=== PATIENT | male | born 1955 | race Caucasian/White ===

== ENCOUNTER → 2017-12-31 08:11 | Outpatient (CLI) | payer MEDICARE, OTHER, SELFPAY ==
[2017-12-31 09:08] LABS: Add Manual Diff / Slide Review NO; Basophils Percent Auto 0.5 % (0-2); Eosinophils Percent Auto 1.4 % (2-4); Hematocrit 39.4 % (41-53); Lymphocytes Percent Auto 45.4 % (25-40); Mean Corpuscular Hemoglobin 28.5 PG (26-34); Mean Corpuscular Volume 86.3 fL (80-100); Monocytes Percent Auto 13.4 % (3-14); Neutrophils Absolute Auto 2300 /uL (3000-5900); Neutrophils Percent Auto 39.3 % (50-75); Platelet Count 193 X10^3/uL (150-400); Red Blood Cell Count 4.57 X10^6/uL (4.5-5.9); Red Cell Distribution Width 14.9 % (11.6-14.8); White Blood Cell Count 5.9 X10^3/uL (4.5-11.0)
[2017-12-31 09:19] LABS: Alanine Aminotransferase 55 IU/L (21-72); Albumin 3.9 g/dL (3.5-5.0); Albumin Globulin Ratio 1.3 (1.0-2.8); Alkaline Phosphatase 68 U/L (38-126); Aspartate Aminotransferase 42 IU/L (17-59); BUN Creatinine Ratio 21.3 (6-22); Bilirubin Total 0.4 mg/dL (0.2-1.3); Blood Urea Nitrogen 17 mg/dL (9-20); Calcium 9.4 mg/dL (8.4-10.2); Carbon Dioxide 34 mmol/L (22-32); Chloride 102 mmol/L (98-107); Cholesterol 187 mg/dL (140-199); Estimated Glomerular Filt Rate > 60.0 mL/min (>60); Glucose 90 mg/dL (80-110); HDL Cholesterol 79 mg/dL (40-60); HEMOLYSIS < 15 (0-50); LDL Cholesterol Calculated 94 mg/dL (<100); Potassium 4.2 mmol/L (3.4-5.1); Sodium 143 mmol/L (137-145); Total Protein 6.9 g/dL (6.3-8.2); Triglycerides 71 mg/dL (35-150)
[2017-12-31 09:46] LABS: Prostate Specific Antigen Scrn 1.56 ng/mL (0.1-4.0); TSH w/ Reflex to FT4 1.58 uIU/mL (0.47-4.68)
== END ==
PROVIDERS: Family Provider Psychiatry & Neurology Neurology; PCP Internal Medicine; Visit Provider Internal Medicine
DX: Z00.00 Encounter for general adult medical examination without abnormal findings (principal); G35 Multiple sclerosis; R03.0 Elevated blood-pressure reading, without diagnosis of hypertension; N31.0 Uninhibited neuropathic bladder, not elsewhere classified
CPT/HCPCS: 36415; 80053; 80061; 84443; 85025; G0103

== ENCOUNTER → 2019-01-05 11:34 | Outpatient (CLI) | payer MEDICARE, OTHER, SELFPAY ==
--- NOTE | 2019-01-05 | DI.US.S_ITS ---
PROCEDURE: US RENAL COMPLETE INDICATIONS: NEUROMUSCULAR DYSFUNCTION OF BLADDER, UNSPECIFIED TECHNIQUE: Real-time scanning was performed of the kidneys and bladder, with image documentation. COMPARISON: [facility], , US RENAL, 01/04/2003, 12:38. FINDINGS: Kidneys: Kidneys are normal in size. Right kidney measures 10.8 cm long; left kidney measures 10.7 cm long. Right renal cortical thickness is 1.2 cm; left renal cortical thickness is 1.8 cm. Renal cortical echotexture is normal. No hydronephrosis or nephrolithiasis. No suspicious solid mass lesions. Bladder: Pre-void bladder volume is 150 mL. Post-void residual is 165 mL. Pre-void images demonstrate no intraluminal masses or stones. On pre-void images, bilateral ureteral jets are noted with color Doppler interrogation. (Of note, ureteral jets may not be detectable in up to 25% of cases due to insufficient differences in specific gravity between ureteral and bladder urine). Urinary bladder is prominent in thickness measuring 8 mm. Miscellaneous: No free pelvic fluid. IMPRESSION: 1. Normal appearance of the kidneys. 2. Prominence of the urinary bladder wall measuring up to 8 mm. Dictated by: Sonu Ramos [facility] Interpreted: Aaron Mora MD on 01/05/2019 at 13:13 Approved by: Aaron Mora M.D. on 01/05/2019 at 14:24
== END ==
PROVIDERS: PCP Internal Medicine; Visit Provider Urology
DX: N31.9 Neuromuscular dysfunction of bladder, unspecified (principal)
CPT/HCPCS: 76770

== ENCOUNTER 2019-03-06 09:26 | Inpatient (IN) | payer MEDICARE, OTHER, SELFPAY ==
[2019-03-06] VITALS (9 sets, daily range): BP systolic 146–166; BP diastolic 76–103; PULSE 58–72; RESP 13–19; TEMP 36.4–37; O2SAT 98–100; BMI 24.7
[2019-03-06 10:04] LABS: INR 0.9 (0.9-1.3); Prothrombin Time 10.4 SECONDS (10.1-12.7)
[2019-03-06 10:07] LABS: PTT Partial Thromboplastin Tim 30 SECONDS (26.4-36.2)
[2019-03-06 10:08] LABS: Alanine Aminotransferase 52 IU/L (21-72); Albumin Globulin Ratio 1.1 (1.0-2.8); Alkaline Phosphatase 129 U/L (38-126); Aspartate Aminotransferase 60 IU/L (17-59); BUN Creatinine Ratio 23.8 (6-22); Bilirubin Total 0.8 mg/dL (0.2-1.3); Blood Urea Nitrogen 31 mg/dL (9-20); Carbon Dioxide 33 mmol/L (22-32); Chloride 96 mmol/L (98-107); Estimated Glomerular Filt Rate 56.1 mL/min (>60); Globulin 3.5 g/dL (1.7-4.1); Glucose 119 mg/dL (80-110); Lipase 21 U/L (23-300); Potassium 3.9 mmol/L (3.4-5.1); Sodium 136 mmol/L (137-145); Total Protein 7.5 g/dL (6.3-8.2)
[2019-03-06 10:17] LABS: Add Manual Diff / Slide Review NO; Basophils Absolute Auto 100 /uL (0-100); Basophils Percent Auto 0.7 % (0-2); Eosinophils Absolute Auto 100 /uL (0-450); Eosinophils Percent Auto 1.4 % (2-4); Hematocrit 36.8 % (41-53); Hemoglobin 12.4 g/dL (13.5-17.5); Lymphocytes Absolute Auto 1600 /uL (1100-4500); Lymphocytes Percent Auto 19.7 % (25-40); Mean Corpuscular HGB Conc 33.7 % (30-36); Mean Corpuscular Hemoglobin 29.1 PG (26-34); Mean Corpuscular Volume 86.2 fL (80-100); Monocytes Absolute Auto 900 /uL (0-900); Monocytes Percent Auto 11.4 % (3-14); Neutrophils Absolute Auto 5400 /uL (1500-7000); Neutrophils Percent Auto 66.8 % (50-75); Platelet Count 385 X10^3/uL (150-400); Red Blood Cell Count 4.27 X10^6/uL (4.5-5.9); Red Cell Distribution Width 14.6 % (11.6-14.8); White Blood Cell Count 8.1 X10^3/uL (4.5-11.0)
--- NOTE | 2019-03-06 10:31 | PC.NURSE ---
14 hungarian all silicone catheter placed
[2019-03-06 10:33] LABS: HEMOLYSIS 49 (0-50)
[2019-03-06 10:34] LABS: Bacteria Urine None Seen; RBC Urine None Seen (0-5/HPF); WBC Urine None Seen (0-5/HPF)
--- NOTE | 2019-03-06 10:40 | ED_ITS ---
HPI - Abdominal Pain General Chief Complaint: Abdominal Pain Stated Complaint: decreased ua output/abd pain ongoing 1month Time Seen by Provider: 03/06/19 10:40 Source: patient and family Mode of arrival: Wheelchair Limitations: no limitations History of Present Illness HPI narrative: This is a 63-year-old male who comes to the emergency department with complaint of increasing spasticity and weakness. Patient states he has been eating increasing help getting about. He has MS and is typically scooter bound but can transfer with some assistance. Patient states Friday a week ago he did have a cystoscopy which showed stricture. This was not unexpected finding as he self caths regularly secondary to neurogenic bladder from his MS. Patient states that 2 or 3 weeks ago he had a fever but has not had any since. He does not any chest pain, no shortness of breath. This morning he had a little bit of right upper quadrant pain which was sharp and lasted for about 5 minutes Um to 15 minutes and then resolved. He states that it seemed to be initiated by eating. He states it resolved on its own he denies any symptoms currently. He typically has slow bowel movements and takes senna tablets, his last bowel movement was several days ago. He is having flatus. States he has noted a decrease in his urine output, he self caths after voiding typically 8-10 times a day and typically gets about 300-400 cc total, he has been getting about 100 cc total recently. Has had a little bit more urgency and sensation of frequency and nocturia recently. Patient denies any other medical history, he has had tonsils and adenoids removed, no allergies now, no tobacco, alcohol or illicit. Dr. Longo is his primary care and Dr. Garcia is his neurologist at [facility]. Related Data Home Medications Medication Instructions Recorded Confirmed baclofen 20 mg PO Q6HR 03/06/19 03/06/19 cholecalciferol (vitamin D3) 2,000 unit PO DAILY 03/06/19 03/06/19 [Vitamin D3] citalopram 40 mg PO DAILY 03/06/19 03/06/19 docusate sodium 250 mg PO BEDTIME 03/06/19 03/06/19 interferon beta-1a (albumin) 44 mcg SUBCUT 3XW 03/06/19 03/06/19 [Rebif Rebidose] [id number] 1 tab PO DAILY 03/06/19 03/06/19 [Centrum Silver Men] Allergies Allergy/AdvReac Type Severity Reaction Status Date / Time No Known Drug Allergies Allergy Verified 03/06/19 09:40 Review of Systems Review of Systems ROS Unobtainable: All systems reviewed & are unremarkable except as noted in HPI and below Patient History Medical History (Updated 03/06/19 @ 11:05 by Natali Dumont DO) Multiple sclerosis (Acute) Neurogenic bladder (Acute) Surgical History (Updated 03/06/19 @ 11:03 by Natali Dumont DO) S/P tonsillectomy and adenoidectomy (Acute) Social History household members: spouse Smoking Status: Former smoker alcohol intake: never alcohol intake frequency: 0-2 drinks per day Substance Use Type: does not use Exam Narrative Exam Narrative: GENERAL: Alert and oriented x three, well-nourished male in mild distress. HEENT: Head normocephalic, atraumatic, EOMI, pupils reactive, face symmetric, moist mucous membranes NECK: Supple, full range of motion CARDIOVASCULAR: Regular rate and rhythm without murmurs, rubs or gallops. RESPIRATORY: Breath sounds equal bilaterally, no wheezes rales or rhonchi. ABDOMEN: Soft, nontender. Normoactive bowel sounds all 4 quadrants. No guarding or rebound, rigidity, no mass. nondistended. : No CVA tenderness. normal male genitalia with a urinary catheter draining yellow urine. EXTREMITIES: Patient has decreased movement his lower extremities and upper extremities although he does have some movement, no edema is noted. Patient has some mild to moderate atrophy. NEUROLOGICAL: Cranial nerves II through XII grossly intact. Moving all extremities SKIN: Warm, dry, no petechiae, no rashes or lesions. Initial Vital Signs Initial Vital Signs: Vital Signs Temperature 97.5 F L 03/06/19 09:30 Pulse Rate 63 03/06/19 09:30 Respiratory Rate 14 03/06/19 09:30 Blood Pressure 163/88 H 03/06/19 09:30 Pulse Oximetry 100 03/06/19 09:30 Scores GCS Jackson coma scale eye opening: Spontaneous Max coma scale verbal response: Orientated Jackson coma scale motor response: Obey commands Jackson coma scale total score: 15 Course Orders Ordered: ED Orders 03/06/19 09:42 EKG-12 Lead Stat 03/06/19 09:53 Complete Blood Count AUTO DIFF Stat Comprehensive Metabolic Panel Stat Lipase Stat Partial Thromboplastin Time Stat Prothrombin Time INR Stat Thyroid Stimulating Hormone Stat 03/06/19 10:32 Urinalysis and Microscopic Stat 03/06/19 10:59 US abdomen complete Stat 03/06/19 14:50 Basic Metabolic Panel Stat Discontinued Medications Baclofen (Lioresal) 20 mg PO NOW ONE Stop: 03/06/19 11:33 Last Admin: 03/06/19 11:38 Dose: 20 mg Documented by: ALMA Diazepam (Valium) 5 mg PO NOW ONE Stop: 03/06/19 13:19 Last Admin: 03/06/19 13:43 Dose: 5 mg Documented by: BRISA Sodium Chloride (Normal Saline 0.9%) 1,000 mls @ 1,000 mls/hr IV BOLUS ONE Stop: 03/06/19 11:40 Last Infusion: 03/06/19 12:27 Dose: 0 mls/hr Documented by: Admin: 03/06/19 10:45 Dose: 1,000 mls/hr Documented by: KWAN Sodium Chloride (Normal Saline 0.9%) 1,000 mls @ 200 mls/hr IV CONT LOCO Last Admin: 03/06/19 13:44 Dose: Not Given Documented by: BRISA Sodium Chloride (Normal Saline 0.9%) 1,000 mls @ 1,000 mls/hr IV BOLUS ONE Stop: 03/06/19 14:31 Last Admin: 03/06/19 13:43 Dose: 1,000 mls/hr Documented by: BRISA Vital Signs Vital signs: Vital Signs - 8 hr 03/06/19 09:30 03/06/19 10:30 03/06/19 11:00 Temperature 97.5 F L Pulse Rate 63 58 L 59 L Respiratory Rate 14 16 19 Blood Pressure 163/88 H Blood Pressure [Right Arm] 166/88 H 154/97 H Pulse Oximetry 100 100 100 03/06/19 11:30 03/06/19 13:00 Temperature Pulse Rate 59 L 62 Respiratory Rate 18 17 Blood Pressure Blood Pressure [Right Arm] 162/103 H 161/86 H Pulse Oximetry 100 100 MDM - Abdominal Pain Lab Data Attestation: I reviewed the patient's lab results. Result diagrams: 03/06/19 09:53 03/06/19 09:53 Labs: Lab Results 03/06/19 03/06/19 03/06/19 Range/Units 09:53 09:53 09:53 WBC 8.1 (4.5-11.0) X10^3/uL RBC 4.27 L (4.5-5.9) X10^6/uL Hgb 12.4 L (13.5-17.5) g/dL Hct 36.8 L (41-53) % MCV 86.2 (80-100) fL MCH 29.1 (26-34) PG MCHC 33.7 (30-36) % RDW 14.6 (11.6-14.8) % Plt Count 385 (150-400) X10^3/uL Neut % (Auto) 66.8 (50-75) % Lymph % (Auto) 19.7 L (25-40) % Spencer % (Auto) 11.4 (3-14) % Eos % (Auto) 1.4 L (2-4) % Baso % (Auto) 0.7 (0-2) % Neut # (Auto) 5400 (3111-4530) /uL Lymph # (Auto) 1600 (2856-4837) /uL Spencer # (Auto) 900 (0-900) /uL Eos # (Auto) 100 (0-450) /uL Baso # (Auto) 100 (0-100) /uL PT 10.4 (10.1-12.7) SECONDS INR 0.9 (0.9-1.3) APTT 30 (26.4-36.2) SECONDS Sodium 136 L (137-145) mmol/L Potassium 3.9 (3.4-5.1) mmol/L Chloride 96 L (98-107) mmol/L Carbon Dioxide 33 H (22-32) mmol/L BUN 31 H (9-20) mg/dL Creatinine 1.30 H (0.66-1.25) mg/dL Estimated GFR 56.1 L (>60) mL/min BUN/Creatinine Ratio 23.8 H (6-22) Glucose 119 H (80-110) mg/dL Calcium 14.1 H* (8.4-10.2) mg/dL Total Bilirubin 0.8 (0.2-1.3) mg/dL AST 60 H (17-59) IU/L ALT 52 (21-72) IU/L Alkaline Phosphatase 129 H (38-126) U/L Total Protein 7.5 (6.3-8.2) g/dL Albumin 4.0 (3.5-5.0) g/dL Globulin 3.5 (1.7-4.1) g/dL Albumin/Globulin Ratio 1.1 (1.0-2.8) Lipase 21 L (23-300) U/L TSH (0.47-4.68) uIU/mL Urine Color Urine Appearance Urine pH (4.5-8.0) Ur Specific [place] (1.000-1.035) Urine Protein (Negative) Urine Glucose (UA) (Negative) g/dL Urine Ketones (NEGATIVE) Urine Occult Blood (Negative) Urine Nitrate (Negative) Urine Bilirubin (NEGATIVE) Urine Urobilinogen (0.2) E.U./dL Ur Leukocyte Esterase (NEGATIVE) Urine RBC (0-5/HPF) Urine WBC (0-5/HPF) Ur Squamous Epith Cells (0-5/HPF) Urine Bacteria (None) Ur Culture Indicated? 03/06/19 03/06/19 Range/Units 09:53 10:32 WBC (4.5-11.0) X10^3/uL RBC (4.5-5.9) X10^6/uL Hgb (13.5-17.5) g/dL Hct (41-53) % MCV (80-100) fL MCH (26-34) PG MCHC (30-36) % RDW (11.6-14.8) % Plt Count (150-400) X10^3/uL Neut % (Auto) (50-75) % Lymph % (Auto) (25-40) % Spencer % (Auto) (3-14) % Eos % (Auto) (2-4) % Baso % (Auto) (0-2) % Neut # (Auto) (1225-7462) /uL Lymph # (Auto) (1561-3691) /uL Spencer # (Auto) (0-900) /uL Eos # (Auto) (0-450) /uL Baso # (Auto) (0-100) /uL PT (10.1-12.7) SECONDS INR (0.9-1.3) APTT (26.4-36.2) SECONDS Sodium (137-145) mmol/L Potassium (3.4-5.1) mmol/L Chloride (98-107) mmol/L Carbon Dioxide (22-32) mmol/L BUN (9-20) mg/dL Creatinine (0.66-1.25) mg/dL Estimated GFR (>60) mL/min BUN/Creatinine Ratio (6-22) Glucose (80-110) mg/dL Calcium (8.4-10.2) mg/dL Total Bilirubin (0.2-1.3) mg/dL AST (17-59) IU/L ALT (21-72) IU/L Alkaline Phosphatase (38-126) U/L Total Protein (6.3-8.2) g/dL Albumin (3.5-5.0) g/dL Globulin (1.7-4.1) g/dL Albumin/Globulin Ratio (1.0-2.8) Lipase (23-300) U/L TSH 2.40 (0.47-4.68) uIU/mL Urine Color Yellow Urine Appearance Clear Urine pH 6.0 (4.5-8.0) Ur Specific [place] 1.010 (1.000-1.035) Urine Protein Negative (Negative) Urine Glucose (UA) Negative (Negative) g/dL Urine Ketones Negative (NEGATIVE) Urine Occult Blood Trace-lysed (Negative) Urine Nitrate Negative (Negative) Urine Bilirubin Negative (NEGATIVE) Urine Urobilinogen 0.2 (0.2) E.U./dL Ur Leukocyte Esterase Negative (NEGATIVE) Urine RBC None seen (0-5/HPF) Urine WBC None seen (0-5/HPF) Ur Squamous Epith Cells 1-5 /hpf (0-5/HPF) Urine Bacteria None seen (None) Ur Culture Indicated? Cult not indicated Imaging Data US - abdomen: Radiologist's impression: [address] [address] Ultrasound Report Signed Patient: Wm Keys WMR#: [id number] : 8Acct:[id number] Age/Sex: 63 / MDate of Service: 03/06/19 Loc: ED Accession Number: [id number] Procedure: US abdomen complete Ordering Provider: Natali Dumont D.O. PROCEDURE: US ABDOMEN COMPLETE INDICATIONS: RIGHT UPPER QUADRANT PAIN TECHNIQUE: Real-time scanning was performed of the abdominal and retroperitoneal organs, with image documentation. COMPARISON: [facility], US, ABDOMEN COMPLETE, 06/11/2012, 8:46. FINDINGS: Liver: Liver is normal in size and homogeneous in echotexture. Gallbladder: No findings of gallstones or sludge are seen. The gallbladder wall is not thickened, measuring 3 mm or less. No specific pericholecystic fluid is seen. The sonographic Bhagat sign is negative. Biliary ducts: Intrahepatic bile ducts are non-dilated. Extrahepatic bile duct caliber measures 6-7 mm. Normal is 6-7 mm or less in diameter, or 10 mm or less post-cholecystectomy. Pancreas: Not seen, obscured by overlying bowel gas. Spleen: Spleen is normal in size and homogeneous in echotexture. Kidneys: Kidneys are normal in size and echotexture. Right kidney measures 11.8 cm long; left kidney measures 12.3 cm long. No hydronephrosis or nephrolithiasis. No solid masses. The renal cortex measures within normal limits for thickness. Aorta: Visualized aorta is normal in caliber at less than 3 cm. Iliacs: Proximal common iliac arteries are normal in caliber at less than 2.5 cm. IVC: Intrahepatic inferior vena cava is patent. Miscellaneous: No free abdominal fluid. IMPRESSION: The gallbladder demonstrates a normal sonographic appearance. No biliary dilatation is seen. Note: Concordant preliminary findings given by the mixer foam rubber upon the completion of the examination to Dr. Dumont at 12 noon [place] time on March 06, 2019. Dictated by: Everardo Hodgson M.D. on 03/06/2019 at 11:04 Approved by: Everardo Hodgson M.D. on 03/06/2019 at 11:05 ECG Data Attestation: I personally reviewed and interpreted this ECG as follows: Interpretation: Sinus bradycardia rate of 58 P are 146 QRS of 121 and QTC 397[address] No ST elevation appreciated nonspecific change. No Diego waves appreciated. MDM Narrative Medical decision making narrative: Patient has hypercalcemia which is likely related to his worsening weakness and symptoms. Patient given home dose of baclofen. Spoke with Dr. Martinez from neurology at [facility], he is covering the patient's neurologist. Patient is taking a monoclonal antibody which states should not be a cause for his hypercalcemia or acute kidney injury. Patient given hydration, pth and tsh added onto labs and discussed with Dr. Marie hospitalist for observation with tele, she accepts. Asks for 2nd Liter t hen 125cc/hr. Discharge Plan Departure Patient Disposition: Admitted as Observation Clinical Impression: Hypercalcemia, Acute kidney injury Discharge Date/Time: 03/06/19 14:15 Referrals: Roberto Longo MD [Primary Care Provider] - Admit Date/Time: 03/06/19 13:51 Admit Provider: Qi Marie
[2019-03-06 10:41] LABS: Calcium 14.1 mg/dL (8.4-10.2)
[2019-03-06] MEDS: SODIUM CHLORIDE 0.9% 1,000 ML 1000 ML IV ×2 (10:45→13:43)
[2019-03-06 10:46] LABS: Appearance Urine UA CLEAR; Bilirubin Urine UA NEGATIVE (NEGATIVE); Color Urine UA YELLOW; Glucose Urine UA NEGATIVE (Negative); Ketones Urine UA NEGATIVE (NEGATIVE); Leukocyte Esterase Urine UA NEGATIVE (NEGATIVE); Nitrite Urine UA NEGATIVE (Negative); Occult Blood Urine UA TRACE-LYSED (Negative); Protein Urine UA NEGATIVE (Negative); Urobilinogen Urine UA 0.2 E.U./dL (0.2)
[2019-03-06 10:53] LABS: Culture Indicated Urine Cult Not Indicated; Squamous Epithelial Cell Urine 1-5 /HPF (0-5/HPF)
--- NOTE | 2019-03-06 10:59 | DI.US.S_ITS ---
PROCEDURE: US ABDOMEN COMPLETE INDICATIONS: RIGHT UPPER QUADRANT PAIN TECHNIQUE: Real-time scanning was performed of the abdominal and retroperitoneal organs, with image documentation. COMPARISON: [facility], US, ABDOMEN COMPLETE, 06/11/2012, 8:46. FINDINGS: Liver: Liver is normal in size and homogeneous in echotexture. Gallbladder: No findings of gallstones or sludge are seen. The gallbladder wall is not thickened, measuring 3 mm or less. No specific pericholecystic fluid is seen. The sonographic Bhagat sign is negative. Biliary ducts: Intrahepatic bile ducts are non-dilated. Extrahepatic bile duct caliber measures 6-7 mm. Normal is 6-7 mm or less in diameter, or 10 mm or less post-cholecystectomy. Pancreas: Not seen, obscured by overlying bowel gas. Spleen: Spleen is normal in size and homogeneous in echotexture. Kidneys: Kidneys are normal in size and echotexture. Right kidney measures 11.8 cm long; left kidney measures 12.3 cm long. No hydronephrosis or nephrolithiasis. No solid masses. The renal cortex measures within normal limits for thickness. Aorta: Visualized aorta is normal in caliber at less than 3 cm. Iliacs: Proximal common iliac arteries are normal in caliber at less than 2.5 cm. IVC: Intrahepatic inferior vena cava is patent. Miscellaneous: No free abdominal fluid. IMPRESSION: The gallbladder demonstrates a normal sonographic appearance. No biliary dilatation is seen. Note: Concordant preliminary findings given by the manager data warehousing upon the completion of the examination to Dr. Dumont at 12 noon [place] time on March 06, 2019. Dictated by: Everardo Hodgson M.D. on 03/06/2019 at 11:04 Approved by: Everardo Hodgson M.D. on 03/06/2019 at 11:05
[2019-03-06] MEDS: BACLOFEN 10 MG TABLET 20 MG PO ×2 (11:38→19:17)
[2019-03-06] MEDS: diazePAM 5 MG TABLET PO (13:43)
--- NOTE | 2019-03-06 15:27 | PC.NURSE ---
Admit: Arrived to room 221 approx 1430. Awake and alert, oriented X3. C/O generalized weakness, which is what brought him in today. Also has chronic numbness/tingling and weakness in R sided extremities w/ R hand contracture. Denied pain, chest pain or shortness of breath. Tele monitoring ongoing. Transferred to bed using slider board. [place] to gravity, urine clear yellow. Needs to be assisted with repositioning at least Q2H with heels floated. Lungs CTA, HRR. BT+. Reported last BM was 03/02 and that normally I go every two or three days. IVF running per ED orders (finishing 1L bolus)- IV site L hand WNL. Oriented to room and call light, encouraged to make needs known. Call light within reach, bed alarm on. Liz shift RN aware that everything for the admit has been done except the med list.
[2019-03-06 15:28] LABS: BUN Creatinine Ratio 20.8 (6-22); Blood Urea Nitrogen 27 mg/dL (9-20); Carbon Dioxide 34 mmol/L (22-32); Chloride 99 mmol/L (98-107); Estimated Glomerular Filt Rate 56.1 mL/min (>60); Glucose 85 mg/dL (80-110); HEMOLYSIS < 15 (0-50); Potassium 3.8 mmol/L (3.4-5.1); Sodium 138 mmol/L (137-145)
[2019-03-06 16:02] LABS: Calcium 13.5 mg/dL (8.4-10.2)
[2019-03-06] MEDS: CALCITONIN,SALMON 400 UNITS/2 ML MDV 300 UNITS SUBCUT (16:43)
[2019-03-06] MEDS: SODIUM CHLORIDE 0.9% 1,000 ML 200 ML IV ×2 (18:15→23:24)
--- NOTE | 2019-03-06 21:16 | PM.HP.1 ---
History of Present Illness History of Present Illness Date Patient Seen: 03/06/19 Time Patient Seen: 20:32 Chief complaint: decreased ua output/abd pain ongoing 1month Narrative: The patient is a 63-year-old male with PMH of MS (dx 1998), neurogenic bladder, spasticity, GERD, constipation and gastroparesis. Patient presented to the ED on 03/06 out of concern for RUQ abdominal pain. Reports discomfort below the ribs at the right anterior and lateral torso. Additional GI symptoms included nausea with dry heaving. Pain exacerbated after meal consumption. Resolves without intervention. Recently has been suffering from worsening symptoms of GERD, which she has been treating with OTC Prilosec. Patient reports intentional weight loss since November of 2018. Patient is having difficulty quantifying weight loss. He has been on a weight loss program, [employer] and a restricted calorie intake of 1000 matty per day. Patient with underlying history of MS and associated spasticity. In the past one month has been experiencing worsening spasticity, and even more so over the past week. Typically treats with baclofen 20 mg 4 times a day while awake, and endorses using additional 2 doses overnight. Additional symptoms include difficulty sleeping, sensation of urinary urgency and frequency, polyuria, confusion, generalized weakness, dizziness. Denies chest pain, palpitations, muscle and joint pain. Denies diarrhea. One week ago experienced a 24-48 hour episode of generalized malaise and fever (T 102.9F), which self-resolved. He does take vitamin-D 2000 units daily and Centrum Silver 4 minutes., no recent change in his dose. Also, on citalopram 40 mg daily. MS is treated with interferon beta-1a [Rebif Rebidose]. In October of 2018 patient was started on a research study aimed at improving ability to walk. He felt the medication he is receiving through the study has helped initially, but not in recent weeks. ED presentation & work-up VS, 03/06 at 0930. T 97.5? F BP 163/88 HR 63 RR 14 SpO2 100% on room air GCS 15 on presentation. EKG, 03/06/2019 at 0948, revealed SB (rate 58) w/ moderate intraventricular conduction delay & non-specific T-wave abnormality. QRS 47 ms, QT 399. SHORT Labs 03/06/2019, 0953 WBC 8.1 HGB 12.4 HCT 36.8 PLT 385 PT 10.4 INR 0.9 APTT 30 NA 136 K 3.9 Cl 96 Alb 4.0 Glu 119 CO2 33 BUN 31 Cr 1.3 BUN/CR 23.8 T.Bili 0.8 AST 60 ALT 52 ALK PHOS 129 Lipase 21 TSH 2.4 UA negative U/S abdomen complete, essentially unremarkable Gallbladder demonstrates normal sonographic appearance. No biliary dilatation. Liver is normal in size and homogeneous in echotexture. Intrahepatic ducts are nondilated. Extra hepatic bile duct caliber within normal limits. Pancreas is not seen, obscured by overlying bowel gas. Spleen is normal in size and homogeneous echotexture . No free abdominal fluid. intrahepatic inferior vena cava is patent. Proximal common iliac arteries are normal in caliber. Visualized aorta is normal in caliber at less than 3 cm. right kidney 11.8 cm, left kidney 12.3 cm. No hydronephrosis or nephrolithiasis. No solid masses. The renal cortex measures within normal limits for thickness. Patient History Medical History (Updated 03/07/19 @ 00:26 by YOSEPH Nava) Anxiety and depression (Chronic) Multiple sclerosis (Acute) Neurogenic bladder (Acute) Surgical History (Updated 03/07/19 @ 00:25 by YOSEPH Nava) S/P tonsillectomy and adenoidectomy (Chronic) Family & Social History Family History Mother Obesity Hypertension Brother Renal cancer Social History: household members Spouse Prior Living Arrangements House Safety & Behavioral: Feels Safe in Current Yes Environment Been Physically Hurt or No Threatened By a Person Suicidal Ideation Description Vague Suicide Plan Description No Plan Tobacco & Substance use: Smoking Status Former smoker, 1/2-1 ppd high school and college, quit in 1983 alcohol intake Never alcohol intake frequency 0-2 drinks per day Substance Use Type Denies prior and current use Meds Home Medications and Allergies Home Medications Medication Instructions Recorded Confirmed Type baclofen 20 mg PO Q6HR 03/06/19 03/06/19 History cholecalciferol (vitamin D3) 2,000 unit PO DAILY 03/06/19 03/06/19 History [Vitamin D3] citalopram 40 mg PO DAILY 03/06/19 03/06/19 History docusate sodium 250 mg PO BEDTIME 03/06/19 03/06/19 History interferon beta-1a (albumin) 44 mcg SUBCUT 3XW 03/06/19 03/06/19 History [Rebif Rebidose] ocszgtwz-[id number]-MJ-lycopen-lutein 1 tab PO DAILY 03/06/19 03/06/19 History [Sana Silver Men] Allergies Allergy/AdvReac Type Severity Reaction Status Date / Time No Known Drug Allergies Allergy Verified 03/06/19 09:40 Review of Systems Review of Systems ROS Unobtainable: All systems reviewed & are unremarkable except as noted in HPI and below Exam Vital Signs (past 8 hours): - 03/06/19 14:00 03/06/19 14:25 03/06/19 15:39 Temperature 97.5 F L 97.7 F Pulse Rate 61 58 L 58 L Respiratory Rate 13 16 18 Blood Pressure 159/81 H 146/76 H Blood Pressure [Right Arm] 160/99 H Pulse Oximetry 100 98 100 03/06/19 20:09 Temperature 98.6 F Pulse Rate 72 Respiratory Rate 16 Blood Pressure 149/76 H Blood Pressure [Right Arm] Pulse Oximetry 98 Oxygen Delivery Method Room Air Oxygen Flow Rate 0 Narrative Exam Narrative: Constitutional: NAD Neurologic: Awake and alert, oriented x3, fair historian Apparent memory deficit Head: NC, AT Eyes: PERRL, EOMI, Ears: external ears normal, no otorrhea Nose: external nose normal, no rhinorrhea or epistaxis Throat: MMM, oropharynx w/o exudate Neck: no masses, lymphadenopathy, or JVD Chest / Respiratory: equal chest rise, unlabored respiratory effort, CTAB, no dyspnea or tachypnea Heart / CV: S1S2, no murmur Abdomen / GI: round, NT, ND, + BS, no organomegaly : no suprapubic tenderness, no CVA Peripheral / Vascular: right foot, ankle, LE - mildly edema and erythima at sight; adequate perfusion Musc: diminished ROM in both upper and lower extremities; diminished muscle tone and BLE foot drop Skin: no ecchymosis or suspicious lesions; mycotic toenails (right worse than left) Objective Labs Result Diagrams: 03/06/19 09:53 03/06/19 22:10 Labs: Laboratory Results - last 24 hr 03/06/19 03/06/19 03/06/19 09:53 09:53 09:53 WBC 8.1 RBC 4.27 L Hgb 12.4 L Hct 36.8 L MCV 86.2 MCH 29.1 MCHC 33.7 RDW 14.6 Plt Count 385 Neut % (Auto) 66.8 Lymph % (Auto) 19.7 L [place] % (Auto) 11.4 Eos % (Auto) 1.4 L Baso % (Auto) 0.7 Neut # (Auto) 5400 Lymph # (Auto) 1600 [place] # (Auto) 900 Eos # (Auto) 100 Baso # (Auto) 100 PT 10.4 INR 0.9 APTT 30 Sodium 136 L Potassium 3.9 Chloride 96 L Carbon Dioxide 33 H BUN 31 H Creatinine 1.30 H Estimated GFR 56.1 L BUN/Creatinine Ratio 23.8 H Glucose 119 H Calcium 14.1 H* Total Bilirubin 0.8 AST 60 H ALT 52 Alkaline Phosphatase 129 H Total Protein 7.5 Albumin 4.0 Globulin 3.5 Albumin/Globulin Ratio 1.1 Lipase 21 L TSH Urine Color Urine Appearance Urine pH Ur Specific [place] Urine Protein Urine Glucose (UA) Urine Ketones Urine Occult Blood Urine Nitrate Urine Bilirubin Urine Urobilinogen Ur Leukocyte Esterase Urine RBC Urine WBC Ur Squamous Epith Cells Urine Bacteria Ur Culture Indicated? 03/06/19 03/06/19 03/06/19 09:53 10:32 14:50 WBC RBC Hgb Hct MCV MCH MCHC RDW Plt Count Neut % (Auto) Lymph % (Auto) [place] % (Auto) Eos % (Auto) Baso % (Auto) Neut # (Auto) Lymph # (Auto) [place] # (Auto) Eos # (Auto) Baso # (Auto) PT INR APTT Sodium 138 Potassium 3.8 Chloride 99 Carbon Dioxide 34 H BUN 27 H Creatinine 1.30 H Estimated GFR 56.1 L BUN/Creatinine Ratio 20.8 Glucose 85 Calcium 13.5 H* Total Bilirubin AST ALT Alkaline Phosphatase Total Protein Albumin Globulin Albumin/Globulin Ratio Lipase TSH 2.40 Urine Color Yellow Urine Appearance Clear Urine pH 6.0 Ur Specific [place] 1.010 Urine Protein Negative Urine Glucose (UA) Negative Urine Ketones Negative Urine Occult Blood Trace-lysed Urine Nitrate Negative Urine Bilirubin Negative Urine Urobilinogen 0.2 Ur Leukocyte Esterase Negative Urine RBC None seen Urine WBC None seen Ur Squamous Epith Cells 1-5 /hpf Urine Bacteria None seen Ur Culture Indicated? Cult not indicated Assessment & Plan Assessment & Plan narrative: Patient is admitted under observation status for evaluation of hypercalcemia, dehydration, TOMMIE Hypercalcemia, acute, present on admission, active Dx to consider: Hyperparathyroidism (primary vs secondary) vs Malignancy vs Vitamin D toxicity vs Hyperthyroidism / Endocrine disorders Likely not medication related. Not on thiazide or lithium. Need to be mindful of the unknown medication patient is receiving w/ the research study. - Ca 14.1 -> 13.5, continue trending Ca level Q6-8H until normalized receiving IVF received 300 units of calcitonin IV - Associated EKG changes of bradycardia, short QRS of 47 ms, and short QT 399 ms - Repeat CMP, Mg, Phos, 25 OH-D and 1,25 (OH)2 D, and ionized calcium at 2200 - Add random urine calcium to lab from ED - TSH WNL - iPTH collected, send out, results pending - Continue IVF at 200 ml/hr - Hold SECURITY INCIDENT HANDLER meds: Vitamin D, Centrum Silver for men Acute kidney injury, present on admission, active - sCr 1.3 (no lab data to review trend; however, sCr 0.8 (12/31/2018) - TOMMIE in the setting of hypercalcemia due to renal vasoconstriction and natriuresis induced volume contraction - Continue IVF - Trend renal function - Strict I/O monitoring Chronic progressive multiple sclerosis, present on admission, active - Follows with a neurologist at [facility] ([place], [place]). - Concern for advancing MS. Patient states that he has a pending MRI order in the outpatient setting in the near future for evaluation of MS progression Muscle spasticity, chronic condition secondary to underlying MS, present on admission, active Muscle spasticity, a sequela of MS, which he manages with oral baclofen 20 mg QID, and additional 2-3 prn doses daily Dose of baclofen is too high. Discussed with patient baclofen pump. During this hospital admission baclofen will be reduced to 10 mg Q6H. Will add tizanidine 2 mg Q8H prn Neurogenic bladder with incomplete bladder emptying, chronic condition, present on admission, stable Self catheterizes self for 20 years, in the past month as much as Q2H. No history of recurrent UTIs. Currently has symptoms of urinary urgency, frequency, and incomplete bladder emptying. - Atwood catheter has been placed in ED w/ immediate urine output of 1000 ml - UA unremarkable and not suggestive of an acute infection Interstitial cystitis, chronic condition, present on admission Patient with a history of frequent self catheterization. There is a concern fibrotic changes within the bladder, causing neurogenic up regulation and sensory nerve activation in the bladder and development neuro changes within the spinal cord leading to chronic symptoms of urinary urgency, frequency and discomfort. RLE inflammation, acute vs chronic, present on admission, active - No overt edema, erythema, or tenderness. Calor on exam, when compared to LLE. Adequate perfusion. - Will monitor closely Anxiety and depression, chronic condition, present on admission, stable - Hold citalopram 40 mg daily, due to multiple [id number] interactions Code status discussed with patient. Wishes to be DNR. He has a POLST form. Spouse is the DPOA. Home medications reviewed and reconciled accordingly. VTE prophylaxis w/ Heparin. Quality VTE Deep Vein Thrombosis/Pulmonary Embolism Present on Admission: No
[2019-03-06] MEDS: DOCUSATE 250 MG CAPSULE PO (21:37)
[2019-03-06 22:34] LABS: Alanine Aminotransferase 49 IU/L (21-72); Albumin 3.1 g/dL (3.5-5.0); Alkaline Phosphatase 120 U/L (38-126); Aspartate Aminotransferase 42 IU/L (17-59); Bilirubin Total 0.5 mg/dL (0.2-1.3); Blood Urea Nitrogen 22 mg/dL (9-20); Calcium 11.7 mg/dL (8.4-10.2); Carbon Dioxide 30 mmol/L (22-32); Chloride 101 mmol/L (98-107); Estimated Glomerular Filt Rate > 60.0 mL/min (>60); Glucose 101 mg/dL (80-110); HEMOLYSIS < 15 (0-50); Magnesium 1.3 mg/dL (1.6-2.3); Potassium 3.6 mmol/L (3.4-5.1); Sodium 135 mmol/L (137-145); Total Protein 6.1 g/dL (6.3-8.2)
[2019-03-06 23:27] LABS: Vitamin D 25 Hydroxy (D3) 61.5 ng/mL (30.0-100.0)
[2019-03-07] VITALS: BP 141/76; PULSE 72; RESP 16; TEMP 37.1; O2SAT 97
[2019-03-07] MEDS: ACETAMINOPHEN 325 MG TABLET 650 MG PO ×3 (00:10→14:32)
[2019-03-07] MEDS: BACLOFEN 10 MG TABLET PO ×2 (00:51→05:50)
[2019-03-07] MEDS: MAGNESIUM SULFATE 2 GM/50 ML PIGGYBACK IV ×2 (00:56→15:33)
[2019-03-07 01:41] LABS: Calcium Urine Random 49.4
[2019-03-07] MEDS: TIZANIDINE 4 MG TABLET 2 MG PO ×2 (02:20→14:33)
--- NOTE | 2019-03-07 02:45 | PC.NURSE ---
YOSEPH Anthony, notified that pt/ C/O nausea& dry heaves. C/O tooth crown pain, SANCHEZ, & acid reflux. Will cont. POC & monitor.
[2019-03-07] MEDS: ONDANSETRON 4 MG/2 ML INJ IV (02:54)
[2019-03-07] MEDS: QUETIAPINE 25 MG TABLET 12.5 MG PO (02:59)
[2019-03-07] MEDS: diazePAM 2 MG TABLET PO (03:27)
[2019-03-07 03:36] VITALS: BP 125/69; PULSE 72; RESP 16; TEMP 36.5; O2SAT 97
[2019-03-07 08:00] VITALS: BP 131/77; PULSE 64; RESP 14; TEMP 36.8; O2SAT 97
[2019-03-07] MEDS: HEPARIN 5,000 UNIT/ML VIAL 5000 UNIT SUBCUT ×2 (08:38→20:56)
[2019-03-07] MEDS: SODIUM CHLORIDE 0.9% 1,000 ML 200 ML IV (08:41)
--- NOTE | 2019-03-07 09:17 | CM.DANOTE ---
Addendum entered by Deepthi Webb R.N. 03/07/19 14:36: Floor nurse, Stephanie, had expressed concerns that patient may be suicidal. Dr. Marie had gone in to speak to patient, , Nelia, present. He had stated that he considers wanting to get into his scooter and go off the pier. was in room and present when this conversation occurred. Patient did not make statements of this sort when this showcase trimmer assessed him this morning. Dr. Marie has discussed possibility of patient going to voluntary facility for psych unit, and is wanting SIGNAL CONSTRUCTOR to consult. NELSON Rowe, is aware of case. Concern is that patient is not mobile, and many facilities require patient to be mobile before they can accept. SIGNAL CONSTRUCTOR will consult and follow up with this case as well. Patient will be here another day. Original Note: DCP: Case received, EMR reviewed and met with patient. Introduced self and role. Was able to meet with patient and obtain baseline health and activity information. DCP assessment/template completed with information currently available. Patient is a 63 year old male who admitted yesterday afternoon to the care of the hospitalist team. PCP: Dr. Longo. Payer: confirmed: Medicare/[employer]. Patient came to the hospital secondary to increased spasticity and weakness. Patient also was noted to have decreased urinary output. Patient has history of MS, and does self catheterize. He currently holds a diagnosis of hypercalcemia and dehydration. Met with patient in his room, he was sitting up in bed. He lives with his spouse, Nelia, here in [place]. He stated that he uses an electric wheel-chair, and a 4 arm cane around the house, but stated, since he has been ill, has been very weak. He mentioned that he has not been able to shower lately. Patient has history of neutropenic bladder, and self caths. He has a neurologist at [facility] that he is also seeing. Patient stated, right now, I'm too weak to go home, and don't think that my would be able to handle me. Patient is under observation status at this time, but pending review. Mentioned possibility of nursing, P.T. with home health as an option. P: DCP to continue to follow case closely. Will see how he progresses here in hospital, and will also consult with physical therapy team as well. Deepthi Webb RN/[employer]
[2019-03-07 09:42] LABS: Add Manual Diff / Slide Review NO; Basophils Absolute Auto 200 /uL (0-100); Basophils Percent Auto 1.6 % (0-2); Eosinophils Absolute Auto 200 /uL (0-450); Eosinophils Percent Auto 1.8 % (2-4); Hematocrit 31.4 % (41-53); Hemoglobin 10.7 g/dL (13.5-17.5); Lymphocytes Absolute Auto 2400 /uL (1100-4500); Mean Corpuscular Hemoglobin 29.2 PG (26-34); Mean Corpuscular Volume 85.7 fL (80-100); Monocytes Absolute Auto 1000 /uL (0-900); Monocytes Percent Auto 9.6 % (3-14); Neutrophils Absolute Auto 6700 /uL (1500-7000); Platelet Count 306 X10^3/uL (150-400); Red Blood Cell Count 3.66 X10^6/uL (4.5-5.9); Red Cell Distribution Width 14.6 % (11.6-14.8); White Blood Cell Count 10.4 X10^3/uL (4.5-11.0)
[2019-03-07 09:55] LABS: Alanine Aminotransferase 43 IU/L (21-72); Albumin 2.9 g/dL (3.5-5.0); Albumin Globulin Ratio 0.9 (1.0-2.8); Alkaline Phosphatase 106 U/L (38-126); Aspartate Aminotransferase 38 IU/L (17-59); Bilirubin Total 0.7 mg/dL (0.2-1.3); Blood Urea Nitrogen 22 mg/dL (9-20); Carbon Dioxide 28 mmol/L (22-32); Chloride 96 mmol/L (98-107); Estimated Glomerular Filt Rate > 60.0 mL/min (>60); Globulin 3.1 g/dL (1.7-4.1); Glucose 119 mg/dL (80-110); HEMOLYSIS < 15 (0-50); Magnesium 1.5 mg/dL (1.6-2.3); Potassium 4.1 mmol/L (3.4-5.1); Sodium 129 mmol/L (137-145)
[2019-03-07] MEDS: BACLOFEN 10 MG TABLET 20 MG PO ×3 (11:09→23:51)
[2019-03-07 11:47] VITALS: BP 150/77; PULSE 63; RESP 13; TEMP 37.2; O2SAT 97
--- NOTE | 2019-03-07 13:20 | P.PN_ITS ---
Subjective Subjective Date Patient Seen: 03/07/19 Interval history: Wm Keys is a 63-year-old male with a past medical history signicificant for progressive MS (dx 1997), neurogenic bladder requiring self catheterization, spasticity, GERD, constipation and gastroparesis who presented to the ED out of concern for RUQ abdominal pain. The patient is resting in bed and appears mildly uncomfortable due to muscle spasticity. Patient's spouse is at bedside and inquires regarding patients overall mood. The patient was very forth coming and reports suicidality with a plan in place to take his life. The patient reports that he is planning to take [employer] [facility] to the [facility] in [place] where there are no guard rails and drive his scooter over the edge. The patient reports that he has been suicidal for some time and that he lied during his initial intake for his experimental treatment for MS. Called [facility] neurology to inquire regarding patient's experimental medication and any side effects of worsening depression for which the senior application software engineer neurologist was unsure and recommended calling back tomorrow when the MS clinic is open and speak to one with his specialist. He endorses depressed mood, disinterest, and decreased appetite. He also endorses severe muscle spasticity which is unbearable. He has no other complaints and denies headache, shortness of breath, chest pain, abdominal pain, nausea, vomiting, fever, chills, dysuria, diarrhea or constipation. He has a neurogenic bladder and is voiding via Atwood catheter. He is bed and wheel chair bound. Exam Vital Signs (past 8 hours): - 03/07/19 08:00 03/07/19 11:47 Temperature 98.3 F 98.9 F Pulse Rate 64 63 Respiratory Rate 14 13 Blood Pressure 131/77 150/77 H Pulse Oximetry 97 97 Oxygen Delivery Method Room Air Oxygen Flow Rate 0 Narrative Exam Narrative: General: Older gentleman lying in bed appears mildly uncomfortable but in no acute distress, well-developed, well-nourished, depressed mood but appropriately interactive. HEENT: Normocephalic, atraumatic. External ears without defect. Pupils equal, round, and reactive to light. Anicteric sclerae, moist conjunctivae, and no lid lag. Neck: Supple with full range of motion. No lymphadenopathy or thyromegaly. Cardiovascular: Regular rate and rhythm without murmurs, rubs, or gallops appreciated Pulmonary: Clear to auscultation bilaterally without crackles, wheezes, or rhonchi. Normal respiratory effort with no use of accessory muscles. Abdomen: Soft, bowel sounds present non-tender, non-distended. No hepatosplenomegaly or masses appreciated. Extremities: No clubbing or cyanosis. Mild bipedal edema of bilateral lower extremities. Skin: Normal temperature, turgor, and texture; no rash, ulcers, or subcutaneous nodules appreciated. Neurological: Right-sided hemiparesis with intact sensation of all extremities, muscle spasticity of left lower extremity Psychiatric: Depressed mood and normal affect. Alert oriented to person, plac e, and time. Objective Labs Result Diagrams: 03/08/19 05:15 03/08/19 05:15 Labs: Laboratory Results - last 24 hr 03/06/19 03/06/19 03/06/19 09:53 10:30 14:50 WBC RBC Hgb Hct MCV MCH MCHC RDW Plt Count Neut % (Auto) Lymph % (Auto) [place] % (Auto) Eos % (Auto) Baso % (Auto) Neut # (Auto) Lymph # (Auto) [place] # (Auto) Eos # (Auto) Baso # (Auto) Sodium 138 Potassium 3.8 Chloride 99 Carbon Dioxide 34 H BUN 27 H Creatinine 1.30 H Estimated GFR 56.1 L BUN/Creatinine Ratio 20.8 Glucose 85 Calcium 13.5 H* Phosphorus Magnesium Total Bilirubin AST ALT Alkaline Phosphatase Total Protein Albumin Globulin Albumin/Globulin Ratio 25-OH Vitamin D Total TSH 2.40 Ur Random Calcium 49.4 03/06/19 03/06/19 03/07/19 22:10 22:10 09:37 WBC 10.4 RBC 3.66 L Hgb 10.7 L Hct 31.4 L MCV 85.7 MCH 29.2 MCHC 34.0 RDW 14.6 Plt Count 306 Neut % (Auto) 64.0 Lymph % (Auto) 23.0 L [place] % (Auto) 9.6 Eos % (Auto) 1.8 L Baso % (Auto) 1.6 Neut # (Auto) 6700 Lymph # (Auto) 2400 [place] # (Auto) 1000 H Eos # (Auto) 200 Baso # (Auto) 200 H Sodium 135 L Potassium 3.6 Chloride 101 Carbon Dioxide 30 BUN 22 H Creatinine 1.10 Estimated GFR > 60.0 BUN/Creatinine Ratio 20.0 Glucose 101 Calcium 11.7 H Phosphorus 3.0 Magnesium 1.3 L Total Bilirubin 0.5 AST 42 ALT 49 Alkaline Phosphatase 120 Total Protein 6.1 L Albumin 3.1 L Globulin 3.0 Albumin/Globulin Ratio 1.0 25-OH Vitamin D Total 61.5 TSH Ur Random Calcium 03/07/19 09:37 WBC RBC Hgb Hct MCV MCH MCHC RDW Plt Count Neut % (Auto) Lymph % (Auto) [place] % (Auto) Eos % (Auto) Baso % (Auto) Neut # (Auto) Lymph # (Auto) [place] # (Auto) Eos # (Auto) Baso # (Auto) Sodium 129 L Potassium 4.1 Chloride 96 L Carbon Dioxide 28 BUN 22 H Creatinine 1.10 Estimated GFR > 60.0 BUN/Creatinine Ratio 20.0 Glucose 119 H Calcium 11.0 H Phosphorus Magnesium 1.5 L Total Bilirubin 0.7 AST 38 ALT 43 Alkaline Phosphatase 106 Total Protein 6.0 L Albumin 2.9 L Globulin 3.1 Albumin/Globulin Ratio 0.9 L 25-OH Vitamin D Total TSH Ur Random Calcium Assessment & Plan Assessment & Plan narrative: Wm Keys is a 63-year-old male with a past medical history signicificant for progressive MS (dx 1997), neurogenic bladder requiring self catheterization, spasticity, GERD, constipation and gastroparesis who presented to the ED out of concern for RUQ abdominal pain. 1. Hypercalcemia, acute, present on admission. Active. -Differential diagnosis includes: Hyperparathyroidism (primary vs secondary) vs Malignancy vs Vitamin D toxicity vs Hyperthyroidism / Endocrine disorders. -Likely not medication related. Not on thiazide or lithium. Need to be mindful of the experimental/investigational medication the patient is receiving with his current research study. -Initial calcium level 14.1. Improved to 11.0. Continue to trend calcium level closely. -Associated EKG changes of bradycardia, short QRS of 47 ms, and short QT 399 ms. -Ordered complete workup includin OH-D which is normal at 61. 1,25 (OH)2 D, iPTH, ionized calcium, and SPEP and UPEP which are send out tests and pending. -TSH normal at 2.4. -Held Vitamin D, Centrum Silver for men -Continue normal saline at 150 mL/hr. -Received calcitonin 300 mg subcu x1. May consider starting twice daily dosing if calcium level not improving readily. 2. Acute kidney injury, present on admission, active -Likely secondary to hypercalcemia and possibly obstructive uropathy from neuro genic bladder. -Initial surgeon creatinine 1.3. Baseline creatinine 0.8. -Continue normal saline at 150 mL/hr. -Continue to monitor renal function closely. 3. Acute postobstructive diuresis secondary to Neurogenic bladder with incomplete bladder emptying, present on admission. -Self catheterizes self for 20 years, in the past month as much as Q2H. No history of recurrent UTIs. Currently has symptoms of urinary urgency, frequency, and incomplete bladder emptying. -Urinalysis unremarkable and not suggestive of an acute infection. -Patient has significant urine output since Atwood catheter has been placed and appears to have postobstructive diuresis. Continue aggressive IV fluid hydration with normal saline at 150 mL/hr both for postobstructive diuresis and hypercalcemia. -Continue strict I&O. 4. Chronic progressive multiple sclerosis, present on admission, active -Patient is followed by [facility] neurology Dr. Garcia and physiatry Dr. Borja. -Concern for advancing MS. Patient states that he has a pending MRI order in the outpatient setting in the near future for evaluation of MS progression. -Continue Rebif 44 mcg subcu 3 times per week and investigational medication until able to discuss this further with Neurology. 5. Acute on chronic muscle spasticity, secondary to underlying MS, present on admission. Active. -Patient is on baclofen 20 mg 4 times daily and additionally reports he takes 2- 3 doses exceeding recommended amount. Continue baclofen 20 mg 4 times daily. -Started Valium 5 mg every 6 hours as needed for muscle spasticity and tizanidine 2 mg every 8 hours as needed for muscle spasm. 6. Depression with suicidality, acute on chronic, present on admission. Active. -Patient readily admits to suicide plan. Patient is voluntarily willing to go to inpatient psychiatric treatment, however, due to decreased mobility and lack of ability to perform all ADLs he is likely not a candidate. -Continue citalopram 40 mg daily. -Plan to consult psychiatry for evaluation tomorrow. -Continue suicide precautions. 7. Interstitial cystitis, chronic, present on admission. Stable. -Patient with a history of frequent self catheterization. There is a concern fibrotic changes within the bladder, causing neurogenic up regulation and sensory nerve activation in the bladder and development neuro changes within the spinal cord leading to chronic symptoms of urinary urgency, frequency and discomfort. 8. Right upper and lower extremity edema, chronic, present on admission. Stable. -No overt edema, erythema, or tenderness. Adequate perfusion. -Continue to elevate both right upper and lower extremities frequently. Code status discussed with patient. Wishes to be DNR. He has a POLST form. Spouse is the DPOA. VTE prophylaxis w/ Heparin. Disposition: Patient likely to discharge home with home health versus inpatient rehab once hypercalcemia has resolved. Quality VTE Deep Vein Thrombosis/Pulmonary Embolism Present on Admission: No
[2019-03-07] MEDS: diazePAM 5 MG TABLET PO ×2 (13:28→19:27)
[2019-03-07] MEDS: CITALOPRAM 20 MG TABLET 40 MG PO (13:28)
[2019-03-07] MEDS: SODIUM CHLORIDE 0.9% 1,000 ML 150 ML IV ×2 (15:32→23:55)
[2019-03-07 16:00] VITALS: BP 143/79; PULSE 60; RESP 16; TEMP 36.3; O2SAT 98
--- NOTE | 2019-03-07 16:11 | PC.NURSE ---
Alt thought process: Very sleepy this am, called 7 times in 30 mins to discuss his baclofen as he didn't like the new schedule he was on. He would nod off to sleep as he was talking. Then wake back up. At times he was very disoriented, only knew he was in the hospital. He didn't know why he was here, or what day or time it is. Pt self reports some visual hallucinations. There is something over there, what is that? Pt is pointing to the area by his closet. There is nothing there. SOh ya your right, I don't know what I'm thinking. Pt also making some comments that if he should he doesn't want to be resuscitated. SI just want everyone to let me go. Dr. Marie made aware pt possibly may be suicidal. Pt is upset about his spasticity and that he is limited in what he can do because of it which is why he is unhappy about the changes to his baclofen. However he admits he was never told by his neurologist to dose himself in such a manner but decided to do so on his own accord. Please see MD orders. Did receive both a dose of valium and zanaflex and he reports they are not working well for him but he is willing to give it a try. Cont w/poc.
--- NOTE | 2019-03-07 16:44 | PT.IIE ---
Current Diagnoses Hypercalcemia (03/06/19) Surgical History (Last Updated 03/07/19 @ 00:25 by YOSEPH Nava) S/P tonsillectomy and adenoidectomy (Chronic) Medical History (Last Updated 03/07/19 @ 00:26 by YOSEPH Nava) Anxiety and depression (Chronic) Multiple sclerosis (Acute) Neurogenic bladder (Acute) Physical Therapy Inpatient Evaluation/Re-Eval M1 PT/OT-IP Prior Functional Status Start: 03/07/19 13:51 Freq: NEEDED Status: Active Protocol: Document 03/07/19 15:58 AW (Rec: 03/07/19 16:44 AW [id number]) Medical Review Prior Functional Status Medical History Reviewed Yes Diet/Fluid Consistency Regular Communication Able to make needs known. Pt and his spouse note recent difficulty with wordfinding Mobility and Gait Pt with progressive form of MS - diagnosed in 1997. He used power chair for most mobility. He reports he was able to squat pivot transfer bed to chair without assist until about a week ago. Per pt, he was able to use 4WW from w/c into walk-in shower and to transfer himself to the shower bench. He also reported being able to ambulate ~50 feet with a forearm crutch in the LUE until about a week ago. Activities of Daily Living and IADL's Pt required min assist for dressing lower body. He reports he was able to bathe mod independent as above. For toileting, pt self-caths or transfers himself to the toilet for bowel movement. Prior Functional Level (Other details) Pt's spasticity is somewhat relieved by using a MOTOmed attached to his power chair. Social History Household Members spouse Living Arrangements House Number of Floors (Floors) Two Floors Number of Stairs To Enter/Railing? Level entrance. Elevator for 2nd floor access. Main level includes bedroom, bath, dining room, kitchen, living room. Pt's home gym is upstairs. Home Environment High Toilet,Built-In Shower Seat,Elevator Home Equipment Four Wheel Walker,Power Wheelchair/Scooter,Hospital Bed Additional Social History Comment Pt lives with his spouse who assists with housework, but is unable to provide heavy physical assist. M2 PT-IP Current Condition Start: 03/07/19 13:51 Freq: NEEDED Status: Active Protocol: Document 03/07/19 15:58 AW (Rec: 03/07/19 16:44 AW [id number]) Physical Therapy Current Condition Current Condition Evaluation Date 03/07/19 Treatment Diagnosis hypercalcemia, progressive MS, impaired transfers, impaired mobility Weight Bearing Status Weight Bearing Status Full Weight Bearing M3 PT-IP Subjective Start: 03/07/19 13:51 Freq: NEEDED Status: Active Protocol: Document 03/07/19 15:58 AW (Rec: 03/07/19 16:44 AW [id number]) Subjective Physical Therapy Visit Type Type Initial Evaluation Visit Start Time 14:50 Visit Stop Time 15:56 Total Visit Minutes 66 Number of SOLAR SYSTEM INSTALLER Visits 0 Physical Therapy Visit Comments Patient Comments Pt is willing to work with PT. He has concerns about his 's ability to help him at home. Therapy Pain Assessment Pain When Pain Assessed During Mobility Pain Present Pain Present Pain Reported Location Head Scale Used pt reports headache but declines to characterize the pain M4 PT-IP Mobility and Gait Start: 03/07/19 13:51 Freq: NEEDED Status: Active Protocol: Document 03/07/19 15:58 AW (Rec: 03/07/19 16:44 AW [id number]) PT-Bed Mobility Assessment Rolling Type of Rolling Roll to Right,Roll to Left Level of Assist Moderate Assistance Supine to Sit Supine to Sit Maximum Assistance,1 Person Assistance,Head of Bed Elevated,Bedrails Sit to Supine Sit to Supine Maximum Assistance,2 Person Assistance,Bedrails Scooting Scooting to Edge of Bed Moderate Assistance Scooting Up and Down in Bed Maximum Assistance PT-Transfer Assessment Comments Mobility Comments Bed mobility required max assist x 1-2. Pt unable to sit EOB without support. He has limited use of the RUE with marked atrophy of the shoulder complex and contracture of the right hand which remains in a brace at all times. In sitting, he leaned significantly to the left and had three posterior losses of balance requiring therapist assist to arrest. Pt attempted sit to stand transfer to FWW with max assist, but he was unable to bear weight through his legs. Pt also attempted squat pivot transfer to chair set at 90 degrees from bed on his left, requiring max assist . Pt was unable to complete transfer with max assist x 1. Gait Assessment Comments Gait Comments Pt unable at this time PT-Balance Assessment Sitting Balance and Reactions Static Sitting Balance Ability Fair Dynamic Sitting Balance Ability Poor Comments Other Balance Tests/Deviations/Treatment Pt unable to stand. : M5 PT-IP Objective Assessments Start: 03/07/19 13:51 Freq: NEEDED Status: Active Protocol: Document 03/07/19 15:58 AW (Rec: 03/07/19 16:44 AW [id number]) Orientation Orientation/Cognition Level of Alertness Alert Orientation Name,Month,Place,Situation Language Function Ability No Deficits Noted,Word Finding Difficulties Safety Awareness Understands Safety Issues Comments Pt endorses recent difficulties with word-finding . He feels he has stopped talking to his as much as he used to due to this problem. No deficits noted during evaluation. Gross Range of Motion Upper Extremity ROM Assessment Right Impaired Impairments RUE atrophy of the shoulder complex and right hand contracture managed with bracing. LUE ROM WNL Lower Extremity ROM Assessment Bilaterally Impaired Strength Upper Extremity Strength Assessment Right Impaired Lower Extremity Strength Assessment Bilaterally Impaired Comments Strength Comments Spasticity limited strength testing, but pt presents as grossly 3-/5 in BLE. Muscle Tone Muscle Tone WNL No Muscle Tone Location Bilateral Lower Extremity Type of Tone Hypertonicity Severity of Tone Severe Comments Muscle Tone Comments Dary grade 3 BLE M7 PT-IP Assessment and Plan Start: 03/07/19 13:51 Freq: NEEDED Status: Active Protocol: Document 03/07/19 15:58 AW (Rec: 03/07/19 16:44 AW [id number]) PT Summary Assessment and Plan Potential Rehabilitation Potential Fair Status of Condition at Evaluation Evolving Summary Impairments ROM,Strength,Balance,Tone, Cognition,Bed Mobility, Transfers,Gait,Activity Tolerance Assessment Summary Pt is a 63 yo man with 20-year history of progressive MS. PLOF: Pt was able to transfer bed to power wheelchair independently. He reports ability to use 4WW or forearm crutch for ~50 foot distances on level surface as recently as a week ago. CLOF: Pt reports increase in spasticity , inability to sleep longer than 2 hours at a time, and increase in weakness that has limited his mobility for the past week. At this evaluation, pt was unable to stand or squat pivot transfer with max assist x 1. He required mod- max assist for bed mobility and demonstrated poor balance in sitting. In the context of this marked decline in mobility, PT recommends a rehab stay at discharge, either in an acute rehab setting or SNF depending on ability to tolerate therapy. Goals Bed Mobility Goal Minimal Assistance Transfer Goal Minimal Assistance,Cane, Crutches,Front Wheeled Walker Gait Goal Minimal Assistance,Cane, Crutches,Front Wheel Walker Gait Distance 20 feet Other Goals Gait and transfer goals to be accomplished with most appropriate assistive device. Days to Meet Goals 10 Frequency of Treatment Frequency Of Treatment Once a Day Treatment Plan Physical Therapy Treatment Plan Bed Mobility Training,Transfer Training,Gait Training, Therapeutic Exercise,Balance Retraining,Discharge Planning, Neuromuscular Re-ed, Coordination Retraining Other Recommendations and Next Treatment bed mobility, transfers Focus Recommendations To Nursing Amount of Assist Needed Mechanical Lift Discharge Recommendations PT Discharge Recommendations SNF Rehab,Acute Rehab Other Discharge Recommendations Acute vs SNF rehab depending on pt's ability to tolerate.
--- NOTE | 2019-03-07 19:42 | PC.NURSE ---
pt is A&OX3. c/o spasm to R and L leg. Pt moaning due to spasm, administered baclofen, then patient finally fell asleep. Pt is 1:1 for suicide precaution. pt states he is feeling good and has a little hope now. his suicidal ideation is vague. 2pa-bed mobility. q2turn.
[2019-03-07 20:06] VITALS: BP 125/72; PULSE 58; RESP 16; TEMP 37.1; O2SAT 98
[2019-03-07] MEDS: DOCUSATE 250 MG CAPSULE PO (20:56)
[2019-03-07] MEDS: [UNRECOGNIZED DRUG - REMARK] 2 EACH PO (20:57)
[2019-03-07] MEDS: MELATONIN 3 MG TABLET 6 MG PO (20:57)
[2019-03-08] VITALS: BP 140/70; PULSE 68; RESP 18; TEMP 36.5; O2SAT 96
[2019-03-08] MEDS: ACETAMINOPHEN 325 MG TABLET 650 MG PO ×2 (00:07→14:32)
--- NOTE | 2019-03-08 00:28 | PC.NURSE ---
Addendum entered by Mindy Flor R.N. 03/08/19 06:17: Denies any spasms or pain this morning. Has been allowed to sleep and repositioned only when he asks per his request. Great po intake and urine output. Addendum entered by Mindy Flor R.N. 03/08/19 06:02: Patient's catheter came out so discussed with Pam HAMEED, who ordered straight cath q6h. Patient unhappy as having to urinate frequently or is incontinent and states he will be unable to sleep if he doesn't have catheter replaced. States at home he urinates and then self-caths so he is able to go q2h without voiding/incontinence. Talked again with Pam who gave verbal order to reinsert catheter which was done. Original Note: Patient is alert and oriented. Denies any suicidal ideation; states he had plan prior to admission but after being hospitalized has more hope. Breath sounds CTA with RA sat of 96%. HRR with telemetry reading of SR w/BBB. BP elevated at 140/70. Denies nausea. BT present and abdomen is soft; has not had BM since 03/02 and received Colace and prune juice on previous shift. Indwelling catheter is patent; urine is pale yellow. Unable to move right LE and minimal movement of right UE. Has numbness of both right extremities. Right UE in is splint/brace. Also has chronic numbness to mid calf on left LE. Needing to be repositioned q2h but requests not to be awakened at night. Skin in good condition with only red area noted on tip of right great toe which is blanchable. Generalized pain 4/10 so medicated with Tylenol. Having bilateral LE spasms; medicated with scheduled Baclofen. Wearing bilateral SCD's. Fall risk score is high and bed alarm is activated.
[2019-03-08 04:40] VITALS: BP 150/84; PULSE 65; RESP 18; TEMP 36.8; O2SAT 97
[2019-03-08 05:39] LABS: Add Manual Diff / Slide Review NO; Basophils Absolute Auto 100 /uL (0-100); Basophils Percent Auto 1.3 % (0-2); Eosinophils Absolute Auto 200 /uL (0-450); Eosinophils Percent Auto 2.9 % (2-4); Hemoglobin 10.8 g/dL (13.5-17.5); Lymphocytes Absolute Auto 1800 /uL (1100-4500); Lymphocytes Percent Auto 22.4 % (25-40); Mean Corpuscular HGB Conc 34.8 % (30-36); Mean Corpuscular Hemoglobin 29.6 PG (26-34); Mean Corpuscular Volume 85.2 fL (80-100); Monocytes Absolute Auto 1100 /uL (0-900); Monocytes Percent Auto 12.9 % (3-14); Neutrophils Absolute Auto 4900 /uL (1500-7000); Neutrophils Percent Auto 60.5 % (50-75); Platelet Count 318 X10^3/uL (150-400); Red Blood Cell Count 3.64 X10^6/uL (4.5-5.9); Red Cell Distribution Width 14.4 % (11.6-14.8); White Blood Cell Count 8.2 X10^3/uL (4.5-11.0)
[2019-03-08 05:53] LABS: Alanine Aminotransferase 47 IU/L (21-72); Albumin 2.6 g/dL (3.5-5.0); Albumin Globulin Ratio 0.8 (1.0-2.8); Alkaline Phosphatase 122 U/L (38-126); Aspartate Aminotransferase 38 IU/L (17-59); BUN Creatinine Ratio 18.2 (6-22); Bilirubin Total 0.6 mg/dL (0.2-1.3); Blood Urea Nitrogen 20 mg/dL (9-20); Calcium 11.3 mg/dL (8.4-10.2); Carbon Dioxide 29 mmol/L (22-32); Chloride 101 mmol/L (98-107); Estimated Glomerular Filt Rate > 60.0 mL/min (>60); Globulin 3.1 g/dL (1.7-4.1); Glucose 97 mg/dL (80-110); HEMOLYSIS < 15 (0-50); Magnesium 1.5 mg/dL (1.6-2.3); Potassium 3.8 mmol/L (3.4-5.1); Sodium 132 mmol/L (137-145); Total Protein 5.7 g/dL (6.3-8.2)
[2019-03-08] MEDS: BACLOFEN 10 MG TABLET 20 MG PO ×4 (06:14→23:58)
[2019-03-08 07:19] VITALS: BP 148/75; PULSE 72; RESP 16; TEMP 36.4; O2SAT 96
--- NOTE | 2019-03-08 08:39 | DI.US.S_ITS ---
PROCEDURE: US RENAL COMPLETE INDICATIONS: POST-OBSTRUCTIVE UROPATHY TECHNIQUE: Real-time scanning was performed of the kidneys and bladder, with image documentation. COMPARISON: [facility], , US RENAL COMPLETE, 01/05/2019, 11:49. FINDINGS: Kidneys: Kidneys are normal in size. Right kidney measures 12.5 cm long; left kidney measures 12.1 cm long. Right renal cortical thickness is 1.9 cm; left renal cortical thickness is one cm. Renal cortical echotexture is normal. No hydronephrosis or nephrolithiasis. No suspicious solid mass lesions. Bladder: Pre-void bladder volume is empty with a Atwood catheter. Miscellaneous: No free pelvic fluid. IMPRESSION: 1. Normal ultrasound appearance of kidneys. No hydronephrosis. Dictated by: Kristen Sequeira M.D. on 03/08/2019 at 12:07 Approved by: Kristen Sequeira M.D. on 03/08/2019 at 12:09
[2019-03-08] MEDS: SODIUM CHLORIDE 0.9% 1,000 ML 100 ML IV ×2 (09:21→22:14)
[2019-03-08] MEDS: ZOLEDRONIC ACID 4 MG in SODIUM CHLORIDE 0.9% 100 ML 315 ML IV (09:22)
[2019-03-08] MEDS: CALCITONIN,SALMON 400 UNITS/2 ML MDV 300 UNITS IM ×2 (09:23→21:05)
[2019-03-08] MEDS: DOCUSATE 250 MG CAPSULE PO ×2 (09:28→21:00)
[2019-03-08] MEDS: POLYETHYLENE GLYCOL 3350 17 GM POWD.PACK PO (09:28)
[2019-03-08] MEDS: CITALOPRAM 20 MG TABLET 40 MG PO (09:28)
[2019-03-08] MEDS: HEPARIN 5,000 UNIT/ML VIAL 5000 UNIT SUBCUT ×2 (09:28→21:05)
[2019-03-08] MEDS: MAGNESIUM SULFATE 2 GM/50 ML PIGGYBACK IV (10:05)
--- NOTE | 2019-03-08 11:41 | OT.IP.EVAL ---
Current Diagnoses Hypercalcemia (03/07/19) Past Medical History (Last Updated 03/07/19 @ 00:26 by YOSEPH Nava) Anxiety and depression (Chronic) Multiple sclerosis (Acute) Neurogenic bladder (Acute) Surgical History (Last Updated 03/07/19 @ 00:25 by YOSEPH Nava) S/P tonsillectomy and adenoidectomy (Chronic) Occupational Therapy Inpatient Evaluation/Re-Eval M1 PT/OT-IP Prior Functional Status Start: 03/08/19 12:22 Freq: NEEDED Status: Active Protocol: Document 03/08/19 12:23 [facility] (Rec: 03/08/19 13:05 [facility] [id number]) Medical Review Prior Functional Status Medical History Reviewed Yes Diet/Fluid Consistency Regular Communication Able to make needs known. Pt and his spouse note recent difficulty with word finding. Today per OT eval pt not having trouble with word finding needs. Mobility and Gait Pt with progressive form of MS - diagnosed in 1997. He used power chair for most mobility. He reports he was able to squat pivot transfer bed to chair without assist until about a week ago. Per pt, he was able to use 4WW from w/c into walk-in shower and to transfer himself to the shower bench. He also reported being able to ambulate ~50 feet with a forearm crutch in the LUE until about a week ago. Activities of Daily Living and IADL's Pt required min assist for dressing lower body. He reports he was able to bathe mod independent as above. For toileting, pt self-caths or transfers himself to the toilet for bowel movement. Per pt wears sweat pants and uses left hand to pull on sweat pants to assist to move his legs for bed mobility and LB dressing needs. Pt wears an anti-spasticity ball splint that he mainly wears at night per pt. In addition wears right AFO that pt did not have in the room but wears when up. Prior Functional Level (Other details) Pt's spasticity is somewhat relieved by using a MOTOmed attached to his power chair. Social History Household Members spouse Living Arrangements House Number of Floors (Floors) Two Floors Number of Stairs To Enter/Railing? Level entrance. Elevator for 2nd floor access. Main level includes bedroom, bath, dining room, kitchen, living room. Pt's home gym is upstairs. Home Environment High Toilet,Built-In Shower Seat,Elevator Home Equipment Four Wheel Walker,Power Wheelchair/Scooter,Hospital Bed Additional Social History Comment Pt lives with his spouse who assists with housework, but is unable to provide heavy physical assist. M2 OT-IP Current Condition Start: 03/08/19 12:22 Freq: Status: Active Protocol: Document 03/08/19 12:23 [facility] (Rec: 03/08/19 13:05 [facility] [id number]) Occupational Therapy Current Condition Current Condition Evaluation Date 03/08/19 Treatment Diagnosis Hypercalcemia, progressive MS, weakness Diagnosis Onset Date 03/07/19 Weight Bearing Status Weight Bearing Status Weight Bear as Tolerated M3 OT- IP Subjective and Pain Start: 03/08/19 12:22 Freq: Status: Active Protocol: Document 03/08/19 12:23 [facility] (Rec: 03/08/19 13:05 [facility] [id number]) OT- Subjective Occupational Therapy Visit Type Type Initial Evaluation Visit Start Time 11:41 Visit Stop Time 12:08 Total Visit Minutes 27 Occupational Therapy Visit Comments Patient Comments Pt agreeable to try to get up. Pt states feeling much better as, I had the best night of sleep that I have ever had. Patient/Caregiver Goals Pt wants to get stronger before going home and surprised that he is so much weaker now . OT Pain Assessment Pain When Pain Assessed At Rest Pain Present Pain Present Denied Pain M4 OT- IP ADL's Start: 03/08/19 12:22 Freq: Status: Active Protocol: Document 03/08/19 12:23 [facility] (Rec: 03/08/19 13:05 [facility] [id number]) OT [id number]-[id number] General Evaluation Self-Feeding Ability Standby Assistance Areas Needing Assistance Opening Containers Comments OT Self-Feeding Comments Assist for set-up of tray items. OT ADL-Grooming General Evaluation Areas Needing Assistance Retrieving/Set-up of Grooming Items Comments OT Grooming Comments Pt will need set-up of items prior to grooming. OT ADL-Dressing General Eval Lower Body Dressing Ability Maximum Assistance Comments OT Dressing Comments Prior pt states able to lean forwards to grab his sweat pant leg and cross leg over in order to but his socks and slippers on. Today due to fatigues and bed too high pt MAX A for LB dressing needs. OT ADL-Toileting Comments OT Toileting Comments Pt has flores in, prior pt would self cath and able to transfer to the toilet on his own for bowel movements. OT ADL-Bathing Comments OT Bathing Comments Prior pt able to transfer to shower bench to shower on his own. M6 OT- IP Functional Cognition Start: 03/08/19 12:22 Freq: Status: Active Protocol: Document 03/08/19 12:23 [facility] (Rec: 03/08/19 13:05 [facility] [id number]) Cognitive Factors Limiting Selfcare Function Cognitive Ability Level of Alertness Alert Patient Orientation Name,Place,Situation Attention Span Ability Capable of Focused Attention, Capable of Sustained Attention Ability to Follow Commands Able to Follow One Step Commands Safety Awareness Underestimates Need for Assistance Problem Solving Ability Unable to Identify Errors, Needs Assist to Identify Solutions Cognitive Comments Cognitive Assessment Comments Pt able to follow one step commands and needing cues for safety awareness as pt not realizing he is so much weaker now. OT- Vision and Hearing OT- Hearing Assessment OT- Hearing Assessment WFL M7 OT- IP Mobility and Balance Start: 03/08/19 12:22 Freq: Status: Active Protocol: Document 03/08/19 12:23 [facility] (Rec: 03/08/19 13:05 [facility] [id number]) OT- Bed Mobility Assessment Rolling Type of Rolling Roll to Right Level of Assistance Moderate Assistance,Bedrails Supine to Sit Supine to Sit Assist Moderate Assistance,1 Person Assistance Scooting Scooting to Edge of Bed Minimal Assistance,Bedrails OT-Transfer Assessment Transfers Transfer Ability Moderate Assistance,2 Person Assistance Technique Transfer Destination Bed,Chair Transfer Technique Squat Pivot Devices Transfer Assistive Devices Gait Belt Comments Mobility Comments Pt able to roll to the right but heavy use of bed rail to turn and then increased time try to get up with LUE and able to prop on right elbow and then needing assist MODA to get trunk upright. Initially pt wanting the recliner in front of him so able to stand and transfer. However pt able unable to stand and needing the bed raised and also recliner placed to the right and therapists needing MODA x 2 to help pt squat pivot over to the recliner. OT- Gait Assessment Comments Gait Ability Comments Not appropriate to ambulate at this time due to weakness. OT- Balance Assessment Sitting Balance and Reactions Static Sitting Balance Ability Fair Dynamic Sitting Balance Ability Poor Comments Other Balance Tests/Deviations/Treatment Pt needing initial CGA while : sitting at edge of bed and after legs/feet place in alignment able to sit with SBA . Pt trying to reach forwards to do LB dressing and needing MIN/MOD for balance. M8 OT- IP Objective Assessments Start: 03/08/19 12:22 Freq: Status: Active Protocol: Document 03/08/19 12:23 [facility] (Rec: 03/08/19 13:05 [facility] [id number]) OT Gross Range of Motion Upper Extremity Range of Motion Assessment Right Impaired ROM Impairments Contracture to right hand and use of anti-spasticity splint during the day. OT Strength Upper Extremity Strength Assessment Right Impaired OT-Muscle Tone Assessment Muscle Tone Location Bilateral Lower Extremity Type of Tone Hypertonicity Comments Muscle Tone Comments Hypertonicity right hand. M9 OT- IP Assessment and Plan Start: 03/08/19 12:22 Freq: Status: Active Protocol: Document 03/08/19 12:23 [facility] (Rec: 03/08/19 13:05 [facility] [id number]) OT Summary Assessment and Plan Potential Rehabilitation Potential Good Analytic Complexity at Evaluation Low Summary OT Impairments Range of Motion,Strength, Balance,Functional Cognition, Functional Mobility,Dressing, Toileting,Bathing,Toilet Transfers,Shower Transfers Progress Towards Goals Slow Progress due to Medical Issues,Slow Progress due to Activity Tolerance Assessment Summary Pt low complexity and main barrier are weakness, decreased activity tolerance and now needing extensive assist for all Adl and functional mobility needs and prior last week was ZENA for most needs. Pt at this time too weak to stand , do his ADL 's and would benefit from inpt rehab to work intensively with pt to get him back to baseline of MOD I with mobility needs and for most of his ADl's. Goals Dressing Goal Minimal Assistance Toileting Goal Standby Assistance Bathing Goal Standby Assistance Toilet Transfer Goal Independent Shower Transfer Goal Standby Assistance,Moderate Assistance Patient/Caregiver Education Goal Caregiver Independent Assisting Patient Days to Meet Goals 15 Frequency of Treatment Frequency Of Treatment Once a Day Treatment Plan OT Treatment Plan ADL Training,Functional Cognition Training,Functional Mobility,Patient/Family Education,Discharge Planning Other Treatment Recommendations and Next Lb dressing. Treatment Focus Discharge Recommendations OT Discharge Recommendations Acute Rehab
--- NOTE | 2019-03-08 12:47 | PM.PN.1 ---
Subjective Subjective Date Patient Seen: 03/08/19 Interval history: Wm Keys is a 63-year-old male with a past medical history signicificant for progressive MS (dx 1997), neurogenic bladder requiring self catheterization, spasticity, GERD, constipation and gastroparesis who presented to the ED out of concern for RUQ abdominal pain. The patient is resting in bed and now appears comfortable. He reports his muscle spasticity has significantly improved with Valium and he was able to get the best sleep he has had in a very long time. His mood has elevated significantly. He reports he feels remarkably better now that his muscle spasticity has improved. He has not had a bowel movement in several days and feels constipated, therefore, a bowel regimen has been implemented. He has no other complaints and denies headache, shortness of breath, chest pain, abdominal pain, nausea, vomiting, fever, or chills. He is having a significant urine output due to post-obstructive diuresis for which we are aggressively hydrating him with IV fluids. Exam Vital Signs (past 8 hours): - 03/08/19 13:00 Temperature 98.4 F Pulse Rate 69 Respiratory Rate 18 Blood Pressure 144/82 H Pulse Oximetry 98 Oxygen Delivery Method Room Air Oxygen Flow Rate 0 Narrative Exam Narrative: General: Older gentleman lying in bed appears appears comfortable and in no acute distress, well-developed, well-nourished, mood significantly improved and appropriately interactive. HEENT: Normocephalic, atraumatic. External ears without defect. Pupils equal, round, and reactive to light. Anicteric sclerae, moist conjunctivae, and no lid lag. Neck: Supple with full range of motion. No lymphadenopathy or thyromegaly. Cardiovascular: Regular rate and rhythm without murmurs, rubs, or gallops appreciated. Pulmonary: Clear to auscultation bilaterally without crackles, wheezes, or rhonchi. Normal respiratory effort with no use of accessory muscles. Abdomen: Soft, bowel sounds present, non-tender, non-distended. No hepatosplenomegaly or masses appreciated. Extremities: No clubbing or cyanosis. Mild bipedal edema of bilateral lower extremities R>L likely due to hemiparesis. Mild right upper extremity edema due to hemiparesis. Skin: Normal temperature, turgor, and texture; no rash, ulcers, or subcutaneous nodules appreciated. Neurological: Right-sided hemiparesis with intact sensation of all extremities, muscle spasticity of left lower extremity resolved. Psychiatric: Overall mildly depressed mood but improved with normal affect. Good insight. Denies suicidality today. Alert oriented to person, place, and time. Objective Labs Result Diagrams: 03/08/19 05:15 03/08/19 05:15 Labs: Laboratory Results - last 24 hr 03/08/19 03/08/19 05:15 05:15 WBC 8.2 RBC 3.64 L Hgb 10.8 L Hct 31.0 L MCV 85.2 MCH 29.6 MCHC 34.8 RDW 14.4 Plt Count 318 Neut % (Auto) 60.5 Lymph % (Auto) 22.4 L [place] % (Auto) 12.9 Eos % (Auto) 2.9 Baso % (Auto) 1.3 Neut # (Auto) 4900 Lymph # (Auto) 1800 [place] # (Auto) 1100 H Eos # (Auto) 200 Baso # (Auto) 100 Sodium 132 L Potassium 3.8 Chloride 101 Carbon Dioxide 29 BUN 20 Creatinine 1.10 Estimated GFR > 60.0 BUN/Creatinine Ratio 18.2 Glucose 97 Calcium 11.3 H Magnesium 1.5 L Total Bilirubin 0.6 AST 38 ALT 47 Alkaline Phosphatase 122 Total Protein 5.7 L Albumin 2.6 L Globulin 3.1 Albumin/Globulin Ratio 0.8 L Assessment & Plan Assessment & Plan narrative: Wm Keys is a 63-year-old male with a past medical history signicificant for progressive MS (dx 1997), neurogenic bladder requiring self catheterization, spasticity, GERD, constipation and gastroparesis who presented to the ED out of concern for RUQ abdominal pain. 1. Acute hypercalcemia, likely secondary to dehydration, present on admission. Active. -Differential diagnosis includes: Hyperparathyroidism (primary vs secondary) vs Malignancy vs Vitamin D toxicity vs Hyperthyroidism / Endocrine disorders. -Likely not medication related. Not on thiazide or lithium. Need to be mindful of the experimental/investigational medication that the patient is receiving with his current research study. -Associated EKG changes of bradycardia, short QRS of 47 ms, and short QT 399 ms. -Ordered complete workup includin OH-D which is normal at 61. 1,25 (OH)2 D, iPTH, ionized calcium, and SPEP and UPEP which are send out tests and pending. -TSH normal at 2.4. -Held Vitamin D and multivitamin. -Initial calcium level 14.1. Calcium level decreased to 11.0 now back up to 11.3 due to significant post-obstructive diuresis and difficulty with keeping up with adequate IV fluid hydration as below. Continue to trend calcium level closely. -Continue normal saline at 150 mL/hr. -Received calcitonin 300 mg IM x1 on admission. Continue calcitonin 300 IM twice daily for today only and Zometa 4 mg IV x 1. Discussed case with [facility] Nephrology who agrees with overall evaluation and plan of care regarding hypercalcemia which appears to be due to dehydration as readily resolving with IV fluid hydration (correction of hypercalcemia now slightly delayed due to post-obstructive diuresis), as well as, post-obstructive diuresis as below. 2. Acute kidney injury, present on admission. Resolved. -Likely secondary to hypercalcemia and possibly obstructive uropathy from neurogenic bladder. -Initial surgeon creatinine 1.3. Baseline creatinine 0.8. Creatinine 1.10. -Continue normal saline at 150 mL/hr. -Continue to monitor renal function closely. 3. Acute post-obstructive diuresis, secondary to Neurogenic bladder with incomplete bladder emptying, present on admission. -Self catheterizes self for 20 years, in the past month as much as Q2H. No history of recurrent UTIs. Currently has symptoms of urinary urgency, frequency, and incomplete bladder emptying. -Urinalysis unremarkable and not suggestive of an acute infection. -Patient has had massive urine output since [place] catheter has been placed and has post-obstructive diuresis. Continue aggressive IV fluid hydration with normal saline at 150 mL/hr for both postobstructive diuresis and hypercalcemia. Postobstructive diuresis likely to last 2-3 days since resolution of obstruction (neurogenic bladder). -Continue strict I&O. Patient has had 19 L IN and 20 L OUT. 4. Chronic progressive multiple sclerosis, present on admission, active -Patient is followed by [facility] neurology Dr. Garcia and physiatry Dr. Borja. -Concern for advancing MS. Patient states that he has a pending MRI order in the outpatient setting in the near future for evaluation of MS progression. -Continue Rebif 44 mcg subcu 3 times per week and investigational medication until able to discuss this further with Neurology. 5. Acute on chronic muscle spasticity, secondary to underlying MS, present on admission. Active. -Patient is on baclofen 20 mg 4 times daily and additionally reports he takes 2-3 doses exceeding recommended amount. Continue baclofen 20 mg 4 times daily. -Started Valium 5 mg every 6 hours as needed for muscle spasticity and tizanidine 2 mg every 8 hours as needed for muscle spasm. 6. Depression and anxiety with suicidality, acute on chronic, present on admission. Active. -Patient readily admitted to suicide plan yesterday 03/07. Patient is voluntarily willing to go to inpatient psychiatric treatment, however, due to his decreased mobility and lack of ability to perform all ADLs from MS he is and unlikely candidate for inpatient psychiatric treatment. Also with improvement in muscle spasticity and the patient is now well rested his mood has significantly improved and no longer endorsing suicidal thoughts. Recommended continued close monitoring for suicidality as an outpatient and development of a safety plan if suicidal ideation returns. -Continue citalopram 40 mg daily. -Consulted Psychiatry for evaluation, pending. We appreciate their time and recommendations. 7. Interstitial cystitis, chronic, present on admission. Stable. -Patient with a history of frequent self catheterization. There is a concern fibrotic changes within the bladder, causing neurogenic up regulation and sensory nerve activation in the bladder and development neuro changes within the spinal cord leading to chronic symptoms of urinary urgency, frequency and discomfort. 8. Right upper and lower extremity edema, chronic, present on admission. Stable. -No overt edema, erythema, or tenderness. Adequate perfusion. -Continue to elevate both right upper and lower extremities frequently. Code status discussed with patient. Wishes to be DNR. He has a POLST form. Spouse is the DPOA. VTE prophylaxis w/ Heparin. Disposition: Patient likely to discharge to inpatient rehab once hypercalcemia has resolved. Quality VTE Deep Vein Thrombosis/Pulmonary Embolism Present on Admission: No
[2019-03-08 13:00] VITALS: BP 144/82; PULSE 69; RESP 18; TEMP 36.9; O2SAT 98
--- NOTE | 2019-03-08 13:13 | PT.IPTN ---
Current Diagnoses Hypercalcemia (03/07/19) Physical Therapy Treatment Note M2 PT-IP Current Condition Start: 03/07/19 13:51 Freq: NEEDED Status: Active Protocol: Document 03/07/19 15:58 AW (Rec: 03/07/19 16:44 AW [id number]) Physical Therapy Current Condition Current Condition Evaluation Date 03/07/19 Treatment Diagnosis hypercalcemia, progressive MS, impaired transfers, impaired mobility Weight Bearing Status Weight Bearing Status Full Weight Bearing M3 PT-IP Subjective Start: 03/07/19 13:51 Freq: NEEDED Status: Active Protocol: Document 03/08/19 12:55 RS (Rec: 03/08/19 13:13 RS [id number]) Subjective Physical Therapy Visit Type Type Treatment Note Physical Therapy Visit Comments Patient Comments Pt reports feeling so much better today after having the best sleep in years last night. Pt knows he's still weak though. Patient Goals get back to transfers and walking Therapy Pain Assessment Pain When Pain Assessed At Rest Pain Present Pain Present Denied Pain M4 PT-IP Mobility and Gait Start: 03/07/19 13:51 Freq: NEEDED Status: Active Protocol: Document 03/08/19 12:55 RS (Rec: 03/08/19 13:13 RS [id number]) PT-Bed Mobility Assessment Supine to Sit Supine to Sit Moderate Assistance,1 Person Assistance,Bedrails PT-Transfer Assessment Transfers Transfer Destination Chair Transfer Technique Squat Pivot Transfer Ability Level of Assist Moderate Assistance,2 Person Assistance,Use of Upper Extremities Comments Mobility Comments Pt able to slowly get positioned onto his R side using bedrail, needing socks on for traction so the LLE could do most of the work. Once on side pt made several attempts to push up to sitting but just couldn't get there ( normally he pulls on his sweatpants, but he didn't have pants on during this session) . Mod A x 1 required to get all the way to sitting upright . Once sitting EOB pt was SBA for balance. Attempted his normal transfer of pivoting 180deg to chair but legs just too weak to get him off the bed. Pt agreeable to just try a 90deg pivot to his L, also raised the bed a few inches. Pt able to complete this with 2P mod A, slightly uncontrolled descent into the chair. M5 PT-IP Objective Assessments Start: 03/07/19 13:51 Freq: NEEDED Status: Active Protocol: Document 03/07/19 15:58 AW (Rec: 03/07/19 16:44 AW [id number]) Orientation Orientation/Cognition Level of Alertness Alert Orientation Name,Month,Place,Situation Language Function Ability No Deficits Noted,Word Finding Difficulties Safety Awareness Understands Safety Issues Comments Pt endorses recent difficulties with word-finding . He feels he has stopped talking to his as much as he used to due to this problem. No deficits noted during evaluation. Gross Range of Motion Upper Extremity ROM Assessment Right Impaired Impairments RUE atrophy of the shoulder complex and right hand contracture managed with bracing. LUE ROM WNL Lower Extremity ROM Assessment Bilaterally Impaired Strength Upper Extremity Strength Assessment Right Impaired Lower Extremity Strength Assessment Bilaterally Impaired Comments Strength Comments Spasticity limited strength testing, but pt presents as grossly 3-/5 in BLE. Muscle Tone Muscle Tone WNL No Muscle Tone Location Bilateral Lower Extremity Type of Tone Hypertonicity Severity of Tone Severe Comments Muscle Tone Comments Dary grade 3 BLE M7 PT-IP Assessment and Plan Start: 03/07/19 13:51 Freq: NEEDED Status: Active Protocol: Document 03/08/19 12:55 RS (Rec: 03/08/19 13:13 RS [id number]) PT Summary Assessment and Plan Potential Rehabilitation Potential Good Status of Condition at Evaluation Stable Summary Impairments ROM,Strength,Balance,Tone, Cognition,Bed Mobility, Transfers,Gait,Activity Tolerance Progress Towards Goals Progressing Toward Goals Assessment Summary Pt needing less assist today, but still far below reported functional baseline. However, pt would greatly benefit from ongoing skilled acute PT with transition to inpatient rehab for high intensity daily skilled therapies. Frequency of Treatment Frequency Of Treatment Twice a Day Treatment Plan Physical Therapy Treatment Plan Bed Mobility Training,Transfer Training,Gait Training, Therapeutic Exercise,Balance Retraining,Discharge Planning, Neuromuscular Re-ed, Coordination Retraining Other Recommendations and Next Treatment strength from chair, dynamic Focus sitting balance Recommendations To Nursing Amount of Assist Needed Mechanical Lift Discharge Recommendations PT Discharge Recommendations Acute Rehab Other Discharge Recommendations definitely acute rehab (IRF)
--- NOTE | 2019-03-08 14:06 | CM.DPC ---
DCP Rehab Planning: Per MD, pt has significantly improved with Valium for sleep and decreased spasms and denying suicidal ideation. requested Psych Consult and Dr. Holloway completed bedside assessment and confirms that pt does not require Inpt MH tx and safe for d/c to the community on his current medication. Per PT/OT, recommending Acute Inpt rehab at d/ as pt is below his baseline and unable to self transfer at this time and continues to be weak but has made some progress. LUIS met bedside with pt and spouse and explained role and discussed possible rehab options of Acute Inpt vs SNF and pt and spouse very agreeable with Acute Inpt Rehab at [facility] and pt appears quite motivated and hopeful. SW provided the Inpt Rehab brochure to review. SW discussed the need to set up transport as Acute Rehab does not provide their own but pt and spouse very aware of cabulance and are agreeable with private pay cabulance to Acute Rehab. LUIS called Acute Rehab admissions at [facility] [phone] with new referral and faxed requested clinicals to review and they anticipate openings tomorrow and the next day and likely can accept but will do final review. SW updated on pt's previous suicidal ideation and consult by Psych and they do not have concerns since cleared by Psychiatrist. LUIS updated MD and PT/OT. Plan: SW to follow for final review from [facility] to confirm they can accept the pt. SW to follow for setting up cabulance if confirmed pt can likely d/c tomorrow to rehab. NELSON Manrique
[2019-03-08] MEDS: diazePAM 5 MG TABLET PO ×2 (14:32→21:00)
--- NOTE | 2019-03-08 14:56 | PT.IPTN ---
Current Diagnoses Hypercalcemia (03/07/19) Physical Therapy Treatment Note M2 PT-IP Current Condition Start: 03/07/19 13:51 Freq: NEEDED Status: Active Protocol: Document 03/07/19 15:58 AW (Rec: 03/07/19 16:44 AW [id number]) Physical Therapy Current Condition Current Condition Evaluation Date 03/07/19 Treatment Diagnosis hypercalcemia, progressive MS, impaired transfers, impaired mobility Weight Bearing Status Weight Bearing Status Full Weight Bearing M3 PT-IP Subjective Start: 03/07/19 13:51 Freq: NEEDED Status: Active Protocol: Document 03/08/19 14:28 CLB (Rec: 03/08/19 15:27 CLB [id number]) Subjective Physical Therapy Visit Type Type Treatment Note Visit Start Time 14:28 Visit Stop Time 14:56 Total Visit Minutes 26 Number of SUBASSEMBLIES WIRER Visits 1 Physical Therapy Visit Comments Patient Comments Pt is eager to work with therapy. M4 PT-IP Mobility and Gait Start: 03/07/19 13:51 Freq: NEEDED Status: Active Protocol: Document 03/08/19 14:28 CLB (Rec: 03/08/19 15:27 CLB [id number]) PT-Bed Mobility Assessment Supine to Sit Supine to Sit Moderate Assistance,1 Person Assistance,Bedrails Sit to Supine Sit to Supine Standby Assistance Scooting Scooting to Edge of Bed Standby Assistance PT-Transfer Assessment Comments Mobility Comments Pt in bed and agreed to sit on EOB for dynamic balance. Pt required Mod A to full sit but was able to move his LE's off bed with LUE, then required Mod A to sitting. Pt was able to perform seated marches with LLE and reaches with LUE. Pt was then able to side scoot x6 towards the HOB while therapist provided close SBA. Pt was able to position his legs with LUE then push off with LLE to move himself towards head of bed. Pt was then able to go from sit- supine SBA being able to lift both LE's up onto bed. Left pt in bed with alarm on, call light within reach and present. Gait Assessment Comments Gait Comments Pt unable at this time PT-Balance Assessment Comments Other Balance Tests/Deviations/Treatment Pt unable to stand. : M5 PT-IP Objective Assessments Start: 03/07/19 13:51 Freq: NEEDED Status: Active Protocol: Document 03/07/19 15:58 AW (Rec: 03/07/19 16:44 AW [id number]) Orientation Orientation/Cognition Level of Alertness Alert Orientation Name,Month,Place,Situation Language Function Ability No Deficits Noted,Word Finding Difficulties Safety Awareness Understands Safety Issues Comments Pt endorses recent difficulties with word-finding . He feels he has stopped talking to his as much as he used to due to this problem. No deficits noted during evaluation. Gross Range of Motion Upper Extremity ROM Assessment Right Impaired Impairments RUE atrophy of the shoulder complex and right hand contracture managed with bracing. LUE ROM WNL Lower Extremity ROM Assessment Bilaterally Impaired Strength Upper Extremity Strength Assessment Right Impaired Lower Extremity Strength Assessment Bilaterally Impaired Comments Strength Comments Spasticity limited strength testing, but pt presents as grossly 3-/5 in BLE. Muscle Tone Muscle Tone WNL No Muscle Tone Location Bilateral Lower Extremity Type of Tone Hypertonicity Severity of Tone Severe Comments Muscle Tone Comments Dary grade 3 BLE M6 PT-IP Treatment Start: 03/07/19 13:51 Freq: NEEDED Status: Active Protocol: Document 03/08/19 14:28 CLB (Rec: 03/08/19 15:27 CLB [id number]) Physical Therapy Treatment Exercises Exercises Ankle Pumps,Gluteal Sets,Quad Sets Other Treatments Other Treatment Performed seated marches M7 PT-IP Assessment and Plan Start: 03/07/19 13:51 Freq: NEEDED Status: Active Protocol: Document 03/08/19 14:28 CLB (Rec: 03/08/19 15:27 CLB [id number]) PT Summary Assessment and Plan Potential Rehabilitation Potential Good Status of Condition at Evaluation Stable Summary Impairments ROM,Strength,Balance,Tone, Cognition,Bed Mobility, Transfers,Gait,Activity Tolerance Progress Towards Goals Progressing Toward Goals Assessment Summary Pt improving with bed mobility and dynamic balance. (see mobility)Pt highly motivated and will benefit from inpatient rehab for high intensity daily skilled therapies. benefit from Goals Bed Mobility Goal Minimal Assistance Transfer Goal Minimal Assistance,Cane, Crutches,Front Wheeled Walker Gait Goal Minimal Assistance,Cane, Crutches,Front Wheel Walker Gait Distance 20 feet Other Goals Gait and transfer goals to be accomplished with most appropriate assistive device. Days to Meet Goals 10 Frequency of Treatment Frequency Of Treatment Twice a Day Treatment Plan Physical Therapy Treatment Plan Bed Mobility Training,Transfer Training,Gait Training, Therapeutic Exercise,Balance Retraining,Discharge Planning, Neuromuscular Re-ed, Coordination Retraining Other Recommendations and Next Treatment strengthening, dynamic sitting Focus balance, sit to stand, transfers as able Recommendations To Nursing Amount of Assist Needed Mechanical Lift Discharge Recommendations PT Discharge Recommendations Acute Rehab Other Discharge Recommendations definitely acute rehab (IRF)
[2019-03-08 15:33] VITALS: BP 157/80; PULSE 69; RESP 16; TEMP 36.6; O2SAT 98
[2019-03-08] MEDS: TIZANIDINE 4 MG TABLET 2 MG PO (16:52)
--- NOTE | 2019-03-08 17:14 | P.CONS_ITS ---
History of Present Illness Consult details Date Patient Seen: 03/08/19 Time Patient Seen: 12:30 Chief complaint: decreased ua output/abd pain ongoing 1month Requesting provider: Qi Marie Narrative: CHIEF COMPLAINT: ?I had a horrible month period? HISTORY OF PRESENT ILLNESS: Patient is a 63-year-old male with a long history of multiple sclerosis referred for evaluation of suicidal ideation in the context of worsening medical symptoms. As noted above and in other places in the record the patient has a long history of multiple sclerosis dating back to 1997 when he was 1st diagnosed. In the last couple of months he became ill, had a fever, resulting in worsening of his multiple sclerosis symptoms. He went to his neurologist at [facility] a little over a week ago for evaluation of worsening leg spasms and possible difficulty with bladder catheterization that may have been incomplete. Because of his leg spasms he had difficulty sleeping which caused worsening of his fatigue which also caused worsening of his MS symptoms. He began several days of the cycle of not really getting much rest, and only would do is eat sleep and attempt to catheterize himself in order to urinate. He became extremely weak and came in to primary care, was referred to the emergency department and then ultimately admitted for evaluation and treatment. During the course of the patient's inpatient admission process he was provided information about his DNR status and voiced suicidal ideation. When asked about a plan he stated that he would take [facility] down to the [facility] where there has easy access to the [place], and drive himself off the end of appear strapped into his wheelchair. Inpatient staff, concerned about his mental status, referred him for psychiatric evaluation. Meanwhile, patient's medical difficulties including leg tremors, hypercalcemia, difficulty voiding and emptying the bladder were all addressed. The patient states that for the 1st time in 15 years he did have to get out of bed last night and was given medications to get a restful night's sleep. This morning he says he feels fantastic. When asked about his previous statements regarding suicidal ideation, he rather sheepishly admits that it was his fatigue and frustration with his medical status over the past month that fuel does comments rather than depression. He state that he has a lot to live for and is blessed with a lot despite his chronic illness. He specifically denied loss of interest in activities or anhedonia, appetite or weight change, decreased energy were poor concentration. He did admit to being impatient and have been worsening irritable mood. He denies any current suicidal or homicidal ideation intent or plan. He denied any other symptoms of anxiety, psychosis, james, or PTSD. COLLATERAL FROM STAFF: I spoke with Dr. Marie regarding the patient's history and she provided the inpu t in the HPI above. PAST PSYCHIATRIC HISTORY: The patient was started on citalopram for 5 years ago during a period of time when he became somewhat impatient and frustrated as well as more irritable during course of his illness. He reports, and his confirms, that he has been relatively stable on this medication for a long time. SUBSTANCE USE HISTORY: None FAMILY HISTORY: No family psychiatric history except for distant relatives SOCIAL HISTORY: The patient lives with his in [place]. He is on disability. He is involved in a number of charitable and civic activities in the community despite being afflicted with MS. DEVELOPMENTAL HISTORY: Unremarkable PCP: [] SIGNIFICANT MEDICAL HISTORY: As noted above, 15 year history of MS, current history of hypercalcemia, leg spa sms, incomplete bladder emptying. [facility] Medical History Anxiety and depression (Chronic) Multiple sclerosis (Acute) Neurogenic bladder (Acute) Surgical History S/P tonsillectomy and adenoidectomy (Chronic) Family History Mother Obesity Hypertension Brother Renal cancer Social History household members: spouse Smoking Status: Former smoker alcohol intake: never Meds Home Medications and Allergies Home Medications Medication Instructions Recorded Confirmed Type baclofen 20 mg PO Q6HR 03/06/19 03/06/19 History cholecalciferol (vitamin D3) 2,000 unit PO DAILY 03/06/19 03/06/19 History [Vitamin D3] citalopram 40 mg PO DAILY 03/06/19 03/06/19 History docusate sodium 250 mg PO BEDTIME 03/06/19 03/06/19 History interferon beta-1a (albumin) 44 mcg SUBCUT 3XW 03/06/19 03/06/19 History [Rebif Rebidose] [id number]-IX-lycopen-lutein 1 tab PO DAILY 03/06/19 03/06/19 History [Centrum Silver Men] Allergies Allergy/AdvReac Type Severity Reaction Status Date / Time No Known Drug Allergies Allergy Verified 03/06/19 09:40 Exam Vital Signs (past 8 hours): - 03/08/19 13:00 03/08/19 15:33 Temperature 98.4 F 97.8 F Pulse Rate 69 69 Respiratory Rate 18 16 Blood Pressure 144/82 H 157/80 H Pulse Oximetry 98 98 Oxygen Delivery Method Room Air Oxygen Flow Rate 0 Narrative Exam Narrative: MENTAL STATUS EXAM: Appearance: Patient is a well-developed and well-nourished male seated in a hospital chair at bedside eating his lunch. He is neatly groomed dressed in [facility] and appears his stated age. Behavior: Calm, cooperative, good eye contact, no psychomotor agitation or slowing, no tremor or involuntary movements observed Gait: Not observed Speech: Normal rate, volume, and ivonne Mood: I feel much better. Affect: Generally euthymic, pleasant, friendly, engaging, and congruent with stated mood. Thought Process: Linear, logical, goal-directed Thought Content: Thought content was without overt suicidal or homicidal ideation, intent, or plan. There was no evidence of a formal thought or pe rceptual disturbance. Attention: Attentive to interview Orientation: Oriented to person place and time Memory: Intact for interview, not formally tested Insight: Fair Judgment: Fair Objective Labs Result Diagrams: 03/08/19 05:15 03/08/19 05:15 Labs: Laboratory Results - last 24 hr 03/08/19 03/08/19 05:15 05:15 WBC 8.2 RBC 3.64 L Hgb 10.8 L Hct 31.0 L MCV 85.2 MCH 29.6 MCHC 34.8 RDW 14.4 Plt Count 318 Neut % (Auto) 60.5 Lymph % (Auto) 22.4 L [place] % (Auto) 12.9 Eos % (Auto) 2.9 Baso % (Auto) 1.3 Neut # (Auto) 4900 Lymph # (Auto) 1800 [place] # (Auto) 1100 H Eos # (Auto) 200 Baso # (Auto) 100 Sodium 132 L Potassium 3.8 Chloride 101 Carbon Dioxide 29 BUN 20 Creatinine 1.10 Estimated GFR > 60.0 BUN/Creatinine Ratio 18.2 Glucose 97 Calcium 11.3 H Magnesium 1.5 L Total Bilirubin 0.6 AST 38 ALT 47 Alkaline Phosphatase 122 Total Protein 5.7 L Albumin 2.6 L Globulin 3.1 Albumin/Globulin Ratio 0.8 L Assessment & Plan Assessment & Plan narrative: ASSESSMENT: Wm Keys is a 63-year-old man with over 20 year history of multiple sclerosis who enjoys a good home and supportive environment, very supportive spouse, but had a very bad month recently with exacerbations of his MS, sleep deprivation, and in a moment of frustration voiced suicidal ideation with a plan. The patient recanted his statements in a convincing manner after being able to get a good night's sleep and significant relief from many of his symptoms. He also sees resolution of some of these symptoms on the horizon and feels much more hopeful. We discussed continuing citalopram to address situational depression and also suggested taking advantage of support and opportunities to discuss his situation with someone in a more therapeutic manner. DIAGNOSES: Adjustment disorder with depressed mood RECOMMENDATIONS: 1. Continue citalopram 40 mg p.o. q.day 2. Patient may benefit from referral to counseling resources either locally or through his neurologist at [facility]. 3. Although the patient has some risk factors for suicide including chronic illness, he also has mitigating factors to include good family support, excellent medical care, being engaged in treatment. Therefore the patient is fe lt to be at low risk of suicide at this time. 4. The patient does not require any further psychiatric intervention such as admission to a higher level of psychiatric care. 5. I will continue to follow up with you while he remains in the hospital. Time Spent With Patient Time with patient: Greater than 35 minutes
[2019-03-08] MEDS: INTERFERON BETA 44 MCG 44 EACH SUBCUT (17:36)
[2019-03-08] MEDS: IBUPROFEN 400 MG TABLET PO (17:38)
[2019-03-08 18:41] LABS: Hemoglobin A1C% w Est Avg Glu 5.6 % (4.0-6.0)
[2019-03-08 19:30] VITALS: BP 136/70; PULSE 87; RESP 14; TEMP 36.7; O2SAT 94
[2019-03-08] MEDS: MELATONIN 3 MG TABLET 6 MG PO (21:00)
[2019-03-08] MEDS: [UNRECOGNIZED DRUG - REMARK] 2 EACH PO (21:00)
[2019-03-09] VITALS: BP 148/84; PULSE 70; RESP 16; TEMP 36.9; O2SAT 94
[2019-03-09] MEDS: TIZANIDINE 4 MG TABLET 2 MG PO (00:33)
[2019-03-09] MEDS: SODIUM CHLORIDE 0.9% 1,000 ML 150 ML IV ×2 (00:33→06:57)
[2019-03-09] MEDS: BACLOFEN 10 MG TABLET 20 MG PO ×4 (05:21→23:52)
[2019-03-09 05:23] VITALS: BP 154/88; PULSE 67; RESP 16; TEMP 36.9; O2SAT 94
[2019-03-09 07:04] LABS: Blood Urea Nitrogen 16 mg/dL (9-20); Calcium 10.1 mg/dL (8.4-10.2); Carbon Dioxide 28 mmol/L (22-32); Chloride 106 mmol/L (98-107); Estimated Glomerular Filt Rate > 60.0 mL/min (>60); Glucose 95 mg/dL (80-110); HEMOLYSIS < 15 (0-50); Potassium 3.7 mmol/L (3.4-5.1); Sodium 137 mmol/L (137-145)
[2019-03-09 08:16] VITALS: BP 154/93; PULSE 63; RESP 14; TEMP 36.6; O2SAT 96
--- NOTE | 2019-03-09 08:34 | CM.DPC ---
Addendum entered by Cony Cespedes LPN 03/09/19 10:46: Discussed case in Team Rounds as planned. Dr. Jarrett noted that pt was not yet stable for d/c. He readily agreed to call the [facility] electrician helper [employer] to discuss this: gave him # for Dr. Patrick Anthony: [phone] (provided by Zehra). Went to room to check in with pt. He is currently on bedside commode. Will try later as time allows. [facility] Freda will plan to fax Dr. Jarrett's note when available to the facility. P: continues to be / IRF when stable for same. Prior [facility] notes indicate this will be via a pvt transport company. DCP team will follow up tomorrow. Original Note: DCP: continued: case received, EMR reviewed and spoke by phone with Zehra: [facility] ([facility]). She confirms that pt has been accepted when he is considered medically stable for same. [facility] is now faxing Dr. Marie's progress note from yesterday and Dr. Holloway's psychiatric consultation note of yesterday. . Hospitalist on for today is Dr. Jarrett. P: discuss in Team Rounds and follow accordingly. (
[2019-03-09] MEDS: POLYETHYLENE GLYCOL 3350 17 GM POWD.PACK PO (08:43)
[2019-03-09] MEDS: DOCUSATE 250 MG CAPSULE PO ×2 (08:43→20:21)
[2019-03-09] MEDS: HEPARIN 5,000 UNIT/ML VIAL 5000 UNIT SUBCUT ×2 (08:47→22:11)
[2019-03-09] MEDS: CITALOPRAM 20 MG TABLET 40 MG PO (08:47)
[2019-03-09] MEDS: BISACODYL 10 MG SUPP PR (09:25)
[2019-03-09] MEDS: SODIUM CHLORIDE 0.9% 1,000 ML 100 ML IV (09:26)
--- NOTE | 2019-03-09 10:50 | PM.PN.1 ---
Subjective Subjective Date Patient Seen: 03/09/19 Time Patient Seen: 09:15 Interval history: Wm Keys is a 63-year-old male with a past medical history signicificant for progressive MS (dx 1997), neurogenic bladder requiring self catheterization, spasticity, GERD, constipation and gastroparesis who presented to the ED out of concern for RUQ abdominal pain. The patient is resting in bed and now appears comfortable. He reports his muscle spasticity has significantly improved with Valium and he was able to get the best sleep he has had in a very long time. He still complains of spastic symptoms in the early afternoon that he would like to see if they can be improved. He had very hard stool today, and will receive an enema later this morning. His calcium level has improved today to 10.1 (corrected 11.2 given hypoalbuminemia). His urine output as 1750 overnight and this is down significantly. We are working on discontinuing his IVF today and will repeat electrolytes. If stable he will likely be medically ready for discharge tomorrow. He has no other complaints and denies headache, shortness of breath, chest pain, abdominal pain, nausea, vomiting, fever, or chills. Exam Vital Signs (past 8 hours): - 03/09/19 05:23 03/09/19 08:16 Temperature 98.5 F 97.9 F Pulse Rate 67 63 Respiratory Rate 16 14 Blood Pressure 154/88 H 154/93 H Pulse Oximetry 94 96 Oxygen Delivery Method Room Air Oxygen Flow Rate 0 Narrative Exam Narrative: General: Older gentleman lying in bed appears appears comfortable and in no acute distress, well-developed, well-nourished, mood significantly improved and appropriately interactive. HEENT: Normocephalic, atraumatic. External ears without defect. Pupils equal, round, and reactive to light. Anicteric sclerae, moist conjunctivae, and no lid lag. Neck: Supple with full range of motion. No lymphadenopathy or thyromegaly. Cardiovascular: Regular rate and rhythm without murmurs, rubs, or gallops appreciated. Pulmonary: Clear to auscultation bilaterally without crackles, wheezes, or rhonchi. Normal respiratory effort with no use of accessory muscles. Abdomen: Soft, bowel sounds present, non-tender, non-distended. No hepatosplenomegaly or masses appreciated. Extremities: No clubbing or cyanosis. Mild bipedal edema of bilateral lower extremities R>L likely due to hemiparesis. Mild right upper extremity edema due to hemiparesis. Skin: Normal temperature, turgor, and texture; no rash, ulcers, or subcutaneous nodules appreciated. Neurological: Right-sided hemiparesis with intact sensation of all extremities. No spasticity of left extremities today. Psychiatric: normal affect. Good insight. Denies suicidality today. Alert oriented to person, place, and time. Objective Labs Result Diagrams: 03/08/19 05:15 03/09/19 06:45 Labs: Laboratory Results - last 24 hr 03/08/19 03/09/19 05:15 06:45 Sodium 137 Potassium 3.7 Chloride 106 Carbon Dioxide 28 BUN 16 Creatinine 1.00 Estimated GFR > 60.0 BUN/Creatinine Ratio 16.0 Glucose 95 Hemoglobin A1c 5.6 Calcium 10.1 Assessment & Plan Assessment & Plan narrative: Wm Keys is a 63-year-old male with a past medical history signicificant for progressive MS (dx 1997), neurogenic bladder requiring self catheterization, spasticity, GERD, constipation and gastroparesis who presented to the ED out of concern for RUQ abdominal pain, he was been admitted for hypercalcemia which is improving and now being managed for post-obstructive diuresis. 1. Acute hypercalcemia, likely secondary to dehydration, present on admission. Active. -Differential diagnosis includes: Hyperparathyroidism (primary vs secondary) vs Malignancy vs Vitamin D toxicity vs Hyperthyroidism / Endocrine disorders. -Likely not medication related. Not on thiazide or lithium. Need to be mindful of the experimental/investigational medication that the patient is receiving with his current research study. -Associated EKG changes of bradycardia, short QRS of 47 ms, and short QT 399 ms. -Ordered complete workup includin OH-D which is normal at 61. 1,25 (OH)2 D, iPTH, ionized calcium, and SPEP and UPEP which are send out tests and pending. -TSH normal at 2.4. -Held Vitamin D and multivitamin. -Initial calcium level 14.1. Calcium level decreased to 11.0 now back up to 11.3 due to significant post-obstructive diuresis and difficulty with keeping up with adequate IV fluid hydration as below. This improved today and is 10.1 but corrected level of 11.2 due to low albumin. -Will work on discontinuing fluids today and monitoring urine output given marked improvement in urine output (1750 UOP overnight). -Received calcitonin 300 mg IM x1 on admission and received 3 total doses. Zometa 4 mg IV x 1 was given. Case was discussed with [facility] Nephrology who agrees with overall evaluation and plan of care regarding hypercalcemia which appears to be due to dehydration as readily resolving with IV fluid hydration (correction of hypercalcemia now slightly delayed due to post-obstructive diuresis), as well as, post-obstructive diuresis as below. 2. Acute kidney injury, present on admission. Resolved. -Likely secondary to hypercalcemia and possibly obstructive uropathy from neurogenic bladder. -Initial surgeon creatinine 1.3. Baseline creatinine 0.8. Creatinine 1.0 today. -Slowly titrate off IVF today. -Continue to monitor renal function closely. 3. Acute post-obstructive diuresis, secondary to Neurogenic bladder with incomplete bladder emptying, present on admission. -Self catheterizes self for 20 years, in the past month as much as Q2H. No history of recurrent UTIs. Currently has symptoms of urinary urgency, frequency, and incomplete bladder emptying. -Urinalysis unremarkable and not suggestive of an acute infection. -Patient has had massive urine output since [place] catheter has been placed and has post-obstructive diuresis. Will work on discontinuing fluids today and will follow urine output. -Continue strict I&O. Patient has had 19 L IN and 20 L OUT. Overnight much improved. 4. Chronic progressive multiple sclerosis, present on admission, active -Patient is followed by [facility] neurology Dr. Garcia and physiatry Dr. Borja. -Concern for advancing MS. Patient states that he has a pending MRI order in the outpatient setting in the near future for evaluation of MS progression. -Continue Rebif 44 mcg subcu 3 times per week and investigational medication until able to discuss this further with Neurology. 5. Acute on chronic muscle spasticity, secondary to underlying MS, present on admission. Active. -Patient is on baclofen 20 mg 4 times daily and additionally reports he takes 2-3 doses exceeding recommended amount. Continue baclofen 20 mg 4 times daily. -Started Valium 5 mg every 6 hours as needed for muscle spasticity and tizanidine 2 mg every 8 hours as needed for muscle spasm. 6. Depression and anxiety with suicidality, acute on chronic, present on admission. Resolved -Patient readily admitted to suicide plan yesterday 03/07. Patient is voluntarily willing to go to inpatient psychiatric treatment, however, due to his decreased mobility and lack of ability to perform all ADLs from MS he is and unlikely candidate for inpatient psychiatric treatment. Also with improvement in muscle spasticity and the patient is now well rested his mood has significantly improved and no longer endorsing suicidal thoughts. Recommended continued close monitoring for suicidality as an outpatient and development of a safety plan if suicidal ideation returns. -Continue citalopram 40 mg daily. -Consulted Psychiatry for evaluation and we appreciate their time and recommendations. 7. Interstitial cystitis, chronic, present on admission. Stable. -Patient with a history of frequent self catheterization. There is a concern fibrotic changes within the bladder, causing neurogenic up regulation and sensory nerve activation in the bladder and development neuro changes within the spinal cord leading to chronic symptoms of urinary urgency, frequency and discomfort. 8. Right upper and lower extremity edema, chronic, present on admission. Stable. -No overt edema, erythema, or tenderness. Adequate perfusion. -Continue to elevate both right upper and lower extremities frequently. 9. hypomagnesemia, present on admission - - continue to follow and replete as necessary. Code status discussed with patient. Wishes to be DNR. He has a POLST form. Spouse is the DPOA. VTE prophylaxis w/ Heparin. Disposition: Patient likely to discharge to inpatient rehab once he is off of IVF and his urine output has improved (declined secondary to post obstructive diuresis). This will likely be tomorrow if his labs remain stable. Quality VTE Deep Vein Thrombosis/Pulmonary Embolism Present on Admission: No
[2019-03-09] MEDS: MINERAL OIL 1 EACH ENEMA PR ×2 (11:02→12:26)
--- NOTE | 2019-03-09 11:10 | OT.IP.TRT ---
Current Diagnoses Hypercalcemia (03/07/19) Occupational Therapy Treatment Note M2 OT-IP Current Condition Start: 03/08/19 12:22 Freq: Status: Active Protocol: Document 03/08/19 12:23 [facility] (Rec: 03/08/19 13:05 [facility] [id number]) Occupational Therapy Current Condition Current Condition Evaluation Date 03/08/19 Treatment Diagnosis Hypercalcemia, progressive MS, weakness Diagnosis Onset Date 03/07/19 Weight Bearing Status Weight Bearing Status Weight Bear as Tolerated M3 OT- IP Subjective and Pain Start: 03/08/19 12:22 Freq: Status: Active Protocol: Document 03/09/19 13:11 [facility] (Rec: 03/09/19 13:34 [facility] [id number]) OT- Subjective Occupational Therapy Visit Type Type Treatment Note Visit Start Time 11:10 Visit Stop Time 12:20 Total Visit Minutes 70 Occupational Therapy Visit Comments Patient Comments Pt wanting to have a bowel movement. Patient/Caregiver Goals To go to intensive rehab to get stronger. OT Pain Assessment Pain When Pain Assessed At Rest Pain Present Pain Present Denied Pain M4 OT- IP ADL's Start: 03/08/19 12:22 Freq: Status: Active Protocol: Document 03/09/19 13:11 [facility] (Rec: 03/09/19 13:34 [facility] [id number]) OT ADL-Grooming General Evaluation Grooming Ability Standby Assistance Areas Needing Assistance Retrieving/Set-up of Grooming Items Comments OT Grooming Comments Pt needing assist for set -up and able to do grooming needs while sitting on the commode. Pt able to use right hand grossly to hold bucket in front of him so able to spit into. Able to assist pt to soak right hand in warm water and clean his hand brace. OT ADL-Oral Care General Eval Oral Care Ability Independent OT ADL-Toileting General Evaluation Toileting Ability Total Assistance Areas Needing Assistance Perform Perineal Hygiene Devices Toileting Assistive Devices Commode Comments OT Toileting Comments Total assist for nursing for hygiene needs while 1-2 person assist to stand pt to FWW. M6 OT- IP Functional Cognition Start: 03/08/19 12:22 Freq: Status: Active Protocol: Document 03/09/19 13:11 [facility] (Rec: 03/09/19 13:34 [facility] [id number]) Cognitive Factors Limiting Selfcare Function Cognitive Ability Level of Alertness Alert Patient Orientation Name,Place,Situation Attention Span Ability Capable of Focused Attention, Capable of Sustained Attention Ability to Follow Commands Able to Follow Multi-Step Commands Safety Awareness Underestimates Need for Assistance Cognitive Comments Cognitive Assessment Comments Pt doing better with safety awareness and able to follow multiple commands and sequence through grooming needs independently. Per pt feel doing better overall with his cognition. M7 OT- IP Mobility and Balance Start: 03/08/19 12:22 Freq: Status: Active Protocol: Document 03/09/19 13:11 [facility] (Rec: 03/09/19 13:34 [facility] [id number]) OT-Transfer Assessment Sit to and From Stand Sit to and from Stand Moderate Assistance,2 Person Assistance Comments Mobility Comments Pt able to use right hand when assist to position of handle of FWW and assist to support at elbow and wrist to stand up with MODA x 2. Pt able to stand for aid, nuraing able to assist for hygiene needs. OT- Balance Assessment Sitting Balance and Reactions Static Sitting Balance Ability Good Dynamic Sitting Balance Ability Fair Comments Other Balance Tests/Deviations/Treatment Pt better trunk control while : sitting today, still decreased balance dynamically at this time and will continue to need assist for extensive assist for LB dressing. M8 OT- IP Objective Assessments Start: 03/08/19 12:22 Freq: Status: Active Protocol: Document 03/08/19 12:23 [facility] (Rec: 03/08/19 13:05 [facility] [id number]) OT Gross Range of Motion Upper Extremity Range of Motion Assessment Right Impaired ROM Impairments Contracture to right hand and use of antispasticity splint during the day. OT Strength Upper Extremity Strength Assessment Right Impaired OT-Muscle Tone Assessment Muscle Tone Location Bilateral Lower Extremity Type of Tone Hypertonicity Comments Muscle Tone Comments hypertonicity right hand. 03/09 went over stretching pt can do while to help stretch right internal rotator as very tight. Educated pt on posture awareness, midline, and for right UE positioning and management need. M9 OT- IP Assessment and Plan Start: 03/08/19 12:22 Freq: Status: Active Protocol: Document 03/09/19 13:11 [facility] (Rec: 03/09/19 13:34 [facility] [id number]) OT Summary Assessment and Plan Potential Rehabilitation Potential Good Analytic Complexity at Evaluation Low Summary OT Impairments Range of Motion,Strength, Balance,Functional Cognition, Functional Mobility,Dressing, Toileting,Bathing,Toilet Transfers,Shower Transfers Progress Towards Goals Slow Progress due to Medical Issues Assessment Summary Pt doing better today with increased sitting tolerance and able to stand with asisst today. Continue to recommend intensive inpt rehab prior to going home. Goals Dressing Goal Minimal Assistance Toileting Goal Standby Assistance Bathing Goal Standby Assistance Toilet Transfer Goal Independent Shower Transfer Goal Standby Assistance,Moderate Assistance Patient/Caregiver Education Goal Caregiver Independent Assisting Patient Days to Meet Goals 10 Treatment Plan OT Treatment Plan ADL Training,Functional Cognition Training,Functional Mobility,Patient/Family Education,Discharge Planning Other Treatment Recommendations and Next Lb dressing. Treatment Focus Discharge Recommendations OT Discharge Recommendations Acute Rehab
[2019-03-09 11:46] LABS: Magnesium 1.2 mg/dL (1.6-2.3)
--- NOTE | 2019-03-09 12:10 | PT.IPTN ---
Current Diagnoses Hypercalcemia (03/07/19) Physical Therapy Treatment Note M2 PT-IP Current Condition Start: 03/07/19 13:51 Freq: NEEDED Status: Active Protocol: Document 03/07/19 15:58 AW (Rec: 03/07/19 16:44 AW [id number]) Physical Therapy Current Condition Current Condition Evaluation Date 03/07/19 Treatment Diagnosis hypercalcemia, progressive MS, impaired transfers, impaired mobility Weight Bearing Status Weight Bearing Status Full Weight Bearing M3 PT-IP Subjective Start: 03/07/19 13:51 Freq: NEEDED Status: Active Protocol: Document 03/09/19 11:58 AW (Rec: 03/09/19 12:10 AW [id number]) Subjective Physical Therapy Visit Type Type Treatment Note Visit Start Time 08:55 Visit Stop Time 11:16 Total Visit Minutes 18 Notes Split visit [id number] and 1108 -1116. Number of RELATIONSHIP MGR Visits 0 Physical Therapy Visit Comments Patient Comments Pt would like to use [facility] Therapy Pain Assessment Pain When Pain Assessed During Mobility Pain Present Pain Present Denied Pain M4 PT-IP Mobility and Gait Start: 03/07/19 13:51 Freq: NEEDED Status: Active Protocol: Document 03/09/19 11:58 AW (Rec: 03/09/19 12:10 AW [id number]) PT-Bed Mobility Assessment Supine to Sit Supine to Sit Moderate Assistance,1 Person Assistance,Head of Bed Elevated,Bedrails Scooting Scooting to Edge of Bed Contact Guard Assistance PT-Transfer Assessment Sit to and From Stand Sit to and from Stand Moderate Assistance,2 Person Assistance Equipment Transfer Assistive Device Front Wheeled Walker Orthotic/Prosthetic Devices or Brace: No Transfers Transfer Destination Bedside Commode Transfer Technique Squat Pivot Transfer Ability Level of Assist Moderate Assistance,2 Person Assistance,Use of Upper Extremities Comments Mobility Comments Pt encountered lying in bed but interested in transferring to [facility]. With HOB elevated 80 degrees and heavy reliance on bedrails, pt completed supine to sit transfer with mod A x 1 . Seated balance was improved with pt able to sit in flexed position with UE support but unable to sit fully upright. With mod A x 2, pt completed squat pivot transfer to [facility] with most assist required in order to clear the arm of the commode. Pt was able to reposition himself on the commode with use of UE's although he remained in flexed position, requiring CGA. Later, assisted pt to stand using FWW and mod A x 2 to allow RN to treat with enema. At that time, pt removed brace from right hand and used both UE's to support himself with the walker. He was able to extend his hips and trunk ~80% . Gait Assessment Comments Gait Comments Pt unable at this time M5 PT-IP Objective Assessments Start: 03/07/19 13:51 Freq: NEEDED Status: Active Protocol: Document 03/07/19 15:58 AW (Rec: 03/07/19 16:44 AW [id number]) Orientation Orientation/Cognition Level of Alertness Alert Orientation Name,Month,Place,Situation Language Function Ability No Deficits Noted,Word Finding Difficulties Safety Awareness Understands Safety Issues Comments Pt endorses recent difficulties with word-finding . He feels he has stopped talking to his as much as he used to due to this problem. No deficits noted during evaluation. Gross Range of Motion Upper Extremity ROM Assessment Right Impaired Impairments RUE atrophy of the shoulder complex and right hand contracture managed with bracing. LUE ROM WNL Lower Extremity ROM Assessment Bilaterally Impaired Strength Upper Extremity Strength Assessment Right Impaired Lower Extremity Strength Assessment Bilaterally Impaired Comments Strength Comments Spasticity limited strength testing, but pt presents as grossly 3-/5 in BLE. Muscle Tone Muscle Tone WNL No Muscle Tone Location Bilateral Lower Extremity Type of Tone Hypertonicity Severity of Tone Severe Comments Muscle Tone Comments Dary grade 3 BLE M6 PT-IP Treatment Start: 03/07/19 13:51 Freq: NEEDED Status: Active Protocol: Document 03/08/19 14:28 [facility] (Rec: 03/08/19 15:27 [facility] [id number]) Physical Therapy Treatment Exercises Exercises Ankle Pumps,Gluteal Sets,Quad Sets Other Treatments Other Treatment Performed seated marches M7 PT-IP Assessment and Plan Start: 03/07/19 13:51 Freq: NEEDED Status: Active Protocol: Document 03/09/19 11:58 AW (Rec: 03/09/19 12:10 AW [id number]) PT Summary Assessment and Plan Potential Rehabilitation Potential Good Status of Condition at Evaluation Stable Summary Impairments ROM,Strength,Balance,Tone, Cognition,Bed Mobility, Transfers,Gait,Activity Tolerance Progress Towards Goals Progressing Toward Goals Assessment Summary Pt improving with bed mobility and transfer ability. He shows good effort with all activities and is highly motivated. He remains an excellent candidate for acute rehab. Goals Bed Mobility Goal Minimal Assistance Transfer Goal Minimal Assistance,Cane, Crutches,Front Wheeled Walker Gait Goal Minimal Assistance,Cane, Crutches,Front Wheel Walker Gait Distance 20 feet Other Goals Gait and transfer goals to be accomplished with most appropriate assistive device. Days to Meet Goals 10 Frequency of Treatment Frequency Of Treatment Twice a Day Treatment Plan Physical Therapy Treatment Plan Bed Mobility Training,Transfer Training,Gait Training, Therapeutic Exercise,Balance Retraining,Discharge Planning, Neuromuscular Re-ed, Coordination Retraining Other Recommendations and Next Treatment strengthening, dynamic sitting Focus balance, sit to stand, transfers as able Recommendations To Nursing Amount of Assist Needed 2 Person Assist,3 or More Person Assist Discharge Recommendations PT Discharge Recommendations Acute Rehab
[2019-03-09] MEDS: MAGNESIUM SULFATE 2 GM/50 ML PIGGYBACK IV (12:28)
--- NOTE | 2019-03-09 12:37 | PC.NURSE ---
Day shift: Has been approx 6 days or more with no BM. Gave Pt SUP per rectum and Pt had approx 2 cups of hard stool come out. Pt reported he felt more in colon and 2 each mineral enemas given. Pt remains on BSC and when done he will go back to bed or chair. While he was on BSC he worked with OT caring for his right hand. [employer] HOUSEKEEPER in room to make sure Pt does not fall. Call light in reach.
[2019-03-09 15:31] LABS: Parathyroid Hormone Int 5 pg/mL (14-64)
[2019-03-09 15:36] VITALS: BP 158/95; PULSE 64; RESP 18; TEMP 36.3; O2SAT 99
--- NOTE | 2019-03-09 15:42 | PT.IPTN ---
Current Diagnoses Hypercalcemia (03/07/19) Physical Therapy Treatment Note M2 PT-IP Current Condition Start: 03/07/19 13:51 Freq: NEEDED Status: Active Protocol: Document 03/07/19 15:58 AW (Rec: 03/07/19 16:44 AW [id number]) Physical Therapy Current Condition Current Condition Evaluation Date 03/07/19 Treatment Diagnosis hypercalcemia, progressive MS, impaired transfers, impaired mobility Weight Bearing Status Weight Bearing Status Full Weight Bearing M3 PT-IP Subjective Start: 03/07/19 13:51 Freq: NEEDED Status: Active Protocol: Document 03/09/19 15:26 AW (Rec: 03/09/19 15:41 AW [id number]) Subjective Physical Therapy Visit Type Type Treatment Note Visit Start Time 15:05 Visit Stop Time 15:25 Total Visit Minutes 15 Number of NIGHT WORKER Visits 0 Physical Therapy Visit Comments Patient Comments Pt sitting up in chair, ready to return to the bed. Therapy Pain Assessment Pain When Pain Assessed During Mobility Pain Present Pain Present Denied Pain M4 PT-IP Mobility and Gait Start: 03/07/19 13:51 Freq: NEEDED Status: Active Protocol: Document 03/09/19 15:26 AW (Rec: 03/09/19 15:41 AW [id number]) PT-Bed Mobility Assessment Sit to Supine Sit to Supine Standby Assistance Scooting Scooting to Edge of Bed Contact Guard Assistance PT-Transfer Assessment Sit to and From Stand Sit to and from Stand Maximum Assistance,1 Person Assistance,Use of Upper Extremities Equipment Transfer Assistive Device Front Wheeled Walker Orthotic/Prosthetic Devices or Brace: No Transfers Transfer Destination Bed Transfer Technique Stand Step Pivot Transfer Ability Level of Assist Maximum Assistance,1 Person Assistance Comments Mobility Comments Pt in chair and ready to return to bed. Pt was able to scoot himself to edge of chair CGA after using his left hand to place his right hand on the chair arm. He then used his left hand to place the right hand on the walker frame and completed sit to stand using LUE to push off chair with max A x 1. In standing, pt was able to stand ~80% upright. With max A x 1 and FWW, pt shifted his weight appropriately and took small steps to EOB where he sat with cues for sequencing and mod A . Pt then used his LUE to move his legs toward HOB and then to lift himself and scoot toward HOB. After 5 scooting movements requiring min A, pt transferred sit to supine SBA. He was able to lift his legs with increased time and effort without physical assist. Pt was repositioned in the bed and left with call light and bedside table within reach and with his at bedside. Gait Assessment Gait Gait Assistance Required: Maximum Assistance,1 Person Assist Distance (Feet) 2 Able to Maintain Weight Bearing Status Yes During Gait Assistive Devices Assistive Device Gait Belt,Front Wheeled Walker Orthotic/Prosthetic Devices or Brace: No Gait Deviations General Gait Pattern Decreased Stride Length, Decreased Feet Clearance, Flexed Trunk Factors Limiting Gait Function Factors Limiting Gait Function Abnormal Tonal Influences, Decreased Activity Tolerance, Decreased Strength,Poor Balance Comments Gait Comments See mobility comments PT-Balance Assessment Standing Balance and Reactions Static Standing Balance Ability Poor Dynamic Standing Balance Ability Poor Device Used FWW M5 PT-IP Objective Assessments Start: 03/07/19 13:51 Freq: NEEDED Status: Active Protocol: Document 03/07/19 15:58 AW (Rec: 03/07/19 16:44 AW [id number]) Orientation Orientation/Cognition Level of Alertness Alert Orientation Name,Month,Place,Situation Language Function Ability No Deficits Noted,Word Finding Difficulties Safety Awareness Understands Safety Issues Comments Pt endorses recent difficulties with word-finding . He feels he has stopped talking to his as much as he used to due to this problem. No deficits noted during evaluation. Gross Range of Motion Upper Extremity ROM Assessment Right Impaired Impairments RUE atrophy of the shoulder complex and right hand contracture managed with bracing. LUE ROM WNL Lower Extremity ROM Assessment Bilaterally Impaired Strength Upper Extremity Strength Assessment Right Impaired Lower Extremity Strength Assessment Bilaterally Impaired Comments Strength Comments Spasticity limited strength testing, but pt presents as grossly 3-/5 in BLE. Muscle Tone Muscle Tone WNL No Muscle Tone Location Bilateral Lower Extremity Type of Tone Hypertonicity Severity of Tone Severe Comments Muscle Tone Comments Dary grade 3 BLE M6 PT-IP Treatment Start: 03/07/19 13:51 Freq: NEEDED Status: Active Protocol: Document 03/08/19 14:28 [facility] (Rec: 03/08/19 15:27 [facility] [id number]) Physical Therapy Treatment Exercises Exercises Ankle Pumps,Gluteal Sets,Quad Sets Other Treatments Other Treatment Performed seated march M PT-IP Assessment and Plan Start: 03/07/19 13:51 Freq: NEEDED Status: Active Protocol: Document 03/09/19 15:26 AW (Rec: 03/09/19 15:41 AW [id number]) PT Summary Assessment and Plan Potential Rehabilitation Potential Good Status of Condition at Evaluation Stable Summary Impairments ROM,Strength,Balance,Tone, Cognition,Bed Mobility, Transfers,Gait,Activity Tolerance Progress Towards Goals Progressing Toward Goals Assessment Summary Pt performed first stand step pivot transfer of this episode of care with max assist x 1 and FWW. Spasticity is better controlled today which has improved the pt's mood as well as his performance. Goals Bed Mobility Goal Minimal Assistance Transfer Goal Minimal Assistance,Cane, Crutches,Front Wheeled Walker Gait Goal Minimal Assistance,Cane, Crutches,Front Wheel Walker Gait Distance 20 feet Other Goals Gait and transfer goals to be accomplished with most appropriate assistive device. Days to Meet Goals 10 Frequency of Treatment Frequency Of Treatment Twice a Day Treatment Plan Physical Therapy Treatment Plan Bed Mobility Training,Transfer Training,Gait Training, Therapeutic Exercise,Balance Retraining,Discharge Planning, Neuromuscular Re-ed, Coordination Retraining Other Recommendations and Next Treatment strengthening, dynamic sitting Focus balance, sit to stand, transfers as able Recommendations To Nursing Amount of Assist Needed 2 Person Assist,3 or More Person Assist Discharge Recommendations PT Discharge Recommendations Acute Rehab
[2019-03-09 19:30] VITALS: BP 178/84; PULSE 75; RESP 18; TEMP 37.9; O2SAT 99
[2019-03-09] MEDS: MELATONIN 3 MG TABLET 6 MG PO (20:22)
[2019-03-09] MEDS: diazePAM 5 MG TABLET PO (20:22)
[2019-03-09] MEDS: [UNRECOGNIZED DRUG - REMARK] 2 EACH PO (20:23)
--- NOTE | 2019-03-09 22:31 | PC.NURSE ---
Evening Shift 2229 The patient was very pleasant and cooperative with plan of care this shift. The patient's general attitude throughout was positive during interactions with this student nurse. Muscle spasms at 1999, medication given for these. Reassessed an hour later, muscle spasms diminished. Bed low and locked, call light within reach, bed alarm on. Patient encouraged to call for any needs.
[2019-03-10] VITALS: BP 132/65; PULSE 74; RESP 15; TEMP 36.9; O2SAT 96
[2019-03-10] MEDS: TIZANIDINE 4 MG TABLET 2 MG PO (01:03)
[2019-03-10] MEDS: diazePAM 5 MG TABLET PO ×2 (02:55→10:24)
[2019-03-10] MEDS: SODIUM CHLORIDE 0.9% 1,000 ML 100 ML IV (03:42)
[2019-03-10 04:00] VITALS: BP 149/71; PULSE 71; RESP 17; TEMP 37.4; O2SAT 95
[2019-03-10 05:30] LABS: BUN Creatinine Ratio 15.6 (6-22); Blood Urea Nitrogen 14 mg/dL (9-20); Calcium 9.6 mg/dL (8.4-10.2); Carbon Dioxide 27 mmol/L (22-32); Chloride 103 mmol/L (98-107); Estimated Glomerular Filt Rate > 60.0 mL/min (>60); Glucose 92 mg/dL (80-110); HEMOLYSIS < 15 (0-50); Magnesium 1.3 mg/dL (1.6-2.3); Potassium 3.3 mmol/L (3.4-5.1); Sodium 133 mmol/L (137-145)
[2019-03-10] MEDS: BACLOFEN 10 MG TABLET 20 MG PO ×2 (06:14→12:42)
[2019-03-10] MEDS: POTASSIUM CHLORIDE 40 MEQ in SODIUM CHLORIDE 0.9% 500 ML 130 ML IV (06:14)
[2019-03-10 07:55] VITALS: BP 142/82; PULSE 74; RESP 17; TEMP 37.1; O2SAT 95
[2019-03-10] MEDS: POLYETHYLENE GLYCOL 3350 17 GM POWD.PACK PO (08:37)
[2019-03-10] MEDS: ACETAMINOPHEN 325 MG TABLET 650 MG PO (08:37)
[2019-03-10] MEDS: CITALOPRAM 20 MG TABLET 40 MG PO (08:38)
[2019-03-10] MEDS: DOCUSATE 250 MG CAPSULE PO (08:41)
[2019-03-10] MEDS: HEPARIN 5,000 UNIT/ML VIAL 5000 UNIT SUBCUT (08:42)
--- NOTE | 2019-03-10 09:16 | PM.DS.1 ---
History of Present Illness History of Present Illness Date Patient Seen: 03/10/19 Time Patient Seen: 09:16 Chief complaint: decreased ua output/abd pain ongoing 1month Narrative: As per YOSEPH Nava: The patient is a 63-year-old male with PMH of MS (dx 1998), neurogenic bladder, spasticity, GERD, constipation and gastroparesis. Patient presented to the ED on 03/06 out of concern for RUQ abdominal pain. Reports discomfort below the ribs at the right anterior and lateral torso. Additional GI symptoms included nausea with dry heaving. Pain exacerbated after meal consumption. Resolves without intervention. Recently has been suffering from worsening symptoms of GERD, which she has been treating with OTC Prilosec. Patient reports intentional weight loss since November of 2018. Patient is having difficulty quantifying weight loss. He has been on a weight loss program, [employer] and a restricted calorie intake of 1000 matty per day. Patient with underlying history of MS and associated spasticity. In the past one month has been experiencing worsening spasticity, and even more so over the past week. Typically treats with baclofen 20 mg 4 times a day while awake, and endorses using additional 2 doses overnight. Additional symptoms include difficulty sleeping, sensation of urinary urgency and frequency, polyuria, confusion, generalized weakness, dizziness. Denies chest pain, palpitations, muscle and joint pain. Denies diarrhea. One week ago experienced a 24-48 hour episode of generalized malaise and fever (T 102.9F), which self-resolved. He does take vitamin-D 2000 units daily and Centrum Silver 4 minutes., no recent change in his dose. Also, on citalopram 40 mg daily. MS is treated with interferon beta-1a [Rebif Rebidose]. In October of 2018 patient was started on a research study aimed at improving ability to walk. He felt the medication he is receiving through the study has helped initially, but not in recent weeks. Discharge Providers Provider Date of admission: 03/07/19 14:10 Discharge Date: 03/10/19 Primary care physician: Roberto Longo MD Consults: 03/07/19 09:56 Consult to Physical Therapy Evaluate & Treat Comment: Physician Instructions: Evaluate and Treat 03/08/19 08:19 Consult to Physician Routine Comment: Consulting Provider: Stew Holloway Reason for consultation: Suicidality Has provider been notified: Yes 03/08/19 09:39 Consult to Occupational Therapy Evaluate & Treat Comment: Physician Instructions: Evaluate and treat Discharge provider: Felipe Jarrett DO Summary Hospital Course Discharge Diagnosis: 1. Acute hypercalcemia, likely secondary to dehydration, present on admission. Active. 2. Acute kidney injury, present on admission. Resolved. 3. Acute post-obstructive diuresis, secondary to Neurogenic bladder with incomplete bladder emptying, present on admission. 4. Chronic progressive multiple sclerosis, present on admission, active 5. Acute on chronic muscle spasticity, secondary to underlying MS, present on admission. Active. 6. Depression and anxiety with suicidality, acute on chronic, present on admission. Resolved 7. Interstitial cystitis, chronic, present on admission. Stable. 8. Right upper and lower extremity edema, chronic, present on admission. Stable. 9. hypomagnesemia, present on admission - 10. Constipation, resolved. Hospital Course: Wm Keys is a 63-year-old male with a past medical history signicificant for progressive MS (dx 1997), neurogenic bladder requiring self catheterization, spasticity, GERD, constipation and gastroparesis who presented to the ED out of concern for RUQ abdominal pain, he was been admitted for hypercalcemia which is improving and now being managed for post-obstructive diuresis. 1. Acute hypercalcemia, likely secondary to dehydration, present on admission. Active. -Differential diagnosis includes: Hyperparathyroidism (primary vs secondary) vs Malignancy. -Likely not medication related. Not on thiazide or lithium. Need to be mindful of the experimental/investigational medication that the patient is receiving with his current research study. -Associated EKG changes of bradycardia, short QRS of 47 ms, and short QT 399 ms. -Ordered complete workup includin OH-D which is normal at 61. 1,25 (OH)2 D, iPTH, ionized calcium, and SPEP and UPEP which are send out tests and pending. -TSH normal at 2.4. -Held Vitamin D and multivitamin. -Initial calcium level 14.1. Calcium level decreased to 11.0 now back up to 11.3 due to significant post-obstructive diuresis and difficulty with keeping up with adequate IV fluid hydration as below. This has continued to improve and most recent calcium is 9.6 (corrected 10.7 given low albumin). -Received calcitonin 300 mg IM x1 on admission and received 3 total doses. Zometa 4 mg IV x 1 was given. Case was discussed with [facility] who agrees with overall evaluation and plan of care regarding hypercalcemia which appears to be due to dehydration as readily resolving with IV fluid hydration (correction of hypercalcemia now slightly delayed due to post-obstructive diuresis), as well as, post-obstructive diuresis as below. -Patient still has elevated urine output. Patient should continue to stay well hydrated while urine output is elevated to avoid further dehydration. Will send him on potassium and magnesium replacements until urine output improves. 2. Acute kidney injury, present on admission. Resolved. -Likely secondary to hypercalcemia and possibly obstructive uropathy from neurogenic bladder. -Initial surgeon creatinine 1.3. Baseline creatinine 0.8. Creatinine 1.0 today. -He should stay well hydrated after discharge. -Recommend follow up with urology. 3. Acute post-obstructive diuresis, secondary to Neurogenic bladder with incomplete bladder emptying, present on admission. -Self catheterizes self for 20 years, in the past month as much as Q2H. No history of recurrent UTIs. Currently has symptoms of urinary urgency, frequency, and incomplete bladder emptying. -Urinalysis unremarkable and not suggestive of an acute infection. -Patient has had massive urine output since Flores catheter has been placed and has post-obstructive diuresis. Will work on discontinuing fluids today and will follow urine output. -Continue strict I&O. Patient has had 19 L IN and 20 L OUT a few days ago which has trended down. He should continue to stay well hydrated. I recommend his flores stay in place until he can follow up with an outpatient urologist. 4. Chronic progressive multiple sclerosis, present on admission, active -Patient is followed by [facility] neurology Dr. Garcia and physiatry Dr. Borja. -Concern for advancing MS. Patient states that he has a pending MRI order in the outpatient setting in the near future for evaluation of MS progression. -Continue Rebif 44 mcg subcu 3 times per week and investigational medication until able to discuss this further with Neurology. They have not called back since being contacted. 5. Acute on chronic muscle spasticity, secondary to underlying MS, present on admission. Active. -Patient is on baclofen 20 mg 4 times daily and additionally reports he takes 2-3 doses exceeding recommended amount. Continue baclofen 20 mg 4 times daily. -Started Valium 5 mg every 6 hours as needed for muscle spasticity and tizanidine 2 mg every 8 hours as needed for muscle spasm. 6. Depression and anxiety with suicidality, acute on chronic, present on admission. Resolved -Patient readily admitted to suicide plan yesterday 03/07. Patient is voluntarily willing to go to inpatient psychiatric treatment, however, due to his decreased mobility and lack of ability to perform all ADLs from MS he is and unlikely candidate for inpatient psychiatric treatment. Also with improvement in muscle spasticity and the patient is now well rested his mood has significantly improved and no longer endorsing suicidal thoughts. Recommended continued close monitoring for suicidality as an outpatient and development of a safety plan if suicidal ideation returns. -Continue citalopram 40 mg daily. -Consulted Psychiatry for evaluation and we appreciate their time and recommendations. They believe he is safe for discharge and not a threat to himself or others at this time. 7. Interstitial cystitis, chronic, present on admission. Stable. -Patient with a history of frequent self catheterization. There is a concern fibrotic changes within the bladder, causing neurogenic up regulation and sensory nerve activation in the bladder and development neuro changes within the spinal cord leading to chronic symptoms of urinary urgency, frequency and discomfort. - UA was negative for infection. 8. Right upper and lower extremity edema, chronic, present on admission. Stable. -No overt edema, erythema, or tenderness. Adequate perfusion. -Continue to elevate both right upper and lower extremities frequently. 9. hypomagnesemia, present on admission - - continue to follow as outpatient with labs once or twice a week. Will provide him with oral supplementation. 10. Constipation, resolved. - patient required mineral oil enema during his hospitalization. Now improved. Will discharge with bowel regimen. Dispo: Acute rehab. Time Spent with Patient Time spent: Greater than 30 minutes Exam Vital Signs (past 8 hours): - 03/10/19 04:00 03/10/19 07:55 Temperature 99.3 F 98.8 F Pulse Rate 71 74 Respiratory Rate 17 17 Blood Pressure 149/71 H 142/82 H Pulse Oximetry 95 95 Oxygen Delivery Method Room Air Oxygen Flow Rate 0 Narrative Exam Narrative: General: Older gentleman lying in bed appears appears comfortable and in no acute distress, well-developed, well-nourished, mood significantly improved and appropriately interactive. HEENT: Normocephalic, atraumatic. External ears without defect. Pupils equal, round, and reactive to light. Anicteric sclerae, moist conjunctivae, and no lid lag. Neck: Supple with full range of motion. No lymphadenopathy or thyromegaly. Cardiovascular: Regular rate and rhythm without murmurs, rubs, or gallops appreciated. Pulmonary: Clear to auscultation bilaterally without crackles, wheezes, or rhonchi. Normal respiratory effort with no use of accessory muscles. Abdomen: Soft, bowel sounds present, non-tender, non-distended. No hepatosplenomegaly or masses appreciated. Extremities: No clubbing or cyanosis. Mild bipedal edema of bilateral lower extremities R>L likely due to hemiparesis. Mild right upper extremity edema due to hemiparesis. Skin: Normal temperature, turgor, and texture; no rash, ulcers, or subcutaneous nodules appreciated. Neurological: Right-sided hemiparesis with intact sensation of all extremities. No spasticity of left extremities today. Psychiatric: normal affect. Good insight. Denies suicidality today. Alert oriented to person, place, and time. Objective Labs Result Diagrams: 03/08/19 05:15 03/10/19 04:55 Labs: Laboratory Results - last 24 hr 03/06/19 03/06/19 03/09/19 13:28 22:10 06:45 Sodium 137 Potassium 3.7 Chloride 106 Carbon Dioxide 28 BUN 16 Creatinine 1.00 Estimated GFR > 60.0 BUN/Creatinine Ratio 16.0 Glucose 95 Calcium 10.1 Magnesium 1.2 L 25-OH Vitamin D Total 41 25-Hydroxy Vitamin D2 < 4 25-Hydroxy Vitamin D3 41 PTH Intact 5 L 03/10/19 04:55 Sodium 133 L Potassium 3.3 L Chloride 103 Carbon Dioxide 27 BUN 14 Creatinine 0.90 Estimated GFR > 60.0 BUN/Creatinine Ratio 15.6 Glucose 92 Calcium 9.6 Magnesium 1.3 L 25-OH Vitamin D Total 25-Hydroxy Vitamin D2 25-Hydroxy Vitamin D3 PTH Intact Discharge Plan Discharge Plan Patient Disposition: SNF Under care of provider: Dr. Patrick Anthony Labs: Recommend BMP and Mg in a few days to check electrolytes, calcium Discharge comment: Wm Keys is a 63-year-old male with a past medical history signicificant for progressive MS (dx 1997), neurogenic bladder requiring self catheterization, spasticity, GERD, constipation and gastroparesis who presented to the ED out of concern for RUQ abdominal pain, he was been admitted for hypercalcemia which is improving. He should follow up with his primary care provider as well as his neurologists and urologists. He has chronic urinary retention and a flores catheter was placed, which has resulted in a post obtructive diuresis. His output has diminished and he is stable for discharge today. 1. Acute hypercalcemia, likely secondary to dehydration, present on admission. Active. -Differential diagnosis includes: Hyperparathyroidism (primary vs secondary) vs Malignancy. -Likely not medication related. Not on thiazide or lithium. Need to be mindful of the experimental/investigational medication that the patient is receiving with his current research study. -Associated EKG changes of bradycardia, short QRS of 47 ms, and short QT 399 ms. -Ordered complete workup includin OH-D which is normal at 61. 1,25 (OH)2 D, iPTH, ionized calcium, and SPEP and UPEP which are send out tests and pending. -TSH normal at 2.4. -Held Vitamin D and multivitamin. -Initial calcium level 14.1. Calcium level decreased to 11.0 now back up to 11.3 due to significant post-obstructive diuresis and difficulty with keeping up with adequate IV fluid hydration as below. This has continued to improve and most recent calcium is 9.6 (corrected 10.7 given low albumin). -Received calcitonin 300 mg IM x1 on admission and received 3 total doses. Zometa 4 mg IV x 1 was given. Case was discussed with [facility] who agrees with overall evaluation and plan of care regarding hypercalcemia which appears to be due to dehydration as readily resolving with IV fluid hydration (correction of hypercalcemia now slightly delayed due to post-obstructive diuresis), as well as, post-obstructive diuresis as below. -Patient still has elevated urine output. Patient should continue to stay well hydrated while urine output is elevated to avoid further dehydration. 2. Acute kidney injury, present on admission. Resolved. -Likely secondary to hypercalcemia and possibly obstructive uropathy from neurogenic bladder. -Initial surgeon creatinine 1.3. Baseline creatinine 0.8. Creatinine 1.0 today. -He should stay well hydrated after discharge. -Recommend follow up with urology. 3. Acute post-obstructive diuresis, secondary to Neurogenic bladder with incomplete bladder emptying, present on admission. -Self catheterizes self for 20 years, in the past month as much as Q2H. No history of recurrent UTIs. Currently has symptoms of urinary urgency, frequency, and incomplete bladder emptying. -Urinalysis unremarkable and not suggestive of an acute infection. -Patient has had massive urine output since Flores catheter has been placed and has post-obstructive diuresis. Will work on discontinuing fluids today and will follow urine output. -Continue strict I&O. Patient has had 19 L IN and 20 L OUT a few days ago which has trended down. He should continue to stay well hydrated. I recommend his flores stay in place until follow up with an outpatient urologist. 4. Chronic progressive multiple sclerosis, present on admission, active -Patient is followed by [facility] neurology Dr. Garcia and physiatry Dr. Borja. -Concern for advancing MS. Patient states that he has a pending MRI order in the outpatient setting in the near future for evaluation of MS progression. -Continue Rebif 44 mcg subcu 3 times per week and investigational medication until able to discuss this further with Neurology. They have not called back since being contacted. 5. Acute on chronic muscle spasticity, secondary to underlying MS, present on admission. Active. -Patient is on baclofen 20 mg 4 times daily and additionally reports he takes 2-3 doses exceeding recommended amount. Continue baclofen 20 mg 4 times daily. -Started Valium 5 mg every 6 hours as needed for muscle spasticity and tizanidine 2 mg every 8 hours as needed for muscle spasm. 6. Depression and anxiety with suicidality, acute on chronic, present on admission. Resolved -Patient readily admitted to suicide plan yesterday 03/07. Patient is voluntarily willing to go to inpatient psychiatric treatment, however, due to his decreased mobility and lack of ability to perform all ADLs from MS he is and unlikely candidate for inpatient psychiatric treatment. Also with improvement in muscle spasticity and the patient is now well rested his mood has significantly improved and no longer endorsing suicidal thoughts. Recommended continued close monitoring for suicidality as an outpatient and development of a safety plan if suicidal ideation returns. -Continue citalopram 40 mg daily. -Consulted Psychiatry for evaluation and we appreciate their time and recommendations. They believe he is safe for discharge and not a threat to himself or others at this time. 7. Interstitial cystitis, chronic, present on admission. Stable. -Patient with a history of frequent self catheterization. There is a concern fibrotic changes within the bladder, causing neurogenic up regulation and sensory nerve activation in the bladder and development neuro changes within the spinal cord leading to chronic symptoms of urinary urgency, frequency and discomfort. - UA was negative for infection. 8. Right upper and lower extremity edema, chronic, present on admission. Stable. -No overt edema, erythema, or tenderness. Adequate perfusion. -Continue to elevate both right upper and lower extremities frequently. 9. hypomagnesemia, present on admission - - continue to follow as outpatient with labs once or twice a week. Will provide him with oral supplementation. 10. Constipation, resolved. - patient required mineral oil enema during his hospitalization. Now improved. Will discharge with bowel regimen. Discharge Med Rec/Prescriptions Prescriptions: New diazepam 5 mg Tablet 5 mg PO Q6H PRN (Reason: Anxiety) 7 Days Qty: 28 RF: 0 tizanidine 4 mg Tablet 2 mg PO Q8H PRN (Reason: Spasms) 7 Days Qty: 21 RF: 0 polyethylene glycol 3350 17 gram Powder In Packet 17 gm PO DAILY 7 Days Qty: 7 RF: 0 Non-Formulary Medication [Patient's Own Medication] 2 ea PO BEDTIME 30 Days RF: 0 Continued baclofen 10 mg Tablet 20 mg PO Q6HR RF: 0 Rebif Rebidose 44 mcg/0.5 mL Pen Injector 44 mcg SUBCUT 3XW RF: 0 citalopram 40 mg Tablet 40 mg PO DAILY RF: 0 docusate sodium 250 mg Capsule 250 mg PO BEDTIME RF: 0 Discontinued cholecalciferol (vitamin D3) [Vitamin D3] 2,000 unit Capsule 2,000 unit PO DAILY RF: 0 Centrum Silver Men 300-600-300 mcg Tablet 1 tab PO DAILY RF: 0 Follow up/Referrals: Roberto Longo MD [Primary Care Provider] - Discharge Health Status Brief summary of current health status: Wm Keys is a 63-year-old male with a past medical history signicificant for progressive MS (dx 1997), neurogenic bladder requiring self catheterization, spasticity, GERD, constipation and gastroparesis who presented to the ED out of concern for RUQ abdominal pain, he was been admitted for hypercalcemia which is improving. He should follow up with his primary care provider as well as his neurologists and urologists. He has chronic urinary retention and a flores catheter was placed, which has resulted in a post obtructive diuresis. His output has diminished and he is stable for discharge today. 1. Acute hypercalcemia, likely secondary to dehydration, present on admission. Active. -Differential diagnosis includes: Hyperparathyroidism (primary vs secondary) vs Malignancy. -Likely not medication related. Not on thiazide or lithium. Need to be mindful of the experimental/investigational medication that the patient is receiving with his current research study. -Associated EKG changes of bradycardia, short QRS of 47 ms, and short QT 399 ms. -Ordered complete workup includin OH-D which is normal at 61. 1,25 (OH)2 D, iPTH, ionized calcium, and SPEP and UPEP which are send out tests and pending. -TSH normal at 2.4. -Held Vitamin D and multivitamin. -Initial calcium level 14.1. Calcium level decreased to 11.0 now back up to 11.3 due to significant post-obstructive diuresis and difficulty with keeping up with adequate IV fluid hydration as below. This has continued to improve and most recent calcium is 9.6 (corrected 10.7 given low albumin). -Received calcitonin 300 mg IM x1 on admission and received 3 total doses. Zometa 4 mg IV x 1 was given. Case was discussed with [facility] who agrees with overall evaluation and plan of care regarding hypercalcemia which appears to be due to dehydration as readily resolving with IV fluid hydration (correction of hypercalcemia now slightly delayed due to post-obstructive diuresis), as well as, post-obstructive diuresis as below. -Patient still has elevated urine output. Patient should continue to stay well hydrated while urine output is elevated to avoid further dehydration. 2. Acute kidney injury, present on admission. Resolved. -Likely secondary to hypercalcemia and possibly obstructive uropathy from neurogenic bladder. -Initial surgeon creatinine 1.3. Baseline creatinine 0.8. Creatinine 1.0 today. -He should stay well hydrated after discharge. -Recommend follow up with urology. 3. Acute post-obstructive diuresis, secondary to Neurogenic bladder with incomplete bladder emptying, present on admission. -Self catheterizes self for 20 years, in the past month as much as Q2H. No history of recurrent UTIs. Currently has symptoms of urinary urgency, frequency, and incomplete bladder emptying. -Urinalysis unremarkable and not suggestive of an acute infection. -Patient has had massive urine output since Flores catheter has been placed and has post-obstructive diuresis. Will work on discontinuing fluids today and will follow urine output. -Continue strict I&O. Patient has had 19 L IN and 20 L OUT a few days ago which has trended down. He should continue to stay well hydrated. I recommend his flores stay in place until follow up with an outpatient urologist. 4. Chronic progressive multiple sclerosis, present on admission, active -Patient is followed by [facility] neurology Dr. Garcia and physiatry Dr. Borja. -Concern for advancing MS. Patient states that he has a pending MRI order in the outpatient setting in the near future for evaluation of MS progression. -Continue Rebif 44 mcg subcu 3 times per week and investigational medication until able to discuss this further with Neurology. They have not called back since being contacted. 5. Acute on chronic muscle spasticity, secondary to underlying MS, present on admission. Active. -Patient is on baclofen 20 mg 4 times daily and additionally reports he takes 2-3 doses exceeding recommended amount. Continue baclofen 20 mg 4 times daily. -Started Valium 5 mg every 6 hours as needed for muscle spasticity and tizanidine 2 mg every 8 hours as needed for muscle spasm. 6. Depression and anxiety with suicidality, acute on chronic, present on admission. Resolved -Patient readily admitted to suicide plan yesterday 03/07. Patient is voluntarily willing to go to inpatient psychiatric treatment, however, due to his decreased mobility and lack of ability to perform all ADLs from MS he is and unlikely candidate for inpatient psychiatric treatment. Also with improvement in muscle spasticity and the patient is now well rested his mood has significantly improved and no longer endorsing suicidal thoughts. Recommended continued close monitoring for suicidality as an outpatient and development of a safety plan if suicidal ideation returns. -Continue citalopram 40 mg daily. -Consulted Psychiatry for evaluation and we appreciate their time and recommendations. They believe he is safe for discharge and not a threat to himself or others at this time. 7. Interstitial cystitis, chronic, present on admission. Stable. -Patient with a history of frequent self catheterization. There is a concern fibrotic changes within the bladder, causing neurogenic up regulation and sensory nerve activation in the bladder and development neuro changes within the spinal cord leading to chronic symptoms of urinary urgency, frequency and discomfort. - UA was negative for infection. 8. Right upper and lower extremity edema, chronic, present on admission. Stable. -No overt edema, erythema, or tenderness. Adequate perfusion. -Continue to elevate both right upper and lower extremities frequently. 9. hypomagnesemia, present on admission - - continue to follow as outpatient with labs once or twice a week. Will provide him with oral supplementation. 10. Constipation, resolved. - patient required mineral oil enema during his hospitalization. Now improved. Will discharge with bowel regimen. Provider Discharge Instructions Diet: Diet as Tolerated Catheter: 2-way Flores Catheter comment: Recommend flores catheter until urology follow up Discharge Data Primary Care Provider: Roberto Longo VTE Deep Vein Thrombosis/Pulmonary Embolism Present on Admission: No
--- NOTE | 2019-03-10 09:27 | OT.IP.TRT ---
Current Diagnoses Hypercalcemia (03/07/19) Occupational Therapy Treatment Note M2 OT-IP Current Condition Start: 03/08/19 12:22 Freq: Status: Active Protocol: Document 03/08/19 12:23 [facility] (Rec: 03/08/19 13:05 [facility] [id number]) Occupational Therapy Current Condition Current Condition Evaluation Date 03/08/19 Treatment Diagnosis Hypercalcemia, progressive MS, weakness Diagnosis Onset Date 03/07/19 Weight Bearing Status Weight Bearing Status Weight Bear as Tolerated M3 OT- IP Subjective and Pain Start: 03/08/19 12:22 Freq: Status: Active Protocol: Document 03/10/19 12:35 [facility] (Rec: 03/10/19 12:48 [facility] [id number]) OT- Subjective Occupational Therapy Visit Type Type Treatment Note Visit Start Time 09:27 Visit Stop Time 09:54 Total Visit Minutes 27 Occupational Therapy Visit Comments Patient Comments Pt wanting to get up and try to get AFO on. Patient/Caregiver Goals Pt wanting to get stronger to return to prior level of independence. OT Pain Assessment Pain When Pain Assessed At Rest Pain Present Pain Present Denied Pain M4 OT- IP ADL's Start: 03/08/19 12:22 Freq: Status: Active Protocol: Document 03/10/19 12:35 [facility] (Rec: 03/10/19 12:48 [facility] [id number]) OT ADL-Dressing General Eval Lower Body Dressing Ability Maximum Assistance Comments OT Dressing Comments Place gait belt around his leg as prior pt pulls on his sweat pants to help cross his legs over. Educated as initially unable to keep leg to falling off to hold and stretch his hip flexors first. Pt having a difficulty time to hold shoe with AFO in to be able to kilo over his right foot and needing MAX A to help . Suggested to have velcro to attach AFO onto the shoe so that it will not fall out of him when trying to get his shoe on for the future. M7 OT- IP Mobility and Balance Start: 03/08/19 12:22 Freq: Status: Active Protocol: Document 03/10/19 12:35 [facility] (Rec: 03/10/19 12:48 [facility] [id number]) OT- Bed Mobility Assessment Supine to Sit Supine to Sit Assist Moderate Assistance,1 Person Assistance Scooting Scooting to Edge of Bed Minimal Assistance,Bedrails OT-Transfer Assessment Sit to and From Stand Sit to and from Stand Maximum Assistance,1 Person Assistance Transfers Transfer Ability Standby Assistance,1 Person Assistance Technique Transfer Destination Bed,Chair Devices Transfer Assistive Devices Gait Belt Comments Mobility Comments Able to stand pt today with MAX A X 1 and initially having to help put right hand on handle of FWW. Pt able to stand and turn to get to the recliner with FWW and MAX A x1 . OT- Balance Assessment Sitting Balance and Reactions Static Sitting Balance Ability Good Dynamic Sitting Balance Ability Fair Standing Balance and Reactions Static Standing Balance Ability Poor Dynamic Standing Balance Ability Poor Comments Other Balance Tests/Deviations/Treatment Pt able to tolerate transfer : with FWW and MAX A x1. M8 OT- IP Objective Assessments Start: 03/08/19 12:22 Freq: Status: Active Protocol: Document 03/08/19 12:23 [facility] (Rec: 03/08/19 13:05 [facility] [id number]) OT Gross Range of Motion Upper Extremity Range of Motion Assessment Right Impaired ROM Impairments Contracture to right hand and use of antispasticity splint during the day. OT Strength Upper Extremity Strength Assessment Right Impaired OT-Muscle Tone Assessment Muscle Tone Location Bilateral Lower Extremity Type of Tone Hypertonicity Comments Muscle Tone Comments Hypertonicity right hand. M9 OT- IP Assessment and Plan Start: 03/08/19 12:22 Freq: Status: Active Protocol: Document 03/10/19 12:35 [facility] (Rec: 03/10/19 12:48 [facility] [email or web address]) OT Summary Assessment and Plan Potential Rehabilitation Potential Good Analytic Complexity at Evaluation Low Summary OT Impairments Range of Motion,Strength, Balance,Functional Cognition, Functional Mobility,Dressing, Toileting,Bathing,Toilet Transfers,Shower Transfers Progress Towards Goals Progressing Toward Goals Assessment Summary Pt able to tolerate transfer with FWW today and making improvements, however needing MAX A x1, which is still far from baseline and will benefit from intp rehab when stable. Goals Dressing Goal Minimal Assistance Toileting Goal Standby Assistance Bathing Goal Standby Assistance Toilet Transfer Goal Independent Shower Transfer Goal Standby Assistance,Moderate Assistance Patient/Caregiver Education Goal Caregiver Independent Assisting Patient Days to Meet Goals 7 Frequency of Treatment Frequency Of Treatment Once a Day Treatment Plan OT Treatment Plan ADL Training,Functional Cognition Training,Functional Mobility,Patient/Family Education,Discharge Planning Discharge Recommendations OT Discharge Recommendations Acute Rehab
--- NOTE | 2019-03-10 10:40 | PC.NURSE ---
Addendum entered by Tangela Dozier R.N. 03/10/19 14:07: DC/TSF - flores emptied, iv K+ and Mg+ have been completed, saline lock dc'd, bi consultant assisted with clothing, assisted w/gait belt and fww x2 bi consultant and a student nurse to and then down to spouse's car to assist pt safely into family van, spouse was given a [employer] folder with scripts, reports, signed med list, envelope sealed, all belongings gathered, including clothing, afo, has glasses on, report was called to KAIN Leroy at [phone]. Addendum entered by Tangela Dozier R.N. 03/10/19 11:51: - per discussion with Dr. Jarrett, sandra cath to remain. Addendum entered by Tangela Dozier R.N. 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 Original Note: AM NOTE - pt is alert, some generalized discomfort, repositioned for breakfast, given 650mg po tylenol, after occup therapy in and mobilized oob to chair, given 5mg po valium for lleg spasms, wearing r afo, K+ rider infusing at bedside shift report, wears splint r wrist to prevent contractures, does not move rue, rle on command, flores w/clear yellow urine.
[2019-03-10] MEDS: MAGNESIUM SULFATE 2 GM/50 ML PIGGYBACK IV (10:53)
[2019-03-10 12:03] LABS: Ionized Calcium > 7.0
--- NOTE | 2019-03-10 12:05 | CM.DPC ---
DCP Cont: [facility] fax # [phone]. Fax confirmation scanned in. Freda Pollock, Isaura Voice Writing Reporter
[2019-03-10 12:15] VITALS: BP 140/81; PULSE 74; RESP 16; TEMP 37; O2SAT 94
--- NOTE | 2019-03-10 12:33 | CM.DPC ---
DCP Cont: Have spoken to Zehra at [facility], and giving her updates. She had called this morning to see if patient was going to be discharged. Had not yet had orders, but let her know that when orders were received, would update her. At team rounds, Dr. Jarrett stated that patient still had decreased urinary output, but should be stable for discharge. Gave her phone number of Dr. Patrick Anthony, from [facility], so he could discuss patient. Did receive discharge orders. Was able to print out medication sheets, having Freda fax over to [facility]. No PASSR needed, confirmed this with Zehra in admissions. Attempted to reach [employer], as well as [employer]. Spoke to patient and his , and stated that this systems requirements planner was working on this. mentioned, he could possibly go in my van as long as someone can help him in the car, and help him to get out. He has his electric wheel-chair. Spoke to [employer], and confirmed charge of $150.00, which stated, they could do. Was only able to get transport at 2:30. Updated Zehra in admissions, and stated, he needs to be there by 3:30. Spoke to , Nelia, and patient. They are requesting to go in their van. feels it's doable, as long as she has address. Updated P.T. team as well. Called [employer] back and asked them to cancel cotton picker. Patient will be leaving at approximately 1:00. Updated Zehra in admissions, and Freda is faxing med sheets, prescriptions, as well as discharge summary. P: Patient will be discharging today to [facility]. will be transporting. Deepthi Webb RN/Print Controller
[2019-03-11 14:13] LABS: 1 25 Dihydroxy Vitamin D 168 pg/mL (18-72)
[2019-03-11 15:20] LABS: Albumin 100 %; Total Urine Protein < 4 mg/dL (5-25); Urine Creatinine, Random 8 mg/dL (20-320)
[2019-03-11 22:58] LABS: Albumin 2.4 g/dL (3.8-4.8); Alpha 1 Globulin 0.3 g/dL (0.2-0.3); Alpha 2 Globulin 0.6 g/dL (0.5-0.9); Beta 1 Globulin 0.3 g/dL (0.4-0.6); Gamma Globulin 1.1 g/dL (0.8-1.7)
== END 2019-03-10 13:30 | disposition other institution (70) | DRG 641 ==
LOC: ED 13:27 → AC 13:51
PROVIDERS: Internal Medicine; Nurse Practitioner Adult Health; Nurse Practitioner Gerontology; Admitting Provider Internal Medicine; Emergency Provider Emergency Medicine; PCP Internal Medicine; Visit Provider Internal Medicine
DX: E83.52 Hypercalcemia (principal); N17.9 Acute kidney failure, unspecified; R45.851 Suicidal ideations; E86.0 Dehydration; F43.23 Adjustment disorder with mixed anxiety and depressed mood; G35 Multiple sclerosis; N31.8 Other neuromuscular dysfunction of bladder; N30.10 Interstitial cystitis (chronic) without hematuria; K31.84 Gastroparesis; L08.9 Local infection of the skin and subcutaneous tissue, unspecified; E88.09 Other disorders of plasma-protein metabolism, not elsewhere classified; E83.42 Hypomagnesemia; R33.8 Other retention of urine; R00.1 Bradycardia, unspecified
CPT/HCPCS: 36415; 51701; 76700; 76770; 80048; 80053; 81001; 82306; 82330; 82340; 82652; 82784; 83036; 83690; 83735; 83970; 84100; 84155; 84156; 84165; 84166; 84443; 85025; 85610; 85730; 86334; 86335; 90792; 93005; 96360; 96361; 97110; 97163; 97165; 97530; 97535; 99284; G0378; J0630; J1644; J2405; J3480; J3489

== ENCOUNTER → 2019-05-10 11:06 | Outpatient (CLI) | payer MEDICARE, OTHER, SELFPAY ==
[2019-03-06 14:57] VITALS: BMI 24.7
--- NOTE | 2019-05-10 | DI.RAD.S_ITS ---
PROCEDURE: FL BARIUM SWALLOW W SPEECH INDICATIONS: Other specified respiratory disorders TECHNIQUE: Examination was conducted in conjunction with speech pathology per standard protocol. In the lateral projection, filming was performed of the patient swallowing. AP projection filming may also be performed with patient swallowing. COMPARISON: [facility], , BARIUM SWALLOW, 06/22/2012, 8:43. FINDINGS: Function: The oral preparatory phase appears normal, with proper containment. The subsequent oral propulsive phase, pharyngeal phase, and esophageal phase of swallowing also appear normal with all proffered substances. There was frequent silent laryngeal penetration and tracheal aspiration. Mild vallecular pooling. Morphology: No cricopharyngeal bar is identified. No cervical esophageal webs. No Zenker's diverticulum. No strictures. IMPRESSION: Frequent silent laryngeal penetration and tracheal aspiration Dictated by: Marck Paniagua M.D. on 05/10/2019 at 16:47 Approved by: Marck Paniagua M.D. on 05/10/2019 at 16:48
--- NOTE | 2019-05-10 18:02 | ST.SWALLOW ---
Visit Care Team Role Provider Type Roberto Longo MD Attending Provider Physician Primary Care Provider Specialty: Internal Medicine Address: [address] [place] [address], [id number] Email: [email or web address] Modified Barium Swallow Study THIRD MATE Modified Barium Swallow Study Start: 05/10/19 13:12 Freq: Status: Active Protocol: Document 05/10/19 13:15 LNK (Rec: 05/10/19 13:31 [facility] [email or web address]) Modified Barium Swallow Study Total Time Visit Start Time 11:30 Visit Stop Time 12:00 Total Visit Minutes [address] Longo Setting Setting Outpatient Care Patient Information Identification Type Name,Date of Patient History mW Keys was seen for a Modified Barium Swallow Study (MBSS) at the referral of his physician, Dr. Longo. Pt has steele history of MS, diagnosed in 1997. According to pt, in February 2019, he was admitted to [facility] secondary to a flare of his MS. He was subsequently sent to rehab and then returned to home. Pt has a history of dysphagia related to his MS. In June 2009, pt had a MBSS study that described premature spillage with multiple consistencies, mild vallecular and pyriform sinus pooling of solids, repeated episodes of laryngeal penetration and aspiration x1 with thin liquids (radiologist report). No ST report or video of the MBSS was able to be obtained from the records. Pt was seen today to determine if there had been change in swallowing/dysphagia over past 10 years and/or if the most recent MS flare had negatively impacted the pt's swallow safety. Subjective Observations Pt was transferred from his wheelchair to the fluoroscopy chair. Directions and instructions were provided to pt, who indicated he understood and agreed to proceed. Patient Positioning Position View Lateral Imaging Lateral View Textures Administered Trials Presented Thin Liquid via Spoon,Thin Liquid via Cup,Gary Liquid via Spoon,Gary Liquid via Cup,Honey Liquid via Spoon, Pudding Thick Liquid via Spoon ,Regular Textures Oral Phase Source: MBSIMP (TM) (C) Bolus Specific Scoring Grid Lip Closure WFL Tongue Control During Bolus Hold WFL Bolus Prep/Mastication WFL Bolus Transport/Lingual Motion Mild Impairment A/P Lingual Propulsion Delay Reduced oral control of bolus Oral Residue WFL Nasal Regurgitation No Additional Oral Phase Observations Oral Phase was observed to be grossly WFL. However, control of the bolus A-P appeared to be reduced resulting in premature spillage into pharynx Pharyngeal Phase Source: MBSIMP (TM) (C) Bolus Specific Scoring Grid Delayed Initiation of Pharyngeal Swallow Yes: premature spillage to vallecula and/or pyriform sinuses Number of Seconds Delayed (seconds) 1-2 Soft Palate Elevation WFL Tongue Base Strength/Range of Motion Moderate Impairment Residue Along the Tongue Base Yes Clearance of Residue Along Tongue Base Mild Impairment Laryngeal Elevation Minimal Impairment Anterior Hyoid Movement Moderate Impairment Epiglottic Range of Motion Severe Impairment Vallecular Residue Yes: consistent across all trials Clearance of Vallecular Residue Moderate Impairment Laryngeal Vestibular Closure Severe Impairment Pharyngeal Stripping Wave Severe Impairment Posterior Pharyngeal Wall Residue Yes Clearance of Posterior Pharyngeal Wall Moderate Impairment Residue Upper Esophageal Sphincter Opening Minimal Impairment Residue in the Pyriform Sinuses Yes Clearance of Residue in the Pyriform Mild Impairment Sinuses Esophageal Clearance Upright Position Minimal Impairment Pharyngoesophageal Backflow Observed No Additional Pharyngeal Phase Observations Premature spillage to the vallecula and/or the pyriform sinuses was observed across all trials. Tongue base weakness observed, resulting in pooling in the vallecula. With solids, this pooling was significant pre-swallow. Vallecular pooling was reduced with a second swallow. Tongue base weakness effected the epiglottic inversion, which was noted to be incomplete with the tip of the epiglottis not fully inverted, but was impeded by the posterior pharyngeal wall. Laryngeal elevation was grossly adequate ; however there was no anterior movement of the hyoid bone, likely contributory to the lack of epiglottal inversion. The result was a poor laryngeal seal with noted penetration with thin and nectar thick liquids, especially with larger swallows (e.g., typical swallow size as opposed to teaspoon-sized swallows). There was fernando aspiration into the trachea observed with thin liquids during a consecutive swallows (n=3) trial. There was no reflexive cough or airway protection observed with any penetration /aspiration observed (i.e., silent aspiration ). There was reduced pharyngeal wall stripping/contraction, which resulted in diminished bolus control through the pharynx. Residue remained on the tongue base, the posterior pharyngeal wall, the vallecula and pyriform sinuses post swallows. When cued to cough to clear the pooled residue, the pt's cough was observed to be weak and minimally effective in clearing residue. As aspiration was observed only with thin liquids, it was recommended to the pt to drink naturally nectar thick liquids and/or thickened liquids using a thickening agent. ST was also recommended for liguapharyngeal strength and increased strength o the tongue base designed to improve epiglottal inversion. Safe swallow strategies will also be taught and implemented to decrease aspiration risk. A/P View Clinical Impressions Dysphagia Type mild-moderately severe dysphagia secondary to primary diagnosis of MS Rehabilitation Potential Good Patient Appropriate for Therapy Yes Recommendations Treatment Plan Therapy Recommendations Outpatient Speech Therapy, Lingual Exercises,Base of Tongue Exercises,Compensatory Strategy Education Recommended Referrals Primary Care Physician, Neurology Compensatory Strategies Recommendations Sitting Upright (90 deg), Double Swallow,Supraglottic Swallow,Mendelsonn Maneuver Additional Compensatory Strategies Shaker exercise Recommended
== END ==
PROVIDERS: PCP Internal Medicine; Visit Provider Internal Medicine
DX: J98.8 Other specified respiratory disorders (principal)
CPT/HCPCS: 74230; 92611

== ENCOUNTER 2019-06-18 13:30 | Outpatient (RCR) | payer MEDICARE, OTHER, SELFPAY ==
[2019-03-06 14:57] VITALS: BMI 24.7
--- NOTE | 2019-06-04 18:30 | ST.OPIE ---
Visit Care Team Role Provider Type Roberto Longo MD Attending Provider Physician Primary Care Provider Specialty: Internal Medicine Address: [address] [place] [address], [id number] Email: [email or web address] Speech-Language Pathology Initial Evaluation TECHNICAL SUPPORT TECHNICIAN Clinical Swallow Evaluation Start: 06/04/19 18:08 Freq: Status: Active Protocol: Document 06/04/19 18:08 LNK (Rec: 06/04/19 18:29 [facility] [email or web address]) Clinical Swallow Evaluation Session Time Visit Start Time 12:30 Visit Stop Time 13:30 Total Visit Minutes 60 Visit Information Visit Number 1 Plan of Care Dates 06/04/19-09/03/[address] Longo Reason for Referral dysphagia Setting Assessment Location Outpatient Care Visit Type Note Type Initial Evaluation Next Note Type Next Note Type Treatment Note Patient Information Identification Type Name,Picture History Pt has a history of dysphagia related to MS. In June 2009, pt had a MBSS study that described premature spillage with multiple consistencies, mild vallecular and pyriform sinus pooling of solids, repeated episodes of laryngeal penetration and aspiration x1 with thin liquids ( radiologist report). No ST report or video of the MBSS was obtained from the records. On 05/10/19, pt had a MBSS study to determine if there had been change in swallowing/ dysphagia over past 10 years and/or if the most recent MS flare had negatively impacted the pt's swallow safety. He is here for a follow up visit. Findings Impressions No PO trials were performed this visit. The MBSS video obtained on 05/10/19 was reviewed with the pt. Initially a computer graphic of a normal swallow was provided for the pt in order to acquaint him with the anatomy and physiology of a normal swallow. The pt viewed the MBSS with this TECHNICAL SUPPORT TECHNICIAN. Description of his swallowing included demonstrations of laryngeal penetration/ aspiration and pharyngeal pooling. Overall the pt indicated that he was appreciative. Therapeutic exercises were introduced targeting hyolaryngeal elevation and hyoid bone movement, improving epiglottal inversion and laryngeal vestibule seal. Three primary exercises were introduced: 1) Rapid jaw opening over 3 sets, 2) Super supraglottic swallow exercise and 3) Shaker exercise. Pt was instructed in each exercise and instructions for HEP were provided in written form. Discussion with the pt regarding comparison of his 2010 MBSS radiologist report and the most recent MBSS results appear to indicate minimal to no change in his swallowing as a result of the MS flare he experience d in April 2019. Diet Recommendations Comments Continue current diet Aspiration Precautions Recommended Precautions Upright at 90 Degrees,Double Swallow,Supersupraglottic Swallow Treatment Plan Dysphagia Goals Pt will follow HEP instructions to perform each exercise ~3- 4x daily A repeat MBSS may be indicated in 4-6 months to determine the efficacy of the exercises on airway protection
--- NOTE | 2019-06-04 18:32 | ST.OPPOC ---
Physical, Occupational & Speech Therapy At [facility] Visit Care Team Role Provider Type Roberto Longo MD Attending Provider Physician Primary Care Provider Address: [address] [place] [address], [place], [address] Speech Pathology Plan of Care Plan of Care Dates 06/04/19-09/03/19 Electronically Signed by: HAMLET Uriarte 06/04/19 2388 Please Sign and Return: I have reviewed this Plan of Care and certify that the skilled therapy services above are required to meet the patient?s needs. Physician Signature Date Printed Name and Credentials Clinical Instructor Signature Printed Name and Credentials
--- NOTE | 2019-06-18 14:05 | ST.IPDYTX ---
Visit Care Team Role Provider Type Roberto Longo MD Attending Provider Physician Primary Care Provider Specialty: Internal Medicine Address: [address] [place] [address], [address] Email: [email or web address] SPECIAL EQUIPMENT TECHNICIAN Dysphagia Treatment SPECIAL EQUIPMENT TECHNICIAN Dysphagia Treatment Start: 06/04/19 18:08 Freq: Status: Active Protocol: Document 06/18/19 13:47 NELLY (Rec: 06/18/19 14:05 LNI[facility] [email or web address]) Dysphagia Treatment Session Time Visit Start Time 13:30 Visit Stop Time 13:50 Total Visit Minutes 20 Visit Information Visit Number 2 Plan of Care Dates 06/04/19-09/03/19 Setting Assessment Location Outpatient Care Visit Type Note Type Treatment Note Next Note Type Next Note Type Re-Evaluation Patient Information Identification Type Name,Picture Subjective Observations Wm was in his scooter in waiting area. Treatment Liquids Trialed Thin Additional Dysphagia Treatment 1) Rapid jaw opening exercise Strategies 2) Shaker Method exercise; Supersupraglottic Treatment Activities Pt remarked that he has noticed that both exercises listed above have increased the awareness of the neck and the suprahyoid muscles. He is also using the Supersupraglottic swallow strategy to aid in safe swallowing. Trial swalows with thin liquids x3 were noted to not produce wet voicing, 1 of the 3 swallows was audible, which was discussed relative to airway protection. Wm reported that he has not felt a sensation of aspiration within his upper airway in a long time. This is encouraging to both him and myself. After discussion, Wm and I agreed to not schedule more appointments until early August, when a repeat MBSS will be scheduled to determine efficacy of the exercises and assist in ongoing POC for Wm. he states that he will continue HEP until that time. Assessment Patient Response to Treatment Excellent Assessment of Improvement Encouraging Diet Recommendations Recommendations Continue Current Diet Aspiration Precautions Recommended Precautions Alternate Liquids/Solids,Small Bites/Sips Additional Precautions chew well, eat slowly Treatment Plan Therapy Recommendations schedule MBSS in early August. Dysphagia Goals Reduction in airway penetration and aspiration Follow Up Plan in August MBSS Referrals/Other Recommended Referrals Primary Care Physician
--- NOTE | 2019-11-01 17:20 | ST.IPDYTX ---
Visit Care Team Role Provider Type Roberto Longo MD Attending Provider Physician Primary Care Provider Specialty: Internal Medicine Address: [address] [place] [address], [address] Email: [email or web address] ELECTRONIC PAGE MAKEUP SYSTEM OPERATOR Dysphagia Treatment ELECTRONIC PAGE MAKEUP SYSTEM OPERATOR Dysphagia Treatment Start: 06/04/19 18:08 Freq: Status: Active Protocol: Document 11/01/19 17:14 LNK (Rec: 11/01/19 17:18 LNK [email or web address]) Dysphagia Treatment Setting Assessment Location Outpatient Care Visit Type Note Type Discharge Summary Treatment Additional Dysphagia Treatment 1) Rapid jaw opening exercise Strategies 2) Shaker Method exercise; Supersupraglottic Treatment Plan Appropriate for Continued Therapy No Therapy Recommendations Pt has not been seen since July 2019 prior to COVID 19 crisis Will discharge at t his time
== END 2019-11-03 10:06 ==
LOC: SP 13:30
PROVIDERS: PCP Internal Medicine; Visit Provider Internal Medicine
DX: T17.998A Other foreign object in respiratory tract, part unspecified causing other injury, initial encounter (principal)
CPT/HCPCS: 92526; 92610

== ENCOUNTER → 2020-03-21 10:42 | Outpatient (CLI) | payer MEDICARE, OTHER, SELFPAY ==
[2019-03-06 14:57] VITALS: BMI 24.7
--- NOTE | 2020-03-21 | DI.US.S_ITS ---
PROCEDURE: US RENAL COMPLETE INDICATIONS: Neuromuscular dysfunction of bladder, unspecified TECHNIQUE: Real-time scanning was performed of the kidneys and bladder, with image documentation. COMPARISON: [facility], , US RENAL COMPLETE, 01/05/2019, 11:49. [facility], , US ABDOMEN COMPLETE, 03/06/2019, 11:45. [facility], US RENAL COMPLETE, 03/08/2019, 11:04. FINDINGS: Kidneys: Kidneys are normal in size. Right kidney measures 11.5 cm long; left kidney measures 11.3 cm long. Right renal cortical thickness is 1.5 cm; left renal cortical thickness is 1.6 cm. Renal cortical echotexture is normal. No hydronephrosis. There is a 5 mm nonobstructing stone at the inferior pole of the right kidney. No suspicious solid mass lesions. Bladder: A catheter is in place, which limits evaluation of the bladder. Miscellaneous: No free pelvic fluid. IMPRESSION: No hydronephrosis is seen. 5 mm apparent nonobstructing right-sided kidney stone. Bladder catheter. Dictated by: Everardo Hodgson M.D. on 03/21/2020 at 12:15 Approved by: Everardo Hodgson M.D. on 03/21/2020 at 12:17
[2020-03-21 12:12] LABS: BUN Creatinine Ratio 16.4 (6-22); Blood Urea Nitrogen 12 mg/dL (9-20); Estimated Glomerular Filt Rate > 60.0 mL/min (>60)
== END ==
PROVIDERS: PCP Internal Medicine; Referring Provider Urology; Visit Provider Urology
DX: N31.9 Neuromuscular dysfunction of bladder, unspecified (principal); N20.0 Calculus of kidney
CPT/HCPCS: 36415; 76770; 82565; 84520

== ENCOUNTER → 2020-06-07 14:00 | Oncology outpatient (ONC) | payer MEDICARE, OTHER, SELFPAY ==
[2019-03-06 14:57] VITALS: BMI 24.7
[2020-06-05 14:15] VITALS: BP 148/82; PULSE 64; RESP 16; TEMP 36.9; O2SAT 98
[2020-06-05] MEDS: METHYLPREDNISOLONE IV (14:30)
[2020-06-05] MEDS: SODIUM CHLORIDE 0.9% IV (14:30)
[2020-06-06 14:34] VITALS: BP 160/81; PULSE 80; RESP 18; TEMP 36.5; O2SAT 95
[2020-06-06] MEDS: SODIUM CHLORIDE 0.9% IV (14:47)
[2020-06-06] MEDS: METHYLPREDNISOLONE IV (14:47)
[2020-06-07 14:35] VITALS: BP 153/84; PULSE 65; RESP 18; TEMP 37.2; O2SAT 97
[2020-06-07] MEDS: METHYLPREDNISOLONE IV (14:46)
[2020-06-07] MEDS: SODIUM CHLORIDE 0.9% IV (14:46)
== END ==
PROVIDERS: PCP Internal Medicine; Referring Provider Psychiatry & Neurology Neurology; Visit Provider Psychiatry & Neurology Neurology
DX: G35 Multiple sclerosis (principal)
CPT/HCPCS: 96361; 96365; 96366; J2930

== ENCOUNTER → 2020-06-29 13:04 | Outpatient (ROUT) | payer MEDICARE, OTHER, SELFPAY ==
[2019-03-06 14:57] VITALS: BMI 24.7
[2020-06-29 13:21] LABS: Add Manual Diff / Slide Review NO; Basophils Absolute Auto 0 /uL (0-100); Basophils Percent Auto 0.9 % (0-2); Eosinophils Absolute Auto 100 /uL (0-450); Eosinophils Percent Auto 3.1 % (2-4); Hematocrit 38.9 % (41-53); Hemoglobin 12.8 g/dL (13.5-17.5); Lymphocytes Absolute Auto 1400 /uL (1100-4500); Lymphocytes Percent Auto 34.9 % (25-40); Mean Corpuscular HGB Conc 33.1 % (30-36); Mean Corpuscular Hemoglobin 28.4 PG (26-34); Mean Corpuscular Volume 85.8 fL (80-100); Monocytes Absolute Auto 700 /uL (0-900); Monocytes Percent Auto 16.6 % (3-14); Neutrophils Absolute Auto 1800 /uL (1500-7000); Neutrophils Percent Auto 44.5 % (50-75); Platelet Count 234 X10^3/uL (150-400); Red Blood Cell Count 4.53 X10^6/uL (4.5-5.9); Red Cell Distribution Width 14.7 % (11.6-14.8)
[2020-06-29 13:36] LABS: Alanine Aminotransferase 25 IU/L (<50); Albumin 3.9 g/dL (3.5-5.0); Albumin Globulin Ratio 1.3 (1.0-2.8); Alkaline Phosphatase 78 U/L (38-126); Aspartate Aminotransferase 37 IU/L (17-59); BUN Creatinine Ratio 18.6 (6-22); Bilirubin Total 0.5 mg/dL (0.2-1.3); Blood Urea Nitrogen 13 mg/dL (9-20); Carbon Dioxide 31 mmol/L (22-32); Chloride 98 mmol/L (98-107); Cholesterol 190 mg/dL (140-199); Estimated Glomerular Filt Rate > 60.0 mL/min (>60); Globulin 2.9 g/dL (1.7-4.1); Glucose 93 mg/dL (80-110); HDL Cholesterol 90 mg/dL (40-60); HEMOLYSIS < 15 (0-50); LDL Cholesterol Calculated 85 mg/dL (<100); Potassium 4.3 mmol/L (3.4-5.1); Sodium 131 mmol/L (137-145); Total Protein 6.8 g/dL (6.3-8.2); Triglycerides 75 mg/dL (35-150)
[2020-06-29 14:05] LABS: Prostate Specific Antigen Scrn 2.05 ng/mL (0.1-4.0)
[2020-07-05 19:46] LABS: Vitamin D 25 Hydroxy (D3) 48.8 ng/mL (30.0-100.0)
== END ==
PROVIDERS: PCP Internal Medicine; Visit Provider Internal Medicine
DX: G35 Multiple sclerosis (principal); E55.9 Vitamin D deficiency, unspecified; N31.0 Uninhibited neuropathic bladder, not elsewhere classified; F33.40 Major depressive disorder, recurrent, in remission, unspecified; I10 Essential (primary) hypertension; Z12.5 Encounter for screening for malignant neoplasm of prostate
CPT/HCPCS: 80053; 80061; 82306; 84443; 85025; G0103

== ENCOUNTER → 2020-12-19 09:05 | Outpatient (CLI) | payer MEDICARE, SELFPAY ==
[2019-03-06 14:57] VITALS: BMI 24.7
[2020-12-19 10:35] LABS: Alanine Aminotransferase 21 IU/L (<50); Albumin 3.8 g/dL (3.5-5.0); Albumin Globulin Ratio 1.4 (1.0-2.8); Alkaline Phosphatase 62 U/L (38-126); Aspartate Aminotransferase 36 IU/L (17-59); BUN Creatinine Ratio 21.2 (6-22); Bilirubin Total 0.6 mg/dL (0.2-1.3); Blood Urea Nitrogen 14 mg/dL (9-20); Calcium 9.3 mg/dL (8.4-10.2); Carbon Dioxide 26 mmol/L (22-32); Chloride 93 mmol/L (98-107); Estimated Glomerular Filt Rate > 60.0 mL/min (>60); Globulin 2.8 g/dL (1.7-4.1); Glucose 73 mg/dL (80-110); HEMOLYSIS < 15 (0-50); Potassium 4.5 mmol/L (3.4-5.1); Sodium 126 mmol/L (137-145); Total Protein 6.6 g/dL (6.3-8.2)
== END ==
PROVIDERS: PCP Internal Medicine; Referring Provider Psychiatry & Neurology Neurology; Visit Provider Psychiatry & Neurology Neurology
DX: G35 Multiple sclerosis (principal)
CPT/HCPCS: 36415; 80053

== ENCOUNTER → 2021-02-15 11:02 | Outpatient (CLI) | payer MEDICARE, SELFPAY ==
[2019-03-06 14:57] VITALS: BMI 24.7
[2021-02-15 12:47] LABS: BUN Creatinine Ratio 16.4 (6-22); Blood Urea Nitrogen 11 mg/dL (9-20); Calcium 9.2 mg/dL (8.4-10.2); Carbon Dioxide 34 mmol/L (22-32); Chloride 100 mmol/L (98-107); Estimated Glomerular Filt Rate > 60.0 mL/min (>60); Glucose 90 mg/dL (80-110); HEMOLYSIS < 15 (0-50); Potassium 4.7 mmol/L (3.4-5.1); Sodium 135 mmol/L (137-145)
== END ==
PROVIDERS: PCP Internal Medicine; Referring Provider Internal Medicine; Visit Provider Internal Medicine
DX: E87.1 Hypo-osmolality and hyponatremia (principal)
CPT/HCPCS: 36415; 80048

== ENCOUNTER 2021-04-29 01:45 | Emergency (ER) | payer MEDICARE, SELFPAY ==
[2019-03-06 14:57] VITALS: BMI 24.7
[2021-04-29 01:50] VITALS: BP 198/95; PULSE 76; RESP 16; TEMP 36.4; O2SAT 99; BMI 27.9
--- NOTE | 2021-04-29 02:18 | ED.MALEGU ---
HPI - Male Genitourinary General Chief complaint: Urogenital-Male Stated complaint: catheter not working right Time Seen by Provider: 04/29/21 01:52 Source: patient Mode of arrival: Wheelchair Limitations: no limitations History of Present Illness HPI Narrative: This is associated 65-year-old male who changes catheter has not been working right. 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 Patient states he typically changes out his catheter every 30 days himself. Two weeks ago he was unable to deflate the balloon removed his catheter. He was not having any other difficulties and has follow-up set up the beginning of Maywith Mauro Good to see Urology. His local urologist Dr. Melton has recently left the area. Patient states this evening his catheter seemed to be blocked and had some overflow drainage. He had a sensation of bladder fullness and discomfort. He has not had fevers or chills or any additional symptoms. Related Data Home Medications Medication Instructions Recorded Confirmed baclofen 10 mg tablet 20 mg PO Q6HR 03/06/19 03/06/19 citalopram 40 mg tablet 40 mg PO DAILY 03/06/19 03/06/19 docusate sodium 250 mg capsule 250 mg PO BEDTIME 03/06/19 03/06/19 interferon beta-1a (albumin) 44 44 mcg SUBCUT 3XW 03/06/19 03/06/19 mcg/0.5 mL subcutaneous pen injector (Rebif Rebidose) Allergies Allergy/AdvReac Type Severity Reaction Status Date / Time No Known Drug Allergies Allergy Verified 03/06/19 09:40 Review of Systems Review of Systems ROS Unobtainable: All systems reviewed & are unremarkable except as noted in HPI and below Patient History Medical History (Updated 04/29/21 @ 02:19 by Natali Dumont DO) Anxiety and depression Multiple sclerosis Neurogenic bladder Surgical History S/P tonsillectomy and adenoidectomy Family History Mother Obesity Hypertension Brother Renal cancer Social History household members: spouse Smoking Status: Former smoker alcohol intake: never Smoking Status: Former smoker alcohol intake frequency: 0-2 drinks per day Substance Use Type: does not use Exam Narrative Exam Narrative: GENERAL: Alert and oriented x three, HEENT: Head normocephalic, atraumatic, EOMI, pupils reactive, face symmetric, moist mucous membranes NECK: Supple, full range of motion CARDIOVASCULAR: Regular rate and rhythm without murmurs, rubs or gallops. RESPIRATORY: Breath sounds equal bilaterally, no wheezes rales or rhonchi. ABDOMEN: Soft, nontender. Normoactive bowel sounds all 4 quadrants. No guarding or rebound, rigidity, no mass : No CVA tenderness. Male: normal external examination, no penile discharge or lesions, testicles non-tender, cremasteric reflex intact, no inguinal hernias noted. Patient has urinary catheter in place, it is draining yellow urine but slightly cloudy but no obvious sediment, clot or other changes. EXTREMITIES: Normal range of motion, no clubbing or edema. Neurovascularly intact NEUROLOGICAL: Cranial nerves II through XII grossly intact. Moving all extremities SKIN: Warm, dry, no petechiae, no rashes or lesions. Initial Vital Signs Initial Vital Signs: Vital Signs Temperature 97.5 F L 04/29/21 01:50 Pulse Rate 76 04/29/21 01:50 Respiratory Rate 16 04/29/21 01:50 Blood Pressure 198/95 H 04/29/21 01:50 Pulse Oximetry 99 04/29/21 01:50 Course Orders Ordered: ED Orders 04/29/21 02:29 Urine Culture Stat Urine Microscopic Stat Vital Signs Vital signs: Vital Signs - 8 hr 04/29/21 01:50 04/29/21 03:16 Temperature 97.5 F L Pulse Rate 76 56 L Respiratory Rate 16 Blood Pressure 198/95 H 139/70 Pulse Oximetry 99 100 MDM - Male Genitourinary Lab Data Labs: Lab Results 04/29/21 Range/Units 02:29 Urine RBC 1-5/hpf (0-5/HPF) Urine WBC 1-5/hpf (0-5/HPF) Urine Bacteria Many (>30) H (None) Ur Culture Indicated? Specimen cultured Urine Dip Bedside Urine Glucose Negative Bedside Urine Bilirubin - Negative Bedside Urine Ketone - Negative Urine Specific [place] 1.010 Bedside Urine Occult Blood +++ Bedside Urine pH 6.5 Bedside Urine Protein - Negative Bedside Urine Urobilinogen - Negative Bedside Urine Nitrite - Negative Bedside Urine Leukocytes + 70 Esterase MDM Narrative Medical decision making narrative: Catheter was flushed by nursing and is draining. On repeat evaluation patient continues to be draining regularly. Urine shows leukocyte esterase but he does not have other symptoms so weight culture. Patient has follow-up set up with Urology but not until May. He has been unable to deflate the balloon to remove his catheter. We did discuss and gave him a local referral if he prefers they may be able to seen him sooner. Discharge Plan Departure Patient Disposition: Home Clinical Impression: Malfunction of indwelling urinary catheter Activity Restrictions/Additional Instructions: Follow-up with urology at your scheduled appointment. You do have a urine culture pending. These typically result in 48 hours and if positive you would be contacted. If you would like referral is included for local Urology, they may be able to see you sooner or be an additional option. Please return if you have recurrent blockage are unable to drain your bladder or catheter, signs of clots, fevers, new abdominal pain, decrease in urine output or other new or concerning symptoms. Prescriptions: No Action baclofen 10 mg Tablet 20 mg PO Q6HR 0RF Rx Instructions: Has been taking it q4 hours instead of q6 hours Rebif Rebidose 44 mcg/0.5 mL Pen Injector 44 mcg SUBCUT 3XW 0RF Rx Instructions: Normally takes it on Friday, Friday, and nights citalopram 40 mg Tablet 40 mg PO DAILY 0RF docusate sodium 250 mg Capsule 250 mg PO BEDTIME 0RF Referrals: Mario Manzano MD [Primary Care Provider] - Tyrel Burris MD [Physician] -
--- NOTE | 2021-04-29 02:35 | PC.NURSE ---
Pt with chronic cath use for neurogenic bladder, states cath wasn't draining since about 1999. Flushed with 10 cc of sterile water and cath started draining at this time.
[2021-04-29 02:54] LABS: RBC Urine 1-5/HPF (0-5/HPF); WBC Urine 1-5/HPF (0-5/HPF)
[2021-04-29 02:55] LABS: Bacteria Urine Many (>30); Culture Indicated Urine Specimen Cultured
--- NOTE | 2021-04-29 03:04 | ED.SEPSIS ---
HPI - Sepsis General Chief Complaint: Urogenital-Male Mode of arrival: Wheelchair Source: patient Limitations: no limitations Evaluation Sepsis Screen: No Definite Risk Sepsis Infection Criteria Present: None Patient History Medical History (Updated 04/29/21 @ 02:19 by Natali Dumont DO) Anxiety and depression Multiple sclerosis Neurogenic bladder Surgical History S/P tonsillectomy and adenoidectomy Family History Mother Obesity Hypertension Brother Renal cancer Social History household members: spouse Smoking Status: Former smoker alcohol intake: never Smoking Status: Former smoker alcohol intake frequency: 0-2 drinks per day Substance Use Type: does not use Exam Initial Vital Signs Initial Vital Signs: Vital Signs Temperature 97.5 F L 04/29/21 01:50 Pulse Rate 76 04/29/21 01:50 Respiratory Rate 16 04/29/21 01:50 Blood Pressure 198/95 H 04/29/21 01:50 Pulse Oximetry 99 04/29/21 01:50 Course Orders Ordered: ED Orders 04/29/21 02:29 Urine Culture Stat Urine Microscopic Stat Vital Signs Vital signs: Vital Signs - 8 hr 04/29/21 01:50 04/29/21 03:16 Temperature 97.5 F L Pulse Rate 76 56 L Respiratory Rate 16 Blood Pressure 198/95 H 139/70 Pulse Oximetry 99 100 Sepsis Guideline Criteria Level 1 - Infection Sepsis Infection Criteria Present: None Treatment Initiated Antibiotics:: IV antimicrobials will be initiated as soon as possible after recognition of sepsis state and within one hour for both sepsis and septic shock. MDM - Sepsis Lab Data Labs: Lab Results 04/29/21 Range/Units 02:29 Urine RBC 1-5/hpf (0-5/HPF) Urine WBC 1-5/hpf (0-5/HPF) Urine Bacteria Many (>30) H (None) Ur Culture Indicated? Specimen cultured Urine Dip Bedside Urine Glucose Negative Bedside Urine Bilirubin - Negative Bedside Urine Ketone - Negative Urine Specific [place] 1.010 Bedside Urine Occult Blood +++ Bedside Urine pH 6.5 Bedside Urine Protein - Negative Bedside Urine Urobilinogen - Negative Bedside Urine Nitrite - Negative Bedside Urine Leukocytes + 70 Esterase Discharge Plan Departure Patient Disposition: Home Clinical Impression: Malfunction of indwelling urinary catheter Activity Restrictions/Additional Instructions: Follow-up with urology at your scheduled appointment. You do have a urine culture pending. These typically result in 48 hours and if positive you would be contacted. If you would like referral is included for local Urology, they may be able to see you sooner or be an additional option. Please return if you have recurrent blockage are unable to drain your bladder or catheter, signs of clots, fevers, new abdominal pain, decrease in urine output or other new or concerning symptoms. Prescriptions: No Action baclofen 10 mg Tablet 20 mg PO Q6HR 0RF Rx Instructions: Has been taking it q4 hours instead of q6 hours Rebif Rebidose 44 mcg/0.5 mL Pen Injector 44 mcg SUBCUT 3XW 0RF Rx Instructions: Normally takes it on Friday, Friday, and nights citalopram 40 mg Tablet 40 mg PO DAILY 0RF docusate sodium 250 mg Capsule 250 mg PO BEDTIME 0RF Referrals: Mario Manzano MD [Primary Care Provider] - Tyrel Burris MD [Physician] -
[2021-04-29 03:16] VITALS: BP 139/70; PULSE 56; O2SAT 100
== END 2021-04-29 03:18 | disposition home or self-care (01) ==
PROVIDERS: Emergency Provider Emergency Medicine; Family Provider Internal Medicine; PCP Internal Medicine
DX: T83.018A Breakdown (mechanical) of other urinary catheter, initial encounter (principal)
CPT/HCPCS: 81003; 81015; 87077; 87086; 87186; 99281; 99282

== ENCOUNTER 2021-07-18 15:15 | Outpatient (RCR) | payer MEDICARE, SELFPAY ==
[2019-03-06 14:57] VITALS: BMI 24.7
--- NOTE | 2021-04-03 16:00 | PT.OPPOC ---
Physical, Occupational & Speech Therapy At [facility] Current Diagnoses Multiple sclerosis (04/03/21) Cramp and spasm (04/03/21) Visit Care Team Role Provider Type Mario Manzano MD Family Provider Non-Staff Primary Care Provider Specialty: Internal Medicine Address: [address] [place] [address], [id number] Email: Terrie Muñoz MD Attending Provider Non-Staff Referring Provider Specialty: Medical Address: [address] [place] [address], [id number] Email: Plan Of Care PT-OP-T Assessment and Plan Start: 04/03/21 14:28 Freq: Status: Active Protocol: Document 04/03/21 14:29 [facility] (Rec: 04/03/21 16:52 [facility] [id number]) Physical Therapy Assessment Rehab Potential Rehabilitation Potential Good Evaluation Complexity Number of Personal Factors/Comorbidities 3 or More Number of Body Systems Impaired 4 or More Clinical Presentation at Evaluation Evolving Impairments Impairments Functional Activities, Functional Mobility,Gait,ROM, Strength,Transfers Goals Four Impairment impaired functional mobility Impairment patient no longer able to lift his right LE 15 onto running board of vehicle for purposes of safe transfers into vehicle Care Home Goal (LTG) patient will be able to lift his right LE at least 15 to allow him to safely transfer into current vehicle LTG Duration 06/03/21 Three Impairment decline in strength and ROM Short Term Goal (STG) establish updated HEP and problem-solve ways for patient to perform independently as much as possible. STG Duration 05/03/21 Care Home Goal (LTG) Patient to be indepenent and safe with the aspects of his HEP is able to do on his own and identify personal property assessor to assist him in the home after PT completed. LTG Duration 06/03/21 One Impairment impaired gait Impairment 2 min walk test 93 ft Head Operator Goal (LTG) Improve 2 min walk test to 140 ft as measure of improved functional gait LTG Duration 06/03/21 Two Impairment Tinetti gait and balance assessment score 9/28 indicating high fall risk Short Term Goal (STG) Improve Tinetti gait and balance assessment score to at least 14/28 as measure of improved gait and balance STG Duration 05/03/21 Care Home Goal (LTG) Imprve Tinetti score to at least 19l/28 LTG Duration 06/03/21 Assessment Summary Assessment Patient presents to PT in [facility] today. His concerns relate to his functional decline due to MS and difficulty with performing HEP on his own. His physical impairments include right-sided weakness, decreased flexibility bilaterally, decreased balance , spasticity and impaired gait . His physical impairments cause functional limitations including fall risk (2 falls in past 3 months requiring 911 assistance), increased difficulty with walking and transfers, and over-reliance on his left UE for mobility. Patient is not able to do stretching on his own and he would prefer not to add to his 's responsibilities. He has been on disability since 2001 with inability to work. He stopped driving 5 years ago as didn't feel safe. He has an elevator in the home as unable to navigate stairs. He was given information for personal property assessor for assistance in the home when he is done with PT. Feel he would benefit highly from physical therapy to address his above goals for ROM, strength, functional mobility, and updated HEP. Physical Therapy Plan Frequency and Duration Frequency of Treatment 2x/Week Duration of Treatment 8 weeks Plan of Care Start Date 04/03/21 Plan of Care End Date 06/02/21 Therapeutic Interventions Therapeutic Interventions Aquatic Therapy,Balance Training,Gait Training,Home Exercise Program,Manual Therapy,Neuromuscular Re- education,Patient/Caregiver Education Next Visit Focus/Plan Next Note Type Treatment Note Next Visit Plan 5x sit to stand test. Instruct in use of IFES machine if brings home unit, ther ex for flexibility and strengthening, standing balance and strengthening as tolerated. Plan of Care Dates Plan of Care Start Date 04/03/21 Plan of Care End Date 06/02/21 Electronically Signed by: Judy Blanca, PT 04/08/21 [id number] Please Sign and Return: I have reviewed this Plan of Care and certify that the skilled therapy services above are required to meet the patient?s needs. Physician Signature Date Printed Name and Credentials Clinical Instructor Signature Printed Name and Credentials
--- NOTE | 2021-04-03 16:00 | PT.OIE ---
Current Diagnoses Multiple sclerosis (04/03/21) Cramp and spasm (04/03/21) Past Medical History (Last Reviewed 03/08/19 @ 17:15 by Stew Holloway MD) Anxiety and depression Multiple sclerosis Neurogenic bladder S/P tonsillectomy and adenoidectomy Past Surgical History (Last Reviewed 03/08/19 @ 17:15 by Stew Holloway MD) S/P tonsillectomy and adenoidectomy Visit Care Team Role Provider Type Mario Manzano MD Family Provider Non-Staff Primary Care Provider Specialty: Internal Medicine Address: [address] [place] [address], [id number] Email: Terrie Muñoz MD Attending Provider Non-Staff Referring Provider Specialty: Medical Address: [address] [place] [address], [id number] Email: Physical Therapy Initial Evaluation PT-OP-A Visit Information Start: 04/03/21 14:28 Freq: Status: Active Protocol: Document 04/03/21 14:29 [facility] (Rec: 04/03/21 15:50 [facility] [id number]) Out-Patient Physical Therapy Visit Information Visit Information Visit Type Initial Evaluation Visit Start Time 14:31 Visit Stop Time 15:16 Total Visit Minutes 45 Visit Number 1 Evaluation Information Evaluation Date 04/03/21 Precautions Precautions indwelling catheter leg bag left HTN spasticity PT-OP-B Current Condition Start: 04/03/21 14:28 Freq: Status: Active Protocol: Document 04/03/21 14:29 [facility] (Rec: 04/03/21 15:50 [facility] [id number]) Current Condition History of Current Condition Onset Date 2019 Current Complaints weakness, decreased flexibility, decreased ability to walk History of Current Condition Diagnosed with relapsing remitting MS in 1997. Most recently in 2019 calcium levels through the roof, hospitalized 4-5 days, 2 weeks in rehab due to weakened state. Improved but not back to PLF including being able to walk fairly long distances with walker. Then another episode of exacerbation with loss of strength especially in lower legs. Has been able to regain some strength with motomed and other exercises. With Covid not as active. Needs help with ROM and strength; wants to be able to lift LE 15 onto running board of vehicle, improve transfer into bed, transfer from shower seat to w/c seat, and be able to get off floor; has had to recently call 911 when has fallen a couple times recently. Has lost more strength in left vs right, uses device to help with toe lift on right. Wants help stretching his hamstrings and other leg muscles. No caregivers, has but doesn 't want to burden her with another thing to do. To PT today with scooter, has power w/c for use in home. Has rollater tries to use 3-4x/day max 120 steps. Used to be able to use forearm crutch using on left. Prior Treatments and Tests Seen for his MS at [facility] [place] Treatment Goals Patient/Caregiver Goals update HEP Improve flexibility and strength Be able to walk longer distances in and out of the home increased ease of bed transfers Prior Functional Status Baseline Function- ADL's Modified Independent Baseline Function- Mobility Modified Independent Baseline Function- Gait short distance community ambulation Baseline Function- Work/School Retired from [employer] Runs [employer] Current Functional Impairments (Reported) Functional Limitations- ADL's more frequent falls more labored Functional Limitations- Mobility/Gait limited to short distance in the home, unable to ambulate in the community as previously Functional Limitations- Work/School Retired Continues to run [employer] Functional Limitations- Recreation/ Limited to computer Hobbies PT-OP-C Subjective Start: 04/03/21 14:28 Freq: Status: Active Protocol: Document 04/03/21 14:29 [facility] (Rec: 04/03/21 16:52 [facility] [id number]) OP-PT Pain Assessment Pain Assessment Grid Paper Pain Assessment Grid Completed No: denies pain PT-OP-D Balance Start: 04/03/21 14:28 Freq: Status: Active Protocol: Document 04/03/21 14:29 [facility] (Rec: 04/03/21 15:50 [facility] [id number]) OP-PT Balance Assessment Sitting Balance Static Sitting Balance Ability Good Dynamic Sitting Balance Ability Fair Standing Balance Static Standing Balance Ability Fair Dynamic Standing Balance Ability Poor Device Used 4WW Tinetti Balance Assessment Sitting Balance Sitting Balance Steady, safe Arising from Chair Ability to Arise Able, uses arms to help Standing Balance Immediate Standing Balance Steady with support Standing Balance Steady, wide stance Nudged Response Begins to fall Standing with Eyes Closed Unsteady Turning Step Pattern Turning 360 Degrees Discontinuous steps Stability Turning 360 Degrees Unsteady, grabs/staggers Sitting Down Sitting Down Uses arms or unsteady Gait and Step Initiation of Gait No hesitancy Right Foot Step Length Does not pass stance ft. Right Foot Step Height Does not clear floor Left Foot Step Length Does not pass stance foot Left Foot Step Height Does not clear floor Step Description Step Symmetry Step length not equal Step Continuity Steps appear continuous Gait Description Path Description Straight Trunk Description Marked sway or uses aide Walking Stance Heels apart Scoring and Interpretation Tinetti Composite Score (points) 9 Interpretation of Scores High risk for falls(< 19) Hagen Fall Scale Copyright Permission PT-OP-E Functional Tests Start: 04/03/21 14:28 Freq: Status: Active Protocol: Document 04/03/21 14:29 [facility] (Rec: 04/03/21 16:52 [facility] [id number]) Functional Tests 2 Minute Walk Test Distance 93 ft Device Used 4WW Five Times Sit to Stand Test Comments not done due to time constraints PT-OP-G Mobility & Gait Start: 04/03/21 14:28 Freq: Status: Active Protocol: Document 04/03/21 14:29 [facility] (Rec: 04/03/21 16:52 [facility] [id number]) OP Mobility Evaluation Bed Mobility Rolling indep with use of hands Supine to and from Sit indep with use of UE's Transfers Sit to Stand use of UE's, indep Bed to Chair Transfers use of UE's, indep Wheelchair Management Type of Wheelchair Has power w/c, scooter Assessment Details independent with management OP Gait Assessment Gait Gait Assistance Required: Independent Distance (Feet) 93 Assistive Devices Assistive Device Gait Belt,4 Wheeled Walker Orthotic/Prosthetic Devices or Brace: Yes Gait Deviations General Gait Pattern Decreased Stride Length, Decreased Feet Clearance, Flexed Trunk,Lateral Trunk Lean,Wide Based Gait Factors Limiting Gait Function Factors Limiting Gait Function Decreased Strength,Limited Range of Motion Comments Gait Comments 2 min walk 93 ft Stair Climbing Evaluation Comments Stair Climbing Comments unable, has elevator in the home PT-OP-H Neuro Start: 04/03/21 14:28 Freq: Status: Active Protocol: Document 04/03/21 14:29 [facility] (Rec: 04/03/21 16:52 [facility] [id number]) Sensation Evaluation Gross Sensation Gross Sensation Right UE Impaired,Left LE Impaired,Right LE Impaired Sensation Description Paresthesia,Numbness,Tingling PT-OP-J Posture/Palpation/Skin Start: 04/03/21 14:28 Freq: Status: Active Protocol: Document 04/03/21 14:29 [facility] (Rec: 04/03/21 16:52 [facility] [id number]) Posture Evaluation Position Standing Head/C-Spine Posture Forward Head T-Spine Posture Increased Kyphosis L-Spine Posture Decreased Lordosis Scapula Posture (L) Protracted,(R) Protracted Arm Posture (L) Internally Rotated,(R) Internally Rotated Hip Posture (L) Flexed,(R) Flexed Knee Posture (L) Excess Flexion,(R) Excess Flexion Sitting Head/C-Spine Posture Forward Head T-Spine Posture Increased Kyphosis L-Spine Posture Decreased Lordosis Shoulder Posture (L) Rounded,(R) Rounded Scapula Posture (L) Protracted,(R) Protracted Arm Posture (L) Internally Rotated,(R) Internally Rotated Pelvis Posture Posterior Tilted Weight Distribution Weight Shifted Left PT-OP-K Range of Motion Start: 04/03/21 14:28 Freq: Status: Active Protocol: Document 04/03/21 14:29 [facility] (Rec: 04/03/21 16:52 [facility] [id number]) Cervical Spine Range of Motion Cervical Spine Active Comments WFL Lumbar Spine Range of Motion Lumbar Spine Active Comments WFL Shoulder Goniometric Range of Motion Shoulder Right Shoulder ROM WFL No Testing Position Supine Flexion 135 Left Shoulder ROM WFL Yes Shoulder ROM Limitations Shoulder ROM Limitations Soft Tissue Tightness,Muscle Weakness Elbow/Forearm Range of Motion Elbow/Forearm andrew Elbow/Forearm ROM WFL Yes Wrist Goniometric Range of Motion Wrist andrew Wrist ROM WFL Yes ROM Limitations Wrist Limitations of Range of Motion Soft Tissue Tightness Hip Goniometric Range of Motion Hip Right Passive Hip ROM WFL No Testing Position Supine Flexion w/Knee Flexed 95 Straight Leg Raise 45 Abduction 20 Internal Rotation 20 External Rotation 45 Left Hip ROM WFL No Testing Position Supine Flexion w/Knee Flexed 90 Straight Leg Raise 50 Abduction 25 Internal Rotation 20 External Rotation 50 Hip ROM Limitations Hip ROM Limitations Soft Tissue Tightness,Muscle Weakness,Muscle Tone Knee Goniometric Range of Motion Knee andrew Knee ROM WFL Yes Ankle and Foot Goniometric Range of Motion Ankle and Foot Right Passive Dorsiflexion with Knee Flexed 3 Dorsiflexion with Knee Extended 0 Plantarflexion 35 Left Active Dorsiflexion with Knee Flexed 5 Dorsiflexion with Knee Extended 0 Plantarflexion 40 Ankle and Foot ROM Limitations ROM Limitations Soft Tissue Tightness, Contracture,Muscle Weakness, Muscle Tone PT-OP-M Strength Start: 04/03/21 14:28 Freq: Status: Active Protocol: Document 04/03/21 14:29 [facility] (Rec: 04/03/21 16:52 [facility] [id number]) Trunk Strength Trunk Manual Muscle Testing Comments functionally appears fair Shoulder Strength Shoulder Manual Muscle Testing Left Flexion 5 Normal Extension 5 Normal Abduction (C5) 5 Normal Adduction 5 Normal External Rotation 5 Normal Internal Rotation 5 Normal Horizontal Abduction 5 Normal Horizontal Adduction 5 Normal Right Flexion 3- Fair- Extension 3- Fair- Abduction (C5) 3- Fair- Adduction 3- Fair- External Rotation 3- Fair- Internal Rotation 3- Fair- Horizontal Abduction 3- Fair- Horizontal Adduction 3- Fair- Elbow/Forearm Strength Elbow and Forearm Manual Muscle Testing Right Flexion (C6) 3+ Fair+ Extension (C7) 3+ Fair+ Left Flexion (C6) 5 Normal Extension (C7) 5 Normal Wrist Strength Wrist Manual Muscle Testing Right Flexion (C7) 3+ Fair+ Extension (C6) 3+ Fair+ Left Flexion (C7) 5 Normal Extension (C6) 5 Normal Hip Strength Hip Manual Muscle Testing Right Flexion (L2) 0 Zero Extension (S1) 0 Zero Abduction 3- Fair- Adduction 2+ Poor+ External Rotation 2+ Poor+ Internal Rotation 2+ Poor+ Left Flexion (L2) 4+ Good+ Extension (S1) 3+ Fair+ Abduction 3+ Fair+ Adduction 4- Good- External Rotation 3+ Fair+ Internal Rotation 4- Good- Knee Strength Knee Manual Muscle Testing Right Flexion (S2) 3- Fair- Extension (L3) 3- Fair- Left Flexion (S2) 4+ Good+ Extension (L3) 4+ Good+ Ankle/Foot Strength Ankle and Foot Manual Muscle Testing Right Dorsiflexion (L4) 1 Trace Plantarflexion (S1) 2- Poor- Left Dorsiflexion (L4) 4 Good Plantarflexion (S1) 4 Good PT-OP-Q Treatments Start: 04/03/21 14:28 Freq: Status: Active Protocol: Document 04/03/21 14:29 [facility] (Rec: 04/03/21 16:52 [facility] [id number]) Self-Care/Home Management Treatment Education Patient Education Home Exercise Program Other Education increase HEP compliance;verbal review of current HEP and compliance level, instructed in seated hamstring curl given information about puppy trainer for assistance in the home with ther ex. Bring IFES machine for training next session PT-OP-T Assessment and Plan Start: 04/03/21 14:28 Freq: Status: Active Protocol: Document 04/03/21 14:29 [facility] (Rec: 04/03/21 16:52 [facility] [id number]) Physical Therapy Assessment Rehab Potential Rehabilitation Potential Good Evaluation Complexity Number of Personal Factors/Comorbidities 3 or More Number of Body Systems Impaired 4 or More Clinical Presentation at Evaluation Evolving Impairments Impairments Functional Activities, Functional Mobility,Gait,ROM, Strength,Transfers Goals Four Impairment impaired functional mobility Impairment patient no longer able to lift his right LE 15 onto running board of vehicle for purposes of safe transfers into vehicle [facility] Goal (LTG) patient will be able to lift his right LE at least 15 to allow him to safely transfer into current vehicle LTG Duration 06/03/21 Three Impairment decline in strength and ROM Short Term Goal (STG) establish updated HEP and problem-solve ways for patient to perform independently as much as possible. STG Duration 05/03/21 Communication Consultant Goal (LTG) Patient to be indepenent and safe with the aspects of his HEP is able to do on his own and identify puppy trainer to assist him in the home after PT completed. LTG Duration 06/03/21 One Impairment impaired gait Impairment 2 min walk test 93 ft [facility] Goal (LTG) Improve 2 min walk test to 140 ft as measure of improved functional gait LTG Duration 06/03/21 Two Impairment Tinetti gait and balance assessment score 9/28 indicating high fall risk Short Term Goal (STG) Improve Tinetti gait and balance assessment score to at least 14/28 as measure of improved gait and balance STG Duration 05/03/21 Communication Consultant Goal (LTG) Imprve Tinetti score to at least 19l/28 LTG Duration 06/03/21 Assessment Summary Assessment Patient presents to PT in [facility] today. His concerns relate to his functional decline due to MS and difficulty with performing HEP on his own. His physical impairments include right-sided weakness, decreased flexibility bilaterally, decreased balance , spasticity and impaired gait . His physical impairments cause functional limitations including fall risk (2 falls in past 3 months requiring 911 assistance), increased difficulty with walking and transfers, and over-reliance on his left UE for mobility. Patient is not able to do stretching on his own and he would prefer not to add to his 's responsibilities. He has been on disability since 2001 with inability to work. He stopped driving 5 years ago as didn't feel safe. He has an elevator in the home as unable to navigate stairs. He was given information for puppy trainer for assistance in the home when he is done with PT. Feel he would benefit highly from physical therapy to address his above goals for ROM, strength, functional mobility, and updated HEP. Physical Therapy Plan Frequency and Duration Frequency of Treatment 2x/Week Duration of Treatment 8 weeks Plan of Care Start Date 04/03/21 Plan of Care End Date 06/02/21 Therapeutic Interventions Therapeutic Interventions Aquatic Therapy,Balance Training,Gait Training,Home Exercise Program,Manual Therapy,Neuromuscular Re- education,Patient/Caregiver Education Next Visit Focus/Plan Next Note Type Treatment Note Next Visit Plan 5x sit to stand test. Instruct in use of IFES machine if brings home unit, ther ex for flexibility and strengthening, standing balance and strengthening as tolerated.
--- NOTE | 2021-04-10 14:48 | PT.OTN ---
Current Diagnoses Multiple sclerosis (04/10/21) Cramp and spasm (04/10/21) Physical Therapy Treatment Note PT-OP-A Visit Information Start: 04/03/21 14:28 Freq: Status: Active Protocol: Document 04/10/21 09:54 SABINA (Rec: 04/10/21 10:32 SAK [id number]) Out-Patient Physical Therapy Visit Information Visit Information Visit Type Treatment Note Visit Note No new c/o, trying to do exercises. Needs a schedule. Brought IFES machine in with him. Visit Start Time 09:45 Visit Stop Time 10:30 Total Visit Minutes 45 Visit Number 2 Precautions Precautions indwelling catheter leg bag left HTN spasticity PT-OP-B Current Condition Start: 04/03/21 14:28 Freq: Status: Active Protocol: Document 04/10/21 09:54 SABINA (Rec: 04/10/21 10:32 SAK [id number]) Current Condition History of Current Condition Onset Date 2018 Current Complaints weakness, decreased flexibility, decreased ability to walk History of Current Condition Diagnosed with relapsing remitting MS in 1997. Most recently in 2019 calcium levels through the roof, hospitalized 4-5 days, 2 weeks in rehab due to weakened state. Improved but not back to PLF including being able to walk fairly long distances with walker. Then another episode of exacerbation with loss of strength especially in lower legs. Has been able to regain some strength with motomed and other exercises. With Covid not as active. Needs help with ROM and strength; wants to be able to lift LE 15 onto running board of vehicle, improve transfer into bed, transfer from shower seat to w/c seat, and be able to get off floor; has had to recently call 911 when has fallen a couple times recently. Has lost more strength in left vs right, uses device to help with toe lift on right. Wants help stretching his hamstrings and other leg muscles. No caregivers, has but doesn 't want to burden her with another thing to do. To PT today with scooter, has power w/c for use in home. Has rollater tries to use 3-4x/day max 120 steps. Used to be able to use forearm crutch using on left. Prior Treatments and Tests Seen for his MS at [facility] Treatment Goals Patient/Caregiver Goals update HEP Improve flexibility and strength Be able to walk longer distances in and out of the home increased ease of bed transfers Prior Functional Status Baseline Function- ADL's Modified Independent Baseline Function- Mobility Modified Independent Baseline Function- Gait short distance community ambulation Baseline Function- Work/School Retired from [employer] industry Runs [employer] Current Functional Impairments (Reported) Functional Limitations- ADL's more frequent falls more labored Functional Limitations- Mobility/Gait limited to short distance in the home, unable to ambulate in the community as previously Functional Limitations- Work/School Retired Continues to run [employer] Functional Limitations- Recreation/ Limited to computer Hobbies PT-OP-C Subjective Start: 04/03/21 14:28 Freq: Status: Active Protocol: Document 04/10/21 09:54 SAK (Rec: 04/10/21 14:45 SAK [id number]) OP-PT Subjective Patient Comments Patient Comments Brought IFES machine in for training. States not able to do much exercise besides Motomed. States alled and emailed personal shopper given information about (Letty Batista), but hasn't heard back yet. PT-OP-D Balance Start: 04/03/21 14:28 Freq: Status: Active Protocol: Document 04/03/21 14:29 SAK (Rec: 04/03/21 15:50 SAK [id number]) OP-PT Balance Assessment Sitting Balance Static Sitting Balance Ability Good Dynamic Sitting Balance Ability Fair Standing Balance Static Standing Balance Ability Fair Dynamic Standing Balance Ability Poor Device Used 4WW Tinetti Balance Assessment Sitting Balance Sitting Balance Steady, safe Arising from Chair Ability to Arise Able, uses arms to help Standing Balance Immediate Standing Balance Steady with support Standing Balance Steady, wide stance Nudged Response Begins to fall Standing with Eyes Closed Unsteady Turning Step Pattern Turning 360 Degrees Discontinuous steps Stability Turning 360 Degrees Unsteady, grabs/staggers Sitting Down Sitting Down Uses arms or unsteady Gait and Step Initiation of Gait No hesitancy Right Foot Step Length Does not pass stance ft. Right Foot Step Height Does not clear floor Left Foot Step Length Does not pass stance foot Left Foot Step Height Does not clear floor Step Description Step Symmetry Step length not equal Step Continuity Steps appear continuous Gait Description Path Description Straight Trunk Description Marked sway or uses aide Walking Stance Heels apart Scoring and Interpretation Tinetti Composite Score (points) 9 Interpretation of Scores High risk for falls(< 19) Hagen Fall Scale Copyright Permission PT-OP-E Functional Tests Start: 04/03/21 14:28 Freq: Status: Active Protocol: Document 04/03/21 14:29 [facility] (Rec: 04/03/21 16:52 [facility] [id number]) Functional Tests 2 Minute Walk Test Distance 93 ft Device Used 4WW Five Times Sit to Stand Test Comments not done due to time constraints PT-OP-G Mobility & Gait Start: 04/03/21 14:28 Freq: Status: Active Protocol: Document 04/03/21 14:29 [facility] (Rec: 04/03/21 16:52 [facility] [id number]) OP Mobility Evaluation Bed Mobility Rolling indep with use of hands Supine to and from Sit indep with use of UE's Transfers Sit to Stand use of UE's, indep Bed to Chair Transfers use of UE's, indep Wheelchair Management Type of Wheelchair Has power w/c, scooter Assessment Details independent with management OP Gait Assessment Gait Gait Assistance Required: Independent Distance (Feet) 93 Assistive Devices Assistive Device Gait Belt,4 Wheeled Walker Orthotic/Prosthetic Devices or Brace: Yes Gait Deviations General Gait Pattern Decreased Stride Length, Decreased Feet Clearance, Flexed Trunk,Lateral Trunk Lean,Wide Based Gait Factors Limiting Gait Function Factors Limiting Gait Function Decreased Strength,Limited Range of Motion Comments Gait Comments 2 min walk 93 ft Stair Climbing Evaluation Comments Stair Climbing Comments unable, has elevator in the home PT-OP-H Neuro Start: 04/03/21 14:28 Freq: Status: Active Protocol: Document 04/03/21 14:29 [facility] (Rec: 04/03/21 16:52 [facility] [id number]) Sensation Evaluation Gross Sensation Gross Sensation Right UE Impaired,Left LE Impaired,Right LE Impaired Sensation Description Paresthesia,Numbness,Tingling PT-OP-J Posture/Palpation/Skin Start: 04/03/21 14:28 Freq: Status: Active Protocol: Document 04/03/21 14:29 [facility] (Rec: 04/03/21 16:52 [facility] [id number]) Posture Evaluation Position Standing Head/C-Spine Posture Forward Head T-Spine Posture Increased Kyphosis L-Spine Posture Decreased Lordosis Scapula Posture (L) Protracted,(R) Protracted Arm Posture (L) Internally Rotated,(R) Internally Rotated Hip Posture (L) Flexed,(R) Flexed Knee Posture (L) Excess Flexion,(R) Excess Flexion Sitting Head/C-Spine Posture Forward Head T-Spine Posture Increased Kyphosis L-Spine Posture Decreased Lordosis Shoulder Posture (L) Rounded,(R) Rounded Scapula Posture (L) Protracted,(R) Protracted Arm Posture (L) Internally Rotated,(R) Internally Rotated Pelvis Posture Posterior Tilted Weight Distribution Weight Shifted Left PT-OP-K Range of Motion Start: 04/03/21 14:28 Freq: Status: Active Protocol: Document 04/03/21 14:29 [facility] (Rec: 04/03/21 16:52 [facility] [id number]) Cervical Spine Range of Motion Cervical Spine Active Comments WFL Lumbar Spine Range of Motion Lumbar Spine Active Comments WFL Shoulder Goniometric Range of Motion Shoulder Right Shoulder ROM WFL No Testing Position Supine Flexion 135 Left Shoulder ROM WFL Yes Shoulder ROM Limitations Shoulder ROM Limitations Soft Tissue Tightness,Muscle Weakness Elbow/Forearm Range of Motion Elbow/Forearm andrew Elbow/Forearm ROM WFL Yes Wrist Goniometric Range of Motion Wrist andrew Wrist ROM WFL Yes ROM Limitations Wrist Limitations of Range of Motion Soft Tissue Tightness Hip Goniometric Range of Motion Hip Right Passive Hip ROM WFL No Testing Position Supine Flexion w/Knee Flexed 95 Straight Leg Raise 45 Abduction 20 Internal Rotation 20 External Rotation 45 Left Hip ROM WFL No Testing Position Supine Flexion w/Knee Flexed 90 Straight Leg Raise 50 Abduction 25 Internal Rotation 20 External Rotation 50 Hip ROM Limitations Hip ROM Limitations Soft Tissue Tightness,Muscle Weakness,Muscle Tone Knee Goniometric Range of Motion Knee andrew Knee ROM WFL Yes Ankle and Foot Goniometric Range of Motion Ankle and Foot Right Passive Dorsiflexion with Knee Flexed 3 Dorsiflexion with Knee Extended 0 Plantarflexion 35 Left Active Dorsiflexion with Knee Flexed 5 Dorsiflexion with Knee Extended 0 Plantarflexion 40 Ankle and Foot ROM Limitations ROM Limitations Soft Tissue Tightness, Contracture,Muscle Weakness, Muscle Tone PT-OP-M Strength Start: 04/03/21 14:28 Freq: Status: Active Protocol: Document 04/03/21 14:29 [facility] (Rec: 04/03/21 16:52 [facility] [id number]) Trunk Strength Trunk Manual Muscle Testing Comments functionally appears fair Shoulder Strength Shoulder Manual Muscle Testing Left Flexion 5 Normal Extension 5 Normal Abduction (C5) 5 Normal Adduction 5 Normal External Rotation 5 Normal Internal Rotation 5 Normal Horizontal Abduction 5 Normal Horizontal Adduction 5 Normal Right Flexion 3- Fair- Extension 3- Fair- Abduction (C5) 3- Fair- Adduction 3- Fair- External Rotation 3- Fair- Internal Rotation 3- Fair- Horizontal Abduction 3- Fair- Horizontal Adduction 3- Fair- Elbow/Forearm Strength Elbow and Forearm Manual Muscle Testing Right Flexion (C6) 3+ Fair+ Extension (C7) 3+ Fair+ Left Flexion (C6) 5 Normal Extension (C7) 5 Normal Wrist Strength Wrist Manual Muscle Testing Right Flexion (C7) 3+ Fair+ Extension (C6) 3+ Fair+ Left Flexion (C7) 5 Normal Extension (C6) 5 Normal Hip Strength Hip Manual Muscle Testing Right Flexion (L2) 0 Zero Extension (S1) 0 Zero Abduction 3- Fair- Adduction 2+ Poor+ External Rotation 2+ Poor+ Internal Rotation 2+ Poor+ Left Flexion (L2) 4+ Good+ Extension (S1) 3+ Fair+ Abduction 3+ Fair+ Adduction 4- Good- External Rotation 3+ Fair+ Internal Rotation 4- Good- Knee Strength Knee Manual Muscle Testing Right Flexion (S2) 3- Fair- Extension (L3) 3- Fair- Left Flexion (S2) 4+ Good+ Extension (L3) 4+ Good+ Ankle/Foot Strength Ankle and Foot Manual Muscle Testing Right Dorsiflexion (L4) 1 Trace Plantarflexion (S1) 2- Poor- Left Dorsiflexion (L4) 4 Good Plantarflexion (S1) 4 Good PT-OP-Q Treatments Start: 04/03/21 14:28 Freq: Status: Active Protocol: Document 04/10/21 09:54 [facility] (Rec: 04/10/21 14:45 [facility] [id number]) Therapeutic Exercises Supine Exercises IT band stretch Comments next session HS stretch Reps/Minutes 2x30 adductor stretch Reps/Minutes 2x30 hip abd Reps/Minutes 10x Comments mod assist left, max assist right LTR Equipment Used 55 cm therapy ball Reps/Minutes 15x Comments active, cues for core activation SKTC Reps/Minutes 2x 30 Comments passive hip flex Supine Exercise Name andrew and unil Equipment Used 55 cm therapy ball Reps/Minutes 10x ea Comments min assist left LE, max assist right LE Self-Care/Home Management Treatment Education Other Education application and use of IFES for ant tib (pictures given of application sites for quads as well). Patient able to feel IFES but no contraction elicited with highest setting PT-OP-T Assessment and Plan Start: 04/03/21 14:28 Freq: Status: Active Protocol: Document 04/10/21 09:54 SABINA (Rec: 04/10/21 10:32 SABINA [id number]) Physical Therapy Assessment Goals Four Impairment impaired functional mobility Impairment patient no longer able to lift his right LE 15 onto running board of vehicle for purposes of safe transfers into vehicle Special Education Teacher Goal (LTG) patient will be able to lift his right LE at least 15 to allow him to safely transfer into current vehicle LTG Duration 06/03/21 Three Impairment decline in strength and ROM Short Term Goal (STG) establish updated HEP and problem-solve ways for patient to perform independently as much as possible. STG Duration 05/03/21 Special Education Teacher Goal (LTG) Patient to be indepenent and safe with the aspects of his HEP is able to do on his own and identify personal shopper to assist him in the home after PT completed. LTG Duration 06/03/21 One Impairment impaired gait Impairment 2 min walk test 93 ft Special Education Teacher Goal (LTG) Improve 2 min walk test to 140 ft as measure of improved functional gait LTG Duration 06/03/21 Two Impairment Tinetti gait and balance assessment score 9/28 indicating high fall risk Short Term Goal (STG) Improve Tinetti gait and balance assessment score to at least 14/28 as measure of improved gait and balance STG Duration 05/03/21 Special Education Teacher Goal (LTG) Imprve Tinetti score to at least 19l/28 LTG Duration 06/03/21 Physical Therapy Plan Frequency and Duration Frequency of Treatment 2x/Week Duration of Treatment 8 weeks Plan of Care Start Date 04/03/21 Plan of Care End Date 06/02/21 Therapeutic Interventions Therapeutic Interventions Aquatic Therapy,Balance Training,Gait Training,Home Exercise Program,Manual Therapy,Neuromuscular Re- education,Patient/Caregiver Education Next Visit Focus/Plan Next Note Type Treatment Note Next Visit Plan 5x sit to stand test. ther ex for flexibility and strengthening, standing balance and strengthening as tolerated. Gait training
--- NOTE | 2021-04-12 12:49 | PT.OTN ---
Current Diagnoses Multiple sclerosis (04/12/21) Cramp and spasm (04/12/21) Physical Therapy Treatment Note PT-OP-A Visit Information Start: 04/03/21 14:28 Freq: Status: Active Protocol: Document 04/12/21 09:02 SABINA (Rec: 04/12/21 09:47 SAK [id number]) Out-Patient Physical Therapy Visit Information Visit Information Visit Type Treatment Note Visit Note No new c/o, trying to do exercises. Needs a schedule. Brought IFES machine in with him. Visit Start Time 09:45 Visit Stop Time 10:30 Total Visit Minutes 45 Visit Number 2 Precautions Precautions indwelling catheter leg bag left HTN spasticity PT-OP-B Current Condition Start: 04/03/21 14:28 Freq: Status: Active Protocol: Document 04/12/21 09:02 SABINA (Rec: 04/12/21 09:47 SAK [id number]) Current Condition History of Current Condition Onset Date 2018 Current Complaints weakness, decreased flexibility, decreased ability to walk History of Current Condition Diagnosed with relapsing remitting MS in 1997. Most recently in 2019 calcium levels through the roof, hospitalized 4-5 days, 2 weeks in rehab due to weakened state. Improved but not back to PLF including being able to walk fairly long distances with walker. Then another episode of exacerbation with loss of strength especially in lower legs. Has been able to regain some strength with motomed and other exercises. With Covid not as active. Needs help with ROM and strength; wants to be able to lift LE 15 onto running board of vehicle, improve transfer into bed, transfer from shower seat to w/c seat, and be able to get off floor; has had to recently call 911 when has fallen a couple times recently. Has lost more strength in left vs right, uses device to help with toe lift on right. Wants help stretching his hamstrings and other leg muscles. No caregivers, has but doesn 't want to burden her with another thing to do. To PT today with scooter, has power w/c for use in home. Has rollater tries to use 3-4x/day max 120 steps. Used to be able to use forearm crutch using on left. Prior Treatments and Tests Seen for his MS at [facility] Treatment Goals Patient/Caregiver Goals update HEP Improve flexibility and strength Be able to walk longer distances in and out of the home increased ease of bed transfers Prior Functional Status Baseline Function- ADL's Modified Independent Baseline Function- Mobility Modified Independent Baseline Function- Gait short distance community ambulation Baseline Function- Work/School Retired from [employer] Runs [employer] Current Functional Impairments (Reported) Functional Limitations- ADL's more frequent falls more labored Functional Limitations- Mobility/Gait limited to short distance in the home, unable to ambulate in the community as previously Functional Limitations- Work/School Retired Continues to run [employer] Functional Limitations- Recreation/ Limited to computer Hobbies PT-OP-C Subjective Start: 04/03/21 14:28 Freq: Status: Active Protocol: Document 04/10/21 09:54 SAK (Rec: 04/10/21 14:45 SAK [id number]) OP-PT Subjective Patient Comments Patient Comments Brought IFES machine in for training. States not able to do much exercise besides Motomed. States alled and emailed personalized living manager nurse given information about (Letty Batista), but hasn't heard back yet. PT-OP-D Balance Start: 04/03/21 14:28 Freq: Status: Active Protocol: Document 04/03/21 14:29 SAK (Rec: 04/03/21 15:50 SAK [id number]) OP-PT Balance Assessment Sitting Balance Static Sitting Balance Ability Good Dynamic Sitting Balance Ability Fair Standing Balance Static Standing Balance Ability Fair Dynamic Standing Balance Ability Poor Device Used 4WW Tinetti Balance Assessment Sitting Balance Sitting Balance Steady, safe Arising from Chair Ability to Arise Able, uses arms to help Standing Balance Immediate Standing Balance Steady with support Standing Balance Steady, wide stance Nudged Response Begins to fall Standing with Eyes Closed Unsteady Turning Step Pattern Turning 360 Degrees Discontinuous steps Stability Turning 360 Degrees Unsteady, grabs/staggers Sitting Down Sitting Down Uses arms or unsteady Gait and Step Initiation of Gait No hesitancy Right Foot Step Length Does not pass stance ft. Right Foot Step Height Does not clear floor Left Foot Step Length Does not pass stance foot Left Foot Step Height Does not clear floor Step Description Step Symmetry Step length not equal Step Continuity Steps appear continuous Gait Description Path Description Straight Trunk Description Marked sway or uses aide Walking Stance Heels apart Scoring and Interpretation Tinetti Composite Score (points) 9 Interpretation of Scores High risk for falls(< 19) Hagen Fall Scale Copyright Permission PT-OP-E Functional Tests Start: 04/03/21 14:28 Freq: Status: Active Protocol: Document 04/03/21 14:29 [facility] (Rec: 04/03/21 16:52 [facility] [id number]) Functional Tests 2 Minute Walk Test Distance 93 ft Device Used 4WW Five Times Sit to Stand Test Comments not done due to time constraints PT-OP-G Mobility & Gait Start: 04/03/21 14:28 Freq: Status: Active Protocol: Document 04/03/21 14:29 [facility] (Rec: 04/03/21 16:52 [facility] [id number]) OP Mobility Evaluation Bed Mobility Rolling indep with use of hands Supine to and from Sit indep with use of UE's Transfers Sit to Stand use of UE's, indep Bed to Chair Transfers use of UE's, indep Wheelchair Management Type of Wheelchair Has power w/c, scooter Assessment Details independent with management OP Gait Assessment Gait Gait Assistance Required: Independent Distance (Feet) 93 Assistive Devices Assistive Device Gait Belt,4 Wheeled Walker Orthotic/Prosthetic Devices or Brace: Yes Gait Deviations General Gait Pattern Decreased Stride Length, Decreased Feet Clearance, Flexed Trunk,Lateral Trunk Lean,Wide Based Gait Factors Limiting Gait Function Factors Limiting Gait Function Decreased Strength,Limited Range of Motion Comments Gait Comments 2 min walk 93 ft Stair Climbing Evaluation Comments Stair Climbing Comments unable, has elevator in the home PT-OP-H Neuro Start: 04/03/21 14:28 Freq: Status: Active Protocol: Document 04/03/21 14:29 [facility] (Rec: 04/03/21 16:52 [facility] [id number]) Sensation Evaluation Gross Sensation Gross Sensation Right UE Impaired,Left LE Impaired,Right LE Impaired Sensation Description Paresthesia,Numbness,Tingling PT-OP-J Posture/Palpation/Skin Start: 04/03/21 14:28 Freq: Status: Active Protocol: Document 04/03/21 14:29 [facility] (Rec: 04/03/21 16:52 [facility] [id number]) Posture Evaluation Position Standing Head/C-Spine Posture Forward Head T-Spine Posture Increased Kyphosis L-Spine Posture Decreased Lordosis Scapula Posture (L) Protracted,(R) Protracted Arm Posture (L) Internally Rotated,(R) Internally Rotated Hip Posture (L) Flexed,(R) Flexed Knee Posture (L) Excess Flexion,(R) Excess Flexion Sitting Head/C-Spine Posture Forward Head T-Spine Posture Increased Kyphosis L-Spine Posture Decreased Lordosis Shoulder Posture (L) Rounded,(R) Rounded Scapula Posture (L) Protracted,(R) Protracted Arm Posture (L) Internally Rotated,(R) Internally Rotated Pelvis Posture Posterior Tilted Weight Distribution Weight Shifted Left PT-OP-K Range of Motion Start: 04/03/21 14:28 Freq: Status: Active Protocol: Document 04/03/21 14:29 [facility] (Rec: 04/03/21 16:52 [facility] [id number]) Cervical Spine Range of Motion Cervical Spine Active Comments WFL Lumbar Spine Range of Motion Lumbar Spine Active Comments WFL Shoulder Goniometric Range of Motion Shoulder Right Shoulder ROM WFL No Testing Position Supine Flexion 135 Left Shoulder ROM WFL Yes Shoulder ROM Limitations Shoulder ROM Limitations Soft Tissue Tightness,Muscle Weakness Elbow/Forearm Range of Motion Elbow/Forearm andrew Elbow/Forearm ROM WFL Yes Wrist Goniometric Range of Motion Wrist andrew Wrist ROM WFL Yes ROM Limitations Wrist Limitations of Range of Motion Soft Tissue Tightness Hip Goniometric Range of Motion Hip Right Passive Hip ROM WFL No Testing Position Supine Flexion w/Knee Flexed 95 Straight Leg Raise 45 Abduction 20 Internal Rotation 20 External Rotation 45 Left Hip ROM WFL No Testing Position Supine Flexion w/Knee Flexed 90 Straight Leg Raise 50 Abduction 25 Internal Rotation 20 External Rotation 50 Hip ROM Limitations Hip ROM Limitations Soft Tissue Tightness,Muscle Weakness,Muscle Tone Knee Goniometric Range of Motion Knee andrew Knee ROM WFL Yes Ankle and Foot Goniometric Range of Motion Ankle and Foot Right Passive Dorsiflexion with Knee Flexed 3 Dorsiflexion with Knee Extended 0 Plantarflexion 35 Left Active Dorsiflexion with Knee Flexed 5 Dorsiflexion with Knee Extended 0 Plantarflexion 40 Ankle and Foot ROM Limitations ROM Limitations Soft Tissue Tightness, Contracture,Muscle Weakness, Muscle Tone PT-OP-M Strength Start: 04/03/21 14:28 Freq: Status: Active Protocol: Document 04/03/21 14:29 [facility] (Rec: 04/03/21 16:52 [facility] [id number]) Trunk Strength Trunk Manual Muscle Testing Comments functionally appears fair Shoulder Strength Shoulder Manual Muscle Testing Left Flexion 5 Normal Extension 5 Normal Abduction (C5) 5 Normal Adduction 5 Normal External Rotation 5 Normal Internal Rotation 5 Normal Horizontal Abduction 5 Normal Horizontal Adduction 5 Normal Right Flexion 3- Fair- Extension 3- Fair- Abduction (C5) 3- Fair- Adduction 3- Fair- External Rotation 3- Fair- Internal Rotation 3- Fair- Horizontal Abduction 3- Fair- Horizontal Adduction 3- Fair- Elbow/Forearm Strength Elbow and Forearm Manual Muscle Testing Right Flexion (C6) 3+ Fair+ Extension (C7) 3+ Fair+ Left Flexion (C6) 5 Normal Extension (C7) 5 Normal Wrist Strength Wrist Manual Muscle Testing Right Flexion (C7) 3+ Fair+ Extension (C6) 3+ Fair+ Left Flexion (C7) 5 Normal Extension (C6) 5 Normal Hip Strength Hip Manual Muscle Testing Right Flexion (L2) 0 Zero Extension (S1) 0 Zero Abduction 3- Fair- Adduction 2+ Poor+ External Rotation 2+ Poor+ Internal Rotation 2+ Poor+ Left Flexion (L2) 4+ Good+ Extension (S1) 3+ Fair+ Abduction 3+ Fair+ Adduction 4- Good- External Rotation 3+ Fair+ Internal Rotation 4- Good- Knee Strength Knee Manual Muscle Testing Right Flexion (S2) 3- Fair- Extension (L3) 3- Fair- Left Flexion (S2) 4+ Good+ Extension (L3) 4+ Good+ Ankle/Foot Strength Ankle and Foot Manual Muscle Testing Right Dorsiflexion (L4) 1 Trace Plantarflexion (S1) 2- Poor- Left Dorsiflexion (L4) 4 Good Plantarflexion (S1) 4 Good PT-OP-Q Treatments Start: 04/03/21 14:28 Freq: Status: Active Protocol: Document 04/12/21 09:02 SABINA (Rec: 04/12/21 09:47 [facility] [id number]) Therapeutic Exercises Supine Exercises IT band stretch Reps/Minutes 1x30 HS stretch Reps/Minutes 2x60 adductor stretch Reps/Minutes 2x30 hip abd Reps/Minutes 10x Comments mod assist left, max assist right LTR Equipment Used 55 cm therapy ball Reps/Minutes 15x Comments active, cues for core activation SKTC Reps/Minutes 2x 30 L, 3x30 R Comments passive hip flex Supine Exercise Name andrew and unil Equipment Used 55 cm therapy ball Reps/Minutes 10x ea Comments min assist left LE, max assist right LE Standing Exercises sidestepping Reps/Minutes 2 laps Comments parallel bars, mod to max assist right LE when going to right Gait Training Gait Activity parallel bars Description fwd and backward Distance/Duration 2 laps parallel bars Treatment Focus upright posture, muscle activation sequencin, dec UE support as possible. PT-OP-T Assessment and Plan Start: 04/03/21 14:28 Freq: Status: Active Protocol: Document 04/12/21 09:02 SABINA (Rec: 04/12/21 09:47 [facility] [id number]) Physical Therapy Assessment Goals Four Impairment impaired functional mobility Impairment patient no longer able to lift his right LE 15 onto running board of vehicle for purposes of safe transfers into vehicle Usp Goal (LTG) patient will be able to lift his right LE at least 15 to allow him to safely transfer into current vehicle LTG Duration 06/03/21 Three Impairment decline in strength and ROM Short Term Goal (STG) establish updated HEP and problem-solve ways for patient to perform independently as much as possible. STG Duration 05/03/21 Usp Goal (LTG) Patient to be indepenent and safe with the aspects of his HEP is able to do on his own and identify personalized living manager nurse to assist him in the home after PT completed. LTG Duration 06/03/21 One Impairment impaired gait Impairment 2 min walk test 93 ft Wind Up Worker Goal (LTG) Improve 2 min walk test to 140 ft as measure of improved functional gait LTG Duration 06/03/21 Two Impairment Tinetti gait and balance assessment score 9/28 indicating high fall risk Short Term Goal (STG) Improve Tinetti gait and balance assessment score to at least 14/28 as measure of improved gait and balance STG Duration 05/03/21 Usp Goal (LTG) Imprve Tinetti score to at least 19l/28 LTG Duration 06/03/21 Physical Therapy Plan Frequency and Duration Frequency of Treatment 2x/Week Duration of Treatment 8 weeks Plan of Care Start Date 04/03/21 Plan of Care End Date 06/02/21 Therapeutic Interventions Therapeutic Interventions Aquatic Therapy,Balance Training,Gait Training,Home Exercise Program,Manual Therapy,Neuromuscular Re- education,Patient/Caregiver Education Next Visit Focus/Plan Next Note Type Treatment Note Next Visit Plan 5x sit to stand test. ther ex for flexibility and strengthening, standing balance and strengthening as tolerated. Gait training
--- NOTE | 2021-04-19 12:04 | PT.OTN ---
Current Diagnoses Multiple sclerosis (04/19/21) Cramp and spasm (04/19/21) Physical Therapy Treatment Note PT-OP-A Visit Information Start: 04/03/21 14:28 Freq: Status: Active Protocol: Document 04/19/21 09:58 [facility] (Rec: 04/19/21 11:56 [facility] [id number]) Out-Patient Physical Therapy Visit Information Visit Information Visit Type Treatment Note Visit Start Time 09:47 Visit Stop Time 10:32 Total Visit Minutes 45 Visit Number 3 Precautions Precautions HTN spasticity fall risk PT-OP-B Current Condition Start: 04/03/21 14:28 Freq: Status: Active Protocol: Document 04/19/21 09:58 [facility] (Rec: 04/19/21 11:56 [facility] [id number]) Current Condition History of Current Condition Onset Date 2018 Current Complaints weakness, decreased flexibility, decreased ability to walk History of Current Condition Diagnosed with relapsing remitting MS in 1997. Most recently in 2019 calcium levels through the roof, hospitalized 4-5 days, 2 weeks in rehab due to weakened state. Improved but not back to PLF including being able to walk fairly long distances with walker. Then another episode of exacerbation with loss of strength especially in lower legs. Has been able to regain some strength with motomed and other exercises. With Covid not as active. Needs help with ROM and strength; wants to be able to lift LE 15 onto running board of vehicle, improve transfer into bed, transfer from shower seat to w/c seat, and be able to get off floor; has had to recently call 911 when has fallen a couple times recently. Has lost more strength in left vs right, uses device to help with toe lift on right. Wants help stretching his hamstrings and other leg muscles. No caregivers, has but doesn 't want to burden her with another thing to do. To PT today with scooter, has power w/c for use in home. Has rollater tries to use 3-4x/day max 120 steps. Used to be able to use forearm crutch using on left. Prior Treatments and Tests Seen for his MS at [facility] [place] Treatment Goals Patient/Caregiver Goals update HEP Improve flexibility and strength Be able to walk longer distances in and out of the home increased ease of bed transfers PT-OP-C Subjective Start: 04/03/21 14:28 Freq: Status: Active Protocol: Document 04/19/21 09:58 [facility] (Rec: 04/19/21 11:56 [facility] [id number]) OP-PT Subjective Patient Comments Patient Comments Reports decreased spasms after PT sessions for several days with increasing LE spasms especially at night as length of time from PT session lengthens. States he felt good about his meeting with Letty; she hasn't worked with someone as complicated as him but is receptive and eager to learn. He sent this PT a copy of MS society Stretching with a [place] for People with MS handout and this was forwarded to Letty. He plans to move forward with having him help her. PT-OP-D Balance Start: 04/03/21 14:28 Freq: Status: Active Protocol: Document 04/03/21 14:29 [facility] (Rec: 04/03/21 15:50 [facility] [id number]) OP-PT Balance Assessment Sitting Balance Static Sitting Balance Ability Good Dynamic Sitting Balance Ability Fair Standing Balance Static Standing Balance Ability Fair Dynamic Standing Balance Ability Poor Device Used 4WW Tinetti Balance Assessment Sitting Balance Sitting Balance Steady, safe Arising from Chair Ability to Arise Able, uses arms to help Standing Balance Immediate Standing Balance Steady with support Standing Balance Steady, wide stance Nudged Response Begins to fall Standing with Eyes Closed Unsteady Turning Step Pattern Turning 360 Degrees Discontinuous steps Stability Turning 360 Degrees Unsteady, grabs/staggers Sitting Down Sitting Down Uses arms or unsteady Gait and Step Initiation of Gait No hesitancy Right Foot Step Length Does not pass stance ft. Right Foot Step Height Does not clear floor Left Foot Step Length Does not pass stance foot Left Foot Step Height Does not clear floor Step Description Step Symmetry Step length not equal Step Continuity Steps appear continuous Gait Description Path Description Straight Trunk Description Marked sway or uses aide Walking Stance Heels apart Scoring and Interpretation Tinetti Composite Score (points) 9 Interpretation of Scores High risk for falls(< 19) Hagen Fall Scale Copyright Permission PT-OP-E Functional Tests Start: 04/03/21 14:28 Freq: Status: Active Protocol: Document 04/03/21 14:29 [facility] (Rec: 04/03/21 16:52 [facility] [id number]) Functional Tests 2 Minute Walk Test Distance 93 ft Device Used 4WW Five Times Sit to Stand Test Comments not done due to time constraints PT-OP-G Mobility & Gait Start: 04/03/21 14:28 Freq: Status: Active Protocol: Document 04/03/21 14:29 [facility] (Rec: 04/03/21 16:52 [facility] [id number]) OP Mobility Evaluation Bed Mobility Rolling indep with use of hands Supine to and from Sit indep with use of UE's Transfers Sit to Stand use of UE's, indep Bed to Chair Transfers use of UE's, indep Wheelchair Management Type of Wheelchair Has power w/c, scooter Assessment Details independent with management OP Gait Assessment Gait Gait Assistance Required: Independent Distance (Feet) 93 Assistive Devices Assistive Device Gait Belt,4 Wheeled Walker Orthotic/Prosthetic Devices or Brace: Yes Gait Deviations General Gait Pattern Decreased Stride Length, Decreased Feet Clearance, Flexed Trunk,Lateral Trunk Lean,Wide Based Gait Factors Limiting Gait Function Factors Limiting Gait Function Decreased Strength,Limited Range of Motion Comments Gait Comments 2 min walk 93 ft Stair Climbing Evaluation Comments Stair Climbing Comments unable, has elevator in the home PT-OP-H Neuro Start: 04/03/21 14:28 Freq: Status: Active Protocol: Document 04/03/21 14:29 [facility] (Rec: 04/03/21 16:52 [facility] [id number]) Sensation Evaluation Gross Sensation Gross Sensation Right UE Impaired,Left LE Impaired,Right LE Impaired Sensation Description Paresthesia,Numbness,Tingling PT-OP-J Posture/Palpation/Skin Start: 04/03/21 14:28 Freq: Status: Active Protocol: Document 04/03/21 14:29 [facility] (Rec: 04/03/21 16:52 [facility] [id number]) Posture Evaluation Position Standing Head/C-Spine Posture Forward Head T-Spine Posture Increased Kyphosis L-Spine Posture Decreased Lordosis Scapula Posture (L) Protracted,(R) Protracted Arm Posture (L) Internally Rotated,(R) Internally Rotated Hip Posture (L) Flexed,(R) Flexed Knee Posture (L) Excess Flexion,(R) Excess Flexion Sitting Head/C-Spine Posture Forward Head T-Spine Posture Increased Kyphosis L-Spine Posture Decreased Lordosis Shoulder Posture (L) Rounded,(R) Rounded Scapula Posture (L) Protracted,(R) Protracted Arm Posture (L) Internally Rotated,(R) Internally Rotated Pelvis Posture Posterior Tilted Weight Distribution Weight Shifted Left PT-OP-K Range of Motion Start: 04/03/21 14:28 Freq: Status: Active Protocol: Document 04/03/21 14:29 [facility] (Rec: 04/03/21 16:52 [facility] [id number]) Cervical Spine Range of Motion Cervical Spine Active Comments WFL Lumbar Spine Range of Motion Lumbar Spine Active Comments WFL Shoulder Goniometric Range of Motion Shoulder Right Shoulder ROM WFL No Testing Position Supine Flexion 135 Left Shoulder ROM WFL Yes Shoulder ROM Limitations Shoulder ROM Limitations Soft Tissue Tightness,Muscle Weakness Elbow/Forearm Range of Motion Elbow/Forearm andrew Elbow/Forearm ROM WFL Yes Wrist Goniometric Range of Motion Wrist andrew Wrist ROM WFL Yes ROM Limitations Wrist Limitations of Range of Motion Soft Tissue Tightness Hip Goniometric Range of Motion Hip Right Passive Hip ROM WFL No Testing Position Supine Flexion w/Knee Flexed 95 Straight Leg Raise 45 Abduction 20 Internal Rotation 20 External Rotation 45 Left Hip ROM WFL No Testing Position Supine Flexion w/Knee Flexed 90 Straight Leg Raise 50 Abduction 25 Internal Rotation 20 External Rotation 50 Hip ROM Limitations Hip ROM Limitations Soft Tissue Tightness,Muscle Weakness,Muscle Tone Knee Goniometric Range of Motion Knee andrew Knee ROM WFL Yes Ankle and Foot Goniometric Range of Motion Ankle and Foot Right Passive Dorsiflexion with Knee Flexed 3 Dorsiflexion with Knee Extended 0 Plantarflexion 35 Left Active Dorsiflexion with Knee Flexed 5 Dorsiflexion with Knee Extended 0 Plantarflexion 40 Ankle and Foot ROM Limitations ROM Limitations Soft Tissue Tightness, Contracture,Muscle Weakness, Muscle Tone PT-OP-M Strength Start: 04/03/21 14:28 Freq: Status: Active Protocol: Document 04/03/21 14:29 [facility] (Rec: 04/03/21 16:52 [facility] [id number]) Trunk Strength Trunk Manual Muscle Testing Comments functionally appears fair Shoulder Strength Shoulder Manual Muscle Testing Left Flexion 5 Normal Extension 5 Normal Abduction (C5) 5 Normal Adduction 5 Normal External Rotation 5 Normal Internal Rotation 5 Normal Horizontal Abduction 5 Normal Horizontal Adduction 5 Normal Right Flexion 3- Fair- Extension 3- Fair- Abduction (C5) 3- Fair- Adduction 3- Fair- External Rotation 3- Fair- Internal Rotation 3- Fair- Horizontal Abduction 3- Fair- Horizontal Adduction 3- Fair- Elbow/Forearm Strength Elbow and Forearm Manual Muscle Testing Right Flexion (C6) 3+ Fair+ Extension (C7) 3+ Fair+ Left Flexion (C6) 5 Normal Extension (C7) 5 Normal Wrist Strength Wrist Manual Muscle Testing Right Flexion (C7) 3+ Fair+ Extension (C6) 3+ Fair+ Left Flexion (C7) 5 Normal Extension (C6) 5 Normal Hip Strength Hip Manual Muscle Testing Right Flexion (L2) 0 Zero Extension (S1) 0 Zero Abduction 3- Fair- Adduction 2+ Poor+ External Rotation 2+ Poor+ Internal Rotation 2+ Poor+ Left Flexion (L2) 4+ Good+ Extension (S1) 3+ Fair+ Abduction 3+ Fair+ Adduction 4- Good- External Rotation 3+ Fair+ Internal Rotation 4- Good- Knee Strength Knee Manual Muscle Testing Right Flexion (S2) 3- Fair- Extension (L3) 3- Fair- Left Flexion (S2) 4+ Good+ Extension (L3) 4+ Good+ Ankle/Foot Strength Ankle and Foot Manual Muscle Testing Right Dorsiflexion (L4) 1 Trace Plantarflexion (S1) 2- Poor- Left Dorsiflexion (L4) 4 Good Plantarflexion (S1) 4 Good PT-OP-Q Treatments Start: 04/03/21 14:28 Freq: Status: Active Protocol: Document 04/19/21 09:58 [facility] (Rec: 04/19/21 10:32 [facility] [id number]) Therapeutic Exercises Supine Exercises butterfly stretch Reps/Minutes 2x30 Comments manual deep breathing Supine Exercise Name abdominal, lateral chest, posterior ribcage Comments throughout stretching shoulder stretch Supine Exercise Name I,T,Y Comments capital I (AAROM with left UE) , T (with PT assist for elbow fing wrist ext) DKTC stretch Reps/Minutes 2x30 Comments LE's on 55 cm ball, passive full body stretch Supine Exercise Name cues for body alignment, cue deep breathing lateral trunk Reps/Minutes 1' Comments arms overhead HS stretch Reps/Minutes 2x60 Comments contract/relax technique, passive adductor stretch Reps/Minutes 2x30 Comments passive hip abd Reps/Minutes 10x Comments mod assist left, max assist right LTR Equipment Used 55 cm therapy ball Reps/Minutes 2x only due to time constraints end of session Comments active, cues for core activation hip flex Supine Exercise Name andrew only today Equipment Used 55 cm therapy ball Reps/Minutes 10x ea Comments min assist left LE, max assist right LE Prone Exercises prone on elbows Reps/Minutes 30 Comments min assist with positioning quad stretch Reps/Minutes 2x30 Comments manual Standing Exercises standing bal Equipment Used parallel bars Reps/Minutes 30 Comments cues for fully upright position squats Equipment Used parallel bars Reps/Minutes 10x Comments cues for knees apart, equal weight-bearing, activation of quads and gluts Self-Care/Home Management Treatment Education Patient Education Posture Other Education use of mirror for visual feedback with sitting posture. PT-OP-T Assessment and Plan Start: 04/03/21 14:28 Freq: Status: Active Protocol: Document 04/19/21 09:58 [facility] (Rec: 04/19/21 11:56 [facility] [id number]) Physical Therapy Assessment Goals Four Impairment impaired functional mobility Impairment patient no longer able to lift his right LE 15 onto running board of vehicle for purposes of safe transfers into vehicle Painter Apprentice Goal (LTG) patient will be able to lift his right LE at least 15 to allow him to safely transfer into current vehicle LTG Duration 06/03/21 Three Impairment decline in strength and ROM Short Term Goal (STG) establish updated HEP and problem-solve ways for patient to perform independently as much as possible. STG Duration 05/03/21 Correction Goal (LTG) Patient to be indepenent and safe with the aspects of his HEP is able to do on his own and identify personal injury paralegal to assist him in the home after PT completed. LTG Duration 06/03/21 One Impairment impaired gait Impairment 2 min walk test 93 ft Painter Apprentice Goal (LTG) Improve 2 min walk test to 140 ft as measure of improved functional gait LTG Duration 06/03/21 Two Impairment Tinetti gait and balance assessment score 9/28 indicating high fall risk Short Term Goal (STG) Improve Tinetti gait and balance assessment score to at least 14/28 as measure of improved gait and balance STG Duration 05/03/21 Correction Goal (LTG) Imprve Tinetti score to at least 19l/28 LTG Duration 06/03/21 Assessment Summary Assessment No gait training as didn't bring LE strap. With squat right LE adducts and patient with excess weight-bearing left LE; improved with cues for equal weightl-bearing, smaller squat to use more LE muscles not UE's as much. Added UE stretches, deep breathing, contract relax for HS stretch, DKTC, UE stretches with PT assist especially for right wrist,hand, and finger extension stretch in supine. Progressed to prone quad stretch and prone on elbows with patient requiring min assist for right UE and LE mobility to prone. Mod verbal and manual cues for postural alignment correction sitting, standing, supine; recommended use of mirror. Caregiver training with Letty Barrera as patient arranges. Physical Therapy Plan Frequency and Duration Frequency of Treatment 2x/Week Duration of Treatment 8 weeks Plan of Care Start Date 04/03/21 Plan of Care End Date 06/02/21 Therapeutic Interventions Therapeutic Interventions Aquatic Therapy,Balance Training,Gait Training,Home Exercise Program,Manual Therapy,Neuromuscular Re- education,Patient/Caregiver Education Next Visit Focus/Plan Next Note Type Treatment Note Next Visit Plan ther ex for flexibility and strengthening, standing balance and strengthening as tolerated. Gait training. Use of mirror for sitting alignment, trial sit on Dynadisc for core strengthening and stabilization. Add seated crunch.
--- NOTE | 2021-04-23 16:29 | PT.OTN ---
Current Diagnoses Multiple sclerosis (04/23/21) Cramp and spasm (04/23/21) Physical Therapy Treatment Note PT-OP-A Visit Information Start: 04/03/21 14:28 Freq: Status: Active Protocol: Document 04/23/21 13:39 MA (Rec: 04/23/21 14:34 MA [id number]) Out-Patient Physical Therapy Visit Information Visit Information Visit Type Treatment Note Visit Start Time 13:45 Visit Stop Time 14:30 Total Visit Minutes 45 Visit Number 4 Number of IRRIGATION SPECIALIST Visits 1 Precautions Precautions HTN spasticity fall risk PT-OP-B Current Condition Start: 04/03/21 14:28 Freq: Status: Active Protocol: Document 04/19/21 09:58 SAK (Rec: 04/19/21 11:56 SAK [id number]) Current Condition History of Current Condition Onset Date 2018 Current Complaints weakness, decreased flexibility, decreased ability to walk History of Current Condition Diagnosed with relapsing remitting MS in 1997. Most recently in 2019 calcium levels through the roof, hospitalized 4-5 days, 2 weeks in rehab due to weakened state. Improved but not back to PLF including being able to walk fairly long distances with walker. Then another episode of exacerbation with loss of strength especially in lower legs. Has been able to regain some strength with motomed and other exercises. With Covid not as active. Needs help with ROM and strength; wants to be able to lift LE 15 onto running board of vehicle, improve transfer into bed, transfer from shower seat to w/c seat, and be able to get off floor; has had to recently call 911 when has fallen a couple times recently. Has lost more strength in left vs right, uses device to help with toe lift on right. Wants help stretching his hamstrings and other leg muscles. No caregivers, has but doesn 't want to burden her with another thing to do. To PT today with scooter, has power w/c for use in home. Has rollater tries to use 3-4x/day max 120 steps. Used to be able to use forearm crutch using on left. Prior Treatments and Tests Seen for his MS at [facility] [place] Treatment Goals Patient/Caregiver Goals update HEP Improve flexibility and strength Be able to walk longer distances in and out of the home increased ease of bed transfers PT-OP-C Subjective Start: 04/03/21 14:28 Freq: Status: Active Protocol: Document 04/23/21 13:39 MA (Rec: 04/23/21 14:34 MA [id number]) OP-PT Subjective Patient Comments Patient Comments Pt reports bag on LLE PT-OP-D Balance Start: 04/03/21 14:28 Freq: Status: Active Protocol: Document 04/03/21 14:29 SAK (Rec: 04/03/21 15:50 SAK [id number]) OP-PT Balance Assessment Sitting Balance Static Sitting Balance Ability Good Dynamic Sitting Balance Ability Fair Standing Balance Static Standing Balance Ability Fair Dynamic Standing Balance Ability Poor Device Used 4WW Tinetti Balance Assessment Sitting Balance Sitting Balance Steady, safe Arising from Chair Ability to Arise Able, uses arms to help Standing Balance Immediate Standing Balance Steady with support Standing Balance Steady, wide stance Nudged Response Begins to fall Standing with Eyes Closed Unsteady Turning Step Pattern Turning 360 Degrees Discontinuous steps Stability Turning 360 Degrees Unsteady, grabs/staggers Sitting Down Sitting Down Uses arms or unsteady Gait and Step Initiation of Gait No hesitancy Right Foot Step Length Does not pass stance ft. Right Foot Step Height Does not clear floor Left Foot Step Length Does not pass stance foot Left Foot Step Height Does not clear floor Step Description Step Symmetry Step length not equal Step Continuity Steps appear continuous Gait Description Path Description Straight Trunk Description Marked sway or uses aide Walking Stance Heels apart Scoring and Interpretation Tinetti Composite Score (points) 9 Interpretation of Scores High risk for falls(< 19) Hagen Fall Scale Copyright Permission PT-OP-E Functional Tests Start: 04/03/21 14:28 Freq: Status: Active Protocol: Document 04/03/21 14:29 [facility] (Rec: 04/03/21 16:52 [facility] [id number]) Functional Tests 2 Minute Walk Test Distance 93 ft Device Used 4WW Five Times Sit to Stand Test Comments not done due to time constraints PT-OP-G Mobility & Gait Start: 04/03/21 14:28 Freq: Status: Active Protocol: Document 04/03/21 14:29 [facility] (Rec: 04/03/21 16:52 [facility] [id number]) OP Mobility Evaluation Bed Mobility Rolling indep with use of hands Supine to and from Sit indep with use of UE's Transfers Sit to Stand use of UE's, indep Bed to Chair Transfers use of UE's, indep Wheelchair Management Type of Wheelchair Has power w/c, scooter Assessment Details independent with management OP Gait Assessment Gait Gait Assistance Required: Independent Distance (Feet) 93 Assistive Devices Assistive Device Gait Belt,4 Wheeled Walker Orthotic/Prosthetic Devices or Brace: Yes Gait Deviations General Gait Pattern Decreased Stride Length, Decreased Feet Clearance, Flexed Trunk,Lateral Trunk Lean,Wide Based Gait Factors Limiting Gait Function Factors Limiting Gait Function Decreased Strength,Limited Range of Motion Comments Gait Comments 2 min walk 93 ft Stair Climbing Evaluation Comments Stair Climbing Comments unable, has elevator in the home PT-OP-H Neuro Start: 04/03/21 14:28 Freq: Status: Active Protocol: Document 04/03/21 14:29 [facility] (Rec: 04/03/21 16:52 [facility] [id number]) Sensation Evaluation Gross Sensation Gross Sensation Right UE Impaired,Left LE Impaired,Right LE Impaired Sensation Description Paresthesia,Numbness,Tingling PT-OP-J Posture/Palpation/Skin Start: 04/03/21 14:28 Freq: Status: Active Protocol: Document 04/03/21 14:29 [facility] (Rec: 04/03/21 16:52 [facility] [id number]) Posture Evaluation Position Standing Head/C-Spine Posture Forward Head T-Spine Posture Increased Kyphosis L-Spine Posture Decreased Lordosis Scapula Posture (L) Protracted,(R) Protracted Arm Posture (L) Internally Rotated,(R) Internally Rotated Hip Posture (L) Flexed,(R) Flexed Knee Posture (L) Excess Flexion,(R) Excess Flexion Sitting Head/C-Spine Posture Forward Head T-Spine Posture Increased Kyphosis L-Spine Posture Decreased Lordosis Shoulder Posture (L) Rounded,(R) Rounded Scapula Posture (L) Protracted,(R) Protracted Arm Posture (L) Internally Rotated,(R) Internally Rotated Pelvis Posture Posterior Tilted Weight Distribution Weight Shifted Left PT-OP-K Range of Motion Start: 04/03/21 14:28 Freq: Status: Active Protocol: Document 04/03/21 14:29 [facility] (Rec: 04/03/21 16:52 [facility] [id number]) Cervical Spine Range of Motion Cervical Spine Active Comments WFL Lumbar Spine Range of Motion Lumbar Spine Active Comments WFL Shoulder Goniometric Range of Motion Shoulder Right Shoulder ROM WFL No Testing Position Supine Flexion 135 Left Shoulder ROM WFL Yes Shoulder ROM Limitations Shoulder ROM Limitations Soft Tissue Tightness,Muscle Weakness Elbow/Forearm Range of Motion Elbow/Forearm andrew Elbow/Forearm ROM WFL Yes Wrist Goniometric Range of Motion Wrist andrew Wrist ROM WFL Yes ROM Limitations Wrist Limitations of Range of Motion Soft Tissue Tightness Hip Goniometric Range of Motion Hip Right Passive Hip ROM WFL No Testing Position Supine Flexion w/Knee Flexed 95 Straight Leg Raise 45 Abduction 20 Internal Rotation 20 External Rotation 45 Left Hip ROM WFL No Testing Position Supine Flexion w/Knee Flexed 90 Straight Leg Raise 50 Abduction 25 Internal Rotation 20 External Rotation 50 Hip ROM Limitations Hip ROM Limitations Soft Tissue Tightness,Muscle Weakness,Muscle Tone Knee Goniometric Range of Motion Knee andrew Knee ROM WFL Yes Ankle and Foot Goniometric Range of Motion Ankle and Foot Right Passive Dorsiflexion with Knee Flexed 3 Dorsiflexion with Knee Extended 0 Plantarflexion 35 Left Active Dorsiflexion with Knee Flexed 5 Dorsiflexion with Knee Extended 0 Plantarflexion 40 Ankle and Foot ROM Limitations ROM Limitations Soft Tissue Tightness, Contracture,Muscle Weakness, Muscle Tone PT-OP-M Strength Start: 04/03/21 14:28 Freq: Status: Active Protocol: Document 04/03/21 14:29 [facility]AB[facility] (Rec: 04/03/21 16:52 [facility] [id number]) Trunk Strength Trunk Manual Muscle Testing Comments functionally appears fair Shoulder Strength Shoulder Manual Muscle Testing Left Flexion 5 Normal Extension 5 Normal Abduction (C5) 5 Normal Adduction 5 Normal External Rotation 5 Normal Internal Rotation 5 Normal Horizontal Abduction 5 Normal Horizontal Adduction 5 Normal Right Flexion 3- Fair- Extension 3- Fair- Abduction (C5) 3- Fair- Adduction 3- Fair- External Rotation 3- Fair- Internal Rotation 3- Fair- Horizontal Abduction 3- Fair- Horizontal Adduction 3- Fair- Elbow/Forearm Strength Elbow and Forearm Manual Muscle Testing Right Flexion (C6) 3+ Fair+ Extension (C7) 3+ Fair+ Left Flexion (C6) 5 Normal Extension (C7) 5 Normal Wrist Strength Wrist Manual Muscle Testing Right Flexion (C7) 3+ Fair+ Extension (C6) 3+ Fair+ Left Flexion (C7) 5 Normal Extension (C6) 5 Normal Hip Strength Hip Manual Muscle Testing Right Flexion (L2) 0 Zero Extension (S1) 0 Zero Abduction 3- Fair- Adduction 2+ Poor+ External Rotation 2+ Poor+ Internal Rotation 2+ Poor+ Left Flexion (L2) 4+ Good+ Extension (S1) 3+ Fair+ Abduction 3+ Fair+ Adduction 4- Good- External Rotation 3+ Fair+ Internal Rotation 4- Good- Knee Strength Knee Manual Muscle Testing Right Flexion (S2) 3- Fair- Extension (L3) 3- Fair- Left Flexion (S2) 4+ Good+ Extension (L3) 4+ Good+ Ankle/Foot Strength Ankle and Foot Manual Muscle Testing Right Dorsiflexion (L4) 1 Trace Plantarflexion (S1) 2- Poor- Left Dorsiflexion (L4) 4 Good Plantarflexion (S1) 4 Good PT-OP-Q Treatments Start: 04/03/21 14:28 Freq: Status: Active Protocol: Document 04/23/21 13:39 MA (Rec: 04/23/21 14:34 MA [id number]) Therapeutic Exercises Supine Exercises butterfly stretch Reps/Minutes 2x30 Comments manual shoulder stretch Supine Exercise Name I,T,Y Comments capital I (AAROM with left UE) , T (with PT assist for elbow fing wrist ext) DKTC stretch Reps/Minutes 2x30 Comments LE's on 55 cm ball, passive IT band stretch Reps/Minutes 1x30 Comments passive HS stretch Reps/Minutes 2x60 Comments contract/relax technique, passive adductor stretch Reps/Minutes 2x30 Comments passive hip flex Supine Exercise Name andrew only today Equipment Used 55 cm therapy ball Reps/Minutes 10x ea Comments min assist left LE, max assist right LE Manual Therapy Treatment Soft Tissue Mobilization HS Body Location Andrew HS Mobilization Type Rolling Intensity/Depth Moderate Body Position Supine Comments RLE on shoudler, LLE unable to due to cath bag Neuro Re-Education Treatment Balance Activities seated balance Equipment blue carlos disc, mirror Reps/Duration 5' Comments 1. posture work with mirror 2. resisting gentle perturbations PT-OP-T Assessment and Plan Start: 04/03/21 14:28 Freq: Status: Active Protocol: Document 04/23/21 13:39 MA (Rec: 04/23/21 14:34 MA [id number]) Physical Therapy Assessment Goals Four Impairment impaired functional mobility Impairment patient no longer able to lift his right LE 15 onto running board of vehicle for purposes of safe transfers into vehicle Retirement Goal (LTG) patient will be able to lift his right LE at least 15 to allow him to safely transfer into current vehicle LTG Duration 06/03/21 Three Impairment decline in strength and ROM Short Term Goal (STG) establish updated HEP and problem-solve ways for patient to perform independently as much as possible. STG Duration 05/03/21 Retirement Goal (LTG) Patient to be indepenent and safe with the aspects of his HEP is able to do on his own and identify canine service instructor trainer to assist him in the home after PT completed. LTG Duration 06/03/21 One Impairment impaired gait Impairment 2 min walk test 93 ft Retirement Goal (LTG) Improve 2 min walk test to 140 ft as measure of improved functional gait LTG Duration 06/03/21 Two Impairment Tinetti gait and balance assessment score 9/28 indicating high fall risk Short Term Goal (STG) Improve Tinetti gait and balance assessment score to at least 14/28 as measure of improved gait and balance STG Duration 05/03/21 Retirement Goal (LTG) Imprve Tinetti score to at least 19l/28 LTG Duration 06/03/21 Assessment Summary Assessment Pt arrives with catheter this session stating he did not have time to clamp it off after lunch. He has increased HS length on R side after STM and stretches. He is unable to stretch from 90/90 in supine with LLE due to catheter. Worked on seated balance while sitting on carlos disc with gentle perturbations. Pt struggles keeping balance when perturbed backwards and to R side due to R sided weakness. Added pillow between LEs during seated balance work to keep a wider ELENA without RLE adducting. Requested pt arrive with band on RLE next session to start with standing work in the // bars. Physical Therapy Plan Frequency and Duration Frequency of Treatment 2x/Week Duration of Treatment 8 weeks Plan of Care Start Date 04/03/21 Plan of Care End Date 06/02/21 Therapeutic Interventions Therapeutic Interventions Aquatic Therapy,Balance Training,Gait Training,Home Exercise Program,Manual Therapy,Neuromuscular Re- education,Patient/Caregiver Education Next Visit Focus/Plan Next Note Type Treatment Note Next Visit Plan Start in // bars if pt has band donned on RLE. Seated balance on disc with balloon toss outside ELENA. ther ex for flexibility and strengthening, standing balance and strengthening as tolerated. Gait training. Use of mirror for sitting alignment, trial sit on Dynadisc for core strengthening and stabilization. Add seated crunch.
--- NOTE | 2021-04-27 12:36 | PT.OTN ---
Current Diagnoses Multiple sclerosis (04/27/21) Cramp and spasm (04/27/21) Physical Therapy Treatment Note PT-OP-A Visit Information Start: 04/03/21 14:28 Freq: Status: Active Protocol: Document 04/27/21 12:20 MA (Rec: 04/27/21 12:36 MA [email or web address]) Out-Patient Physical Therapy Visit Information Visit Information Visit Type Treatment Note Visit Start Time 10:35 Visit Stop Time 11:17 Total Visit Minutes 42 Visit Number 5 Number of LIP AND GATE BUILDER Visits 2 Precautions Precautions HTN spasticity fall risk PT-OP-B Current Condition Start: 04/03/21 14:28 Freq: Status: Active Protocol: Document 04/19/21 09:58 SAK (Rec: 04/19/21 11:56 SAK [id number]) Current Condition History of Current Condition Onset Date 2018 Current Complaints weakness, decreased flexibility, decreased ability to walk History of Current Condition Diagnosed with relapsing remitting MS in 1997. Most recently in 2019 calcium levels through the roof, hospitalized 4-5 days, 2 weeks in rehab due to weakened state. Improved but not back to PLF including being able to walk fairly long distances with walker. Then another episode of exacerbation with loss of strength especially in lower legs. Has been able to regain some strength with motomed and other exercises. With Covid not as active. Needs help with ROM and strength; wants to be able to lift LE 15 onto running board of vehicle, improve transfer into bed, transfer from shower seat to w/c seat, and be able to get off floor; has had to recently call 911 when has fallen a couple times recently. Has lost more strength in left vs right, uses device to help with toe lift on right. Wants help stretching his hamstrings and other leg muscles. No caregivers, has but doesn 't want to burden her with another thing to do. To PT today with scooter, has power w/c for use in home. Has rollater tries to use 3-4x/day max 120 steps. Used to be able to use forearm crutch using on left. Prior Treatments and Tests Seen for his MS at [facility] [place] Treatment Goals Patient/Caregiver Goals update HEP Improve flexibility and strength Be able to walk longer distances in and out of the home increased ease of bed transfers PT-OP-C Subjective Start: 04/03/21 14:28 Freq: Status: Active Protocol: Document 04/27/21 12:20 MA (Rec: 04/27/21 12:36 MA [email or web address]) OP-PT Subjective Patient Comments Patient Comments Pt reports cath bag on LLE again but it is empty for now. He donned his RLE strap and is ready to practice walking PT-OP-D Balance Start: 04/03/21 14:28 Freq: Status: Active Protocol: Document 04/03/21 14:29 SAK (Rec: 04/03/21 15:50 SAK [id number]) OP-PT Balance Assessment Sitting Balance Static Sitting Balance Ability Good Dynamic Sitting Balance Ability Fair Standing Balance Static Standing Balance Ability Fair Dynamic Standing Balance Ability Poor Device Used 4WW Tinetti Balance Assessment Sitting Balance Sitting Balance Steady, safe Arising from Chair Ability to Arise Able, uses arms to help Standing Balance Immediate Standing Balance Steady with support Standing Balance Steady, wide stance Nudged Response Begins to fall Standing with Eyes Closed Unsteady Turning Step Pattern Turning 360 Degrees Discontinuous steps Stability Turning 360 Degrees Unsteady, grabs/staggers Sitting Down Sitting Down Uses arms or unsteady Gait and Step Initiation of Gait No hesitancy Right Foot Step Length Does not pass stance ft. Right Foot Step Height Does not clear floor Left Foot Step Length Does not pass stance foot Left Foot Step Height Does not clear floor Step Description Step Symmetry Step length not equal Step Continuity Steps appear continuous Gait Description Path Description Straight Trunk Description Marked sway or uses aide Walking Stance Heels apart Scoring and Interpretation Tinetti Composite Score (points) 9 Interpretation of Scores High risk for falls(< 19) Hagen Fall Scale Copyright Permission PT-OP-E Functional Tests Start: 04/03/21 14:28 Freq: Status: Active Protocol: Document 04/03/21 14:29 SAK (Rec: 04/03/21 16:52 [facility] [id number]) Functional Tests 2 Minute Walk Test Distance 93 ft Device Used 4WW Five Times Sit to Stand Test Comments not done due to time constraints PT-OP-G Mobility & Gait Start: 04/03/21 14:28 Freq: Status: Active Protocol: Document 04/03/21 14:29 SAK (Rec: 04/03/21 16:52 SAK [id number]) OP Mobility Evaluation Bed Mobility Rolling indep with use of hands Supine to and from Sit indep with use of UE's Transfers Sit to Stand use of UE's, indep Bed to Chair Transfers use of UE's, indep Wheelchair Management Type of Wheelchair Has power w/c, scooter Assessment Details independent with management OP Gait Assessment Gait Gait Assistance Required: Independent Distance (Feet) 93 Assistive Devices Assistive Device Gait Belt,4 Wheeled Walker Orthotic/Prosthetic Devices or Brace: Yes Gait Deviations General Gait Pattern Decreased Stride Length, Decreased Feet Clearance, Flexed Trunk,Lateral Trunk Lean,Wide Based Gait Factors Limiting Gait Function Factors Limiting Gait Function Decreased Strength,Limited Range of Motion Comments Gait Comments 2 min walk 93 ft Stair Climbing Evaluation Comments Stair Climbing Comments unable, has elevator in the home PT-OP-H Neuro Start: 04/03/21 14:28 Freq: Status: Active Protocol: Document 04/03/21 14:29 [facility] (Rec: 04/03/21 16:52 [facility] [id number]) Sensation Evaluation Gross Sensation Gross Sensation Right UE Impaired,Left LE Impaired,Right LE Impaired Sensation Description Paresthesia,Numbness,Tingling PT-OP-J Posture/Palpation/Skin Start: 04/03/21 14:28 Freq: Status: Active Protocol: Document 04/03/21 14:29 [facility] (Rec: 04/03/21 16:52 [facility] [id number]) Posture Evaluation Position Standing Head/C-Spine Posture Forward Head T-Spine Posture Increased Kyphosis L-Spine Posture Decreased Lordosis Scapula Posture (L) Protracted,(R) Protracted Arm Posture (L) Internally Rotated,(R) Internally Rotated Hip Posture (L) Flexed,(R) Flexed Knee Posture (L) Excess Flexion,(R) Excess Flexion Sitting Head/C-Spine Posture Forward Head T-Spine Posture Increased Kyphosis L-Spine Posture Decreased Lordosis Shoulder Posture (L) Rounded,(R) Rounded Scapula Posture (L) Protracted,(R) Protracted Arm Posture (L) Internally Rotated,(R) Internally Rotated Pelvis Posture Posterior Tilted Weight Distribution Weight Shifted Left PT-OP-K Range of Motion Start: 04/03/21 14:28 Freq: Status: Active Protocol: Document 04/03/21 14:29 [facility] (Rec: 04/03/21 16:52 [facility] [id number]) Cervical Spine Range of Motion Cervical Spine Active Comments WFL Lumbar Spine Range of Motion Lumbar Spine Active Comments WFL Shoulder Goniometric Range of Motion Shoulder Right Shoulder ROM WFL No Testing Position Supine Flexion 135 Left Shoulder ROM WFL Yes Shoulder ROM Limitations Shoulder ROM Limitations Soft Tissue Tightness,Muscle Weakness Elbow/Forearm Range of Motion Elbow/Forearm cachorro Elbow/Forearm ROM WFL Yes Wrist Goniometric Range of Motion Wrist cachorro Wrist ROM WFL Yes ROM Limitations Wrist Limitations of Range of Motion Soft Tissue Tightness Hip Goniometric Range of Motion Hip Right Passive Hip ROM WFL No Testing Position Supine Flexion w/Knee Flexed 95 Straight Leg Raise 45 Abduction 20 Internal Rotation 20 External Rotation 45 Left Hip ROM WFL No Testing Position Supine Flexion w/Knee Flexed 90 Straight Leg Raise 50 Abduction 25 Internal Rotation 20 External Rotation 50 Hip ROM Limitations Hip ROM Limitations Soft Tissue Tightness,Muscle Weakness,Muscle Tone Knee Goniometric Range of Motion Knee cachorro Knee ROM WFL Yes Ankle and Foot Goniometric Range of Motion Ankle and Foot Right Passive Dorsiflexion with Knee Flexed 3 Dorsiflexion with Knee Extended 0 Plantarflexion 35 Left Active Dorsiflexion with Knee Flexed 5 Dorsiflexion with Knee Extended 0 Plantarflexion 40 Ankle and Foot ROM Limitations ROM Limitations Soft Tissue Tightness, Contracture,Muscle Weakness, Muscle Tone PT-OP-M Strength Start: 04/03/21 14:28 Freq: Status: Active Protocol: Document 04/03/21 14:29 [facility] (Rec: 04/03/21 16:52 [facility] [id number]) Trunk Strength Trunk Manual Muscle Testing Comments functionally appears fair Shoulder Strength Shoulder Manual Muscle Testing Left Flexion 5 Normal Extension 5 Normal Abduction (C5) 5 Normal Adduction 5 Normal External Rotation 5 Normal Internal Rotation 5 Normal Horizontal Abduction 5 Normal Horizontal Adduction 5 Normal Right Flexion 3- Fair- Extension 3- Fair- Abduction (C5) 3- Fair- Adduction 3- Fair- External Rotation 3- Fair- Internal Rotation 3- Fair- Horizontal Abduction 3- Fair- Horizontal Adduction 3- Fair- Elbow/Forearm Strength Elbow and Forearm Manual Muscle Testing Right Flexion (C6) 3+ Fair+ Extension (C7) 3+ Fair+ Left Flexion (C6) 5 Normal Extension (C7) 5 Normal Wrist Strength Wrist Manual Muscle Testing Right Flexion (C7) 3+ Fair+ Extension (C6) 3+ Fair+ Left Flexion (C7) 5 Normal Extension (C6) 5 Normal Hip Strength Hip Manual Muscle Testing Right Flexion (L2) 0 Zero Extension (S1) 0 Zero Abduction 3- Fair- Adduction 2+ Poor+ External Rotation 2+ Poor+ Internal Rotation 2+ Poor+ Left Flexion (L2) 4+ Good+ Extension (S1) 3+ Fair+ Abduction 3+ Fair+ Adduction 4- Good- External Rotation 3+ Fair+ Internal Rotation 4- Good- Knee Strength Knee Manual Muscle Testing Right Flexion (S2) 3- Fair- Extension (L3) 3- Fair- Left Flexion (S2) 4+ Good+ Extension (L3) 4+ Good+ Ankle/Foot Strength Ankle and Foot Manual Muscle Testing Right Dorsiflexion (L4) 1 Trace Plantarflexion (S1) 2- Poor- Left Dorsiflexion (L4) 4 Good Plantarflexion (S1) 4 Good PT-OP-Q Treatments Start: 04/03/21 14:28 Freq: Status: Active Protocol: Document 04/27/21 12:20 MA (Rec: 04/27/21 12:36 MA [email or web address]) Therapeutic Exercises Prone Exercises prone on elbows Prone Exercise Name for stretch and WB through R shd Reps/Minutes 1' Comments min assist with positioning quad stretch Reps/Minutes 2x30 Comments manual Gait Training Gait Activity parallel bars Description fwd, backward, lateral Distance/Duration 2 laps parallel bars Treatment Focus upright posture, muscle activation sequencin, dec UE support as possible. Comments 1. fwd walking - as pt fatigues he requires disc under R foot to reduce friction on floor 2. backward walking 3. Lateral walking- pt is CGA stepping L, Max A for RLE management when stepping R. Manual Therapy Treatment Soft Tissue Mobilization HS Body Location Cachorro HS Mobilization Type Rolling Intensity/Depth Moderate Body Position Prone Comments in prone due to cath bag Neuro Re-Education Treatment Balance Activities Standing balance Surface uneven Equipment airex Reps/Duration 2' Comments standing NBOS apptemting to decrease UE support. Pt able to decrease to single hand but is too fatigued after walking to try without UE support PT-OP-T Assessment and Plan Start: 04/03/21 14:28 Freq: Status: Active Protocol: Document 04/27/21 12:20 MA (Rec: 04/27/21 12:36 MA [email or web address]) Physical Therapy Assessment Goals Four Impairment impaired functional mobility Impairment patient no longer able to lift his right LE 15 onto running board of vehicle for purposes of safe transfers into vehicle Tracer Bullet Charging Machine Operator Goal (LTG) patient will be able to lift his right LE at least 15 to allow him to safely transfer into current vehicle LTG Duration 06/03/21 Three Impairment decline in strength and ROM Short Term Goal (STG) establish updated HEP and problem-solve ways for patient to perform independently as much as possible. STG Duration 05/03/21 Long-Term Goal (LTG) Patient to be indepenent and safe with the aspects of his HEP is able to do on his own and identify personal banking officer to assist him in the home after PT completed. LTG Duration 06/03/21 One Impairment impaired gait Impairment 2 min walk test 93 ft Tracer Bullet Charging Machine Operator Goal (LTG) Improve 2 min walk test to 140 ft as measure of improved functional gait LTG Duration 06/03/21 Two Impairment Tinetti gait and balance assessment score 9/28 indicating high fall risk Short Term Goal (STG) Improve Tinetti gait and balance assessment score to at least 14/28 as measure of improved gait and balance STG Duration 05/03/21 Tracer Bullet Charging Machine Operator Goal (LTG) Imprve Tinetti score to at least 19l/28 LTG Duration 06/03/21 Assessment Summary Assessment Pt can independently walk fwd/ backwards 2 lengths of parallel bars before he begins to have difficulty with R foot dragging on carpet. Added glider disc under pt's R foot for improved mobility with pt able to tolerate two more laps. Attempted lateral walking in // bars with pt able to walk L CGA but requires Max A for RLE management when stepping R. Pt feels he is most limited by his tight adductors when stepping R vs mm stregnth. Worked on STM to HS in prone this session, passively stretched quads in prone, and worked on prone press up for stretching abdominals and WB through cachorro shds. Cues to keep equal WB through UEs while in prone. Pt requires Mod A in order to get into, & out of, prone position with assitance for his R LE & UE. Physical Therapy Plan Frequency and Duration Frequency of Treatment 2x/Week Duration of Treatment 8 weeks Plan of Care Start Date 04/03/21 Plan of Care End Date 06/02/21 Therapeutic Interventions Therapeutic Interventions Aquatic Therapy,Balance Training,Gait Training,Home Exercise Program,Manual Therapy,Neuromuscular Re- education,Patient/Caregiver Education Next Visit Focus/Plan Next Note Type Treatment Note Next Visit Plan Caregiver training (home personal banking officer) ther ex for flexibility and strengthening, standing balance and strengthening as tolerated. Gait training. Use of mirror for sitting alignment, trial sit on Dynadisc for core strengthening and stabilization. Add seated crunch.
--- NOTE | 2021-05-01 17:05 | PT.OTN ---
Current Diagnoses Multiple sclerosis (05/01/21) Cramp and spasm (05/01/21) Physical Therapy Treatment Note PT-OP-A Visit Information Start: 04/03/21 14:28 Freq: Status: Active Protocol: Document 05/01/21 09:01 SAK (Rec: 05/01/21 09:50 [facility] [id number]) Out-Patient Physical Therapy Visit Information Visit Information Visit Type Treatment Note Visit Start Time 09:02 Visit Stop Time 09:45 Total Visit Minutes 43 Visit Number 6 Number of BUTTER MELTER Visits 0 Precautions Precautions HTN spasticity fall risk PT-OP-B Current Condition Start: 04/03/21 14:28 Freq: Status: Active Protocol: Document 04/19/21 09:58 SAK (Rec: 04/19/21 11:56 [facility] [id number]) Current Condition History of Current Condition Onset Date 2018 Current Complaints weakness, decreased flexibility, decreased ability to walk History of Current Condition Diagnosed with relapsing remitting MS in 1997. Most recently in 2019 calcium levels through the roof, hospitalized 4-5 days, 2 weeks in rehab due to weakened state. Improved but not back to PLF including being able to walk fairly long distances with walker. Then another episode of exacerbation with loss of strength especially in lower legs. Has been able to regain some strength with motomed and other exercises. With Covid not as active. Needs help with ROM and strength; wants to be able to lift LE 15 onto running board of vehicle, improve transfer into bed, transfer from shower seat to w/c seat, and be able to get off floor; has had to recently call 911 when has fallen a couple times recently. Has lost more strength in left vs right, uses device to help with toe lift on right. Wants help stretching his hamstrings and other leg muscles. No caregivers, has but doesn 't want to burden her with another thing to do. To PT today with scooter, has power w/c for use in home. Has rollater tries to use 3-4x/day max 120 steps. Used to be able to use forearm crutch using on left. Prior Treatments and Tests Seen for his MS at [facility] [place] Treatment Goals Patient/Caregiver Goals update HEP Improve flexibility and strength Be able to walk longer distances in and out of the home increased ease of bed transfers PT-OP-C Subjective Start: 04/03/21 14:28 Freq: Status: Active Protocol: Document 04/27/21 12:20 MA (Rec: 04/27/21 12:36 MA [id number]) OP-PT Subjective Patient Comments Patient Comments Pt reports cath bag on LLE again but it is empty for now. He donned his RLE strap and is ready to practice walking PT-OP-D Balance Start: 04/03/21 14:28 Freq: Status: Active Protocol: Document 04/03/21 14:29 SAK (Rec: 04/03/21 15:50 SAK [id number]) OP-PT Balance Assessment Sitting Balance Static Sitting Balance Ability Good Dynamic Sitting Balance Ability Fair Standing Balance Static Standing Balance Ability Fair Dynamic Standing Balance Ability Poor Device Used 4WW Tinetti Balance Assessment Sitting Balance Sitting Balance Steady, safe Arising from Chair Ability to Arise Able, uses arms to help Standing Balance Immediate Standing Balance Steady with support Standing Balance Steady, wide stance Nudged Response Begins to fall Standing with Eyes Closed Unsteady Turning Step Pattern Turning 360 Degrees Discontinuous steps Stability Turning 360 Degrees Unsteady, grabs/staggers Sitting Down Sitting Down Uses arms or unsteady Gait and Step Initiation of Gait No hesitancy Right Foot Step Length Does not pass stance ft. Right Foot Step Height Does not clear floor Left Foot Step Length Does not pass stance foot Left Foot Step Height Does not clear floor Step Description Step Symmetry Step length not equal Step Continuity Steps appear continuous Gait Description Path Description Straight Trunk Description Marked sway or uses aide Walking Stance Heels apart Scoring and Interpretation Tinetti Composite Score (points) 9 Interpretation of Scores High risk for falls(< 19) Hagen Fall Scale Copyright Permission PT-OP-E Functional Tests Start: 04/03/21 14:28 Freq: Status: Active Protocol: Document 04/03/21 14:29 SAK (Rec: 04/03/21 16:52 [facility] [id number]) Functional Tests 2 Minute Walk Test Distance 93 ft Device Used 4WW Five Times Sit to Stand Test Comments not done due to time constraints PT-OP-G Mobility & Gait Start: 04/03/21 14:28 Freq: Status: Active Protocol: Document 04/03/21 14:29 SAK (Rec: 04/03/21 16:52 SAK [id number]) OP Mobility Evaluation Bed Mobility Rolling indep with use of hands Supine to and from Sit indep with use of UE's Transfers Sit to Stand use of UE's, indep Bed to Chair Transfers use of UE's, indep Wheelchair Management Type of Wheelchair Has power w/c, scooter Assessment Details independent with management OP Gait Assessment Gait Gait Assistance Required: Independent Distance (Feet) 93 Assistive Devices Assistive Device Gait Belt,4 Wheeled Walker Orthotic/Prosthetic Devices or Brace: Yes Gait Deviations General Gait Pattern Decreased Stride Length, Decreased Feet Clearance, Flexed Trunk,Lateral Trunk Lean,Wide Based Gait Factors Limiting Gait Function Factors Limiting Gait Function Decreased Strength,Limited Range of Motion Comments Gait Comments 2 min walk 93 ft Stair Climbing Evaluation Comments Stair Climbing Comments unable, has elevator in the home PT-OP-H Neuro Start: 04/03/21 14:28 Freq: Status: Active Protocol: Document 04/03/21 14:29 [facility] (Rec: 04/03/21 16:52 [facility] [id number]) Sensation Evaluation Gross Sensation Gross Sensation Right UE Impaired,Left LE Impaired,Right LE Impaired Sensation Description Paresthesia,Numbness,Tingling PT-OP-J Posture/Palpation/Skin Start: 04/03/21 14:28 Freq: Status: Active Protocol: Document 04/03/21 14:29 [facility] (Rec: 04/03/21 16:52 [facility] [id number]) Posture Evaluation Position Standing Head/C-Spine Posture Forward Head T-Spine Posture Increased Kyphosis L-Spine Posture Decreased Lordosis Scapula Posture (L) Protracted,(R) Protracted Arm Posture (L) Internally Rotated,(R) Internally Rotated Hip Posture (L) Flexed,(R) Flexed Knee Posture (L) Excess Flexion,(R) Excess Flexion Sitting Head/C-Spine Posture Forward Head T-Spine Posture Increased Kyphosis L-Spine Posture Decreased Lordosis Shoulder Posture (L) Rounded,(R) Rounded Scapula Posture (L) Protracted,(R) Protracted Arm Posture (L) Internally Rotated,(R) Internally Rotated Pelvis Posture Posterior Tilted Weight Distribution Weight Shifted Left PT-OP-K Range of Motion Start: 04/03/21 14:28 Freq: Status: Active Protocol: Document 04/03/21 14:29 [facility] (Rec: 04/03/21 16:52 [facility] [id number]) Cervical Spine Range of Motion Cervical Spine Active Comments WFL Lumbar Spine Range of Motion Lumbar Spine Active Comments WFL Shoulder Goniometric Range of Motion Shoulder Right Shoulder ROM WFL No Testing Position Supine Flexion 135 Left Shoulder ROM WFL Yes Shoulder ROM Limitations Shoulder ROM Limitations Soft Tissue Tightness,Muscle Weakness Elbow/Forearm Range of Motion Elbow/Forearm andrew Elbow/Forearm ROM WFL Yes Wrist Goniometric Range of Motion Wrist andrew Wrist ROM WFL Yes ROM Limitations Wrist Limitations of Range of Motion Soft Tissue Tightness Hip Goniometric Range of Motion Hip Right Passive Hip ROM WFL No Testing Position Supine Flexion w/Knee Flexed 95 Straight Leg Raise 45 Abduction 20 Internal Rotation 20 External Rotation 45 Left Hip ROM WFL No Testing Position Supine Flexion w/Knee Flexed 90 Straight Leg Raise 50 Abduction 25 Internal Rotation 20 External Rotation 50 Hip ROM Limitations Hip ROM Limitations Soft Tissue Tightness,Muscle Weakness,Muscle Tone Knee Goniometric Range of Motion Knee andrew Knee ROM WFL Yes Ankle and Foot Goniometric Range of Motion Ankle and Foot Right Passive Dorsiflexion with Knee Flexed 3 Dorsiflexion with Knee Extended 0 Plantarflexion 35 Left Active Dorsiflexion with Knee Flexed 5 Dorsiflexion with Knee Extended 0 Plantarflexion 40 Ankle and Foot ROM Limitations ROM Limitations Soft Tissue Tightness, Contracture,Muscle Weakness, Muscle Tone PT-OP-M Strength Start: 04/03/21 14:28 Freq: Status: Active Protocol: Document 04/03/21 14:29 [facility] (Rec: 04/03/21 16:52 [facility] [id number]) Trunk Strength Trunk Manual Muscle Testing Comments functionally appears fair Shoulder Strength Shoulder Manual Muscle Testing Left Flexion 5 Normal Extension 5 Normal Abduction (C5) 5 Normal Adduction 5 Normal External Rotation 5 Normal Internal Rotation 5 Normal Horizontal Abduction 5 Normal Horizontal Adduction 5 Normal Right Flexion 3- Fair- Extension 3- Fair- Abduction (C5) 3- Fair- Adduction 3- Fair- External Rotation 3- Fair- Internal Rotation 3- Fair- Horizontal Abduction 3- Fair- Horizontal Adduction 3- Fair- Elbow/Forearm Strength Elbow and Forearm Manual Muscle Testing Right Flexion (C6) 3+ Fair+ Extension (C7) 3+ Fair+ Left Flexion (C6) 5 Normal Extension (C7) 5 Normal Wrist Strength Wrist Manual Muscle Testing Right Flexion (C7) 3+ Fair+ Extension (C6) 3+ Fair+ Left Flexion (C7) 5 Normal Extension (C6) 5 Normal Hip Strength Hip Manual Muscle Testing Right Flexion (L2) 0 Zero Extension (S1) 0 Zero Abduction 3- Fair- Adduction 2+ Poor+ External Rotation 2+ Poor+ Internal Rotation 2+ Poor+ Left Flexion (L2) 4+ Good+ Extension (S1) 3+ Fair+ Abduction 3+ Fair+ Adduction 4- Good- External Rotation 3+ Fair+ Internal Rotation 4- Good- Knee Strength Knee Manual Muscle Testing Right Flexion (S2) 3- Fair- Extension (L3) 3- Fair- Left Flexion (S2) 4+ Good+ Extension (L3) 4+ Good+ Ankle/Foot Strength Ankle and Foot Manual Muscle Testing Right Dorsiflexion (L4) 1 Trace Plantarflexion (S1) 2- Poor- Left Dorsiflexion (L4) 4 Good Plantarflexion (S1) 4 Good PT-OP-Q Treatments Start: 04/03/21 14:28 Freq: Status: Active Protocol: Document 05/01/21 09:01 [facility] (Rec: 05/01/21 17:04 [facility] [id number]) Therapeutic Exercises Supine Exercises deep breathing Supine Exercise Name abdominal, lateral chest, posterior ribcage Comments throughout stretching shoulder stretch Supine Exercise Name I,T,Y Comments capital I (AAROM with left UE) , T (with PT assist for elbow fing wrist ext) DKTC stretch Reps/Minutes 2x30 Comments LE's on 55 cm ball, passive full body stretch Supine Exercise Name cues for body alignment, cue deep breathing lateral trunk Reps/Minutes 1' Comments arms overhead IT band stretch Reps/Minutes 1x30 Comments passive HS stretch Reps/Minutes 2x60 Comments contract/relax technique, passive adductor stretch Reps/Minutes 2x30 Comments passive hip abd Reps/Minutes 10x Comments mod assist left, max assist right LTR Equipment Used 55 cm therapy ball Reps/Minutes 2x only due to time constraints end of session Comments active, cues for core activation SKTC Reps/Minutes 2x 30 L, 3x30 R Comments passive hip flex Supine Exercise Name andrew and unil Equipment Used 55 cm therapy ball Reps/Minutes 10x ea Comments min assist left LE, max assist right LE Prone Exercises prone on elbows Prone Exercise Name for stretch and WB through R shd Reps/Minutes 1' Comments min assist with positioning quad stretch Prone Exercise Name addition of NEREIDA Reps/Minutes 2x30 Comments manual Gait Training Gait Activity 1 Description forward Device Used 4WW Level of Assistance 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 posture work with mirror 2. resisting gentle perturbations Self-Care/Home Management Treatment Education Patient Education Home Exercise Program Other Education training of workplace trainer and assessor Letty Batista who attended PT session. She was shown ex, took notes, asked appropriate questions, and demonstrated good understanding of all ex. PT-OP-T Assessment and Plan Start: 04/03/21 14:28 Freq: Status: Active Protocol: Document 05/01/21 09:01 [facility] (Rec: 05/01/21 09:50 [facility] [id number]) Physical Therapy Assessment Impairments Impairments Functional Activities, Functional Mobility,Gait,ROM, Strength,Transfers Goals Four Impairment impaired functional mobility Impairment patient no longer able to lift his right LE 15 onto running board of vehicle for purposes of safe transfers into vehicle Rhit Goal (LTG) patient will be able to lift his right LE at least 15 to allow him to safely transfer into current vehicle LTG Duration 06/03/21 Three Impairment decline in strength and ROM Short Term Goal (STG) establish updated HEP and problem-solve ways for patient to perform independently as much as possible. STG Duration 05/03/21 Rhit Goal (LTG) Patient to be indepenent and safe with the aspects of his HEP is able to do on his own and identify workplace trainer and assessor to assist him in the home after PT completed. LTG Duration 06/03/21 One Impairment impaired gait Impairment 2 min walk test 93 ft Shelter Goal (LTG) Improve 2 min walk test to 140 ft as measure of improved functional gait LTG Duration 06/03/21 Two Impairment Tinetti gait and balance assessment score 9/28 indicating high fall risk Short Term Goal (STG) Improve Tinetti gait and balance assessment score to at least 14/28 as measure of improved gait and balance STG Duration 05/03/21 Rhit Goal (LTG) Imprve Tinetti score to at least 19l/28 LTG Duration 06/03/21 Physical Therapy Plan Frequency and Duration Frequency of Treatment 2x/Week Duration of Treatment 8 weeks Plan of Care Start Date 04/03/21 Plan of Care End Date 01/22/22 Therapeutic Interventions Therapeutic Interventions Aquatic Therapy,Balance Training,Gait Training,Home Exercise Program,Manual Therapy,Neuromuscular Re- education,Patient/Caregiver Education Next Visit Focus/Plan Next Note Type Treatment Note Next Visit Plan Add hip extension supine with legs on therapy ball or assisted bridge, continue trunk ex with Dynadisc and give information on purchasing for use at home. Increased standing exercises as tolerated including functional hip flexion for running board of pick-up; box in parallel bars.
--- NOTE | 2021-05-22 09:45 | PT.OTN ---
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 Most recently in 2019 calcium levels through the roof, hospitalized 4-5 days, 2 weeks in rehab due to weakened state. Improved but not back to PLF including being able to walk fairly long distances with walker. Then another episode of exacerbation with loss of strength especially in lower legs. Has been able to regain some strength with motomed and other exercises. With Covid not as active. Needs help with ROM and strength; wants to be able to lift LE 15 onto running board of vehicle, improve transfer into bed, transfer from shower seat to w/c seat, and be able to get off floor; has had to recently call 911 when has fallen a couple times recently. Has lost more strength in left vs right, uses device to help with toe lift on right. Wants help stretching his hamstrings and other leg muscles. No caregivers, has but doesn 't want to burden her with another thing to do. To PT today with scooter, has power w/c for use in home. Has rollater tries to use 3-4x/day max 120 steps. Used to be able to use forearm crutch using on left. Prior Treatments and Tests Seen for his MS at [facility] [place] Treatment Goals Patient/Caregiver Goals update HEP Improve flexibility and strength Be able to walk longer distances in and out of the home increased ease of bed transfers PT-OP-C Subjective Start: 04/03/21 14:28 Freq: Status: Active Protocol: Document 05/22/21 09:01 SP (Rec: 05/22/21 09:49 SP [id number]) OP-PT Subjective Patient Comments Patient Comments Pt reports states feeling better. Wants to focus on leg stretching and mobiltiy today. PT-OP-D Balance Start: 04/03/21 14:28 Freq: Status: Active Protocol: Document 04/03/21 14:29 SAK (Rec: 04/03/21 15:50 SAK [id number]) OP-PT Balance Assessment Sitting Balance Static Sitting Balance Ability Good Dynamic Sitting Balance Ability Fair Standing Balance Static Standing Balance Ability Fair Dynamic Standing Balance Ability Poor Device Used 4WW Tinetti Balance Assessment Sitting Balance Sitting Balance Steady, safe Arising from Chair Ability to Arise Able, uses arms to help Standing Balance Immediate Standing Balance Steady with support Standing Balance Steady, wide stance Nudged Response Begins to fall Standing with Eyes Closed Unsteady Turning Step Pattern Turning 360 Degrees Discontinuous steps Stability Turning 360 Degrees Unsteady, grabs/staggers Sitting Down Sitting Down Uses arms or unsteady Gait and Step Initiation of Gait No hesitancy Right Foot Step Length Does not pass stance ft. Right Foot Step Height Does not clear floor Left Foot Step Length Does not pass stance foot Left Foot Step Height Does not clear floor Step Description Step Symmetry Step length not equal Step Continuity Steps appear continuous Gait Description Path Description Straight Trunk Description Marked sway or uses aide Walking Stance Heels apart Scoring and Interpretation Tinetti Composite Score (points) 9 Interpretation of Scores High risk for falls(< 19) Hagen Fall Scale Copyright Permission PT-OP-E Functional Tests Start: 04/03/21 14:28 Freq: Status: Active Protocol: Document 04/03/21 14:29 SAK (Rec: 04/03/21 16:52 [facility] [id number]) Functional Tests 2 Minute Walk Test Distance 93 ft Device Used 4WW Five Times Sit to Stand Test Comments not done due to time constraints PT-OP-G Mobility & Gait Start: 04/03/21 14:28 Freq: Status: Active Protocol: Document 04/03/21 14:29 SAK (Rec: 04/03/21 16:52 SAK [id number]) OP Mobility Evaluation Bed Mobility Rolling indep with use of hands Supine to and from Sit indep with use of UE's Transfers Sit to Stand use of UE's, indep Bed to Chair Transfers use of UE's, indep Wheelchair Management Type of Wheelchair Has power w/c, scooter Assessment Details independent with management OP Gait Assessment Gait Gait Assistance Required: Independent Distance (Feet) 93 Assistive Devices Assistive Device Gait Belt,4 Wheeled Walker Orthotic/Prosthetic Devices or Brace: Yes Gait Deviations General Gait Pattern Decreased Stride Length, Decreased Feet Clearance, Flexed Trunk,Lateral Trunk Lean,Wide Based Gait Factors Limiting Gait Function Factors Limiting Gait Function Decreased Strength,Limited Range of Motion Comments Gait Comments 2 min walk 93 ft Stair Climbing Evaluation Comments Stair Climbing Comments unable, has elevator in the home PT-OP-H Neuro Start: 04/03/21 14:28 Freq: Status: Active Protocol: Document 04/03/21 14:29 [facility] (Rec: 04/03/21 16:52 [facility] [id number]) Sensation Evaluation Gross Sensation Gross Sensation Right UE Impaired,Left LE Impaired,Right LE Impaired Sensation Description Paresthesia,Numbness,Tingling PT-OP-J Posture/Palpation/Skin Start: 04/03/21 14:28 Freq: Status: Active Protocol: Document 04/03/21 14:29 [facility] (Rec: 04/03/21 16:52 [facility] [id number]) Posture Evaluation Position Standing Head/C-Spine Posture Forward Head T-Spine Posture Increased Kyphosis L-Spine Posture Decreased Lordosis Scapula Posture (L) Protracted,(R) Protracted Arm Posture (L) Internally Rotated,(R) Internally Rotated Hip Posture (L) Flexed,(R) Flexed Knee Posture (L) Excess Flexion,(R) Excess Flexion Sitting Head/C-Spine Posture Forward Head T-Spine Posture Increased Kyphosis L-Spine Posture Decreased Lordosis Shoulder Posture (L) Rounded,(R) Rounded Scapula Posture (L) Protracted,(R) Protracted Arm Posture (L) Internally Rotated,(R) Internally Rotated Pelvis Posture Posterior Tilted Weight Distribution Weight Shifted Left PT-OP-K Range of Motion Start: 04/03/21 14:28 Freq: Status: Active Protocol: Document 04/03/21 14:29 [facility] (Rec: 04/03/21 16:52 [facility] [id number]) Cervical Spine Range of Motion Cervical Spine Active Comments WFL Lumbar Spine Range of Motion Lumbar Spine Active Comments WFL Shoulder Goniometric Range of Motion Shoulder Right Shoulder ROM WFL No Testing Position Supine Flexion 135 Left Shoulder ROM WFL Yes Shoulder ROM Limitations Shoulder ROM Limitations Soft Tissue Tightness,Muscle Weakness Elbow/Forearm Range of Motion Elbow/Forearm andrew Elbow/Forearm ROM WFL Yes Wrist Goniometric Range of Motion Wrist andrew Wrist ROM WFL Yes ROM Limitations Wrist Limitations of Range of Motion Soft Tissue Tightness Hip Goniometric Range of Motion Hip Right Passive Hip ROM WFL No Testing Position Supine Flexion w/Knee Flexed 95 Straight Leg Raise 45 Abduction 20 Internal Rotation 20 External Rotation 45 Left Hip ROM WFL No Testing Position Supine Flexion w/Knee Flexed 90 Straight Leg Raise 50 Abduction 25 Internal Rotation 20 External Rotation 50 Hip ROM Limitations Hip ROM Limitations Soft Tissue Tightness,Muscle Weakness,Muscle Tone Knee Goniometric Range of Motion Knee andrew Knee ROM WFL Yes Ankle and Foot Goniometric Range of Motion Ankle and Foot Right Passive Dorsiflexion with Knee Flexed 3 Dorsiflexion with Knee Extended 0 Plantarflexion 35 Left Active Dorsiflexion with Knee Flexed 5 Dorsiflexion with Knee Extended 0 Plantarflexion 40 Ankle and Foot ROM Limitations ROM Limitations Soft Tissue Tightness, Contracture,Muscle Weakness, Muscle Tone PT-OP-M Strength Start: 04/03/21 14:28 Freq: Status: Active Protocol: Document 04/03/21 14:29 [facility] (Rec: 04/03/21 16:52 [facility] [id number]) Trunk Strength Trunk Manual Muscle Testing Comments functionally appears fair Shoulder Strength Shoulder Manual Muscle Testing Left Flexion 5 Normal Extension 5 Normal Abduction (C5) 5 Normal Adduction 5 Normal External Rotation 5 Normal Internal Rotation 5 Normal Horizontal Abduction 5 Normal Horizontal Adduction 5 Normal Right Flexion 3- Fair- Extension 3- Fair- Abduction (C5) 3- Fair- Adduction 3- Fair- External Rotation 3- Fair- Internal Rotation 3- Fair- Horizontal Abduction 3- Fair- Horizontal Adduction 3- Fair- Elbow/Forearm Strength Elbow and Forearm Manual Muscle Testing Right Flexion (C6) 3+ Fair+ Extension (C7) 3+ Fair+ Left Flexion (C6) 5 Normal Extension (C7) 5 Normal Wrist Strength Wrist Manual Muscle Testing Right Flexion (C7) 3+ Fair+ Extension (C6) 3+ Fair+ Left Flexion (C7) 5 Normal Extension (C6) 5 Normal Hip Strength Hip Manual Muscle Testing Right Flexion (L2) 0 Zero Extension (S1) 0 Zero Abduction 3- Fair- Adduction 2+ Poor+ External Rotation 2+ Poor+ Internal Rotation 2+ Poor+ Left Flexion (L2) 4+ Good+ Extension (S1) 3+ Fair+ Abduction 3+ Fair+ Adduction 4- Good- External Rotation 3+ Fair+ Internal Rotation 4- Good- Knee Strength Knee Manual Muscle Testing Right Flexion (S2) 3- Fair- Extension (L3) 3- Fair- Left Flexion (S2) 4+ Good+ Extension (L3) 4+ Good+ Ankle/Foot Strength Ankle and Foot Manual Muscle Testing Right Dorsiflexion (L4) 1 Trace Plantarflexion (S1) 2- Poor- Left Dorsiflexion (L4) 4 Good Plantarflexion (S1) 4 Good PT-OP-Q Treatments Start: 04/03/21 14:28 Freq: Status: Active Protocol: Document 05/22/21 09:01 SP (Rec: 05/22/21 09:49 SP [id number]) Therapeutic Exercises Supine Exercises butterfly stretch Reps/Minutes 2x30 Comments manual HS stretch Reps/Minutes 2x60 Comments contract/relax technique, passive adductor stretch Reps/Minutes 2x30 Comments passive hip abd Reps/Minutes 10x Comments mod assist left, max assist right LTR Resistance 10%A Equipment Used 55 cm therapy ball Reps/Minutes x10 Comments active, cues for core activation SKTC Reps/Minutes 2x 30 L, 3x30 R Comments passive hip flex Supine Exercise Name andrew and unil Resistance manual resistance hip flex/ ext LLE, and min resistance RLE ext PROM flex Equipment Used 55 cm therapy ball Reps/Minutes 10x ea Comments max assist R LE, min assist LLE Prone Exercises prone on elbows Prone Exercise Name for trunk stretch and WB through R shd Reps/Minutes 1' Comments min assist with positioning quad stretch Prone Exercise Name addition of NEREIDA Reps/Minutes 2x30 Comments manual Therapeutic Activity Therapeutic Activity bed mob, transfers Name on black elevating table Comments I squat pivot transfer, sit> supine: Min A for RLE onto table, support LLE into flexion to allow bridge and center on table self. Min A for rolling to R, prone>L SL> sit Min- Mod A for LE support to EOtable and righting trunk to sitting. Pt able to don shoes self. PT-OP-T Assessment and Plan Start: 04/03/21 14:28 Freq: Status: Active Protocol: Document 05/22/21 09:01 SP (Rec: 05/22/21 09:49 SP [id number]) Physical Therapy Assessment Goals Four Impairment impaired functional mobility Impairment patient no longer able to lift his right LE 15 onto running board of vehicle for purposes of safe transfers into vehicle Meter Supervisor Goal (LTG) patient will be able to lift his right LE at least 15 to allow him to safely transfer into current vehicle LTG Duration 06/03/21 Three Impairment decline in strength and ROM Short Term Goal (STG) establish updated HEP and problem-solve ways for patient to perform independently as much as possible. STG Duration 05/03/21 Meter Supervisor Goal (LTG) Patient to be indepenent and safe with the aspects of his HEP is able to do on his own and identify diabetes trainer to assist him in the home after PT completed. LTG Duration 06/03/21 One Impairment impaired gait Impairment 2 min walk test 93 ft Meter Supervisor Goal (LTG) Improve 2 min walk test to 140 ft as measure of improved functional gait LTG Duration 06/03/21 Two Impairment Tinetti gait and balance assessment score 9/28 indicating high fall risk Short Term Goal (STG) Improve Tinetti gait and balance assessment score to at least 14/28 as measure of improved gait and balance STG Duration 05/03/21 Meter Supervisor Goal (LTG) Imprve Tinetti score to at least 19l/28 LTG Duration 06/03/21 Assessment Summary Assessment Pt increased tone today, improved L>R hip/knee flexion post manual stretching. Improved more upright standing posture during transfer to R back to power . Physical Therapy Plan Frequency and Duration Frequency of Treatment 2x/Week Duration of Treatment 8 weeks Plan of Care Start Date 04/03/21 Plan of Care End Date 06/02/21 Therapeutic Interventions Therapeutic Interventions Aquatic Therapy,Balance Training,Gait Training,Home Exercise Program,Manual Therapy,Neuromuscular Re- education,Patient/Caregiver Education Next Visit Focus/Plan Next Note Type Treatment Note Next Visit Plan Add hip extension supine with legs on therapy ball or assisted bridge, continue trunk ex with Dynadisc and give information on purchasing for use at home. Increased standing exercises as tolerated including functional hip flexion for running board of pick-up; box in parallel bars.
--- NOTE | 2021-05-29 16:25 | PT.OTN ---
Current Diagnoses Multiple sclerosis (05/29/21) Cramp and spasm (05/29/21) Physical Therapy Treatment Note PT-OP-A Visit Information Start: 04/03/21 14:28 Freq: Status: Active Protocol: Document 05/29/21 15:17 SAK (Rec: 05/29/21 16:25 SAK [id number]) Out-Patient Physical Therapy Visit Information Visit Information Visit Type Treatment Note Visit Start Time 15:15 Visit Stop Time 16:00 Total Visit Minutes 45 Visit Number 8 Evaluation Information Evaluation Date 04/03/21 Precautions Precautions HTN spasticity fall risk PT-OP-B Current Condition Start: 04/03/21 14:28 Freq: Status: Active Protocol: Document 04/19/21 09:58 SAK (Rec: 04/19/21 11:56 SAK [id number]) Current Condition History of Current Condition Onset Date 2018 Current Complaints weakness, decreased flexibility, decreased ability to walk History of Current Condition Diagnosed with relapsing remitting MS in 1997. Most recently in 2019 calcium levels through the roof, hospitalized 4-5 days, 2 weeks in rehab due to weakened state. Improved but not back to PLF including being able to walk fairly long distances with walker. Then another episode of exacerbation with loss of strength especially in lower legs. Has been able to regain some strength with motomed and other exercises. With Covid not as active. Needs help with ROM and strength; wants to be able to lift LE 15 onto running board of vehicle, improve transfer into bed, transfer from shower seat to w/c seat, and be able to get off floor; has had to recently call 911 when has fallen a couple times recently. Has lost more strength in left vs right, uses device to help with toe lift on right. Wants help stretching his hamstrings and other leg muscles. No caregivers, has but doesn 't want to burden her with another thing to do. To PT today with scooter, has power w/c for use in home. Has rollater tries to use 3-4x/day max 120 steps. Used to be able to use forearm crutch using on left. Prior Treatments and Tests Seen for his MS at [facility] [place] Treatment Goals Patient/Caregiver Goals update HEP Improve flexibility and strength Be able to walk longer distances in and out of the home increased ease of bed transfers PT-OP-C Subjective Start: 04/03/21 14:28 Freq: Status: Active Protocol: Document 05/29/21 15:17 [facility] (Rec: 05/29/21 16:25 [facility] [id number]) OP-PT Subjective Patient Comments Patient Comments Feels like he is making progress. Still figuring things out with Letty in the home, but going well. PT-OP-D Balance Start: 04/03/21 14:28 Freq: Status: Active Protocol: Document 04/03/21 14:29 [facility] (Rec: 04/03/21 15:50 [facility] [id number]) OP-PT Balance Assessment Sitting Balance Static Sitting Balance Ability Good Dynamic Sitting Balance Ability Fair Standing Balance Static Standing Balance Ability Fair Dynamic Standing Balance Ability Poor Device Used 4WW Tinetti Balance Assessment Sitting Balance Sitting Balance Steady, safe Arising from Chair Ability to Arise Able, uses arms to help Standing Balance Immediate Standing Balance Steady with support Standing Balance Steady, wide stance Nudged Response Begins to fall Standing with Eyes Closed Unsteady Turning Step Pattern Turning 360 Degrees Discontinuous steps Stability Turning 360 Degrees Unsteady, grabs/staggers Sitting Down Sitting Down Uses arms or unsteady Gait and Step Initiation of Gait No hesitancy Right Foot Step Length Does not pass stance ft. Right Foot Step Height Does not clear floor Left Foot Step Length Does not pass stance foot Left Foot Step Height Does not clear floor Step Description Step Symmetry Step length not equal Step Continuity Steps appear continuous Gait Description Path Description Straight Trunk Description Marked sway or uses aide Walking Stance Heels apart Scoring and Interpretation Tinetti Composite Score (points) 9 Interpretation of Scores High risk for falls(< 19) Hagen Fall Scale Copyright Permission PT-OP-E Functional Tests Start: 04/03/21 14:28 Freq: Status: Active Protocol: Document 04/03/21 14:29 [facility] (Rec: 04/03/21 16:52 [facility] [id number]) Functional Tests 2 Minute Walk Test Distance 93 ft Device Used 4WW Five Times Sit to Stand Test Comments not done due to time constraints PT-OP-G Mobility & Gait Start: 04/03/21 14:28 Freq: Status: Active Protocol: Document 04/03/21 14:29 [facility] (Rec: 04/03/21 16:52 [facility] [id number]) OP Mobility Evaluation Bed Mobility Rolling indep with use of hands Supine to and from Sit indep with use of UE's Transfers Sit to Stand use of UE's, indep Bed to Chair Transfers use of UE's, indep Wheelchair Management Type of Wheelchair Has power w/c, scooter Assessment Details independent with management OP Gait Assessment Gait Gait Assistance Required: Independent Distance (Feet) 93 Assistive Devices Assistive Device Gait Belt,4 Wheeled Walker Orthotic/Prosthetic Devices or Brace: Yes Gait Deviations General Gait Pattern Decreased Stride Length, Decreased Feet Clearance, Flexed Trunk,Lateral Trunk Lean,Wide Based Gait Factors Limiting Gait Function Factors Limiting Gait Function Decreased Strength,Limited Range of Motion Comments Gait Comments 2 min walk 93 ft Stair Climbing Evaluation Comments Stair Climbing Comments unable, has elevator in the home PT-OP-H Neuro Start: 04/03/21 14:28 Freq: Status: Active Protocol: Document 04/03/21 14:29 [facility] (Rec: 04/03/21 16:52 [facility] [id number]) Sensation Evaluation Gross Sensation Gross Sensation Right UE Impaired,Left LE Impaired,Right LE Impaired Sensation Description Paresthesia,Numbness,Tingling PT-OP-J Posture/Palpation/Skin Start: 04/03/21 14:28 Freq: Status: Active Protocol: Document 04/03/21 14:29 [facility] (Rec: 04/03/21 16:52 [facility] [id number]) Posture Evaluation Position Standing Head/C-Spine Posture Forward Head T-Spine Posture Increased Kyphosis L-Spine Posture Decreased Lordosis Scapula Posture (L) Protracted,(R) Protracted Arm Posture (L) Internally Rotated,(R) Internally Rotated Hip Posture (L) Flexed,(R) Flexed Knee Posture (L) Excess Flexion,(R) Excess Flexion Sitting Head/C-Spine Posture Forward Head T-Spine Posture Increased Kyphosis L-Spine Posture Decreased Lordosis Shoulder Posture (L) Rounded,(R) Rounded Scapula Posture (L) Protracted,(R) Protracted Arm Posture (L) Internally Rotated,(R) Internally Rotated Pelvis Posture Posterior Tilted Weight Distribution Weight Shifted Left PT-OP-K Range of Motion Start: 04/03/21 14:28 Freq: Status: Active Protocol: Document 04/03/21 14:29 [facility] (Rec: 04/03/21 16:52 [facility] [id number]) Cervical Spine Range of Motion Cervical Spine Active Comments WFL Lumbar Spine Range of Motion Lumbar Spine Active Comments WFL Shoulder Goniometric Range of Motion Shoulder Right Shoulder ROM WFL No Testing Position Supine Flexion 135 Left Shoulder ROM WFL Yes Shoulder ROM Limitations Shoulder ROM Limitations Soft Tissue Tightness,Muscle Weakness Elbow/Forearm Range of Motion Elbow/Forearm andrew Elbow/Forearm ROM WFL Yes Wrist Goniometric Range of Motion Wrist andrew Wrist ROM WFL Yes ROM Limitations Wrist Limitations of Range of Motion Soft Tissue Tightness Hip Goniometric Range of Motion Hip Right Passive Hip ROM WFL No Testing Position Supine Flexion w/Knee Flexed 95 Straight Leg Raise 45 Abduction 20 Internal Rotation 20 External Rotation 45 Left Hip ROM WFL No Testing Position Supine Flexion w/Knee Flexed 90 Straight Leg Raise 50 Abduction 25 Internal Rotation 20 External Rotation 50 Hip ROM Limitations Hip ROM Limitations Soft Tissue Tightness,Muscle Weakness,Muscle Tone Knee Goniometric Range of Motion Knee andrew Knee ROM WFL Yes Ankle and Foot Goniometric Range of Motion Ankle and Foot Right Passive Dorsiflexion with Knee Flexed 3 Dorsiflexion with Knee Extended 0 Plantarflexion 35 Left Active Dorsiflexion with Knee Flexed 5 Dorsiflexion with Knee Extended 0 Plantarflexion 40 Ankle and Foot ROM Limitations ROM Limitations Soft Tissue Tightness, Contracture,Muscle Weakness, Muscle Tone PT-OP-M Strength Start: 04/03/21 14:28 Freq: Status: Active Protocol: Document 04/03/21 14:29 [facility] (Rec: 04/03/21 16:52 [facility] [id number]) Trunk Strength Trunk Manual Muscle Testing Comments functionally appears fair Shoulder Strength Shoulder Manual Muscle Testing Left Flexion 5 Normal Extension 5 Normal Abduction (C5) 5 Normal Adduction 5 Normal External Rotation 5 Normal Internal Rotation 5 Normal Horizontal Abduction 5 Normal Horizontal Adduction 5 Normal Right Flexion 3- Fair- Extension 3- Fair- Abduction (C5) 3- Fair- Adduction 3- Fair- External Rotation 3- Fair- Internal Rotation 3- Fair- Horizontal Abduction 3- Fair- Horizontal Adduction 3- Fair- Elbow/Forearm Strength Elbow and Forearm Manual Muscle Testing Right Flexion (C6) 3+ Fair+ Extension (C7) 3+ Fair+ Left Flexion (C6) 5 Normal Extension (C7) 5 Normal Wrist Strength Wrist Manual Muscle Testing Right Flexion (C7) 3+ Fair+ Extension (C6) 3+ Fair+ Left Flexion (C7) 5 Normal Extension (C6) 5 Normal Hip Strength Hip Manual Muscle Testing Right Flexion (L2) 0 Zero Extension (S1) 0 Zero Abduction 3- Fair- Adduction 2+ Poor+ External Rotation 2+ Poor+ Internal Rotation 2+ Poor+ Left Flexion (L2) 4+ Good+ Extension (S1) 3+ Fair+ Abduction 3+ Fair+ Adduction 4- Good- External Rotation 3+ Fair+ Internal Rotation 4- Good- Knee Strength Knee Manual Muscle Testing Right Flexion (S2) 3- Fair- Extension (L3) 3- Fair- Left Flexion (S2) 4+ Good+ Extension (L3) 4+ Good+ Ankle/Foot Strength Ankle and Foot Manual Muscle Testing Right Dorsiflexion (L4) 1 Trace Plantarflexion (S1) 2- Poor- Left Dorsiflexion (L4) 4 Good Plantarflexion (S1) 4 Good PT-OP-Q Treatments Start: 04/03/21 14:28 Freq: Status: Active Protocol: Document 05/29/21 15:17 [facility] (Rec: 05/29/21 16:25 [facility] [id number]) Therapeutic Exercises Supine Exercises bridge Reps/Minutes 5x Comments assist right LE positioning butterfly stretch Reps/Minutes 2x30 Comments manual shoulder stretch Supine Exercise Name I,T,Y Comments capital I (AAROM with left UE) , T (with PT assist for elbow fing wrist ext) DKTC stretch Reps/Minutes 2x30 Comments LE's on 55 cm ball, passive full body stretch Supine Exercise Name cues for body alignment, cue deep breathing lateral trunk Reps/Minutes 1' Comments arms overhead IT band stretch Reps/Minutes 1x30 Comments passive HS stretch Reps/Minutes 2x60 Comments contract/relax technique, passive adductor stretch Reps/Minutes 2x30 Comments passive LTR Resistance 10%A Equipment Used 55 cm therapy ball Reps/Minutes x10 Comments active, cues for core activation hip flex Supine Exercise Name andrew and unil Resistance manual resistance hip flex/ ext LLE, and min resistance RLE ext PROM flex Equipment Used 55 cm therapy ball Reps/Minutes 10x ea Comments max assist R LE, min assist LLE Standing Exercises step-up Standing Exercise Name side: 6, 8, 12: simulate onto running board of truck Comments step up 6 x 4, 8 x 2, 12 step touch only x 2, heavy UE use Therapeutic Activity Therapeutic Activity bed mob, transfers Name on black elevating table Comments I squat pivot transfer, sit> supine: Min A for RLE onto table, support LLE into flexion to allow bridge and center on table self. Min A for rolling to R, prone>L SL> sit Min- Mod A for LE support to EOtable and righting trunk to sitting. Pt able to don shoes self. Gait Training Gait Activity parallel bars Description lateral backward Distance/Duration 1 lap parallel bars Treatment Focus upright posture, muscle activation sequencin, dec UE support as possible. Comments 3. Lateral walking- pt is CGA stepping L, Max A for RLE management when stepping R. PT-OP-T Assessment and Plan Start: 04/03/21 14:28 Freq: Status: Active Protocol: Document 05/29/21 15:17 [facility] (Rec: 05/29/21 16:25 [facility] [id number]) Physical Therapy Assessment Goals Four Impairment impaired functional mobility Impairment patient no longer able to lift his right LE 15 onto running board of vehicle for purposes of safe transfers into vehicle Primary Care Pediatrician Goal (LTG) patient will be able to lift his right LE at least 15 to allow him to safely transfer into current vehicle LTG Duration 06/03/21 Three Impairment decline in strength and ROM Short Term Goal (STG) establish updated HEP and problem-solve ways for patient to perform independently as much as possible. STG Duration 05/03/21 Correction Goal (LTG) Patient to be indepenent and safe with the aspects of his HEP is able to do on his own and identify personal lines appraiser to assist him in the home after PT completed. LTG Duration 06/03/21 One Impairment impaired gait Impairment 2 min walk test 93 ft Primary Care Pediatrician Goal (LTG) Improve 2 min walk test to 140 ft as measure of improved functional gait LTG Duration 06/03/21 Two Impairment Tinetti gait and balance assessment score 9/28 indicating high fall risk Short Term Goal (STG) Improve Tinetti gait and balance assessment score to at least 14/28 as measure of improved gait and balance STG Duration 05/03/21 Primary Care Pediatrician Goal (LTG) Imprve Tinetti score to at least 19l/28 LTG Duration 06/03/21 Assessment Summary Assessment Lateral step ups and step- touches done in parallel bars to simulate step-up onto running board of vehicle. Heavy use of UE's required, inc with increasing height of box. Verbalizing desire to work on floor transfer, but too fatigued after standing ex . Physical Therapy Plan Frequency and Duration Frequency of Treatment 2x/Week Duration of Treatment 8 weeks Plan of Care Start Date 04/03/21 Plan of Care End Date 06/02/21 Therapeutic Interventions Therapeutic Interventions Aquatic Therapy,Balance Training,Gait Training,Home Exercise Program,Manual Therapy,Neuromuscular Re- education,Patient/Caregiver Education Next Visit Focus/Plan Next Note Type Treatment Note Next Visit Plan work on large mat table regarding prep for floor transfer, inc hip extensor work.
--- NOTE | 2021-05-31 16:19 | PT.OTN ---
Current Diagnoses Multiple sclerosis (05/31/21) Cramp and spasm (05/31/21) Physical Therapy Treatment Note PT-OP-A Visit Information Start: 04/03/21 14:28 Freq: Status: Active Protocol: Document 05/31/21 15:11 [facility] (Rec: 05/31/21 16:18 [facility] [id number]) Out-Patient Physical Therapy Visit Information Visit Information Visit Type Treatment Note Visit Start Time 15:10 Visit Stop Time 16:00 Total Visit Minutes 50 Visit Number 9 Evaluation Information Evaluation Date 04/03/21 Precautions Precautions HTN spasticity fall risk PT-OP-B Current Condition Start: 04/03/21 14:28 Freq: Status: Active Protocol: Document 04/19/21 09:58 [facility]AK (Rec: 04/19/21 11:56 [facility] [id number]) Current Condition History of Current Condition Onset Date 2018 Current Complaints weakness, decreased flexibility, decreased ability to walk History of Current Condition Diagnosed with relapsing remitting MS in 1997. Most recently in 2019 calcium levels through the roof, hospitalized 4-5 days, 2 weeks in rehab due to weakened state. Improved but not back to PLF including being able to walk fairly long distances with walker. Then another episode of exacerbation with loss of strength especially in lower legs. Has been able to regain some strength with motomed and other exercises. With Covid not as active. Needs help with ROM and strength; wants to be able to lift LE 15 onto running board of vehicle, improve transfer into bed, transfer from shower seat to w/c seat, and be able to get off floor; has had to recently call 911 when has fallen a couple times recently. Has lost more strength in left vs right, uses device to help with toe lift on right. Wants help stretching his hamstrings and other leg muscles. No caregivers, has but doesn 't want to burden her with another thing to do. To PT today with scooter, has power w/c for use in home. Has rollater tries to use 3-4x/day max 120 steps. Used to be able to use forearm crutch using on left. Prior Treatments and Tests Seen for his MS at [facility] [place] Treatment Goals Patient/Caregiver Goals update HEP Improve flexibility and strength Be able to walk longer distances in and out of the home increased ease of bed transfers PT-OP-C Subjective Start: 04/03/21 14:28 Freq: Status: Active Protocol: Document 05/29/21 15:17 [facility] (Rec: 05/29/21 16:25 [facility] [id number]) OP-PT Subjective Patient Comments Patient Comments Feels like he is making progress. Still figuring things out with Letty in the home, but going well. PT-OP-D Balance Start: 04/03/21 14:28 Freq: Status: Active Protocol: Document 04/03/21 14:29 [facility] (Rec: 04/03/21 15:50 [facility] [id number]) OP-PT Balance Assessment Sitting Balance Static Sitting Balance Ability Good Dynamic Sitting Balance Ability Fair Standing Balance Static Standing Balance Ability Fair Dynamic Standing Balance Ability Poor Device Used 4WW Tinetti Balance Assessment Sitting Balance Sitting Balance Steady, safe Arising from Chair Ability to Arise Able, uses arms to help Standing Balance Immediate Standing Balance Steady with support Standing Balance Steady, wide stance Nudged Response Begins to fall Standing with Eyes Closed Unsteady Turning Step Pattern Turning 360 Degrees Discontinuous steps Stability Turning 360 Degrees Unsteady, grabs/staggers Sitting Down Sitting Down Uses arms or unsteady Gait and Step Initiation of Gait No hesitancy Right Foot Step Length Does not pass stance ft. Right Foot Step Height Does not clear floor Left Foot Step Length Does not pass stance foot Left Foot Step Height Does not clear floor Step Description Step Symmetry Step length not equal Step Continuity Steps appear continuous Gait Description Path Description Straight Trunk Description Marked sway or uses aide Walking Stance Heels apart Scoring and Interpretation Tinetti Composite Score (points) 9 Interpretation of Scores High risk for falls(< 19) Hagen Fall Scale Copyright Permission PT-OP-E Functional Tests Start: 04/03/21 14:28 Freq: Status: Active Protocol: Document 04/03/21 14:29 [facility] (Rec: 04/03/21 16:52 [facility] [id number]) Functional Tests 2 Minute Walk Test Distance 93 ft Device Used 4WW Five Times Sit to Stand Test Comments not done due to time constraints PT-OP-G Mobility & Gait Start: 04/03/21 14:28 Freq: Status: Active Protocol: Document 04/03/21 14:29 [facility] (Rec: 04/03/21 16:52 [facility] [id number]) OP Mobility Evaluation Bed Mobility Rolling indep with use of hands Supine to and from Sit indep with use of UE's Transfers Sit to Stand use of UE's, indep Bed to Chair Transfers use of UE's, indep Wheelchair Management Type of Wheelchair Has power w/c, scooter Assessment Details independent with management OP Gait Assessment Gait Gait Assistance Required: Independent Distance (Feet) 93 Assistive Devices Assistive Device Gait Belt,4 Wheeled Walker Orthotic/Prosthetic Devices or Brace: Yes Gait Deviations General Gait Pattern Decreased Stride Length, Decreased Feet Clearance, Flexed Trunk,Lateral Trunk Lean,Wide Based Gait Factors Limiting Gait Function Factors Limiting Gait Function Decreased Strength,Limited Range of Motion Comments Gait Comments 2 min walk 93 ft Stair Climbing Evaluation Comments Stair Climbing Comments unable, has elevator in the home PT-OP-H Neuro Start: 04/03/21 14:28 Freq: Status: Active Protocol: Document 04/03/21 14:29 [facility] (Rec: 04/03/21 16:52 [facility] [id number]) Sensation Evaluation Gross Sensation Gross Sensation Right UE Impaired,Left LE Impaired,Right LE Impaired Sensation Description Paresthesia,Numbness,Tingling PT-OP-J Posture/Palpation/Skin Start: 04/03/21 14:28 Freq: Status: Active Protocol: Document 04/03/21 14:29 [facility] (Rec: 04/03/21 16:52 [facility] [id number]) Posture Evaluation Position Standing Head/C-Spine Posture Forward Head T-Spine Posture Increased Kyphosis L-Spine Posture Decreased Lordosis Scapula Posture (L) Protracted,(R) Protracted Arm Posture (L) Internally Rotated,(R) Internally Rotated Hip Posture (L) Flexed,(R) Flexed Knee Posture (L) Excess Flexion,(R) Excess Flexion Sitting Head/C-Spine Posture Forward Head T-Spine Posture Increased Kyphosis L-Spine Posture Decreased Lordosis Shoulder Posture (L) Rounded,(R) Rounded Scapula Posture (L) Protracted,(R) Protracted Arm Posture (L) Internally Rotated,(R) Internally Rotated Pelvis Posture Posterior Tilted Weight Distribution Weight Shifted Left PT-OP-K Range of Motion Start: 04/03/21 14:28 Freq: Status: Active Protocol: Document 04/03/21 14:29 [facility] (Rec: 04/03/21 16:52 [facility] [id number]) Cervical Spine Range of Motion Cervical Spine Active Comments WFL Lumbar Spine Range of Motion Lumbar Spine Active Comments WFL Shoulder Goniometric Range of Motion Shoulder Right Shoulder ROM WFL No Testing Position Supine Flexion 135 Left Shoulder ROM WFL Yes Shoulder ROM Limitations Shoulder ROM Limitations Soft Tissue Tightness,Muscle Weakness Elbow/Forearm Range of Motion Elbow/Forearm andrew Elbow/Forearm ROM WFL Yes Wrist Goniometric Range of Motion Wrist andrew Wrist ROM WFL Yes ROM Limitations Wrist Limitations of Range of Motion Soft Tissue Tightness Hip Goniometric Range of Motion Hip Right Passive Hip ROM WFL No Testing Position Supine Flexion w/Knee Flexed 95 Straight Leg Raise 45 Abduction 20 Internal Rotation 20 External Rotation 45 Left Hip ROM WFL No Testing Position Supine Flexion w/Knee Flexed 90 Straight Leg Raise 50 Abduction 25 Internal Rotation 20 External Rotation 50 Hip ROM Limitations Hip ROM Limitations Soft Tissue Tightness,Muscle Weakness,Muscle Tone Knee Goniometric Range of Motion Knee andrew Knee ROM WFL Yes Ankle and Foot Goniometric Range of Motion Ankle and Foot Right Passive Dorsiflexion with Knee Flexed 3 Dorsiflexion with Knee Extended 0 Plantarflexion 35 Left Active Dorsiflexion with Knee Flexed 5 Dorsiflexion with Knee Extended 0 Plantarflexion 40 Ankle and Foot ROM Limitations ROM Limitations Soft Tissue Tightness, Contracture,Muscle Weakness, Muscle Tone PT-OP-M Strength Start: 04/03/21 14:28 Freq: Status: Active Protocol: Document 04/03/21 14:29 [facility] (Rec: 04/03/21 16:52 [facility] [id number]) Trunk Strength Trunk Manual Muscle Testing Comments functionally appears fair Shoulder Strength Shoulder Manual Muscle Testing Left Flexion 5 Normal Extension 5 Normal Abduction (C5) 5 Normal Adduction 5 Normal External Rotation 5 Normal Internal Rotation 5 Normal Horizontal Abduction 5 Normal Horizontal Adduction 5 Normal Right Flexion 3- Fair- Extension 3- Fair- Abduction (C5) 3- Fair- Adduction 3- Fair- External Rotation 3- Fair- Internal Rotation 3- Fair- Horizontal Abduction 3- Fair- Horizontal Adduction 3- Fair- Elbow/Forearm Strength Elbow and Forearm Manual Muscle Testing Right Flexion (C6) 3+ Fair+ Extension (C7) 3+ Fair+ Left Flexion (C6) 5 Normal Extension (C7) 5 Normal Wrist Strength Wrist Manual Muscle Testing Right Flexion (C7) 3+ Fair+ Extension (C6) 3+ Fair+ Left Flexion (C7) 5 Normal Extension (C6) 5 Normal Hip Strength Hip Manual Muscle Testing Right Flexion (L2) 0 Zero Extension (S1) 0 Zero Abduction 3- Fair- Adduction 2+ Poor+ External Rotation 2+ Poor+ Internal Rotation 2+ Poor+ Left Flexion (L2) 4+ Good+ Extension (S1) 3+ Fair+ Abduction 3+ Fair+ Adduction 4- Good- External Rotation 3+ Fair+ Internal Rotation 4- Good- Knee Strength Knee Manual Muscle Testing Right Flexion (S2) 3- Fair- Extension (L3) 3- Fair- Left Flexion (S2) 4+ Good+ Extension (L3) 4+ Good+ Ankle/Foot Strength Ankle and Foot Manual Muscle Testing Right Dorsiflexion (L4) 1 Trace Plantarflexion (S1) 2- Poor- Left Dorsiflexion (L4) 4 Good Plantarflexion (S1) 4 Good PT-OP-Q Treatments Start: 04/03/21 14:28 Freq: Status: Active Protocol: Document 05/31/21 15:11 [facility] (Rec: 05/31/21 16:18 [facility] [id number]) Therapeutic Exercises Supine Exercises bridge Supine Exercise Name LE's on ball, knees extended Equipment Used 55 cm ball Reps/Minutes 10x butterfly stretch Reps/Minutes 2x30 Comments manual shoulder stretch Supine Exercise Name I,T,Y Comments capital I (AAROM with left UE) , T (with PT assist for elbow fing wrist ext) full body stretch Supine Exercise Name cues for body alignment, cue deep breathing lateral trunk Reps/Minutes 1' Comments arms overhead HS stretch Reps/Minutes 2x60 Comments contract/relax technique, passive adductor stretch Reps/Minutes 2x30 Comments passive hip abd Reps/Minutes 10x Comments mod assist left, max assist right LTR Resistance 10%A Equipment Used 55 cm therapy ball Reps/Minutes x10 Comments active, cues for core activation SKTC Reps/Minutes 2x 30 L, 3x30 R Comments passive Prone Exercises prone on elbows Prone Exercise Name for trunk stretch and WB through R shd Reps/Minutes 1'x2 Comments min assist with positioning quad stretch Prone Exercise Name addition of NEREIDA Reps/Minutes 2x30 Comments manual Other Exercises kneeling to sitting on ankles Other Exercise Name quad stretch Therapeutic Activity Therapeutic Activity floor transfer prep Comments supine to prone to kneeling with support of 18 table and min assist. Max assist to 1/2 kneeling. bed mob, transfers Name on black elevating table Comments I squat pivot transfer, sit> supine: indep for RLE onto table, support LLE into flexion to allow bridge and center on table self. min assist when rolls to right to prone to get right UE out from under body and correctly positioned for NEREIDA Self-Care/Home Management Treatment Education Patient Education Home Exercise Program Other Education floor transfer prep, added bridge with LE's on ball knees extended PT-OP-T Assessment and Plan Start: 04/03/21 14:28 Freq: Status: Active Protocol: Document 05/31/21 15:11 [facility] (Rec: 05/31/21 16:18 [facility] [id number]) Physical Therapy Assessment Goals Four Impairment impaired functional mobility Impairment patient no longer able to lift his right LE 15 onto running board of vehicle for purposes of safe transfers into vehicle Pharmaceutical Analyst Goal (LTG) patient will be able to lift his right LE at least 15 to allow him to safely transfer into current vehicle LTG Duration 06/03/21 Three Impairment decline in strength and ROM Short Term Goal (STG) establish updated HEP and problem-solve ways for patient to perform independently as much as possible. STG Duration 05/03/21 Pharmaceutical Analyst Goal (LTG) Patient to be indepenent and safe with the aspects of his HEP is able to do on his own and identify personal lines underwriter to assist him in the home after PT completed. LTG Duration 06/03/21 One Impairment impaired gait Impairment 2 min walk test 93 ft Nursing Home Goal (LTG) Improve 2 min walk test to 140 ft as measure of improved functional gait LTG Duration 06/03/21 Two Impairment Tinetti gait and balance assessment score 9/28 indicating high fall risk Short Term Goal (STG) Improve Tinetti gait and balance assessment score to at least 14/28 as measure of improved gait and balance STG Duration 05/03/21 Nursing Home Goal (LTG) Imprve Tinetti score to at least 19l/28 LTG Duration 06/03/21 Assessment Summary Assessment worked on prep for floor transfer; supine to kneeling on mat table, unable to get to 1/2 kneeling due to lack of sturdy object on table. Will try next session with mat on floor beside mat table and w/c . Physical Therapy Plan Frequency and Duration Frequency of Treatment 2x/Week Duration of Treatment 8 weeks Plan of Care Start Date 04/03/21 Plan of Care End Date 06/02/21 Therapeutic Interventions Therapeutic Interventions Aquatic Therapy,Balance Training,Gait Training,Home Exercise Program,Manual Therapy,Neuromuscular Re- education,Patient/Caregiver Education Next Visit Focus/Plan Next Note Type Treatment Note Next Visit Plan floor transfer next session, continue progression of ther ex as tolerated. Cat/cow for spinal mobility when in all 4' s
--- NOTE | 2021-06-05 15:41 | PT.OTRE ---
Current Diagnoses Multiple sclerosis (06/05/21) Cramp and spasm (06/05/21) Past Medical History (Last Reviewed 04/29/21 @ 02:18 by Natali Dumont DO) Anxiety and depression Multiple sclerosis Neurogenic bladder S/P tonsillectomy and adenoidectomy Surgical History (Last Reviewed 04/29/21 @ 03:02 by Natali Dumont DO) S/P tonsillectomy and adenoidectomy Visit Care Team Role Provider Type Mario Manzano MD Family Provider Non-Staff Primary Care Provider Specialty: Internal Medicine Address: [address] [place] [address], [id number] Email: Terrie Muñoz MD Attending Provider Non-Staff Referring Provider Specialty: Medical Address: [address] [place] [address], [id number] Email: Physical Therapy Re-Evaluation PT-OP-A Visit Information Start: 04/03/21 14:28 Freq: Status: Active Protocol: Document 06/05/21 14:28 [facility] (Rec: 06/05/21 15:41 [facility] [id number]) Out-Patient Physical Therapy Visit Information Visit Information Visit Type Treatment Note Visit Start Time 14:30 Total Visit Minutes 45 Visit Number 10 Evaluation Information Evaluation Date 04/03/21 Precautions Precautions HTN spasticity fall risk PT-OP-B Current Condition Start: 04/03/21 14:28 Freq: Status: Active Protocol: Document 04/19/21 09:58 [facility] (Rec: 04/19/21 11:56 [facility] [id number]) Current Condition History of Current Condition Onset Date 2019 Current Complaints weakness, decreased flexibility, decreased ability to walk History of Current Condition Diagnosed with relapsing remitting MS in 1997. Most recently in 2019 calcium levels through the roof, hospitalized 4-5 days, 2 weeks in rehab due to weakened state. Improved but not back to PLF including being able to walk fairly long distances with walker. Then another episode of exacerbation with loss of strength especially in lower legs. Has been able to regain some strength with motomed and other exercises. With Covid not as active. Needs help with ROM and strength; wants to be able to lift LE 15 onto running board of vehicle, improve transfer into bed, transfer from shower seat to w/c seat, and be able to get off floor; has had to recently call 911 when has fallen a couple times recently. Has lost more strength in left vs right, uses device to help with toe lift on right. Wants help stretching his hamstrings and other leg muscles. No caregivers, has but doesn 't want to burden her with another thing to do. To PT today with scoostormy, has power w/c for use in home. Has rollater tries to use 3-4x/day max 120 steps. Used to be able to use forearm crutch using on left. Prior Treatments and Tests Seen for his MS at [facility] Treatment Goals Patient/Caregiver Goals update HEP Improve flexibility and strength Be able to walk longer distances in and out of the home increased ease of bed transfers PT-OP-C Subjective Start: 04/03/21 14:28 Freq: Status: Active Protocol: Document 06/05/21 14:28 [facility] (Rec: 06/05/21 15:41 [facility] [id number]) OP-PT Subjective Patient Comments Patient Comments Had appointment with Letty yesterday, states they are figuring out a good routine with sitting bal and core strengthening, supine strengthening, and prone flexibility. Has been 2 years since tried floor transfer, wants to try. PT-OP-D Balance Start: 04/03/21 14:28 Freq: Status: Active Protocol: Document 04/03/21 14:29 [facility] (Rec: 04/03/21 15:50 [facility] [id number]) OP-PT Balance Assessment Sitting Balance Static Sitting Balance Ability Good Dynamic Sitting Balance Ability Fair Standing Balance Static Standing Balance Ability Fair Dynamic Standing Balance Ability Poor Device Used 4WW Tinetti Balance Assessment Sitting Balance Sitting Balance Steady, safe Arising from Chair Ability to Arise Able, uses arms to help Standing Balance Immediate Standing Balance Steady with support Standing Balance Steady, wide stance Nudged Response Begins to fall Standing with Eyes Closed Unsteady Turning Step Pattern Turning 360 Degrees Discontinuous steps Stability Turning 360 Degrees Unsteady, grabs/staggers Sitting Down Sitting Down Uses arms or unsteady Gait and Step Initiation of Gait No hesitancy Right Foot Step Length Does not pass stance ft. Right Foot Step Height Does not clear floor Left Foot Step Length Does not pass stance foot Left Foot Step Height Does not clear floor Step Description Step Symmetry Step length not equal Step Continuity Steps appear continuous Gait Description Path Description Straight Trunk Description Marked sway or uses aide Walking Stance Heels apart Scoring and Interpretation Tinetti Composite Score (points) 9 Interpretation of Scores High risk for falls(< 19) Hagen Fall Scale Copyright Permission Hieu JM, Hieu RM, Matheus SJ. Development of a scale to identify the fall- prone patient. Can J Aging 1989;8;366-7. Garret Hagen (2009). Preventing patient falls. (2nd ed). [place]: Johnson. PT-OP-E Functional Tests Start: 04/03/21 14:28 Freq: Status: Active Protocol: Document 04/03/21 14:29 [facility] (Rec: 04/03/21 16:52 [facility] [id number]) Functional Tests 2 Minute Walk Test Distance 93 ft Device Used 4WW Five Times Sit to Stand Test Comments not done due to time constraints PT-OP-G Mobility & Gait Start: 04/03/21 14:28 Freq: Status: Active Protocol: Document 04/03/21 14:29 [facility] (Rec: 04/03/21 16:52 [facility] [id number]) OP Mobility Evaluation Bed Mobility Rolling indep with use of hands Supine to and from Sit indep with use of UE's Transfers Sit to Stand use of UE's, indep Bed to Chair Transfers use of UE's, indep Wheelchair Management Type of Wheelchair Has power w/c, scooter Assessment Details independent with management OP Gait Assessment Gait Gait Assistance Required: Independent Distance (Feet) 93 Assistive Devices Assistive Device Gait Belt,4 Wheeled Walker Orthotic/Prosthetic Devices or Brace: Yes Gait Deviations General Gait Pattern Decreased Stride Length, Decreased Feet Clearance, Flexed Trunk,Lateral Trunk Lean,Wide Based Gait Factors Limiting Gait Function Factors Limiting Gait Function Decreased Strength,Limited Range of Motion Comments Gait Comments 2 min walk 93 ft Stair Climbing Evaluation Comments Stair Climbing Comments unable, has elevator in the home PT-OP-H Neuro Start: 04/03/21 14:28 Freq: Status: Active Protocol: Document 04/03/21 14:29 [facility] (Rec: 04/03/21 16:52 [facility] [id number]) Sensation Evaluation Gross Sensation Gross Sensation Right UE Impaired,Left LE Impaired,Right LE Impaired Sensation Description Paresthesia,Numbness,Tingling PT-OP-J Posture/Palpation/Skin Start: 04/03/21 14:28 Freq: Status: Active Protocol: Document 04/03/21 14:29 [facility] (Rec: 04/03/21 16:52 [facility] [id number]) Posture Evaluation Position Standing Head/C-Spine Posture Forward Head T-Spine Posture Increased Kyphosis L-Spine Posture Decreased Lordosis Scapula Posture (L) Protracted,(R) Protracted Arm Posture (L) Internally Rotated,(R) Internally Rotated Hip Posture (L) Flexed,(R) Flexed Knee Posture (L) Excess Flexion,(R) Excess Flexion Sitting Head/C-Spine Posture Forward Head T-Spine Posture Increased Kyphosis L-Spine Posture Decreased Lordosis Shoulder Posture (L) Rounded,(R) Rounded Scapula Posture (L) Protracted,(R) Protracted Arm Posture (L) Internally Rotated,(R) Internally Rotated Pelvis Posture Posterior Tilted Weight Distribution Weight Shifted Left PT-OP-K Range of Motion Start: 04/03/21 14:28 Freq: Status: Active Protocol: Document 04/03/21 14:29 [facility] (Rec: 04/03/21 16:52 [facility] [id number]) Cervical Spine Range of Motion Cervical Spine Active Comments WFL Lumbar Spine Range of Motion Lumbar Spine Active Comments WFL Shoulder Goniometric Range of Motion Shoulder Measured in Degrees Right Shoulder ROM WFL No Testing Position Supine Flexion 135 Left Shoulder ROM WFL Yes Shoulder ROM Limitations Shoulder ROM Limitations Soft Tissue Tightness,Muscle Weakness Elbow/Forearm Range of Motion Elbow/Forearm Measured in Degrees andrew Elbow/Forearm ROM WFL Yes Wrist Goniometric Range of Motion Wrist Measured in Degrees andrew Wrist ROM WFL Yes ROM Limitations Wrist Limitations of Range of Motion Soft Tissue Tightness Hip Goniometric Range of Motion Hip Measured in Degrees Right Passive Hip ROM WFL No Testing Position Supine Flexion w/Knee Flexed 95 Straight Leg Raise 45 Abduction 20 Internal Rotation 20 External Rotation 45 Left Hip ROM WFL No Testing Position Supine Flexion w/Knee Flexed 90 Straight Leg Raise 50 Abduction 25 Internal Rotation 20 External Rotation 50 Hip ROM Limitations Hip ROM Limitations Soft Tissue Tightness,Muscle Weakness,Muscle Tone Knee Goniometric Range of Motion Knee Measured in Degrees andrew Knee ROM WFL Yes Ankle and Foot Goniometric Range of Motion Ankle and Foot Measured in Degrees Right Passive Dorsiflexion with Knee Flexed 3 Dorsiflexion with Knee Extended 0 Plantarflexion 35 Left Active Dorsiflexion with Knee Flexed 5 Dorsiflexion with Knee Extended 0 Plantarflexion 40 Ankle and Foot ROM Limitations ROM Limitations Soft Tissue Tightness, Contracture,Muscle Weakness, Muscle Tone PT-OP-M Strength Start: 04/03/21 14:28 Freq: Status: Active Protocol: Document 04/03/21 14:29 [facility] (Rec: 04/03/21 16:52 [facility] [id number]) Trunk Strength Trunk Manual Muscle Testing Comments functionally appears fair Shoulder Strength Shoulder Manual Muscle Testing Left Flexion 5 Normal Extension 5 Normal Abduction (C5) 5 Normal Adduction 5 Normal External Rotation 5 Normal Internal Rotation 5 Normal Horizontal Abduction 5 Normal Horizontal Adduction 5 Normal Right Flexion 3- Fair- Extension 3- Fair- Abduction (C5) 3- Fair- Adduction 3- Fair- External Rotation 3- Fair- Internal Rotation 3- Fair- Horizontal Abduction 3- Fair- Horizontal Adduction 3- Fair- Elbow/Forearm Strength Elbow and Forearm Manual Muscle Testing Right Flexion (C6) 3+ Fair+ Extension (C7) 3+ Fair+ Left Flexion (C6) 5 Normal Extension (C7) 5 Normal Wrist Strength Wrist Manual Muscle Testing Right Flexion (C7) 3+ Fair+ Extension (C6) 3+ Fair+ Left Flexion (C7) 5 Normal Extension (C6) 5 Normal Hip Strength Hip Manual Muscle Testing Right Flexion (L2) 0 Zero Extension (S1) 0 Zero Abduction 3- Fair- Adduction 2+ Poor+ External Rotation 2+ Poor+ Internal Rotation 2+ Poor+ Left Flexion (L2) 4+ Good+ Extension (S1) 3+ Fair+ Abduction 3+ Fair+ Adduction 4- Good- External Rotation 3+ Fair+ Internal Rotation 4- Good- Knee Strength Knee Manual Muscle Testing Right Flexion (S2) 3- Fair- Extension (L3) 3- Fair- Left Flexion (S2) 4+ Good+ Extension (L3) 4+ Good+ Ankle/Foot Strength Ankle and Foot Manual Muscle Testing Right Dorsiflexion (L4) 1 Trace Plantarflexion (S1) 2- Poor- Left Dorsiflexion (L4) 4 Good Plantarflexion (S1) 4 Good PT-OP-Q Treatments Start: 04/03/21 14:28 Freq: Status: Active Protocol: Document 06/05/21 14:28 [facility] (Rec: 06/05/21 15:41 [facility] [id number]) Therapeutic Exercises Supine Exercises deep breathing Supine Exercise Name abdominal, lateral chest, posterior ribcage Comments throughout stretching shoulder stretch Supine Exercise Name I,T,Y Comments capital I (AAROM with left UE) , T (with PT assist for elbow fing wrist ext) DKTC stretch Reps/Minutes 2x30 Comments LE's on 55 cm ball, passive full body stretch Supine Exercise Name cues for body alignment, cue deep breathing lateral trunk Reps/Minutes 1' Comments arms overhead IT band stretch Reps/Minutes 1x30 Comments passive HS stretch Reps/Minutes 2x60 Comments contract/relax technique, passive adductor stretch Reps/Minutes 2x30 Comments passive, LE's extended hip abd Reps/Minutes 10x Comments mod assist left, max assist right LTR Resistance 10%A Equipment Used 55 cm therapy ball Reps/Minutes x10 Comments active, cues for core activation SKTC Reps/Minutes 2x 30 L, 3x30 R Comments passive hip flex Supine Exercise Name andrew and unil Resistance manual resistance hip flex/ ext LLE, and min resistance RLE ext PROM flex Equipment Used 55 cm therapy ball Reps/Minutes 10x ea Comments max assist R LE, min assist LLE Prone Exercises prone on elbows Prone Exercise Name for trunk stretch and WB through R shd Reps/Minutes 1'x2 Comments min assist with positioning quad stretch Prone Exercise Name with NEREIDA Reps/Minutes 2x30 Comments manual Therapeutic Activity Therapeutic Activity floor transfer Comments from w/c to floor on top of 2 4 blue mats with min assist for sfety, multiple attempts, difficult bringing left LE forward to be able to push from leg (needed max assist left LE) , needed mod assist through gait belt for pushing up into w/c, discussed alternate method of not bringing left foot forward to 1/2 kneeling but pushing from kneeling into chair. PT-OP-T Assessment and Plan Start: 04/03/21 14:28 Freq: Status: Active Protocol: Document 06/05/21 14:28 [facility] (Rec: 06/05/21 15:41 [facility] [id number]) Physical Therapy Assessment Goals Five Impairment difficulty with floor transfer Impairment requires mod assist Mobile Product Manager Goal (LTG) patient able to do floor transfer with min assist LTG Duration 07/06/21 Four Impairment impaired functional mobility Impairment patient no longer able to lift his right LE 15 onto running board of vehicle for purposes of safe transfers into vehicle Care Home Goal (LTG) patient will be able to lift his right LE at least 15 to allow him to safely transfer into current vehicle 06/05/21: goal progress: able to lift up onto 6 box LTG Duration 07/06/21 Three Impairment decline in strength and ROM Short Term Goal (STG) establish updated HEP and problem-solve ways for patient to perform independently as much as possible. STG Duration goal met Mobile Product Manager Goal (LTG) Patient to be indepenent and safe with the aspects of his HEP is able to do on his own and identify certified personal chef to assist him in the home after PT completed. 06/05/21: Continue to modify and advance patient HEP. He has hired a certified personal chef ( Letty Barrera, we have done training and this seems to be working out well). LTG Duration 07/06/21 One Impairment impaired gait Impairment 2 min walk test 93 ft Mobile Product Manager Goal (LTG) Improve 2 min walk test to 140 ft as measure of improved functional gait 06/05/21: patient too fatigued after floor transfer and didn' t bring strap that he wears to assist right LE for walking. He reports his thinks his walking has improved since starting PT. LTG Duration 06/03/21 Two Impairment Tinetti gait and balance assessment score 9/28 indicating high fall risk Short Term Goal (STG) Improve Tinetti gait and balance assessment score to at least 14/28 as measure of improved gait and balance 06/05/21: Tinetti score improved to 11/28 STG Duration 06/25/21 Care Home Goal (LTG) Imprve Tinetti score to at least 19/28 LTG Duration 07/06/21 Assessment Summary Assessment Patient has made good progress with understanding HEP, hiring certified personal chef to assist him at home, and this seems to be going well. We continue to modify and advnace the HEP. He can now lift his lift UE up 6. Hasn't done floor transfer for 2 years, needed mod assist today, will continue to problem solve. Too fatigued and didn't have necessary equipment to do 2 min walk test. Physical Therapy Plan Frequency and Duration Frequency of Treatment 2x/Week Duration of Treatment 8 weeks Plan of Care Start Date 06/05/21 Plan of Care End Date 07/06/21 Therapeutic Interventions Therapeutic Interventions Aquatic Therapy,Balance Training,Gait Training,Home Exercise Program,Manual Therapy,Neuromuscular Re- education,Patient/Caregiver Education Next Visit Focus/Plan Next Note Type Treatment Note Next Visit Plan 2 min walk test, further floor transfer practice with alternative method. Continue to progress HEP as tolerated for patient to continue with certified personal chef.
--- NOTE | 2021-06-05 15:41 | PT.OPPOC ---
Physical, Occupational & Speech Therapy At [facility] Current Diagnoses Multiple sclerosis (06/05/21) Cramp and spasm (06/05/21) Visit Care Team Role Provider Type Mario Manzano MD Family Provider Non-Staff Primary Care Provider Specialty: Internal Medicine Address: [address] [place] [address], [phone] Email: Terrie Muñoz MD Attending Provider Non-Staff Referring Provider Specialty: Medical Address: [address] [place] [address], [id number] Email: Plan Of Care PT-OP-T Assessment and Plan Start: 04/03/21 14:28 Freq: Status: Active Protocol: Document 06/05/21 14:28 [facility] (Rec: 06/05/21 15:41 [facility] [id number]) Physical Therapy Assessment Goals Five Impairment difficulty with floor transfer Impairment requires mod assist Senior Care Goal (LTG) patient able to do floor transfer with min assist LTG Duration 07/06/21 Four Impairment impaired functional mobility Impairment patient no longer able to lift his right LE 15 onto running board of vehicle for purposes of safe transfers into vehicle [employer] Driver Goal (LTG) patient will be able to lift his right LE at least 15 to allow him to safely transfer into current vehicle 06/05/21: goal progress: able to lift up onto 6 box LTG Duration 07/06/21 Three Impairment decline in strength and ROM Short Term Goal (STG) establish updated HEP and problem-solve ways for patient to perform independently as much as possible. STG Duration goal met Senior Care Goal (LTG) Patient to be indepenent and safe with the aspects of his HEP is able to do on his own and identify personal banking assistant to assist him in the home after PT completed. 06/05/21: Continue to modify and advance patient HEP. He has hired a personal banking assistant ( Letty Barrera, we have done training and this seems to be working out well). LTG Duration 07/06/21 One Impairment impaired gait Impairment 2 min walk test 93 ft [employer] Driver Goal (LTG) Improve 2 min walk test to 140 ft as measure of improved functional gait 06/05/21: patient too fatigued after floor transfer and didn' t bring strap that he wears to assist right LE for walking. He reports his thinks his walking has improved since starting PT. LTG Duration 06/03/21 Two Impairment Tinetti gait and balance assessment score 9/28 indicating high fall risk Short Term Goal (STG) Improve Tinetti gait and balance assessment score to at least 14/28 as measure of improved gait and balance 06/05/21: Tinetti score improved to 11/28 STG Duration 06/25/21 [employer] Driver Goal (LTG) Imprve Tinetti score to at least 19/28 LTG Duration 07/06/21 Assessment Summary Assessment Patient has made good progress with understanding HEP, hiring personal banking assistant to assist him at home, and this seems to be going well. We continue to modify and advnace the HEP. He can now lift his lift UE up 6. Hasn't done floor transfer for 2 years, needed mod assist today, will continue to problem solve. Too fatigued and didn't have necessary equipment to do 2 min walk test. Physical Therapy Plan Frequency and Duration Frequency of Treatment 2x/Week Duration of Treatment 8 weeks Plan of Care Start Date 06/05/21 Plan of Care End Date 07/06/21 Therapeutic Interventions Therapeutic Interventions Aquatic Therapy,Balance Training,Gait Training,Home Exercise Program,Manual Therapy,Neuromuscular Re- education,Patient/Caregiver Education Next Visit Focus/Plan Next Note Type Treatment Note Next Visit Plan 2 min walk test, further floor transfer practice with alternative method. Continue to progress HEP as tolerated for patient to continue with personal banking assistant. Plan of Care Dates Plan of Care Start Date 06/05/21 Plan of Care End Date 07/06/21 Electronically Signed by: Judy Blanca, PT 06/05/21 [id number] Please Sign and Return: I have reviewed this Plan of Care and certify that the skilled therapy services above are required to meet the patient?s needs. Physician Signature Date Printed Name and Credentials Clinical Instructor Signature Printed Name and Credentials
--- NOTE | 2021-06-07 15:47 | PT.OTN ---
Current Diagnoses Multiple sclerosis (06/07/21) Cramp and spasm (06/07/21) Physical Therapy Treatment Note PT-OP-A Visit Information Start: 04/03/21 14:28 Freq: Status: Active Protocol: Document 06/07/21 14:36 SAK (Rec: 06/07/21 15:47 [facility] [id number]) Out-Patient Physical Therapy Visit Information Visit Information Visit Type Treatment Note Visit Start Time 14:40 Visit Stop Time 15:30 Total Visit Minutes 50 Visit Number 11 Precautions Precautions HTN spasticity fall risk PT-OP-B Current Condition Start: 04/03/21 14:28 Freq: Status: Active Protocol: Document 04/19/21 09:58 SAK (Rec: 04/19/21 11:56 [facility] [id number]) Current Condition History of Current Condition Onset Date 2018 Current Complaints weakness, decreased flexibility, decreased ability to walk History of Current Condition Diagnosed with relapsing remitting MS in 1997. Most recently in 2019 calcium levels through the roof, hospitalized 4-5 days, 2 weeks in rehab due to weakened state. Improved but not back to PLF including being able to walk fairly long distances with walker. Then another episode of exacerbation with loss of strength especially in lower legs. Has been able to regain some strength with motomed and other exercises. With Covid not as active. Needs help with ROM and strength; wants to be able to lift LE 15 onto running board of vehicle, improve transfer into bed, transfer from shower seat to w/c seat, and be able to get off floor; has had to recently call 911 when has fallen a couple times recently. Has lost more strength in left vs right, uses device to help with toe lift on right. Wants help stretching his hamstrings and other leg muscles. No caregivers, has but doesn 't want to burden her with another thing to do. To PT today with scooter, has power w/c for use in home. Has rollater tries to use 3-4x/day max 120 steps. Used to be able to use forearm crutch using on left. Prior Treatments and Tests Seen for his MS at [facility] Treatment Goals Patient/Caregiver Goals update HEP Improve flexibility and strength Be able to walk longer distances in and out of the home increased ease of bed transfers PT-OP-C Subjective Start: 04/03/21 14:28 Freq: Status: Active Protocol: Document 06/07/21 14:36 [facility] (Rec: 06/07/21 15:47 [facility] [id number]) OP-PT Subjective Patient Comments Patient Comments Patient reports he was fatigued but also felt good after last PT session, practic of floor transfer. PT-OP-D Balance Start: 04/03/21 14:28 Freq: Status: Active Protocol: Document 04/03/21 14:29 [facility] (Rec: 04/03/21 15:50 [facility] [id number]) OP-PT Balance Assessment Sitting Balance Static Sitting Balance Ability Good Dynamic Sitting Balance Ability Fair Standing Balance Static Standing Balance Ability Fair Dynamic Standing Balance Ability Poor Device Used 4WW Tinetti Balance Assessment Sitting Balance Sitting Balance Steady, safe Arising from Chair Ability to Arise Able, uses arms to help Standing Balance Immediate Standing Balance Steady with support Standing Balance Steady, wide stance Nudged Response Begins to fall Standing with Eyes Closed Unsteady Turning Step Pattern Turning 360 Degrees Discontinuous steps Stability Turning 360 Degrees Unsteady, grabs/staggers Sitting Down Sitting Down Uses arms or unsteady Gait and Step Initiation of Gait No hesitancy Right Foot Step Length Does not pass stance ft. Right Foot Step Height Does not clear floor Left Foot Step Length Does not pass stance foot Left Foot Step Height Does not clear floor Step Description Step Symmetry Step length not equal Step Continuity Steps appear continuous Gait Description Path Description Straight Trunk Description Marked sway or uses aide Walking Stance Heels apart Scoring and Interpretation Tinetti Composite Score (points) 9 Interpretation of Scores High risk for falls(< 19) Hagen Fall Scale Copyright Permission PT-OP-E Functional Tests Start: 04/03/21 14:28 Freq: Status: Active Protocol: Document 04/03/21 14:29 [facility] (Rec: 04/03/21 16:52 [facility] [id number]) Functional Tests 2 Minute Walk Test Distance 93 ft Device Used 4WW Five Times Sit to Stand Test Comments not done due to time constraints PT-OP-G Mobility & Gait Start: 04/03/21 14:28 Freq: Status: Active Protocol: Document 04/03/21 14:29 [facility] (Rec: 04/03/21 16:52 [facility] [id number]) OP Mobility Evaluation Bed Mobility Rolling indep with use of hands Supine to and from Sit indep with use of UE's Transfers Sit to Stand use of UE's, indep Bed to Chair Transfers use of UE's, indep Wheelchair Management Type of Wheelchair Has power w/c, scooter Assessment Details independent with management OP Gait Assessment Gait Gait Assistance Required: Independent Distance (Feet) 93 Assistive Devices Assistive Device Gait Belt,4 Wheeled Walker Orthotic/Prosthetic Devices or Brace: Yes Gait Deviations General Gait Pattern Decreased Stride Length, Decreased Feet Clearance, Flexed Trunk,Lateral Trunk Lean,Wide Based Gait Factors Limiting Gait Function Factors Limiting Gait Function Decreased Strength,Limited Range of Motion Comments Gait Comments 2 min walk 93 ft Stair Climbing Evaluation Comments Stair Climbing Comments unable, has elevator in the home PT-OP-H Neuro Start: 04/03/21 14:28 Freq: Status: Active Protocol: Document 04/03/21 14:29 [facility] (Rec: 04/03/21 16:52 [facility] [id number]) Sensation Evaluation Gross Sensation Gross Sensation Right UE Impaired,Left LE Impaired,Right LE Impaired Sensation Description Paresthesia,Numbness,Tingling PT-OP-J Posture/Palpation/Skin Start: 04/03/21 14:28 Freq: Status: Active Protocol: Document 04/03/21 14:29 [facility] (Rec: 04/03/21 16:52 [facility] [id number]) Posture Evaluation Position Standing Head/C-Spine Posture Forward Head T-Spine Posture Increased Kyphosis L-Spine Posture Decreased Lordosis Scapula Posture (L) Protracted,(R) Protracted Arm Posture (L) Internally Rotated,(R) Internally Rotated Hip Posture (L) Flexed,(R) Flexed Knee Posture (L) Excess Flexion,(R) Excess Flexion Sitting Head/C-Spine Posture Forward Head T-Spine Posture Increased Kyphosis L-Spine Posture Decreased Lordosis Shoulder Posture (L) Rounded,(R) Rounded Scapula Posture (L) Protracted,(R) Protracted Arm Posture (L) Internally Rotated,(R) Internally Rotated Pelvis Posture Posterior Tilted Weight Distribution Weight Shifted Left PT-OP-K Range of Motion Start: 04/03/21 14:28 Freq: Status: Active Protocol: Document 04/03/21 14:29 [facility] (Rec: 04/03/21 16:52 [facility] [id number]) Cervical Spine Range of Motion Cervical Spine Active Comments WFL Lumbar Spine Range of Motion Lumbar Spine Active Comments WFL Shoulder Goniometric Range of Motion Shoulder Right Shoulder ROM WFL No Testing Position Supine Flexion 135 Left Shoulder ROM WFL Yes Shoulder ROM Limitations Shoulder ROM Limitations Soft Tissue Tightness,Muscle Weakness Elbow/Forearm Range of Motion Elbow/Forearm andrew Elbow/Forearm ROM WFL Yes Wrist Goniometric Range of Motion Wrist andrew Wrist ROM WFL Yes ROM Limitations Wrist Limitations of Range of Motion Soft Tissue Tightness Hip Goniometric Range of Motion Hip Right Passive Hip ROM WFL No Testing Position Supine Flexion w/Knee Flexed 95 Straight Leg Raise 45 Abduction 20 Internal Rotation 20 External Rotation 45 Left Hip ROM WFL No Testing Position Supine Flexion w/Knee Flexed 90 Straight Leg Raise 50 Abduction 25 Internal Rotation 20 External Rotation 50 Hip ROM Limitations Hip ROM Limitations Soft Tissue Tightness,Muscle Weakness,Muscle Tone Knee Goniometric Range of Motion Knee andrew Knee ROM WFL Yes Ankle and Foot Goniometric Range of Motion Ankle and Foot Right Passive Dorsiflexion with Knee Flexed 3 Dorsiflexion with Knee Extended 0 Plantarflexion 35 Left Active Dorsiflexion with Knee Flexed 5 Dorsiflexion with Knee Extended 0 Plantarflexion 40 Ankle and Foot ROM Limitations ROM Limitations Soft Tissue Tightness, Contracture,Muscle Weakness, Muscle Tone PT-OP-M Strength Start: 04/03/21 14:28 Freq: Status: Active Protocol: Document 04/03/21 14:29 SABINA (Rec: 04/03/21 16:52 [facility] [id number]) Trunk Strength Trunk Manual Muscle Testing Comments functionally appears fair Shoulder Strength Shoulder Manual Muscle Testing Left Flexion 5 Normal Extension 5 Normal Abduction (C5) 5 Normal Adduction 5 Normal External Rotation 5 Normal Internal Rotation 5 Normal Horizontal Abduction 5 Normal Horizontal Adduction 5 Normal Right Flexion 3- Fair- Extension 3- Fair- Abduction (C5) 3- Fair- Adduction 3- Fair- External Rotation 3- Fair- Internal Rotation 3- Fair- Horizontal Abduction 3- Fair- Horizontal Adduction 3- Fair- Elbow/Forearm Strength Elbow and Forearm Manual Muscle Testing Right Flexion (C6) 3+ Fair+ Extension (C7) 3+ Fair+ Left Flexion (C6) 5 Normal Extension (C7) 5 Normal Wrist Strength Wrist Manual Muscle Testing Right Flexion (C7) 3+ Fair+ Extension (C6) 3+ Fair+ Left Flexion (C7) 5 Normal Extension (C6) 5 Normal Hip Strength Hip Manual Muscle Testing Right Flexion (L2) 0 Zero Extension (S1) 0 Zero Abduction 3- Fair- Adduction 2+ Poor+ External Rotation 2+ Poor+ Internal Rotation 2+ Poor+ Left Flexion (L2) 4+ Good+ Extension (S1) 3+ Fair+ Abduction 3+ Fair+ Adduction 4- Good- External Rotation 3+ Fair+ Internal Rotation 4- Good- Knee Strength Knee Manual Muscle Testing Right Flexion (S2) 3- Fair- Extension (L3) 3- Fair- Left Flexion (S2) 4+ Good+ Extension (L3) 4+ Good+ Ankle/Foot Strength Ankle and Foot Manual Muscle Testing Right Dorsiflexion (L4) 1 Trace Plantarflexion (S1) 2- Poor- Left Dorsiflexion (L4) 4 Good Plantarflexion (S1) 4 Good PT-OP-Q Treatments Start: 04/03/21 14:28 Freq: Status: Active Protocol: Document 06/07/21 14:36 [facility] (Rec: 06/07/21 15:47 [facility] [id number]) Therapeutic Exercises Supine Exercises bridge Supine Exercise Name LE's on ball, knees extended Equipment Used 55 cm ball Reps/Minutes 10x butterfly stretch Reps/Minutes 2x30 Comments manual shoulder stretch Supine Exercise Name I,T,Y Comments capital I (AAROM with left UE) , T (with PT assist for elbow fing wrist ext) DKTC stretch Reps/Minutes 2x30 Comments LE's on 55 cm ball, passive full body stretch Supine Exercise Name cues for body alignment, cue deep breathing lateral trunk Reps/Minutes 1' Comments arms overhead HS stretch Reps/Minutes 2x60 Comments contract/relax technique, passive adductor stretch Reps/Minutes 2x30 Comments passive, LE's extended hip abd Reps/Minutes 10x Comments mod assist left, max assist right LTR Resistance 10%A Equipment Used 55 cm therapy ball Reps/Minutes x10 Comments active, cues for core activation SKTC Reps/Minutes 2x 30 L, 3x30 R Comments passive hip flex Supine Exercise Name andrew and unil Resistance manual resistance hip flex/ ext LLE, and min resistance RLE ext PROM flex Equipment Used 55 cm therapy ball Reps/Minutes 10x ea Comments max assist R LE, min assist LLE Prone Exercises prone on elbows Prone Exercise Name for trunk stretch and WB through R shd Reps/Minutes 1'x2 Comments min assist with positioning quad stretch Prone Exercise Name with NEREIDA Reps/Minutes 2x30 Comments manual Therapeutic Activity Therapeutic Activity floor transfer prep Comments prone to kneeling bed mob, transfers Name on black elevating table Comments patient educated on squat pivot vs 360 turn transfer for increased ease and safety. Demonstrated good understanding Gait Training Gait Activity 1 Description forward Device Used 4WW, strap right LE Level of Assistance SBA Surface firm carpet and tile Distance/Duration 2 min Comments 2 min walk test 83 ft; had to turn 180, walker set too high Self-Care/Home Management Treatment Education Patient Education Home Exercise Program Other Education floor transfer prep, added bridge with LE's on ball knees extended PT-OP-T Assessment and Plan Start: 04/03/21 14:28 Freq: Status: Active Protocol: Document 06/07/21 14:36 SAK (Rec: 06/07/21 15:47 [facility] [id number]) Physical Therapy Assessment Goals Five Impairment difficulty with floor transfer Impairment requires max assist Storage Manager Goal (LTG) patient able to do floor transfer with min assist 06/05/26: mod assist for floor transfer today raised up on 2 stacked 4 mats LTG Duration 07/06/21 Four Impairment impaired functional mobility Impairment patient no longer able to lift his right LE 15 onto running board of vehicle for purposes of safe transfers into vehicle Storage Manager Goal (LTG) patient will be able to lift his right LE at least 15 to allow him to safely transfer into current vehicle 06/05/21: goal progress: able to lift up onto 6 box LTG Duration 07/06/21 Three Impairment decline in strength and ROM Short Term Goal (STG) establish updated HEP and problem-solve ways for patient to perform independently as much as possible. STG Duration goal met Storage Manager Goal (LTG) Patient to be indepenent and safe with the aspects of his HEP is able to do on his own and identify tangible personal property appraiser to assist him in the home after PT completed. 06/05/21: Continue to modify and advance patient HEP. He has hired a tangible personal property appraiser ( Letty Barrera, we have done training and this seems to be working out well). LTG Duration 07/06/21 One Impairment impaired gait Impairment 2 min walk test 93 ft 06/07/21: 83 ft but today had obstacles, had to turn. Also stated walker was a little high. Walked total of 112 ft . Fatigued after gait. Custodial Goal (LTG) Improve 2 min walk test to 140 ft as measure of improved functional gait 06/05/21: patient too fatigued after floor transfer and didn' t bring strap that he wears to assist right LE for walking. He reports his thinks his walking has improved since starting PT. LTG Duration 06/03/21 Two Impairment Tinetti gait and balance assessment score 9/28 indicating high fall risk Short Term Goal (STG) Improve Tinetti gait and balance assessment score to at least 14/28 as measure of improved gait and balance 06/05/21: Tinetti score improved to 11/28 STG Duration 06/25/21 Custodial Goal (LTG) Imprve Tinetti score to at least 19/28 LTG Duration 07/06/21 Assessment Summary Assessment Patient distance on 2 min walk 10ft less though factors of having to turn and higher walker height may have hampered, patient wants to test again next session. Fatigued after gait. Physical Therapy Plan Frequency and Duration Frequency of Treatment 2x/Week Duration of Treatment 8 weeks Plan of Care Start Date 06/05/21 Plan of Care End Date 07/06/21 Therapeutic Interventions Therapeutic Interventions Aquatic Therapy,Balance Training,Gait Training,Home Exercise Program,Manual Therapy,Neuromuscular Re- education,Patient/Caregiver Education Next Visit Focus/Plan Next Note Type Treatment Note Next Visit Plan 2 min walk test, further floor transfer practice with alternative method, stand- pivot transfers, functional strengthening for stepping up onto running board of truck; possible training on patiet's vehicle. Continue to progress HEP as tolerated for patient to continue with tangible personal property appraiser.
--- NOTE | 2021-06-19 16:24 | PT.OTN ---
Current Diagnoses Multiple sclerosis (06/19/21) Cramp and spasm (06/19/21) Physical Therapy Treatment Note PT-OP-A Visit Information Start: 04/03/21 14:28 Freq: Status: Active Protocol: Document 06/19/21 15:19 [facility] (Rec: 06/19/21 16:23 [facility] [id number]) Out-Patient Physical Therapy Visit Information Visit Information Visit Type Treatment Note Visit Start Time 14:40 Visit Stop Time 15:30 Total Visit Minutes 50 Visit Number 12 Precautions Precautions HTN spasticity fall risk PT-OP-B Current Condition Start: 04/03/21 14:28 Freq: Status: Active Protocol: Document 04/19/21 09:58 [facility] (Rec: 04/19/21 11:56 [facility] [id number]) Current Condition History of Current Condition Onset Date 2018 Current Complaints weakness, decreased flexibility, decreased ability to walk History of Current Condition Diagnosed with relapsing remitting MS in 1997. Most recently in 2019 calcium levels through the roof, hospitalized 4-5 days, 2 weeks in rehab due to weakened state. Improved but not back to PLF including being able to walk fairly long distances with walker. Then another episode of exacerbation with loss of strength especially in lower legs. Has been able to regain some strength with motomed and other exercises. With Covid not as active. Needs help with ROM and strength; wants to be able to lift LE 15 onto running board of vehicle, improve transfer into bed, transfer from shower seat to w/c seat, and be able to get off floor; has had to recently call 911 when has fallen a couple times recently. Has lost more strength in left vs right, uses device to help with toe lift on right. Wants help stretching his hamstrings and other leg muscles. No caregivers, has but doesn 't want to burden her with another thing to do. To PT today with scooter, has power w/c for use in home. Has rollater tries to use 3-4x/day max 120 steps. Used to be able to use forearm crutch using on left. Prior Treatments and Tests Seen for his MS at [facility] [place] Treatment Goals Patient/Caregiver Goals update HEP Improve flexibility and strength Be able to walk longer distances in and out of the home increased ease of bed transfers PT-OP-C Subjective Start: 04/03/21 14:28 Freq: Status: Active Protocol: Document 06/19/21 15:19 [facility] (Rec: 06/19/21 16:24 [facility] [id number]) OP-PT Subjective Patient Comments Patient Comments no 2 min walk today due to not bring LE strap for flexion assist. States things are going well with personal care home administrator Letty. Needs further practice with floor transfer. Patient Reported Progress Improving PT-OP-D Balance Start: 04/03/21 14:28 Freq: Status: Active Protocol: Document 04/03/21 14:29 [facility] (Rec: 04/03/21 15:50 [facility] [id number]) OP-PT Balance Assessment Sitting Balance Static Sitting Balance Ability Good Dynamic Sitting Balance Ability Fair Standing Balance Static Standing Balance Ability Fair Dynamic Standing Balance Ability Poor Device Used 4WW Tinetti Balance Assessment Sitting Balance Sitting Balance Steady, safe Arising from Chair Ability to Arise Able, uses arms to help Standing Balance Immediate Standing Balance Steady with support Standing Balance Steady, wide stance Nudged Response Begins to fall Standing with Eyes Closed Unsteady Turning Step Pattern Turning 360 Degrees Discontinuous steps Stability Turning 360 Degrees Unsteady, grabs/staggers Sitting Down Sitting Down Uses arms or unsteady Gait and Step Initiation of Gait No hesitancy Right Foot Step Length Does not pass stance ft. Right Foot Step Height Does not clear floor Left Foot Step Length Does not pass stance foot Left Foot Step Height Does not clear floor Step Description Step Symmetry Step length not equal Step Continuity Steps appear continuous Gait Description Path Description Straight Trunk Description Marked sway or uses aide Walking Stance Heels apart Scoring and Interpretation Tinetti Composite Score (points) 9 Interpretation of Scores High risk for falls(< 19) Hagen Fall Scale Copyright Permission PT-OP-E Functional Tests Start: 04/03/21 14:28 Freq: Status: Active Protocol: Document 04/03/21 14:29 [facility] (Rec: 04/03/21 16:52 [facility] [id number]) Functional Tests 2 Minute Walk Test Distance 93 ft Device Used 4WW Five Times Sit to Stand Test Comments not done due to time constraints PT-OP-G Mobility & Gait Start: 04/03/21 14:28 Freq: Status: Active Protocol: Document 04/03/21 14:29 [facility] (Rec: 04/03/21 16:52 [facility] [id number]) OP Mobility Evaluation Bed Mobility Rolling indep with use of hands Supine to and from Sit indep with use of UE's Transfers Sit to Stand use of UE's, indep Bed to Chair Transfers use of UE's, indep Wheelchair Management Type of Wheelchair Has power w/c, scooter Assessment Details independent with management OP Gait Assessment Gait Gait Assistance Required: Independent Distance (Feet) 93 Assistive Devices Assistive Device Gait Belt,4 Wheeled Walker Orthotic/Prosthetic Devices or Brace: Yes Gait Deviations General Gait Pattern Decreased Stride Length, Decreased Feet Clearance, Flexed Trunk,Lateral Trunk Lean,Wide Based Gait Factors Limiting Gait Function Factors Limiting Gait Function Decreased Strength,Limited Range of Motion Comments Gait Comments 2 min walk 93 ft Stair Climbing Evaluation Comments Stair Climbing Comments unable, has elevator in the home PT-OP-H Neuro Start: 04/03/21 14:28 Freq: Status: Active Protocol: Document 04/03/21 14:29 [facility] (Rec: 04/03/21 16:52 [facility] [id number]) Sensation Evaluation Gross Sensation Gross Sensation Right UE Impaired,Left LE Impaired,Right LE Impaired Sensation Description Paresthesia,Numbness,Tingling PT-OP-J Posture/Palpation/Skin Start: 04/03/21 14:28 Freq: Status: Active Protocol: Document 04/03/21 14:29 [facility] (Rec: 04/03/21 16:52 [facility] [id number]) Posture Evaluation Position Standing Head/C-Spine Posture Forward Head T-Spine Posture Increased Kyphosis L-Spine Posture Decreased Lordosis Scapula Posture (L) Protracted,(R) Protracted Arm Posture (L) Internally Rotated,(R) Internally Rotated Hip Posture (L) Flexed,(R) Flexed Knee Posture (L) Excess Flexion,(R) Excess Flexion Sitting Head/C-Spine Posture Forward Head T-Spine Posture Increased Kyphosis L-Spine Posture Decreased Lordosis Shoulder Posture (L) Rounded,(R) Rounded Scapula Posture (L) Protracted,(R) Protracted Arm Posture (L) Internally Rotated,(R) Internally Rotated Pelvis Posture Posterior Tilted Weight Distribution Weight Shifted Left PT-OP-K Range of Motion Start: 04/03/21 14:28 Freq: Status: Active Protocol: Document 04/03/21 14:29 [facility] (Rec: 04/03/21 16:52 [facility] [id number]) Cervical Spine Range of Motion Cervical Spine Active Comments WFL Lumbar Spine Range of Motion Lumbar Spine Active Comments WFL Shoulder Goniometric Range of Motion Shoulder Right Shoulder ROM WFL No Testing Position Supine Flexion 135 Left Shoulder ROM WFL Yes Shoulder ROM Limitations Shoulder ROM Limitations Soft Tissue Tightness,Muscle Weakness Elbow/Forearm Range of Motion Elbow/Forearm andrew Elbow/Forearm ROM WFL Yes Wrist Goniometric Range of Motion Wrist andrew Wrist ROM WFL Yes ROM Limitations Wrist Limitations of Range of Motion Soft Tissue Tightness Hip Goniometric Range of Motion Hip Right Passive Hip ROM WFL No Testing Position Supine Flexion w/Knee Flexed 95 Straight Leg Raise 45 Abduction 20 Internal Rotation 20 External Rotation 45 Left Hip ROM WFL No Testing Position Supine Flexion w/Knee Flexed 90 Straight Leg Raise 50 Abduction 25 Internal Rotation 20 External Rotation 50 Hip ROM Limitations Hip ROM Limitations Soft Tissue Tightness,Muscle Weakness,Muscle Tone Knee Goniometric Range of Motion Knee andrew Knee ROM WFL Yes Ankle and Foot Goniometric Range of Motion Ankle and Foot Right Passive Dorsiflexion with Knee Flexed 3 Dorsiflexion with Knee Extended 0 Plantarflexion 35 Left Active Dorsiflexion with Knee Flexed 5 Dorsiflexion with Knee Extended 0 Plantarflexion 40 Ankle and Foot ROM Limitations ROM Limitations Soft Tissue Tightness, Contracture,Muscle Weakness, Muscle Tone PT-OP-M Strength Start: 04/03/21 14:28 Freq: Status: Active Protocol: Document 04/03/21 14:29 [facility] (Rec: 04/03/21 16:52 [facility] [id number]) Trunk Strength Trunk Manual Muscle Testing Comments functionally appears fair Shoulder Strength Shoulder Manual Muscle Testing Left Flexion 5 Normal Extension 5 Normal Abduction (C5) 5 Normal Adduction 5 Normal External Rotation 5 Normal Internal Rotation 5 Normal Horizontal Abduction 5 Normal Horizontal Adduction 5 Normal Right Flexion 3- Fair- Extension 3- Fair- Abduction (C5) 3- Fair- Adduction 3- Fair- External Rotation 3- Fair- Internal Rotation 3- Fair- Horizontal Abduction 3- Fair- Horizontal Adduction 3- Fair- Elbow/Forearm Strength Elbow and Forearm Manual Muscle Testing Right Flexion (C6) 3+ Fair+ Extension (C7) 3+ Fair+ Left Flexion (C6) 5 Normal Extension (C7) 5 Normal Wrist Strength Wrist Manual Muscle Testing Right Flexion (C7) 3+ Fair+ Extension (C6) 3+ Fair+ Left Flexion (C7) 5 Normal Extension (C6) 5 Normal Hip Strength Hip Manual Muscle Testing Right Flexion (L2) 0 Zero Extension (S1) 0 Zero Abduction 3- Fair- Adduction 2+ Poor+ External Rotation 2+ Poor+ Internal Rotation 2+ Poor+ Left Flexion (L2) 4+ Good+ Extension (S1) 3+ Fair+ Abduction 3+ Fair+ Adduction 4- Good- External Rotation 3+ Fair+ Internal Rotation 4- Good- Knee Strength Knee Manual Muscle Testing Right Flexion (S2) 3- Fair- Extension (L3) 3- Fair- Left Flexion (S2) 4+ Good+ Extension (L3) 4+ Good+ Ankle/Foot Strength Ankle and Foot Manual Muscle Testing Right Dorsiflexion (L4) 1 Trace Plantarflexion (S1) 2- Poor- Left Dorsiflexion (L4) 4 Good Plantarflexion (S1) 4 Good PT-OP-Q Treatments Start: 04/03/21 14:28 Freq: Status: Active Protocol: Document 06/19/21 15:19 [facility] (Rec: 06/19/21 16:23 [facility] [id number]) Therapeutic Exercises Supine Exercises piriformis stretch Reps/Minutes 2x30 Comments passive deep breathing Supine Exercise Name abdominal, lateral chest, posterior ribcage Comments throughout stretching shoulder stretch Supine Exercise Name I,T,Y Comments capital I (AAROM with left UE) , T (with PT assist for elbow fing wrist ext) full body stretch Supine Exercise Name cues for body alignment, cue deep breathing lateral trunk Reps/Minutes 1' Comments arms overhead IT band stretch Reps/Minutes 1x30 Comments passive HS stretch Supine Exercise Name with HC stretch Reps/Minutes 2x60 Comments contract/relax technique, passive hip abd Reps/Minutes 10x Comments mod assist left, max assist right SKTC Reps/Minutes 2x 30 L, 3x30 R Comments passive Prone Exercises spinal extension Reps/Minutes 10x2 prone on elbows Prone Exercise Name for trunk stretch and WB through R shd Reps/Minutes 1'x2 Comments min assist with positioning quad stretch Prone Exercise Name with NEREIDA Reps/Minutes 2x30 Comments manual Therapeutic Activity Therapeutic Activity floor transfer Comments from w/c to floor on top of 2 4 blue mats with min assist for sfety, multiple attempts, difficult bringing left LE forward to be able to push from leg (needed max assist left LE) , needed mod assist through gait belt for pushing up into w/c, initially tried method of not bringing left LE forward but patient had difficulty with this. bed mob, transfers Name on black elevating table Reps/Minutes 2x Comments reviewed squat pivot vs 360 turn transfer for increased ease and safety. Demonstrated good understanding Self-Care/Home Management Treatment Education Patient Education Home Exercise Program,Safety PT-OP-T Assessment and Plan Start: 04/03/21 14:28 Freq: Status: Active Protocol: Document 06/19/21 15:19 [facility] (Rec: 06/19/21 16:23 [facility] [id number]) Physical Therapy Assessment Goals Five Impairment difficulty with floor transfer Impairment requires max assist Patient Care Coordinator Goal (LTG) patient able to do floor transfer with min assist 06/05/26: mod assist for floor transfer today raised up on 2 stacked 4 mats LTG Duration 07/06/21 Four Impairment impaired functional mobility Impairment patient no longer able to lift his right LE 15 onto running board of vehicle for purposes of safe transfers into vehicle Patient Care Coordinator Goal (LTG) patient will be able to lift his right LE at least 15 to allow him to safely transfer into current vehicle 06/05/21: goal progress: able to lift up onto 6 box LTG Duration 07/06/21 Three Impairment decline in strength and ROM Short Term Goal (STG) establish updated HEP and problem-solve ways for patient to perform independently as much as possible. STG Duration goal met Patient Care Coordinator Goal (LTG) Patient to be indepenent and safe with the aspects of his HEP is able to do on his own and identify personal care home administrator to assist him in the home after PT completed. 06/05/21: Continue to modify and advance patient HEP. He has hired a personal care home administrator ( Letty Barrera, we have done training and this seems to be working out well). LTG Duration 07/06/21 One Impairment impaired gait Impairment 2 min walk test 93 ft 06/07/21: 83 ft but today had obstacles, had to turn. Also stated walker was a little high. Walked total of 112 ft . Fatigued after gait. Patient Care Coordinator Goal (LTG) Improve 2 min walk test to 140 ft as measure of improved functional gait 06/05/21: patient too fatigued after floor transfer and didn' t bring strap that he wears to assist right LE for walking. He reports his thinks his walking has improved since starting PT. LTG Duration 06/03/21 Two Impairment Tinetti gait and balance assessment score 9/28 indicating high fall risk Short Term Goal (STG) Improve Tinetti gait and balance assessment score to at least 14/28 as measure of improved gait and balance 06/05/21: Tinetti score improved to 11/28 STG Duration 06/25/21 Intermediate Goal (LTG) Imprve Tinetti score to at least 19/28 LTG Duration 07/06/21 Assessment Summary Assessment Floor transfer required mod assist, unable to do 2 min walk today as patient didn't bring the strap for his leg. Appears things are going well with paid personal care home administrator Letty in the home, states they are getting into a routine. Added piriformis stretch and prone paraspinal strengthening today ; prone spinal extension difficult with increase activation of left vs right paraspinals. Patient demonstrating improvement in safety of transfers with less turning, though difficult when going toward right (weaker) side. Physical Therapy Plan Frequency and Duration Frequency of Treatment 2x/Week Duration of Treatment 8 weeks Plan of Care Start Date 06/05/21 Plan of Care End Date 07/06/21 Therapeutic Interventions Therapeutic Interventions Aquatic Therapy,Balance Training,Gait Training,Home Exercise Program,Manual Therapy,Neuromuscular Re- education,Patient/Caregiver Education Next Visit Focus/Plan Next Note Type Treatment Note Next Visit Plan 2 min walk test, further floor transfer practice with alternative method, stand- pivot transfers, functional strengthening for stepping up onto running board of truck; possible training on patiet's vehicle. Continue to progress HEP as tolerated for patient to continue with personal care home administrator.
--- NOTE | 2021-06-21 16:21 | PT.OTN ---
Current Diagnoses Multiple sclerosis (06/21/21) Cramp and spasm (06/21/21) Physical Therapy Treatment Note PT-OP-A Visit Information Start: 04/03/21 14:28 Freq: Status: Active Protocol: Document 06/21/21 15:14 SAK (Rec: 06/21/21 16:16 [facility] [id number]) Out-Patient Physical Therapy Visit Information Visit Information Visit Type Treatment Note Visit Start Time 15:15 Visit Stop Time 16:05 Total Visit Minutes 50 Visit Number 13 Precautions Precautions HTN spasticity fall risk PT-OP-B Current Condition Start: 04/03/21 14:28 Freq: Status: Active Protocol: Document 04/19/21 09:58 SAK (Rec: 04/19/21 11:56 [facility] [id number]) Current Condition History of Current Condition Onset Date 2018 Current Complaints weakness, decreased flexibility, decreased ability to walk History of Current Condition Diagnosed with relapsing remitting MS in 1997. Most recently in 2019 calcium levels through the roof, hospitalized 4-5 days, 2 weeks in rehab due to weakened state. Improved but not back to PLF including being able to walk fairly long distances with walker. Then another episode of exacerbation with loss of strength especially in lower legs. Has been able to regain some strength with motomed and other exercises. With Covid not as active. Needs help with ROM and strength; wants to be able to lift LE 15 onto running board of vehicle, improve transfer into bed, transfer from shower seat to w/c seat, and be able to get off floor; has had to recently call 911 when has fallen a couple times recently. Has lost more strength in left vs right, uses device to help with toe lift on right. Wants help stretching his hamstrings and other leg muscles. No caregivers, has but doesn 't want to burden her with another thing to do. To PT today with scooter, has power w/c for use in home. Has rollater tries to use 3-4x/day max 120 steps. Used to be able to use forearm crutch using on left. Prior Treatments and Tests Seen for his MS at [facility] [place] Treatment Goals Patient/Caregiver Goals update HEP Improve flexibility and strength Be able to walk longer distances in and out of the home increased ease of bed transfers PT-OP-C Subjective Start: 04/03/21 14:28 Freq: Status: Active Protocol: Document 06/21/21 15:14 [facility] (Rec: 06/21/21 16:16 [facility] [id number]) OP-PT Subjective Patient Comments Patient Comments No new c/o. Trini LE strap to be able to do 2 min walk test Patient Reported Progress Improving PT-OP-D Balance Start: 04/03/21 14:28 Freq: Status: Active Protocol: Document 04/03/21 14:29 [facility] (Rec: 04/03/21 15:50 [facility] [id number]) OP-PT Balance Assessment Sitting Balance Static Sitting Balance Ability Good Dynamic Sitting Balance Ability Fair Standing Balance Static Standing Balance Ability Fair Dynamic Standing Balance Ability Poor Device Used 4WW Tinetti Balance Assessment Sitting Balance Sitting Balance Steady, safe Arising from Chair Ability to Arise Able, uses arms to help Standing Balance Immediate Standing Balance Steady with support Standing Balance Steady, wide stance Nudged Response Begins to fall Standing with Eyes Closed Unsteady Turning Step Pattern Turning 360 Degrees Discontinuous steps Stability Turning 360 Degrees Unsteady, grabs/staggers Sitting Down Sitting Down Uses arms or unsteady Gait and Step Initiation of Gait No hesitancy Right Foot Step Length Does not pass stance ft. Right Foot Step Height Does not clear floor Left Foot Step Length Does not pass stance foot Left Foot Step Height Does not clear floor Step Description Step Symmetry Step length not equal Step Continuity Steps appear continuous Gait Description Path Description Straight Trunk Description Marked sway or uses aide Walking Stance Heels apart Scoring and Interpretation Tinetti Composite Score (points) 9 Interpretation of Scores High risk for falls(< 19) Hagen Fall Scale Copyright Permission PT-OP-E Functional Tests Start: 04/03/21 14:28 Freq: Status: Active Protocol: Document 04/03/21 14:29 [facility] (Rec: 04/03/21 16:52 [facility] [id number]) Functional Tests 2 Minute Walk Test Distance 93 ft Device Used 4WW Five Times Sit to Stand Test Comments not done due to time constraints PT-OP-G Mobility & Gait Start: 04/03/21 14:28 Freq: Status: Active Protocol: Document 04/03/21 14:29 [facility] (Rec: 04/03/21 16:52 [facility] [id number]) OP Mobility Evaluation Bed Mobility Rolling indep with use of hands Supine to and from Sit indep with use of UE's Transfers Sit to Stand use of UE's, indep Bed to Chair Transfers use of UE's, indep Wheelchair Management Type of Wheelchair Has power w/c, scooter Assessment Details independent with management OP Gait Assessment Gait Gait Assistance Required: Independent Distance (Feet) 93 Assistive Devices Assistive Device Gait Belt,4 Wheeled Walker Orthotic/Prosthetic Devices or Brace: Yes Gait Deviations General Gait Pattern Decreased Stride Length, Decreased Feet Clearance, Flexed Trunk,Lateral Trunk Lean,Wide Based Gait Factors Limiting Gait Function Factors Limiting Gait Function Decreased Strength,Limited Range of Motion Comments Gait Comments 2 min walk 93 ft Stair Climbing Evaluation Comments Stair Climbing Comments unable, has elevator in the home PT-OP-H Neuro Start: 04/03/21 14:28 Freq: Status: Active Protocol: Document 04/03/21 14:29 [facility] (Rec: 04/03/21 16:52 [facility] [id number]) Sensation Evaluation Gross Sensation Gross Sensation Right UE Impaired,Left LE Impaired,Right LE Impaired Sensation Description Paresthesia,Numbness,Tingling PT-OP-J Posture/Palpation/Skin Start: 04/03/21 14:28 Freq: Status: Active Protocol: Document 04/03/21 14:29 [facility] (Rec: 04/03/21 16:52 [facility] [id number]) Posture Evaluation Position Standing Head/C-Spine Posture Forward Head T-Spine Posture Increased Kyphosis L-Spine Posture Decreased Lordosis Scapula Posture (L) Protracted,(R) Protracted Arm Posture (L) Internally Rotated,(R) Internally Rotated Hip Posture (L) Flexed,(R) Flexed Knee Posture (L) Excess Flexion,(R) Excess Flexion Sitting Head/C-Spine Posture Forward Head T-Spine Posture Increased Kyphosis L-Spine Posture Decreased Lordosis Shoulder Posture (L) Rounded,(R) Rounded Scapula Posture (L) Protracted,(R) Protracted Arm Posture (L) Internally Rotated,(R) Internally Rotated Pelvis Posture Posterior Tilted Weight Distribution Weight Shifted Left PT-OP-K Range of Motion Start: 04/03/21 14:28 Freq: Status: Active Protocol: Document 04/03/21 14:29 [facility] (Rec: 04/03/21 16:52 [facility] [id number]) Cervical Spine Range of Motion Cervical Spine Active Comments WFL Lumbar Spine Range of Motion Lumbar Spine Active Comments WFL Shoulder Goniometric Range of Motion Shoulder Right Shoulder ROM WFL No Testing Position Supine Flexion 135 Left Shoulder ROM WFL Yes Shoulder ROM Limitations Shoulder ROM Limitations Soft Tissue Tightness,Muscle Weakness Elbow/Forearm Range of Motion Elbow/Forearm andrew Elbow/Forearm ROM WFL Yes Wrist Goniometric Range of Motion Wrist andrew Wrist ROM WFL Yes ROM Limitations Wrist Limitations of Range of Motion Soft Tissue Tightness Hip Goniometric Range of Motion Hip Right Passive Hip ROM WFL No Testing Position Supine Flexion w/Knee Flexed 95 Straight Leg Raise 45 Abduction 20 Internal Rotation 20 External Rotation 45 Left Hip ROM WFL No Testing Position Supine Flexion w/Knee Flexed 90 Straight Leg Raise 50 Abduction 25 Internal Rotation 20 External Rotation 50 Hip ROM Limitations Hip ROM Limitations Soft Tissue Tightness,Muscle Weakness,Muscle Tone Knee Goniometric Range of Motion Knee andrew Knee ROM WFL Yes Ankle and Foot Goniometric Range of Motion Ankle and Foot Right Passive Dorsiflexion with Knee Flexed 3 Dorsiflexion with Knee Extended 0 Plantarflexion 35 Left Active Dorsiflexion with Knee Flexed 5 Dorsiflexion with Knee Extended 0 Plantarflexion 40 Ankle and Foot ROM Limitations ROM Limitations Soft Tissue Tightness, Contracture,Muscle Weakness, Muscle Tone PT-OP-M Strength Start: 04/03/21 14:28 Freq: Status: Active Protocol: Document 04/03/21 14:29 [facility] (Rec: 04/03/21 16:52 [facility] [id number]) Trunk Strength Trunk Manual Muscle Testing Comments functionally appears fair Shoulder Strength Shoulder Manual Muscle Testing Left Flexion 5 Normal Extension 5 Normal Abduction (C5) 5 Normal Adduction 5 Normal External Rotation 5 Normal Internal Rotation 5 Normal Horizontal Abduction 5 Normal Horizontal Adduction 5 Normal Right Flexion 3- Fair- Extension 3- Fair- Abduction (C5) 3- Fair- Adduction 3- Fair- External Rotation 3- Fair- Internal Rotation 3- Fair- Horizontal Abduction 3- Fair- Horizontal Adduction 3- Fair- Elbow/Forearm Strength Elbow and Forearm Manual Muscle Testing Right Flexion (C6) 3+ Fair+ Extension (C7) 3+ Fair+ Left Flexion (C6) 5 Normal Extension (C7) 5 Normal Wrist Strength Wrist Manual Muscle Testing Right Flexion (C7) 3+ Fair+ Extension (C6) 3+ Fair+ Left Flexion (C7) 5 Normal Extension (C6) 5 Normal Hip Strength Hip Manual Muscle Testing Right Flexion (L2) 0 Zero Extension (S1) 0 Zero Abduction 3- Fair- Adduction 2+ Poor+ External Rotation 2+ Poor+ Internal Rotation 2+ Poor+ Left Flexion (L2) 4+ Good+ Extension (S1) 3+ Fair+ Abduction 3+ Fair+ Adduction 4- Good- External Rotation 3+ Fair+ Internal Rotation 4- Good- Knee Strength Knee Manual Muscle Testing Right Flexion (S2) 3- Fair- Extension (L3) 3- Fair- Left Flexion (S2) 4+ Good+ Extension (L3) 4+ Good+ Ankle/Foot Strength Ankle and Foot Manual Muscle Testing Right Dorsiflexion (L4) 1 Trace Plantarflexion (S1) 2- Poor- Left Dorsiflexion (L4) 4 Good Plantarflexion (S1) 4 Good PT-OP-Q Treatments Start: 04/03/21 14:28 Freq: Status: Active Protocol: Document 06/21/21 15:14 [facility]INA (Rec: 06/21/21 16:16 [facility] [id number]) Therapeutic Exercises Supine Exercises bridge Supine Exercise Name LE's on ball, knees extended Equipment Used 55 cm ball Reps/Minutes 10x shoulder stretch Supine Exercise Name I,T,Y Comments capital I (AAROM with left UE) , T (with PT assist for elbow fing wrist ext) full body stretch Supine Exercise Name cues for body alignment, cue deep breathing lateral trunk Reps/Minutes 1' Comments arms overhead IT band stretch Reps/Minutes 1x30 Comments passive HS stretch Supine Exercise Name with HC stretch Reps/Minutes 2x60 Comments contract/relax technique, passive adductor stretch Reps/Minutes 2x30 Comments passive, LE's extended LTR Resistance 10%A Equipment Used 55 cm therapy ball Reps/Minutes x10 Comments active, cues for core activation SKTC Reps/Minutes 2x 30 L, 3x30 R Comments passive hip flex Supine Exercise Name adnrew and unil Resistance manual resistance hip flex/ ext LLE, and min resistance RLE ext PROM flex Equipment Used 55 cm therapy ball Reps/Minutes 10x ea Comments max assist R LE, min assist LLE Therapeutic Activity Therapeutic Activity bed mob, transfers Name w/c>< mat table Reps/Minutes 2x Comments cues for either stand-pivot or step pivot instead of twisting, patient demonstrating god understanding Gait Training Gait Activity 1 Description forward Device Used 4WW, strap right LE Level of Assistance SBA Surface tile Distance/Duration 2 min Comments 2 min walk test 88 ft Neuro Re-Education Treatment Balance Activities seated balance Details EO, EC, head turns, wt shifts, left LE lift Equipment blue carlos disc, mirror Reps/Duration 5' Comments 1. ant/post tilt 2. hip ab/ad 3. reverse crunches 4. balloon vb SB to CGA for safety Self-Care/Home Management Treatment Education Patient Education Home Exercise Program,Safety PT-OP-T Assessment and Plan Start: 04/03/21 14:28 Freq: Status: Active Protocol: Document 06/21/21 15:14 SAK (Rec: 06/21/21 16:16 [facility] [id number]) Physical Therapy Assessment Goals Five Impairment difficulty with floor transfer Impairment requires max assist Custodial Goal (LTG) patient able to do floor transfer with min assist 06/05/26: mod assist for floor transfer today raised up on 2 stacked 4 mats LTG Duration 07/06/21 Four Impairment impaired functional mobility Impairment patient no longer able to lift his right LE 15 onto running board of vehicle for purposes of safe transfers into vehicle [employer] Goal (LTG) patient will be able to lift his right LE at least 15 to allow him to safely transfer into current vehicle 06/05/21: goal progress: able to lift up onto 6 box LTG Duration 07/06/21 Three Impairment decline in strength and ROM Short Term Goal (STG) establish updated HEP and problem-solve ways for patient to perform independently as much as possible. STG Duration goal met [employer] Goal (LTG) Patient to be indepenent and safe with the aspects of his HEP is able to do on his own and identify physical trainer to assist him in the home after PT completed. 06/05/21: Continue to modify and advance patient HEP. He has hired a physical trainer ( Letty Barrera, we have done training and this seems to be working out well). LTG Duration 07/06/21 One Impairment impaired gait Impairment 2 min walk test 93 ft 06/07/21: 83 ft but today had obstacles, had to turn. Also stated walker was a little high. Walked total of 112 ft . Fatigued after gait. Custodial Goal (LTG) Improve 2 min walk test to 140 ft as measure of improved functional gait 06/05/21: patient too fatigued after floor transfer and didn' t bring strap that he wears to assist right LE for walking. He reports his thinks his walking has improved since starting PT. LTG Duration 06/03/21 Two Impairment Tinetti gait and balance assessment score 9/28 indicating high fall risk Short Term Goal (STG) Improve Tinetti gait and balance assessment score to at least 14/28 as measure of improved gait and balance 06/05/21: Tinetti score improved to 11/28 STG Duration 06/25/21 Custodial Goal (LTG) Imprve Tinetti score to at least 19/28 LTG Duration 07/06/21 Assessment Summary Assessment 2 min walk test 89 ft, fatigued and ended 5 sec early . Improved core activation on seated bal activities. Modifications to HEP; patient to discuss with physical trainer addition of IT band stretch, use of balloon with seated balance ex. Physical Therapy Plan Frequency and Duration Frequency of Treatment 2x/Week Duration of Treatment 8 weeks Plan of Care Start Date 06/05/21 Plan of Care End Date 07/06/21 Therapeutic Interventions Therapeutic Interventions Aquatic Therapy,Balance Training,Gait Training,Home Exercise Program,Manual Therapy,Neuromuscular Re- education,Patient/Caregiver Education Next Visit Focus/Plan Next Note Type Treatment Note Next Visit Plan Continue strengthening, gait training, transfers, flexibility, progress HEP as tolerated.
--- NOTE | 2021-06-26 16:19 | PT.OTN ---
Current Diagnoses Multiple sclerosis (06/26/21) Cramp and spasm (06/26/21) Physical Therapy Treatment Note PT-OP-A Visit Information Start: 04/03/21 14:28 Freq: Status: Active Protocol: Document 06/26/21 15:12 [facility] (Rec: 06/26/21 16:17 [facility] [id number]) Out-Patient Physical Therapy Visit Information Visit Information Visit Type Treatment Note Visit Start Time 15:15 Visit Stop Time 16:09 Total Visit Minutes 54 Visit Number 14 Evaluation Information Evaluation Date 04/03/21 Precautions Precautions HTN spasticity fall risk PT-OP-B Current Condition Start: 04/03/21 14:28 Freq: Status: Active Protocol: Document 04/19/21 09:58 [facility]AK (Rec: 04/19/21 11:56 [facility] [id number]) Current Condition History of Current Condition Onset Date 2018 Current Complaints weakness, decreased flexibility, decreased ability to walk History of Current Condition Diagnosed with relapsing remitting MS in 1997. Most recently in 2019 calcium levels through the roof, hospitalized 4-5 days, 2 weeks in rehab due to weakened state. Improved but not back to PLF including being able to walk fairly long distances with walker. Then another episode of exacerbation with loss of strength especially in lower legs. Has been able to regain some strength with motomed and other exercises. With Covid not as active. Needs help with ROM and strength; wants to be able to lift LE 15 onto running board of vehicle, improve transfer into bed, transfer from shower seat to w/c seat, and be able to get off floor; has had to recently call 911 when has fallen a couple times recently. Has lost more strength in left vs right, uses device to help with toe lift on right. Wants help stretching his hamstrings and other leg muscles. No caregivers, has but doesn 't want to burden her with another thing to do. To PT today with scooter, has power w/c for use in home. Has rollater tries to use 3-4x/day max 120 steps. Used to be able to use forearm crutch using on left. Prior Treatments and Tests Seen for his MS at [facility] [place] Treatment Goals Patient/Caregiver Goals update HEP Improve flexibility and strength Be able to walk longer distances in and out of the home increased ease of bed transfers PT-OP-C Subjective Start: 04/03/21 14:28 Freq: Status: Active Protocol: Document 06/26/21 15:12 [facility] (Rec: 06/26/21 16:17 [facility] [id number]) OP-PT Subjective Patient Comments Patient Comments Things going well, transfers into truck improved, doing HEP . Wants to work on UE ex. PT-OP-D Balance Start: 04/03/21 14:28 Freq: Status: Active Protocol: Document 04/03/21 14:29 [facility] (Rec: 04/03/21 15:50 [facility] [id number]) OP-PT Balance Assessment Sitting Balance Static Sitting Balance Ability Good Dynamic Sitting Balance Ability Fair Standing Balance Static Standing Balance Ability Fair Dynamic Standing Balance Ability Poor Device Used 4WW Tinetti Balance Assessment Sitting Balance Sitting Balance Steady, safe Arising from Chair Ability to Arise Able, uses arms to help Standing Balance Immediate Standing Balance Steady with support Standing Balance Steady, wide stance Nudged Response Begins to fall Standing with Eyes Closed Unsteady Turning Step Pattern Turning 360 Degrees Discontinuous steps Stability Turning 360 Degrees Unsteady, grabs/staggers Sitting Down Sitting Down Uses arms or unsteady Gait and Step Initiation of Gait No hesitancy Right Foot Step Length Does not pass stance ft. Right Foot Step Height Does not clear floor Left Foot Step Length Does not pass stance foot Left Foot Step Height Does not clear floor Step Description Step Symmetry Step length not equal Step Continuity Steps appear continuous Gait Description Path Description Straight Trunk Description Marked sway or uses aide Walking Stance Heels apart Scoring and Interpretation Tinetti Composite Score (points) 9 Interpretation of Scores High risk for falls(< 19) Hagen Fall Scale Copyright Permission PT-OP-E Functional Tests Start: 04/03/21 14:28 Freq: Status: Active Protocol: Document 04/03/21 14:29 [facility] (Rec: 04/03/21 16:52 [facility] [id number]) Functional Tests 2 Minute Walk Test Distance 93 ft Device Used 4WW Five Times Sit to Stand Test Comments not done due to time constraints PT-OP-G Mobility & Gait Start: 04/03/21 14:28 Freq: Status: Active Protocol: Document 04/03/21 14:29 [facility] (Rec: 04/03/21 16:52 [facility] [id number]) OP Mobility Evaluation Bed Mobility Rolling indep with use of hands Supine to and from Sit indep with use of UE's Transfers Sit to Stand use of UE's, indep Bed to Chair Transfers use of UE's, indep Wheelchair Management Type of Wheelchair Has power w/c, scooter Assessment Details independent with management OP Gait Assessment Gait Gait Assistance Required: Independent Distance (Feet) 93 Assistive Devices Assistive Device Gait Belt,4 Wheeled Walker Orthotic/Prosthetic Devices or Brace: Yes Gait Deviations General Gait Pattern Decreased Stride Length, Decreased Feet Clearance, Flexed Trunk,Lateral Trunk Lean,Wide Based Gait Factors Limiting Gait Function Factors Limiting Gait Function Decreased Strength,Limited Range of Motion Comments Gait Comments 2 min walk 93 ft Stair Climbing Evaluation Comments Stair Climbing Comments unable, has elevator in the home PT-OP-H Neuro Start: 04/03/21 14:28 Freq: Status: Active Protocol: Document 04/03/21 14:29 [facility] (Rec: 04/03/21 16:52 [facility] [id number]) Sensation Evaluation Gross Sensation Gross Sensation Right UE Impaired,Left LE Impaired,Right LE Impaired Sensation Description Paresthesia,Numbness,Tingling PT-OP-J Posture/Palpation/Skin Start: 04/03/21 14:28 Freq: Status: Active Protocol: Document 04/03/21 14:29 [facility] (Rec: 04/03/21 16:52 [facility] [id number]) Posture Evaluation Position Standing Head/C-Spine Posture Forward Head T-Spine Posture Increased Kyphosis L-Spine Posture Decreased Lordosis Scapula Posture (L) Protracted,(R) Protracted Arm Posture (L) Internally Rotated,(R) Internally Rotated Hip Posture (L) Flexed,(R) Flexed Knee Posture (L) Excess Flexion,(R) Excess Flexion Sitting Head/C-Spine Posture Forward Head T-Spine Posture Increased Kyphosis L-Spine Posture Decreased Lordosis Shoulder Posture (L) Rounded,(R) Rounded Scapula Posture (L) Protracted,(R) Protracted Arm Posture (L) Internally Rotated,(R) Internally Rotated Pelvis Posture Posterior Tilted Weight Distribution Weight Shifted Left PT-OP-K Range of Motion Start: 04/03/21 14:28 Freq: Status: Active Protocol: Document 04/03/21 14:29 [facility] (Rec: 04/03/21 16:52 [facility] [id number]) Cervical Spine Range of Motion Cervical Spine Active Comments WFL Lumbar Spine Range of Motion Lumbar Spine Active Comments WFL Shoulder Goniometric Range of Motion Shoulder Right Shoulder ROM WFL No Testing Position Supine Flexion 135 Left Shoulder ROM WFL Yes Shoulder ROM Limitations Shoulder ROM Limitations Soft Tissue Tightness,Muscle Weakness Elbow/Forearm Range of Motion Elbow/Forearm andrew Elbow/Forearm ROM WFL Yes Wrist Goniometric Range of Motion Wrist andrew Wrist ROM WFL Yes ROM Limitations Wrist Limitations of Range of Motion Soft Tissue Tightness Hip Goniometric Range of Motion Hip Right Passive Hip ROM WFL No Testing Position Supine Flexion w/Knee Flexed 95 Straight Leg Raise 45 Abduction 20 Internal Rotation 20 External Rotation 45 Left Hip ROM WFL No Testing Position Supine Flexion w/Knee Flexed 90 Straight Leg Raise 50 Abduction 25 Internal Rotation 20 External Rotation 50 Hip ROM Limitations Hip ROM Limitations Soft Tissue Tightness,Muscle Weakness,Muscle Tone Knee Goniometric Range of Motion Knee andrew Knee ROM WFL Yes Ankle and Foot Goniometric Range of Motion Ankle and Foot Right Passive Dorsiflexion with Knee Flexed 3 Dorsiflexion with Knee Extended 0 Plantarflexion 35 Left Active Dorsiflexion with Knee Flexed 5 Dorsiflexion with Knee Extended 0 Plantarflexion 40 Ankle and Foot ROM Limitations ROM Limitations Soft Tissue Tightness, Contracture,Muscle Weakness, Muscle Tone PT-OP-M Strength Start: 04/03/21 14:28 Freq: Status: Active Protocol: Document 04/03/21 14:29 [facility] (Rec: 04/03/21 16:52 [facility] [id number]) Trunk Strength Trunk Manual Muscle Testing Comments functionally appears fair Shoulder Strength Shoulder Manual Muscle Testing Left Flexion 5 Normal Extension 5 Normal Abduction (C5) 5 Normal Adduction 5 Normal External Rotation 5 Normal Internal Rotation 5 Normal Horizontal Abduction 5 Normal Horizontal Adduction 5 Normal Right Flexion 3- Fair- Extension 3- Fair- Abduction (C5) 3- Fair- Adduction 3- Fair- External Rotation 3- Fair- Internal Rotation 3- Fair- Horizontal Abduction 3- Fair- Horizontal Adduction 3- Fair- Elbow/Forearm Strength Elbow and Forearm Manual Muscle Testing Right Flexion (C6) 3+ Fair+ Extension (C7) 3+ Fair+ Left Flexion (C6) 5 Normal Extension (C7) 5 Normal Wrist Strength Wrist Manual Muscle Testing Right Flexion (C7) 3+ Fair+ Extension (C6) 3+ Fair+ Left Flexion (C7) 5 Normal Extension (C6) 5 Normal Hip Strength Hip Manual Muscle Testing Right Flexion (L2) 0 Zero Extension (S1) 0 Zero Abduction 3- Fair- Adduction 2+ Poor+ External Rotation 2+ Poor+ Internal Rotation 2+ Poor+ Left Flexion (L2) 4+ Good+ Extension (S1) 3+ Fair+ Abduction 3+ Fair+ Adduction 4- Good- External Rotation 3+ Fair+ Internal Rotation 4- Good- Knee Strength Knee Manual Muscle Testing Right Flexion (S2) 3- Fair- Extension (L3) 3- Fair- Left Flexion (S2) 4+ Good+ Extension (L3) 4+ Good+ Ankle/Foot Strength Ankle and Foot Manual Muscle Testing Right Dorsiflexion (L4) 1 Trace Plantarflexion (S1) 2- Poor- Left Dorsiflexion (L4) 4 Good Plantarflexion (S1) 4 Good PT-OP-Q Treatments Start: 04/03/21 14:28 Freq: Status: Active Protocol: Document 06/26/21 15:12 [facility] (Rec: 06/26/21 16:17 [facility] [id number]) Therapeutic Exercises Supine Exercises bridge Supine Exercise Name LE's on ball, knees extended Equipment Used 55 cm ball Reps/Minutes 10x full body stretch Supine Exercise Name cues for body alignment, cue deep breathing lateral trunk Reps/Minutes 1' Comments arms overhead HS stretch Supine Exercise Name with HC stretch Reps/Minutes 2x60 Comments contract/relax technique, passive adductor stretch Reps/Minutes 2x30 Comments passive, LE's extended LTR Resistance lt manual resistance last 2 reps Equipment Used 55 cm therapy ball Reps/Minutes x10 Comments active, cues for core activation, SKTC Reps/Minutes 2x 30 L, 3x30 R Comments passive hip flex Supine Exercise Name andrew and unil Resistance manual resistance hip flex/ ext LLE, and min resistance RLE ext PROM flex Equipment Used 55 cm therapy ball Reps/Minutes 10x ea Comments max assist R LE, min assist LLE Prone Exercises spinal extension Reps/Minutes 10x5 prone on elbows Prone Exercise Name for trunk stretch and WB through R shd Reps/Minutes 1'x2 Comments min assist with positioning quad stretch Prone Exercise Name with NEREIDA Reps/Minutes 2x30 Comments manual Sitting Exercises row, shld ext, shld ER Equipment Used L1 TB Reps/Minutes 10x ea Comments unil with ER, cues for upright posture Other Exercises kneeling to sitting on ankles Other Exercise Name quad stretch Reps/Minutes 2x30 Therapeutic Activity Therapeutic Activity floor transfer prep Name prone to kneeling Reps/Minutes 1x Comments min assit from PT, stabilization of bench by Aide bed mob, transfers Name w/c>< mat table Reps/Minutes 2x Comments cues for either stand-pivot or step pivot instead of twisting, patient demonstrating god understanding Neuro Re-Education Treatment Balance Activities seated balance Details EO Equipment blue dynadisc Reps/Duration 3' Comments balloon vb PT-OP-T Assessment and Plan Start: 04/03/21 14:28 Freq: Status: Active Protocol: Document 06/26/21 15:12 [facility] (Rec: 06/26/21 16:17 [facility] [id number]) Physical Therapy Assessment Goals Five Impairment difficulty with floor transfer Impairment requires max assist [facility] Goal (LTG) patient able to do floor transfer with min assist 06/05/26: mod assist for floor transfer today raised up on 2 stacked 4 mats LTG Duration 07/06/21 Four Impairment impaired functional mobility Impairment patient no longer able to lift his right LE 15 onto running board of vehicle for purposes of safe transfers into vehicle Clin Nurse Spec Goal (LTG) patient will be able to lift his right LE at least 15 to allow him to safely transfer into current vehicle 06/05/21: goal progress: able to lift up onto 6 box LTG Duration 07/06/21 Three Impairment decline in strength and ROM Short Term Goal (STG) establish updated HEP and problem-solve ways for patient to perform independently as much as possible. STG Duration goal met Clin Nurse Spec Goal (LTG) Patient to be indepenent and safe with the aspects of his HEP is able to do on his own and identify radio personality to assist him in the home after PT completed. 06/05/21: Continue to modify and advance patient HEP. He has hired a radio personality ( Letty Barrera, we have done training and this seems to be working out well). LTG Duration 07/06/21 One Impairment impaired gait Impairment 2 min walk test 93 ft 06/07/21: 83 ft but today had obstacles, had to turn. Also stated walker was a little high. Walked total of 112 ft . Fatigued after gait. Clin Nurse Spec Goal (LTG) Improve 2 min walk test to 140 ft as measure of improved functional gait 06/05/21: patient too fatigued after floor transfer and didn' t bring strap that he wears to assist right LE for walking. He reports his thinks his walking has improved since starting PT. LTG Duration 06/03/21 Two Impairment Tinetti gait and balance assessment score 9/28 indicating high fall risk Short Term Goal (STG) Improve Tinetti gait and balance assessment score to at least 14/28 as measure of improved gait and balance 06/05/21: Tinetti score improved to 11/28 STG Duration 06/25/21 Clin Nurse Spec Goal (LTG) Imprve Tinetti score to at least 19/28 LTG Duration 07/06/21 Assessment Summary Assessment Improved hip flexor strength noted left today. Added seated row, shld ext, ER for HEP. Issued balloon for use at home with seated balance. Physical Therapy Plan Frequency and Duration Frequency of Treatment 2x/Week Duration of Treatment 8 weeks Plan of Care Start Date 06/05/21 Plan of Care End Date 07/06/21 Therapeutic Interventions Therapeutic Interventions Aquatic Therapy,Balance Training,Gait Training,Home Exercise Program,Manual Therapy,Neuromuscular Re- education,Patient/Caregiver Education Next Visit Focus/Plan Next Note Type Treatment Note Next Visit Plan Issue written HEP for new shoulder exercises, continue progressive ther ex for strengthening, balance, ROM.
--- NOTE | 2021-06-28 16:18 | PT.OTN ---
Current Diagnoses Multiple sclerosis (06/28/21) Cramp and spasm (06/28/21) Physical Therapy Treatment Note PT-OP-A Visit Information Start: 04/03/21 14:28 Freq: Status: Active Protocol: Document 06/28/21 15:15 [facility]AK (Rec: 06/28/21 16:18 [facility]AK [id number]) Out-Patient Physical Therapy Visit Information Visit Information Visit Type Treatment Note Visit Start Time 15:15 Visit Stop Time 16:09 Total Visit Minutes 54 Visit Number 15 Evaluation Information Evaluation Date 04/03/21 Precautions Precautions HTN spasticity fall risk PT-OP-B Current Condition Start: 04/03/21 14:28 Freq: Status: Active Protocol: Document 04/19/21 09:58 SAK (Rec: 04/19/21 11:56 SAK [id number]) Current Condition History of Current Condition Onset Date 2018 Current Complaints weakness, decreased flexibility, decreased ability to walk History of Current Condition Diagnosed with relapsing remitting MS in 1997. Most recently in 2019 calcium levels through the roof, hospitalized 4-5 days, 2 weeks in rehab due to weakened state. Improved but not back to PLF including being able to walk fairly long distances with walker. Then another episode of exacerbation with loss of strength especially in lower legs. Has been able to regain some strength with motomed and other exercises. With Covid not as active. Needs help with ROM and strength; wants to be able to lift LE 15 onto running board of vehicle, improve transfer into bed, transfer from shower seat to w/c seat, and be able to get off floor; has had to recently call 911 when has fallen a couple times recently. Has lost more strength in left vs right, uses device to help with toe lift on right. Wants help stretching his hamstrings and other leg muscles. No caregivers, has but doesn 't want to burden her with another thing to do. To PT today with scooter, has power w/c for use in home. Has rollater tries to use 3-4x/day max 120 steps. Used to be able to use forearm crutch using on left. Prior Treatments and Tests Seen for his MS at [facility] [place] Treatment Goals Patient/Caregiver Goals update HEP Improve flexibility and strength Be able to walk longer distances in and out of the home increased ease of bed transfers PT-OP-C Subjective Start: 04/03/21 14:28 Freq: Status: Active Protocol: Document 06/28/21 15:15 [facility] (Rec: 06/28/21 16:18 [facility] [id number]) OP-PT Subjective Patient Comments Patient Comments REports back to being able to walk from house to his car without using his wheelchair. Feels he is continuing to improve. Patient Reported Progress Improving PT-OP-D Balance Start: 04/03/21 14:28 Freq: Status: Active Protocol: Document 04/03/21 14:29 [facility] (Rec: 04/03/21 15:50 [facility] [id number]) OP-PT Balance Assessment Sitting Balance Static Sitting Balance Ability Good Dynamic Sitting Balance Ability Fair Standing Balance Static Standing Balance Ability Fair Dynamic Standing Balance Ability Poor Device Used 4WW Tinetti Balance Assessment Sitting Balance Sitting Balance Steady, safe Arising from Chair Ability to Arise Able, uses arms to help Standing Balance Immediate Standing Balance Steady with support Standing Balance Steady, wide stance Nudged Response Begins to fall Standing with Eyes Closed Unsteady Turning Step Pattern Turning 360 Degrees Discontinuous steps Stability Turning 360 Degrees Unsteady, grabs/staggers Sitting Down Sitting Down Uses arms or unsteady Gait and Step Initiation of Gait No hesitancy Right Foot Step Length Does not pass stance ft. Right Foot Step Height Does not clear floor Left Foot Step Length Does not pass stance foot Left Foot Step Height Does not clear floor Step Description Step Symmetry Step length not equal Step Continuity Steps appear continuous Gait Description Path Description Straight Trunk Description Marked sway or uses aide Walking Stance Heels apart Scoring and Interpretation Tinetti Composite Score (points) 9 Interpretation of Scores High risk for falls(< 19) Hagen Fall Scale Copyright Permission PT-OP-E Functional Tests Start: 04/03/21 14:28 Freq: Status: Active Protocol: Document 04/03/21 14:29 [facility] (Rec: 04/03/21 16:52 [facility] [id number]) Functional Tests 2 Minute Walk Test Distance 93 ft Device Used 4WW Five Times Sit to Stand Test Comments not done due to time constraints PT-OP-G Mobility & Gait Start: 04/03/21 14:28 Freq: Status: Active Protocol: Document 04/03/21 14:29 [facility] (Rec: 04/03/21 16:52 [facility] [id number]) OP Mobility Evaluation Bed Mobility Rolling indep with use of hands Supine to and from Sit indep with use of UE's Transfers Sit to Stand use of UE's, indep Bed to Chair Transfers use of UE's, indep Wheelchair Management Type of Wheelchair Has power w/c, scooter Assessment Details independent with management OP Gait Assessment Gait Gait Assistance Required: Independent Distance (Feet) 93 Assistive Devices Assistive Device Gait Belt,4 Wheeled Walker Orthotic/Prosthetic Devices or Brace: Yes Gait Deviations General Gait Pattern Decreased Stride Length, Decreased Feet Clearance, Flexed Trunk,Lateral Trunk Lean,Wide Based Gait Factors Limiting Gait Function Factors Limiting Gait Function Decreased Strength,Limited Range of Motion Comments Gait Comments 2 min walk 93 ft Stair Climbing Evaluation Comments Stair Climbing Comments unable, has elevator in the home PT-OP-H Neuro Start: 04/03/21 14:28 Freq: Status: Active Protocol: Document 04/03/21 14:29 [facility] (Rec: 04/03/21 16:52 [facility] [id number]) Sensation Evaluation Gross Sensation Gross Sensation Right UE Impaired,Left LE Impaired,Right LE Impaired Sensation Description Paresthesia,Numbness,Tingling PT-OP-J Posture/Palpation/Skin Start: 04/03/21 14:28 Freq: Status: Active Protocol: Document 04/03/21 14:29 [facility] (Rec: 04/03/21 16:52 [facility] [id number]) Posture Evaluation Position Standing Head/C-Spine Posture Forward Head T-Spine Posture Increased Kyphosis L-Spine Posture Decreased Lordosis Scapula Posture (L) Protracted,(R) Protracted Arm Posture (L) Internally Rotated,(R) Internally Rotated Hip Posture (L) Flexed,(R) Flexed Knee Posture (L) Excess Flexion,(R) Excess Flexion Sitting Head/C-Spine Posture Forward Head T-Spine Posture Increased Kyphosis L-Spine Posture Decreased Lordosis Shoulder Posture (L) Rounded,(R) Rounded Scapula Posture (L) Protracted,(R) Protracted Arm Posture (L) Internally Rotated,(R) Internally Rotated Pelvis Posture Posterior Tilted Weight Distribution Weight Shifted Left PT-OP-K Range of Motion Start: 04/03/21 14:28 Freq: Status: Active Protocol: Document 04/03/21 14:29 [facility] (Rec: 04/03/21 16:52 [facility] [id number]) Cervical Spine Range of Motion Cervical Spine Active Comments WFL Lumbar Spine Range of Motion Lumbar Spine Active Comments WFL Shoulder Goniometric Range of Motion Shoulder Right Shoulder ROM WFL No Testing Position Supine Flexion 135 Left Shoulder ROM WFL Yes Shoulder ROM Limitations Shoulder ROM Limitations Soft Tissue Tightness,Muscle Weakness Elbow/Forearm Range of Motion Elbow/Forearm andrew Elbow/Forearm ROM WFL Yes Wrist Goniometric Range of Motion Wrist andrew Wrist ROM WFL Yes ROM Limitations Wrist Limitations of Range of Motion Soft Tissue Tightness Hip Goniometric Range of Motion Hip Right Passive Hip ROM WFL No Testing Position Supine Flexion w/Knee Flexed 95 Straight Leg Raise 45 Abduction 20 Internal Rotation 20 External Rotation 45 Left Hip ROM WFL No Testing Position Supine Flexion w/Knee Flexed 90 Straight Leg Raise 50 Abduction 25 Internal Rotation 20 External Rotation 50 Hip ROM Limitations Hip ROM Limitations Soft Tissue Tightness,Muscle Weakness,Muscle Tone Knee Goniometric Range of Motion Knee andrew Knee ROM WFL Yes Ankle and Foot Goniometric Range of Motion Ankle and Foot Right Passive Dorsiflexion with Knee Flexed 3 Dorsiflexion with Knee Extended 0 Plantarflexion 35 Left Active Dorsiflexion with Knee Flexed 5 Dorsiflexion with Knee Extended 0 Plantarflexion 40 Ankle and Foot ROM Limitations ROM Limitations Soft Tissue Tightness, Contracture,Muscle Weakness, Muscle Tone PT-OP-M Strength Start: 04/03/21 14:28 Freq: Status: Active Protocol: Document 04/03/21 14:29 [facility] (Rec: 04/03/21 16:52 [facility] [id number]) Trunk Strength Trunk Manual Muscle Testing Comments functionally appears fair Shoulder Strength Shoulder Manual Muscle Testing Left Flexion 5 Normal Extension 5 Normal Abduction (C5) 5 Normal Adduction 5 Normal External Rotation 5 Normal Internal Rotation 5 Normal Horizontal Abduction 5 Normal Horizontal Adduction 5 Normal Right Flexion 3- Fair- Extension 3- Fair- Abduction (C5) 3- Fair- Adduction 3- Fair- External Rotation 3- Fair- Internal Rotation 3- Fair- Horizontal Abduction 3- Fair- Horizontal Adduction 3- Fair- Elbow/Forearm Strength Elbow and Forearm Manual Muscle Testing Right Flexion (C6) 3+ Fair+ Extension (C7) 3+ Fair+ Left Flexion (C6) 5 Normal Extension (C7) 5 Normal Wrist Strength Wrist Manual Muscle Testing Right Flexion (C7) 3+ Fair+ Extension (C6) 3+ Fair+ Left Flexion (C7) 5 Normal Extension (C6) 5 Normal Hip Strength Hip Manual Muscle Testing Right Flexion (L2) 0 Zero Extension (S1) 0 Zero Abduction 3- Fair- Adduction 2+ Poor+ External Rotation 2+ Poor+ Internal Rotation 2+ Poor+ Left Flexion (L2) 4+ Good+ Extension (S1) 3+ Fair+ Abduction 3+ Fair+ Adduction 4- Good- External Rotation 3+ Fair+ Internal Rotation 4- Good- Knee Strength Knee Manual Muscle Testing Right Flexion (S2) 3- Fair- Extension (L3) 3- Fair- Left Flexion (S2) 4+ Good+ Extension (L3) 4+ Good+ Ankle/Foot Strength Ankle and Foot Manual Muscle Testing Right Dorsiflexion (L4) 1 Trace Plantarflexion (S1) 2- Poor- Left Dorsiflexion (L4) 4 Good Plantarflexion (S1) 4 Good PT-OP-Q Treatments Start: 04/03/21 14:28 Freq: Status: Active Protocol: Document 06/28/21 15:15 [facility] (Rec: 06/28/21 16:18 [facility] [id number]) Therapeutic Exercises Supine Exercises bridge Supine Exercise Name LE's on ball, knees extended Equipment Used 55 cm ball Reps/Minutes 10x full body stretch Supine Exercise Name cues for body alignment, cue deep breathing lateral trunk Reps/Minutes 1' Comments arms overhead IT band stretch Reps/Minutes 1x30 Comments passive HS stretch Supine Exercise Name with HC stretch Reps/Minutes 2x60 Comments contract/relax technique, passive adductor stretch Reps/Minutes 2x30 Comments passive, LE's extended LTR Resistance lt manual resistance last 2 reps Equipment Used 55 cm therapy ball Reps/Minutes x10 Comments active, cues for core activation, SKTC Reps/Minutes 2x 30 L, 3x30 R Comments passive hip flex Supine Exercise Name andrew and unil Resistance manual resistance hip flex/ ext LLE, and min resistance RLE ext PROM flex Equipment Used 55 cm therapy ball Reps/Minutes 10x ea Comments max assist R LE, min assist LLE Prone Exercises spinal extension Reps/Minutes 10x5 prone on elbows Prone Exercise Name for trunk stretch and WB through R shd Reps/Minutes 1'x2 Comments min assist with positioning quad stretch Prone Exercise Name with NEREIDA Reps/Minutes 2x30 Comments manual Sitting Exercises row, shld ext, shld ER Comments next session again Therapeutic Activity Therapeutic Activity floor transfer prep Name prone to kneeling Reps/Minutes 1x Comments min assit from PT, stabilization of bench by Aide bed mob, transfers Name w/c>< mat table Reps/Minutes 2x Comments cues for either stand-pivot or step pivot instead of twisting, patient demonstrating god understanding Neuro Re-Education Treatment Balance Activities seated balance Details EO Equipment blue dynadisc Reps/Duration 5' Comments 1. reverse crunches 2. balloon vb SB to CGA for safety PT-OP-T Assessment and Plan Start: 04/03/21 14:28 Freq: Status: Active Protocol: Document 06/28/21 15:15 [facility] (Rec: 06/28/21 16:18 [facility] [id number]) Physical Therapy Assessment Goals Five Impairment difficulty with floor transfer Impairment requires max assist Mr Teacher Goal (LTG) patient able to do floor transfer with min assist 06/05/26: mod assist for floor transfer today raised up on 2 stacked 4 mats LTG Duration 07/06/21 Four Impairment impaired functional mobility Impairment patient no longer able to lift his right LE 15 onto running board of vehicle for purposes of safe transfers into vehicle Custodial Goal (LTG) patient will be able to lift his right LE at least 15 to allow him to safely transfer into current vehicle 06/05/21: goal progress: able to lift up onto 6 box LTG Duration 07/06/21 Three Impairment decline in strength and ROM Short Term Goal (STG) establish updated HEP and problem-solve ways for patient to perform independently as much as possible. STG Duration goal met Mr Teacher Goal (LTG) Patient to be indepenent and safe with the aspects of his HEP is able to do on his own and identify personal driver to assist him in the home after PT completed. 06/05/21: Continue to modify and advance patient HEP. He has hired a personal driver ( Letty Barrera, we have done training and this seems to be working out well). LTG Duration 07/06/21 One Impairment impaired gait Impairment 2 min walk test 93 ft 06/07/21: 83 ft but today had obstacles, had to turn. Also stated walker was a little high. Walked total of 112 ft . Fatigued after gait. Custodial Goal (LTG) Improve 2 min walk test to 140 ft as measure of improved functional gait 06/05/21: patient too fatigued after floor transfer and didn' t bring strap that he wears to assist right LE for walking. He reports his thinks his walking has improved since starting PT. LTG Duration 06/03/21 Two Impairment Tinetti gait and balance assessment score 9/28 indicating high fall risk Short Term Goal (STG) Improve Tinetti gait and balance assessment score to at least 14/28 as measure of improved gait and balance 06/05/21: Tinetti score improved to 11/28 STG Duration 06/25/21 Mr Teacher Goal (LTG) Imprve Tinetti score to at least 19/28 LTG Duration 07/06/21 Assessment Summary Assessment sports trainer Letty to come next session to discuss home program, problem-solve any difficulties, work on increased intensity of stretch per patient request. Physical Therapy Plan Frequency and Duration Frequency of Treatment 2x/Week Duration of Treatment 8 weeks Plan of Care Start Date 06/05/21 Plan of Care End Date 07/06/21 Therapeutic Interventions Therapeutic Interventions Aquatic Therapy,Balance Training,Gait Training,Home Exercise Program,Manual Therapy,Neuromuscular Re- education,Patient/Caregiver Education Next Visit Focus/Plan Next Note Type Treatment Note Next Visit Plan Issue written HEP for new shoulder exercises, continue progressive ther ex for strengthening, balance, ROM.
--- NOTE | 2021-07-03 16:29 | PT.OTN ---
Current Diagnoses Multiple sclerosis (07/03/21) Cramp and spasm (07/03/21) Physical Therapy Treatment Note PT-OP-A Visit Information Start: 04/03/21 14:28 Freq: Status: Active Protocol: Document 07/03/21 15:13 SAK (Rec: 07/03/21 15:15 SAK [id number]) Out-Patient Physical Therapy Visit Information Visit Information Visit Type Treatment Note Visit Start Time 15:15 Visit Stop Time 16:05 Total Visit Minutes 50 Visit Number 16 Evaluation Information Evaluation Date 04/03/21 Precautions Precautions HTN spasticity fall risk PT-OP-B Current Condition Start: 04/03/21 14:28 Freq: Status: Active Protocol: Document 04/19/21 09:58 SAK (Rec: 04/19/21 11:56 SAK [id number]) Current Condition History of Current Condition Onset Date 2018 Current Complaints weakness, decreased flexibility, decreased ability to walk History of Current Condition Diagnosed with relapsing remitting MS in 1997. Most recently in 2019 calcium levels through the roof, hospitalized 4-5 days, 2 weeks in rehab due to weakened state. Improved but not back to PLF including being able to walk fairly long distances with walker. Then another episode of exacerbation with loss of strength especially in lower legs. Has been able to regain some strength with motomed and other exercises. With Covid not as active. Needs help with ROM and strength; wants to be able to lift LE 15 onto running board of vehicle, improve transfer into bed, transfer from shower seat to w/c seat, and be able to get off floor; has had to recently call 911 when has fallen a couple times recently. Has lost more strength in left vs right, uses device to help with toe lift on right. Wants help stretching his hamstrings and other leg muscles. No caregivers, has but doesn 't want to burden her with another thing to do. To PT today with scooter, has power w/c for use in home. Has rollater tries to use 3-4x/day max 120 steps. Used to be able to use forearm crutch using on left. Prior Treatments and Tests Seen for his MS at [facility] [place] Treatment Goals Patient/Caregiver Goals update HEP Improve flexibility and strength Be able to walk longer distances in and out of the home increased ease of bed transfers PT-OP-C Subjective Start: 04/03/21 14:28 Freq: Status: Active Protocol: Document 07/03/21 15:13 SAK (Rec: 07/03/21 16:29 [facility] [id number]) OP-PT Subjective Patient Comments Patient Comments no new c/o, functional executive coach Letty present for treatment. Both patient and Letty expressing that they are working well together, establishing a good routine. Patient requests some further instruction regarding stretching techniques especially for increased intensity of stretch. Letty present with notebook to take notes regarding session. Patient Reported Progress Improving PT-OP-D Balance Start: 04/03/21 14:28 Freq: Status: Active Protocol: Document 04/03/21 14:29 [facility] (Rec: 04/03/21 15:50 [facility] [id number]) OP-PT Balance Assessment Sitting Balance Static Sitting Balance Ability Good Dynamic Sitting Balance Ability Fair Standing Balance Static Standing Balance Ability Fair Dynamic Standing Balance Ability Poor Device Used 4WW Tinetti Balance Assessment Sitting Balance Sitting Balance Steady, safe Arising from Chair Ability to Arise Able, uses arms to help Standing Balance Immediate Standing Balance Steady with support Standing Balance Steady, wide stance Nudged Response Begins to fall Standing with Eyes Closed Unsteady Turning Step Pattern Turning 360 Degrees Discontinuous steps Stability Turning 360 Degrees Unsteady, grabs/staggers Sitting Down Sitting Down Uses arms or unsteady Gait and Step Initiation of Gait No hesitancy Right Foot Step Length Does not pass stance ft. Right Foot Step Height Does not clear floor Left Foot Step Length Does not pass stance foot Left Foot Step Height Does not clear floor Step Description Step Symmetry Step length not equal Step Continuity Steps appear continuous Gait Description Path Description Straight Trunk Description Marked sway or uses aide Walking Stance Heels apart Scoring and Interpretation Tinetti Composite Score (points) 9 Interpretation of Scores High risk for falls(< 19) Hagen Fall Scale Copyright Permission PT-OP-E Functional Tests Start: 04/03/21 14:28 Freq: Status: Active Protocol: Document 04/03/21 14:29 [facility] (Rec: 04/03/21 16:52 [facility] [id number]) Functional Tests 2 Minute Walk Test Distance 93 ft Device Used 4WW Five Times Sit to Stand Test Comments not done due to time constraints PT-OP-G Mobility & Gait Start: 04/03/21 14:28 Freq: Status: Active Protocol: Document 04/03/21 14:29 [facility] (Rec: 04/03/21 16:52 [facility] [id number]) OP Mobility Evaluation Bed Mobility Rolling indep with use of hands Supine to and from Sit indep with use of UE's Transfers Sit to Stand use of UE's, indep Bed to Chair Transfers use of UE's, indep Wheelchair Management Type of Wheelchair Has power w/c, scooter Assessment Details independent with management OP Gait Assessment Gait Gait Assistance Required: Independent Distance (Feet) 93 Assistive Devices Assistive Device Gait Belt,4 Wheeled Walker Orthotic/Prosthetic Devices or Brace: Yes Gait Deviations General Gait Pattern Decreased Stride Length, Decreased Feet Clearance, Flexed Trunk,Lateral Trunk Lean,Wide Based Gait Factors Limiting Gait Function Factors Limiting Gait Function Decreased Strength,Limited Range of Motion Comments Gait Comments 2 min walk 93 ft Stair Climbing Evaluation Comments Stair Climbing Comments unable, has elevator in the home PT-OP-H Neuro Start: 04/03/21 14:28 Freq: Status: Active Protocol: Document 04/03/21 14:29 [facility] (Rec: 04/03/21 16:52 [facility] [id number]) Sensation Evaluation Gross Sensation Gross Sensation Right UE Impaired,Left LE Impaired,Right LE Impaired Sensation Description Paresthesia,Numbness,Tingling PT-OP-J Posture/Palpation/Skin Start: 04/03/21 14:28 Freq: Status: Active Protocol: Document 04/03/21 14:29 [facility] (Rec: 04/03/21 16:52 [facility] [id number]) Posture Evaluation Position Standing Head/C-Spine Posture Forward Head T-Spine Posture Increased Kyphosis L-Spine Posture Decreased Lordosis Scapula Posture (L) Protracted,(R) Protracted Arm Posture (L) Internally Rotated,(R) Internally Rotated Hip Posture (L) Flexed,(R) Flexed Knee Posture (L) Excess Flexion,(R) Excess Flexion Sitting Head/C-Spine Posture Forward Head T-Spine Posture Increased Kyphosis L-Spine Posture Decreased Lordosis Shoulder Posture (L) Rounded,(R) Rounded Scapula Posture (L) Protracted,(R) Protracted Arm Posture (L) Internally Rotated,(R) Internally Rotated Pelvis Posture Posterior Tilted Weight Distribution Weight Shifted Left PT-OP-K Range of Motion Start: 04/03/21 14:28 Freq: Status: Active Protocol: Document 04/03/21 14:29 [facility] (Rec: 04/03/21 16:52 [facility] [id number]) Cervical Spine Range of Motion Cervical Spine Active Comments WFL Lumbar Spine Range of Motion Lumbar Spine Active Comments WFL Shoulder Goniometric Range of Motion Shoulder Right Shoulder ROM WFL No Testing Position Supine Flexion 135 Left Shoulder ROM WFL Yes Shoulder ROM Limitations Shoulder ROM Limitations Soft Tissue Tightness,Muscle Weakness Elbow/Forearm Range of Motion Elbow/Forearm andrew Elbow/Forearm ROM WFL Yes Wrist Goniometric Range of Motion Wrist andrew Wrist ROM WFL Yes ROM Limitations Wrist Limitations of Range of Motion Soft Tissue Tightness Hip Goniometric Range of Motion Hip Right Passive Hip ROM WFL No Testing Position Supine Flexion w/Knee Flexed 95 Straight Leg Raise 45 Abduction 20 Internal Rotation 20 External Rotation 45 Left Hip ROM WFL No Testing Position Supine Flexion w/Knee Flexed 90 Straight Leg Raise 50 Abduction 25 Internal Rotation 20 External Rotation 50 Hip ROM Limitations Hip ROM Limitations Soft Tissue Tightness,Muscle Weakness,Muscle Tone Knee Goniometric Range of Motion Knee andrew Knee ROM WFL Yes Ankle and Foot Goniometric Range of Motion Ankle and Foot Right Passive Dorsiflexion with Knee Flexed 3 Dorsiflexion with Knee Extended 0 Plantarflexion 35 Left Active Dorsiflexion with Knee Flexed 5 Dorsiflexion with Knee Extended 0 Plantarflexion 40 Ankle and Foot ROM Limitations ROM Limitations Soft Tissue Tightness, Contracture,Muscle Weakness, Muscle Tone PT-OP-M Strength Start: 04/03/21 14:28 Freq: Status: Active Protocol: Document 04/03/21 14:29 [facility] (Rec: 04/03/21 16:52 [facility] [id number]) Trunk Strength Trunk Manual Muscle Testing Comments functionally appears fair Shoulder Strength Shoulder Manual Muscle Testing Left Flexion 5 Normal Extension 5 Normal Abduction (C5) 5 Normal Adduction 5 Normal External Rotation 5 Normal Internal Rotation 5 Normal Horizontal Abduction 5 Normal Horizontal Adduction 5 Normal Right Flexion 3- Fair- Extension 3- Fair- Abduction (C5) 3- Fair- Adduction 3- Fair- External Rotation 3- Fair- Internal Rotation 3- Fair- Horizontal Abduction 3- Fair- Horizontal Adduction 3- Fair- Elbow/Forearm Strength Elbow and Forearm Manual Muscle Testing Right Flexion (C6) 3+ Fair+ Extension (C7) 3+ Fair+ Left Flexion (C6) 5 Normal Extension (C7) 5 Normal Wrist Strength Wrist Manual Muscle Testing Right Flexion (C7) 3+ Fair+ Extension (C6) 3+ Fair+ Left Flexion (C7) 5 Normal Extension (C6) 5 Normal Hip Strength Hip Manual Muscle Testing Right Flexion (L2) 0 Zero Extension (S1) 0 Zero Abduction 3- Fair- Adduction 2+ Poor+ External Rotation 2+ Poor+ Internal Rotation 2+ Poor+ Left Flexion (L2) 4+ Good+ Extension (S1) 3+ Fair+ Abduction 3+ Fair+ Adduction 4- Good- External Rotation 3+ Fair+ Internal Rotation 4- Good- Knee Strength Knee Manual Muscle Testing Right Flexion (S2) 3- Fair- Extension (L3) 3- Fair- Left Flexion (S2) 4+ Good+ Extension (L3) 4+ Good+ Ankle/Foot Strength Ankle and Foot Manual Muscle Testing Right Dorsiflexion (L4) 1 Trace Plantarflexion (S1) 2- Poor- Left Dorsiflexion (L4) 4 Good Plantarflexion (S1) 4 Good PT-OP-Q Treatments Start: 04/03/21 14:28 Freq: Status: Active Protocol: Document 07/03/21 15:13 [facility] (Rec: 07/03/21 15:15 [facility] [id number]) Therapeutic Exercises Supine Exercises piriformis stretch Reps/Minutes 2x30 Comments passive bridge Comments ran out of time butterfly stretch Comments manual full body stretch Supine Exercise Name cues for body alignment, cue deep breathing lateral trunk Reps/Minutes 1' Comments arms overhead IT band stretch Reps/Minutes 1x30 Comments passive HS stretch Supine Exercise Name with HC stretch Reps/Minutes 2x60 Comments contract/relax technique, passive adductor stretch Reps/Minutes 2x30 Comments passive, LE's extended LTR Resistance lt manual resistance Equipment Used 55 cm therapy ball Reps/Minutes x10 Comments active, cues for core activation, SKTC Reps/Minutes 2x 30 L, 3x30 R Comments passive hip flex Supine Exercise Name andrew and unil Resistance manual resistance hip flex/ ext LLE, and min resistance RLE ext PROM flex Equipment Used 55 cm therapy ball Reps/Minutes 10x ea Comments max assist R LE, min assist LLE Prone Exercises spinal extension Reps/Minutes 10x5 prone on elbows Prone Exercise Name for trunk stretch and WB through R shd Reps/Minutes 1'x2 Comments min assist with positioning quad stretch Prone Exercise Name with NEREIDA Reps/Minutes 2x30 Comments manual Therapeutic Activity Therapeutic Activity floor transfer prep Name prone to all 4's Reps/Minutes 1x Comments min assit from PT, stabilization of bench by Aide bed mob, transfers Name w/c>< mat table Reps/Minutes 2x Comments cues for either stand-pivot or step pivot instead of twisting, patient demonstrating god understanding Neuro Re-Education Treatment Balance Activities seated balance Details EO Equipment blue dynadisc Reps/Duration 5' Comments 1. reverse crunches 2. balloon vb SB to CGA for safety Self-Care/Home Management Treatment Education Patient Education Body Mechanics,Home Exercise Program,Posture,Safety Other Education application trainer/functional executive coach Letty present for session for education regarding patient's HEP, appropriate questions asked, discussed intensity of stretching, importance of patient alignment when performing exercises, full body stretch, hip ad/ad with legs extended as alternative to butterfly stretching PT-OP-T Assessment and Plan Start: 04/03/21 14:28 Freq: Status: Active Protocol: Document 07/03/21 15:13 [facility] (Rec: 07/03/21 15:15 [facility] [id number]) Physical Therapy Assessment Goals Five Impairment difficulty with floor transfer Impairment requires max assist [employer] Machine Setter Goal (LTG) patient able to do floor transfer with min assist 06/05/26: mod assist for floor transfer today raised up on 2 stacked 4 mats LTG Duration 07/06/21 Four Impairment impaired functional mobility Impairment patient no longer able to lift his right LE 15 onto running board of vehicle for purposes of safe transfers into vehicle [employer] Machine Setter Goal (LTG) patient will be able to lift his right LE at least 15 to allow him to safely transfer into current vehicle 06/05/21: goal progress: able to lift up onto 6 box LTG Duration 07/06/21 Three Impairment decline in strength and ROM Short Term Goal (STG) establish updated HEP and problem-solve ways for patient to perform independently as much as possible. STG Duration goal met Longterm Goal (LTG) Patient to be indepenent and safe with the aspects of his HEP is able to do on his own and identify application trainer to assist him in the home after PT completed. 06/05/21: Continue to modify and advance patient HEP. He has hired a application trainer ( Letty Barrera, we have done training and this seems to be working out well). LTG Duration 07/06/21 One Impairment impaired gait Impairment 2 min walk test 93 ft 06/07/21: 83 ft but today had obstacles, had to turn. Also stated walker was a little high. Walked total of 112 ft . Fatigued after gait. [employer] Setter Goal (LTG) Improve 2 min walk test to 140 ft as measure of improved functional gait 06/05/21: patient too fatigued after floor transfer and didn' t bring strap that he wears to assist right LE for walking. He reports his thinks his walking has improved since starting PT. LTG Duration 06/03/21 Two Impairment Tinetti gait and balance assessment score 9/28 indicating high fall risk Short Term Goal (STG) Improve Tinetti gait and balance assessment score to at least 14/28 as measure of improved gait and balance 06/05/21: Tinetti score improved to 11/28 STG Duration 06/25/21 [employer] Setter Goal (LTG) Imprve Tinetti score to at least 19/28 LTG Duration 07/06/21 Assessment Summary Assessment Good session with application trainer/functional executive coach Letty present for further training, problem-solving. She demonstrated good understanding of HEP, suggestions for alternatives and progression of exercises, asked appropriate questions. Patient and Letty have good rapport and both report things are going well with HEP. Agreed to 1 further PT appointment, then discharge to independent HEP with assistance of Letty. Physical Therapy Plan Frequency and Duration Frequency of Treatment 2x/Week Duration of Treatment 8 weeks Plan of Care Start Date 06/05/21 Plan of Care End Date 07/06/21 Therapeutic Interventions Therapeutic Interventions Aquatic Therapy,Balance Training,Gait Training,Home Exercise Program,Manual Therapy,Neuromuscular Re- education,Patient/Caregiver Education Next Visit Focus/Plan Next Note Type Treatment Note Next Visit Plan Last PT visit, assure patient has all handouts needed for HEP reminders, re-inforce importance of good postural alignment, breathing. Floor transfer prep exercises, discharge assessment.
--- NOTE | 2021-07-05 08:17 | PT-OP ANOTE ---
cancelled due to weather, can't get wheelchair through the snow
--- NOTE | 2021-07-18 08:55 | PT.OPDS ---
Current Diagnoses Multiple sclerosis (07/18/21) Cramp and spasm (07/18/21) Visit Care Team Role Provider Type Mario Manzano MD Family Provider Physician Primary Care Provider Specialty: Internal Medicine Address: [address] [place] [address], [id number] Email: Terrie Muñoz MD Attending Provider Non-Staff Referring Provider Specialty: Medical Address: [address] [place] [address], [address], [address] Email: Visit Number Visit Number 16 Discharge Summary PT-OP-B Current Condition Start: 04/03/21 14:28 Freq: Status: Active Protocol: Document 04/19/21 09:58 SABINA (Rec: 04/19/21 11:56 [facility] [id number]) Current Condition History of Current Condition Onset Date 2018 Current Complaints weakness, decreased flexibility, decreased ability to walk History of Current Condition Diagnosed with relapsing remitting MS in 1997. Most recently in 2019 calcium levels through the roof, hospitalized 4-5 days, 2 weeks in rehab due to weakened state. Improved but not back to PLF including being able to walk fairly long distances with walker. Then another episode of exacerbation with loss of strength especially in lower legs. Has been able to regain some strength with motomed and other exercises. With Covid not as active. Needs help with ROM and strength; wants to be able to lift LE 15 onto running board of vehicle, improve transfer into bed, transfer from shower seat to w/c seat, and be able to get off floor; has had to recently call 911 when has fallen a couple times recently. Has lost more strength in left vs right, uses device to help with toe lift on right. Wants help stretching his hamstrings and other leg muscles. No caregivers, has but doesn 't want to burden her with another thing to do. To PT today with scooter, has power w/c for use in home. Has rollater tries to use 3-4x/day max 120 steps. Used to be able to use forearm crutch using on left. Prior Treatments and Tests Seen for his MS at [facility] [place] Treatment Goals Patient/Caregiver Goals update HEP Improve flexibility and strength Be able to walk longer distances in and out of the home increased ease of bed transfers PT-OP-C Subjective Start: 04/03/21 14:28 Freq: Status: Active Protocol: Document 07/18/21 16:00 [facility] (Rec: 07/19/21 09:41 [facility] [id number]) OP-PT Subjective Patient Comments Patient Comments Patient would like PT to assess his gait and look at floor transfer training ideas today. PT-OP-D Balance Start: 04/03/21 14:28 Freq: Status: Active Protocol: Document 04/03/21 14:29 [facility] (Rec: 04/03/21 15:50 [facility] [id number]) OP-PT Balance Assessment Sitting Balance Static Sitting Balance Ability Good Dynamic Sitting Balance Ability Fair Standing Balance Static Standing Balance Ability Fair Dynamic Standing Balance Ability Poor Device Used 4WW Tinetti Balance Assessment Sitting Balance Sitting Balance Steady, safe Arising from Chair Ability to Arise Able, uses arms to help Standing Balance Immediate Standing Balance Steady with support Standing Balance Steady, wide stance Nudged Response Begins to fall Standing with Eyes Closed Unsteady Turning Step Pattern Turning 360 Degrees Discontinuous steps Stability Turning 360 Degrees Unsteady, grabs/staggers Sitting Down Sitting Down Uses arms or unsteady Gait and Step Initiation of Gait No hesitancy Right Foot Step Length Does not pass stance ft. Right Foot Step Height Does not clear floor Left Foot Step Length Does not pass stance foot Left Foot Step Height Does not clear floor Step Description Step Symmetry Step length not equal Step Continuity Steps appear continuous Gait Description Path Description Straight Trunk Description Marked sway or uses aide Walking Stance Heels apart Scoring and Interpretation Tinetti Composite Score (points) 9 Interpretation of Scores High risk for falls(< 19) Hagen Fall Scale Copyright Permission PT-OP-E Functional Tests Start: 04/03/21 14:28 Freq: Status: Active Protocol: Document 04/03/21 14:29 [facility] (Rec: 04/03/21 16:52 [facility] [id number]) Functional Tests 2 Minute Walk Test Distance 93 ft Device Used 4WW Five Times Sit to Stand Test Comments not done due to time constraints PT-OP-G Mobility & Gait Start: 04/03/21 14:28 Freq: Status: Active Protocol: Document 04/03/21 14:29 [facility] (Rec: 04/03/21 16:52 [facility] [id number]) OP Mobility Evaluation Bed Mobility Rolling indep with use of hands Supine to and from Sit indep with use of UE's Transfers Sit to Stand use of UE's, indep Bed to Chair Transfers use of UE's, indep Wheelchair Management Type of Wheelchair Has power w/c, scooter Assessment Details independent with management OP Gait Assessment Gait Gait Assistance Required: Independent Distance (Feet) 93 Assistive Devices Assistive Device Gait Belt,4 Wheeled Walker Orthotic/Prosthetic Devices or Brace: Yes Gait Deviations General Gait Pattern Decreased Stride Length, Decreased Feet Clearance, Flexed Trunk,Lateral Trunk Lean,Wide Based Gait Factors Limiting Gait Function Factors Limiting Gait Function Decreased Strength,Limited Range of Motion Comments Gait Comments 2 min walk 93 ft Stair Climbing Evaluation Comments Stair Climbing Comments unable, has elevator in the home PT-OP-H Neuro Start: 04/03/21 14:28 Freq: Status: Active Protocol: Document 04/03/21 14:29 SAK (Rec: 04/03/21 16:52 [facility] [id number]) Sensation Evaluation Gross Sensation Gross Sensation Right UE Impaired,Left LE Impaired,Right LE Impaired Sensation Description Paresthesia,Numbness,Tingling PT-OP-J Posture/Palpation/Skin Start: 04/03/21 14:28 Freq: Status: Active Protocol: Document 04/03/21 14:29 SAK (Rec: 04/03/21 16:52 [facility] [id number]) Posture Evaluation Position Standing Head/C-Spine Posture Forward Head T-Spine Posture Increased Kyphosis L-Spine Posture Decreased Lordosis Scapula Posture (L) Protracted,(R) Protracted Arm Posture (L) Internally Rotated,(R) Internally Rotated Hip Posture (L) Flexed,(R) Flexed Knee Posture (L) Excess Flexion,(R) Excess Flexion Sitting Head/C-Spine Posture Forward Head T-Spine Posture Increased Kyphosis L-Spine Posture Decreased Lordosis Shoulder Posture (L) Rounded,(R) Rounded Scapula Posture (L) Protracted,(R) Protracted Arm Posture (L) Internally Rotated,(R) Internally Rotated Pelvis Posture Posterior Tilted Weight Distribution Weight Shifted Left PT-OP-K Range of Motion Start: 04/03/21 14:28 Freq: Status: Active Protocol: Document 04/03/21 14:29 SAK (Rec: 04/03/21 16:52 [facility] [id number]) Cervical Spine Range of Motion Cervical Spine Active Comments WFL Lumbar Spine Range of Motion Lumbar Spine Active Comments WFL Shoulder Goniometric Range of Motion Shoulder Right Shoulder ROM WFL No Testing Position Supine Flexion 135 Left Shoulder ROM WFL Yes Shoulder ROM Limitations Shoulder ROM Limitations Soft Tissue Tightness,Muscle Weakness Elbow/Forearm Range of Motion Elbow/Forearm andrew Elbow/Forearm ROM WFL Yes Wrist Goniometric Range of Motion Wrist andrew Wrist ROM WFL Yes ROM Limitations Wrist Limitations of Range of Motion Soft Tissue Tightness Hip Goniometric Range of Motion Hip Right Passive Hip ROM WFL No Testing Position Supine Flexion w/Knee Flexed 95 Straight Leg Raise 45 Abduction 20 Internal Rotation 20 External Rotation 45 Left Hip ROM WFL No Testing Position Supine Flexion w/Knee Flexed 90 Straight Leg Raise 50 Abduction 25 Internal Rotation 20 External Rotation 50 Hip ROM Limitations Hip ROM Limitations Soft Tissue Tightness,Muscle Weakness,Muscle Tone Knee Goniometric Range of Motion Knee andrew Knee ROM WFL Yes Ankle and Foot Goniometric Range of Motion Ankle and Foot Right Passive Dorsiflexion with Knee Flexed 3 Dorsiflexion with Knee Extended 0 Plantarflexion 35 Left Active Dorsiflexion with Knee Flexed 5 Dorsiflexion with Knee Extended 0 Plantarflexion 40 Ankle and Foot ROM Limitations ROM Limitations Soft Tissue Tightness, Contracture,Muscle Weakness, Muscle Tone PT-OP-M Strength Start: 04/03/21 14:28 Freq: Status: Active Protocol: Document 04/03/21 14:29 [facility] (Rec: 04/03/21 16:52 [facility] [id number]) Trunk Strength Trunk Manual Muscle Testing Comments functionally appears fair Shoulder Strength Shoulder Manual Muscle Testing Left Flexion 5 Normal Extension 5 Normal Abduction (C5) 5 Normal Adduction 5 Normal External Rotation 5 Normal Internal Rotation 5 Normal Horizontal Abduction 5 Normal Horizontal Adduction 5 Normal Right Flexion 3- Fair- Extension 3- Fair- Abduction (C5) 3- Fair- Adduction 3- Fair- External Rotation 3- Fair- Internal Rotation 3- Fair- Horizontal Abduction 3- Fair- Horizontal Adduction 3- Fair- Elbow/Forearm Strength Elbow and Forearm Manual Muscle Testing Right Flexion (C6) 3+ Fair+ Extension (C7) 3+ Fair+ Left Flexion (C6) 5 Normal Extension (C7) 5 Normal Wrist Strength Wrist Manual Muscle Testing Right Flexion (C7) 3+ Fair+ Extension (C6) 3+ Fair+ Left Flexion (C7) 5 Normal Extension (C6) 5 Normal Hip Strength Hip Manual Muscle Testing Right Flexion (L2) 0 Zero Extension (S1) 0 Zero Abduction 3- Fair- Adduction 2+ Poor+ External Rotation 2+ Poor+ Internal Rotation 2+ Poor+ Left Flexion (L2) 4+ Good+ Extension (S1) 3+ Fair+ Abduction 3+ Fair+ Adduction 4- Good- External Rotation 3+ Fair+ Internal Rotation 4- Good- Knee Strength Knee Manual Muscle Testing Right Flexion (S2) 3- Fair- Extension (L3) 3- Fair- Left Flexion (S2) 4+ Good+ Extension (L3) 4+ Good+ Ankle/Foot Strength Ankle and Foot Manual Muscle Testing Right Dorsiflexion (L4) 1 Trace Plantarflexion (S1) 2- Poor- Left Dorsiflexion (L4) 4 Good Plantarflexion (S1) 4 Good PT-OP-T Assessment and Plan Start: 04/03/21 14:28 Freq: Status: Active Protocol: Document 07/18/21 16:00 SABINA (Rec: 07/19/21 09:41 [facility] [id number]) Physical Therapy Assessment Goals Five Impairment difficulty with floor transfer Impairment requires max assist Fdc Goal (LTG) patient able to do floor transfer with min assist 06/05/26: mod assist for floor transfer today raised up on 2 stacked 4 mats LTG Duration 07/06/21 Four Impairment impaired functional mobility Impairment patient no longer able to lift his right LE 15 onto running board of vehicle for purposes of safe transfers into vehicle Fdc Goal (LTG) patient will be able to lift his right LE at least 15 to allow him to safely transfer into current vehicle 06/05/21: goal progress: able to lift up onto 6 box LTG Duration 07/06/21 Three Impairment decline in strength and ROM Short Term Goal (STG) establish updated HEP and problem-solve ways for patient to perform independently as much as possible. STG Duration goal met Primary Special Educator Goal (LTG) Patient to be indepenent and safe with the aspects of his HEP is able to do on his own and identify personal development mentor to assist him in the home after PT completed. 06/05/21: Continue to modify and advance patient HEP. He has hired a personal development mentor ( Letty Barrera, we have done training and this seems to be working out well). LTG Duration 07/06/21 One Impairment impaired gait Impairment 2 min walk test 93 ft 06/07/21: 83 ft but today had obstacles, had to turn. Also stated walker was a little high. Walked total of 112 ft . Fatigued after gait. Fdc Goal (LTG) Improve 2 min walk test to 140 ft as measure of improved functional gait 06/05/21: patient too fatigued after floor transfer and didn' t bring strap that he wears to assist right LE for walking. He reports his thinks his walking has improved since starting PT. LTG Duration 06/03/21 Two Impairment Tinetti gait and balance assessment score 9/28 indicating high fall risk Short Term Goal (STG) Improve Tinetti gait and balance assessment score to at least 14/28 as measure of improved gait and balance 06/05/21: Tinetti score improved to 11/28 STG Duration 06/25/21 Fdc Goal (LTG) Imprve Tinetti score to at least 19/28 LTG Duration 07/06/21 Assessment Summary Assessment Today's visit was postponed due to weather, patient unable to make it to PT. Improved distance with 2 min walk test from 88 to 109 ft today. Floor transfer remains difficult and patient fatigues quickly, but added functional strengthening, exercise leaning onto right UE with push back to sit. At this time patient plans to continue working 2-3x/wk with Letty Batista functional horse trainer on his HEP and may return to PT in approx 6 months for further PT, assess progress, and continue to problem solve functional difficulties. Physical Therapy Plan Frequency and Duration Frequency of Treatment one visit Plan of Care Start Date 07/19/21 Plan of Care End Date 07/19/21 Therapeutic Interventions Therapeutic Interventions Balance Training,Gait Training ,Home Exercise Program,Manual Therapy,Neuromuscular Re- education,Patient/Caregiver Education Next Visit Focus/Plan Next Visit Plan discharge after today's PT visit.
--- NOTE | 2021-07-18 09:41 | PT.OTRE ---
Current Diagnoses Multiple sclerosis (07/18/21) Cramp and spasm (07/18/21) Past Medical History (Last Reviewed 04/29/21 @ 02:18 by Natali Dumont DO) Anxiety and depression Multiple sclerosis Neurogenic bladder S/P tonsillectomy and adenoidectomy Surgical History (Last Reviewed 04/29/21 @ 03:02 by Natali Dumont DO) S/P tonsillectomy and adenoidectomy Visit Care Team Role Provider Type Mario Manzano MD Family Provider Non-Staff Primary Care Provider Specialty: Internal Medicine Address: [address] [place] [address], [id number] Email: Terrie Muñoz MD Attending Provider Non-Staff Referring Provider Specialty: Medical Address: [address] [place] [address], [phone] Email: Physical Therapy Re-Evaluation PT-OP-A Visit Information Start: 04/03/21 14:28 Freq: Status: Active Protocol: Document 07/18/21 16:00 [facility] (Rec: 07/19/21 09:41 [facility] [id number]) Out-Patient Physical Therapy Visit Information Visit Information Visit Type Treatment Note Evaluation Information Evaluation Date 04/03/21 Precautions Precautions HTN spasticity fall risk PT-OP-B Current Condition Start: 04/03/21 14:28 Freq: Status: Active Protocol: Document 04/19/21 09:58 [facility] (Rec: 04/19/21 11:56 [facility] [id number]) Current Condition History of Current Condition Onset Date 2018 Current Complaints weakness, decreased flexibility, decreased ability to walk History of Current Condition Diagnosed with relapsing remitting MS in 1997. Most recently in 2019 calcium levels through the roof, hospitalized 4-5 days, 2 weeks in rehab due to weakened state. Improved but not back to PLF including being able to walk fairly long distances with walker. Then another episode of exacerbation with loss of strength especially in lower legs. Has been able to regain some strength with motomed and other exercises. With Covid not as active. Needs help with ROM and strength; wants to be able to lift LE 15 onto running board of vehicle, improve transfer into bed, transfer from shower seat to w/c seat, and be able to get off floor; has had to recently call 911 when has fallen a couple times recently. Has lost more strength in left vs right, uses device to help with toe lift on right. Wants help stretching his hamstrings and other leg muscles. No caregivers, has but doesn 't want to burden her with another thing to do. To PT today with scooter, has power w/c for use in home. Has rollater tries to use 3-4x/day max 120 steps. Used to be able to use forearm crutch using on left. Prior Treatments and Tests Seen for his MS at [facility] Treatment Goals Patient/Caregiver Goals update HEP Improve flexibility and strength Be able to walk longer distances in and out of the home increased ease of bed transfers PT-OP-C Subjective Start: 04/03/21 14:28 Freq: Status: Active Protocol: Document 07/18/21 16:00 [facility] (Rec: 07/19/21 09:41 [facility] [id number]) OP-PT Subjective Patient Comments Patient Comments Patient would like PT to assess his gait and look at floor transfer training ideas today. PT-OP-D Balance Start: 04/03/21 14:28 Freq: Status: Active Protocol: Document 04/03/21 14:29 [facility] (Rec: 04/03/21 15:50 [facility] [id number]) OP-PT Balance Assessment Sitting Balance Static Sitting Balance Ability Good Dynamic Sitting Balance Ability Fair Standing Balance Static Standing Balance Ability Fair Dynamic Standing Balance Ability Poor Device Used 4WW Tinetti Balance Assessment Sitting Balance Sitting Balance Steady, safe Arising from Chair Ability to Arise Able, uses arms to help Standing Balance Immediate Standing Balance Steady with support Standing Balance Steady, wide stance Nudged Response Begins to fall Standing with Eyes Closed Unsteady Turning Step Pattern Turning 360 Degrees Discontinuous steps Stability Turning 360 Degrees Unsteady, grabs/staggers Sitting Down Sitting Down Uses arms or unsteady Gait and Step Initiation of Gait No hesitancy Right Foot Step Length Does not pass stance ft. Right Foot Step Height Does not clear floor Left Foot Step Length Does not pass stance foot Left Foot Step Height Does not clear floor Step Description Step Symmetry Step length not equal Step Continuity Steps appear continuous Gait Description Path Description Straight Trunk Description Marked sway or uses aide Walking Stance Heels apart Scoring and Interpretation Tinetti Composite Score (points) 9 Interpretation of Scores High risk for falls(< 19) Hagen Fall Scale Copyright Permission Hieu JM, Hieu RM, Matheus SJ. Development of a scale to identify the fall- prone patient. [place] J Aging 1989;8;366-7. Garret Hagen (2009). Preventing patient falls. (2nd ed). [place]: Johnson. PT-OP-E Functional Tests Start: 04/03/21 14:28 Freq: Status: Active Protocol: Document 04/03/21 14:29 [facility] (Rec: 04/03/21 16:52 [facility] [id number]) Functional Tests 2 Minute Walk Test Distance 93 ft Device Used 4WW Five Times Sit to Stand Test Comments not done due to time constraints PT-OP-G Mobility & Gait Start: 04/03/21 14:28 Freq: Status: Active Protocol: Document 04/03/21 14:29 [facility] (Rec: 04/03/21 16:52 [facility] [id number]) OP Mobility Evaluation Bed Mobility Rolling indep with use of hands Supine to and from Sit indep with use of UE's Transfers Sit to Stand use of UE's, indep Bed to Chair Transfers use of UE's, indep Wheelchair Management Type of Wheelchair Has power w/c, scooter Assessment Details independent with management OP Gait Assessment Gait Gait Assistance Required: Independent Distance (Feet) 93 Assistive Devices Assistive Device Gait Belt,4 Wheeled Walker Orthotic/Prosthetic Devices or Brace: Yes Gait Deviations General Gait Pattern Decreased Stride Length, Decreased Feet Clearance, Flexed Trunk,Lateral Trunk Lean,Wide Based Gait Factors Limiting Gait Function Factors Limiting Gait Function Decreased Strength,Limited Range of Motion Comments Gait Comments 2 min walk 93 ft Stair Climbing Evaluation Comments Stair Climbing Comments unable, has elevator in the home PT-OP-H Neuro Start: 04/03/21 14:28 Freq: Status: Active Protocol: Document 04/03/21 14:29 [facility] (Rec: 04/03/21 16:52 [facility] [id number]) Sensation Evaluation Gross Sensation Gross Sensation Right UE Impaired,Left LE Impaired,Right LE Impaired Sensation Description Paresthesia,Numbness,Tingling PT-OP-J Posture/Palpation/Skin Start: 04/03/21 14:28 Freq: Status: Active Protocol: Document 04/03/21 14:29 [facility] (Rec: 04/03/21 16:52 [facility] [id number]) Posture Evaluation Position Standing Head/C-Spine Posture Forward Head T-Spine Posture Increased Kyphosis L-Spine Posture Decreased Lordosis Scapula Posture (L) Protracted,(R) Protracted Arm Posture (L) Internally Rotated,(R) Internally Rotated Hip Posture (L) Flexed,(R) Flexed Knee Posture (L) Excess Flexion,(R) Excess Flexion Sitting Head/C-Spine Posture Forward Head T-Spine Posture Increased Kyphosis L-Spine Posture Decreased Lordosis Shoulder Posture (L) Rounded,(R) Rounded Scapula Posture (L) Protracted,(R) Protracted Arm Posture (L) Internally Rotated,(R) Internally Rotated Pelvis Posture Posterior Tilted Weight Distribution Weight Shifted Left PT-OP-K Range of Motion Start: 04/03/21 14:28 Freq: Status: Active Protocol: Document 04/03/21 14:29 [facility] (Rec: 04/03/21 16:52 [facility] [id number]) Cervical Spine Range of Motion Cervical Spine Active Comments WFL Lumbar Spine Range of Motion Lumbar Spine Active Comments WFL Shoulder Goniometric Range of Motion Shoulder Measured in Degrees Right Shoulder ROM WFL No Testing Position Supine Flexion 135 Left Shoulder ROM WFL Yes Shoulder ROM Limitations Shoulder ROM Limitations Soft Tissue Tightness,Muscle Weakness Elbow/Forearm Range of Motion Elbow/Forearm Measured in Degrees andrew Elbow/Forearm ROM WFL Yes Wrist Goniometric Range of Motion Wrist Measured in Degrees andrew Wrist ROM WFL Yes ROM Limitations Wrist Limitations of Range of Motion Soft Tissue Tightness Hip Goniometric Range of Motion Hip Measured in Degrees Right Passive Hip ROM WFL No Testing Position Supine Flexion w/Knee Flexed 95 Straight Leg Raise 45 Abduction 20 Internal Rotation 20 External Rotation 45 Left Hip ROM WFL No Testing Position Supine Flexion w/Knee Flexed 90 Straight Leg Raise 50 Abduction 25 Internal Rotation 20 External Rotation 50 Hip ROM Limitations Hip ROM Limitations Soft Tissue Tightness,Muscle Weakness,Muscle Tone Knee Goniometric Range of Motion Knee Measured in Degrees andrew Knee ROM WFL Yes Ankle and Foot Goniometric Range of Motion Ankle and Foot Measured in Degrees Right Passive Dorsiflexion with Knee Flexed 3 Dorsiflexion with Knee Extended 0 Plantarflexion 35 Left Active Dorsiflexion with Knee Flexed 5 Dorsiflexion with Knee Extended 0 Plantarflexion 40 Ankle and Foot ROM Limitations ROM Limitations Soft Tissue Tightness, Contracture,Muscle Weakness, Muscle Tone PT-OP-M Strength Start: 04/03/21 14:28 Freq: Status: Active Protocol: Document 04/03/21 14:29 [facility] (Rec: 04/03/21 16:52 [facility] [id number]) Trunk Strength Trunk Manual Muscle Testing Comments functionally appears fair Shoulder Strength Shoulder Manual Muscle Testing Left Flexion 5 Normal Extension 5 Normal Abduction (C5) 5 Normal Adduction 5 Normal External Rotation 5 Normal Internal Rotation 5 Normal Horizontal Abduction 5 Normal Horizontal Adduction 5 Normal Right Flexion 3- Fair- Extension 3- Fair- Abduction (C5) 3- Fair- Adduction 3- Fair- External Rotation 3- Fair- Internal Rotation 3- Fair- Horizontal Abduction 3- Fair- Horizontal Adduction 3- Fair- Elbow/Forearm Strength Elbow and Forearm Manual Muscle Testing Right Flexion (C6) 3+ Fair+ Extension (C7) 3+ Fair+ Left Flexion (C6) 5 Normal Extension (C7) 5 Normal Wrist Strength Wrist Manual Muscle Testing Right Flexion (C7) 3+ Fair+ Extension (C6) 3+ Fair+ Left Flexion (C7) 5 Normal Extension (C6) 5 Normal Hip Strength Hip Manual Muscle Testing Right Flexion (L2) 0 Zero Extension (S1) 0 Zero Abduction 3- Fair- Adduction 2+ Poor+ External Rotation 2+ Poor+ Internal Rotation 2+ Poor+ Left Flexion (L2) 4+ Good+ Extension (S1) 3+ Fair+ Abduction 3+ Fair+ Adduction 4- Good- External Rotation 3+ Fair+ Internal Rotation 4- Good- Knee Strength Knee Manual Muscle Testing Right Flexion (S2) 3- Fair- Extension (L3) 3- Fair- Left Flexion (S2) 4+ Good+ Extension (L3) 4+ Good+ Ankle/Foot Strength Ankle and Foot Manual Muscle Testing Right Dorsiflexion (L4) 1 Trace Plantarflexion (S1) 2- Poor- Left Dorsiflexion (L4) 4 Good Plantarflexion (S1) 4 Good PT-OP-Q Treatments Start: 04/03/21 14:28 Freq: Status: Active Protocol: Document 07/18/21 16:00 [facility] (Rec: 07/19/21 09:41 [facility] [id number]) Therapeutic Exercises Supine Exercises HS stretch Supine Exercise Name with HC stretch Reps/Minutes 2x60 Comments contract/relax technique, passive adductor stretch Reps/Minutes 2x30 Comments passive, LE's extended SKTC Reps/Minutes 2x 30 L, 3x30 R Comments passive Therapeutic Activity Therapeutic Activity floor transfer Comments from w/c to floor with CGA assist for safety, brought left LE partially forward to be able to push from leg , needed mod assist through gait belt for lifting up into w/c due to fatigue after multiple attempts and need to adjust w/ co back to be stable. floor transfer prep Name seated to leaning on elbow > push up to sit Reps/Minutes 6x Comments for strengthening right LE Gait Training Gait Activity 1 Description forward Device Used 4WW, strap right LE Level of Assistance SBA Surface tile Distance/Duration 2 min Comments 2 min walk test 109 ft ft Neuro Re-Education Treatment Balance Activities seated balance Details EO Equipment blue dynadisc Reps/Duration 5' Comments balloon vb SB to CGA for safety PT-OP-T Assessment and Plan Start: 04/03/21 14:28 Freq: Status: Active Protocol: Document 07/18/21 16:00 [facility] (Rec: 07/19/21 09:41 [facility] [id number]) Physical Therapy Assessment Goals Five Impairment difficulty with floor transfer Impairment requires max assist Electric Organ Checker Goal (LTG) patient able to do floor transfer with min assist 06/05/26: mod assist for floor transfer today raised up on 2 stacked 4 mats LTG Duration 07/06/21 Four Impairment impaired functional mobility Impairment patient no longer able to lift his right LE 15 onto running board of vehicle for purposes of safe transfers into vehicle Electric Organ Checker Goal (LTG) patient will be able to lift his right LE at least 15 to allow him to safely transfer into current vehicle 06/05/21: goal progress: able to lift up onto 6 box LTG Duration 07/06/21 Three Impairment decline in strength and ROM Short Term Goal (STG) establish updated HEP and problem-solve ways for patient to perform independently as much as possible. STG Duration goal met Electric Organ Checker Goal (LTG) Patient to be indepenent and safe with the aspects of his HEP is able to do on his own and identify certified personal finance counselor to assist him in the home after PT completed. 06/05/21: Continue to modify and advance patient HEP. He has hired a certified personal finance counselor ( Letty Barrera, we have done training and this seems to be working out well). LTG Duration 07/06/21 One Impairment impaired gait Impairment 2 min walk test 93 ft 06/07/21: 83 ft but today had obstacles, had to turn. Also stated walker was a little high. Walked total of 112 ft . Fatigued after gait. Skilled Nursing Goal (LTG) Improve 2 min walk test to 140 ft as measure of improved functional gait 06/05/21: patient too fatigued after floor transfer and didn' t bring strap that he wears to assist right LE for walking. He reports his thinks his walking has improved since starting PT. LTG Duration 06/03/21 Two Impairment Tinetti gait and balance assessment score 9/28 indicating high fall risk Short Term Goal (STG) Improve Tinetti gait and balance assessment score to at least 14/28 as measure of improved gait and balance 06/05/21: Tinetti score improved to 11/28 STG Duration 06/25/21 Skilled Nursing Goal (LTG) Imprve Tinetti score to at least 19/28 LTG Duration 07/06/21 Assessment Summary Assessment Today's visit was postponed due to weather, patient unable to make it to PT. Improved distance with 2 min walk test from 88 to 109 ft today. Floor transfer remains difficult and patient fatigues quickly, but added functional strengthening, exercise leaning onto right UE with push back to sit. At this time patient plans to continue working 2-3x/wk with Letty Batista, functional emr trainer on his HEP and may return to PT in approx 6 months for further PT, assess progress, and continue to problem solve functional difficulties. Physical Therapy Plan Frequency and Duration Frequency of Treatment one visit Plan of Care Start Date 07/19/21 Plan of Care End Date 07/19/21 Therapeutic Interventions Therapeutic Interventions Balance Training,Gait Training ,Home Exercise Program,Manual Therapy,Neuromuscular Re- education,Patient/Caregiver Education Next Visit Focus/Plan Next Visit Plan discharge after today's PT visit.
--- NOTE | 2021-07-18 16:00 | PT.OPPOC ---
Physical, Occupational & Speech Therapy At [facility] Current Diagnoses Multiple sclerosis (07/18/21) Cramp and spasm (07/18/21) Visit Care Team Role Provider Type Mario Manzano MD Family Provider Non-Staff Primary Care Provider Specialty: Internal Medicine Address: [address] [place] [address], [phone] Email: Terrie Muñoz MD Attending Provider Non-Staff Referring Provider Specialty: Medical Address: [address] [place] [address], [phone] Email: Plan Of Care PT-OP-T Assessment and Plan Start: 04/03/21 14:28 Freq: Status: Active Protocol: Document 07/18/21 16:00 [facility] (Rec: 07/19/21 09:41 [facility] [id number]) Physical Therapy Assessment Goals Five Impairment difficulty with floor transfer Impairment requires max assist Skilled Nursing Goal (LTG) patient able to do floor transfer with min assist 06/05/26: mod assist for floor transfer today raised up on 2 stacked 4 mats LTG Duration 07/06/21 Four Impairment impaired functional mobility Impairment patient no longer able to lift his right LE 15 onto running board of vehicle for purposes of safe transfers into vehicle Skilled Nursing Goal (LTG) patient will be able to lift his right LE at least 15 to allow him to safely transfer into current vehicle 06/05/21: goal progress: able to lift up onto 6 box LTG Duration 07/06/21 Three Impairment decline in strength and ROM Short Term Goal (STG) establish updated HEP and problem-solve ways for patient to perform independently as much as possible. STG Duration goal met Skilled Nursing Goal (LTG) Patient to be indepenent and safe with the aspects of his HEP is able to do on his own and identify certified athletic trainer to assist him in the home after PT completed. 06/05/21: Continue to modify and advance patient HEP. He has hired a certified athletic trainer ( Letty Barrera, we have done training and this seems to be working out well). LTG Duration 07/06/21 One Impairment impaired gait Impairment 2 min walk test 93 ft 06/07/21: 83 ft but today had obstacles, had to turn. Also stated walker was a little high. Walked total of 112 ft . Fatigued after gait. Skilled Nursing Goal (LTG) Improve 2 min walk test to 140 ft as measure of improved functional gait 06/05/21: patient too fatigued after floor transfer and didn' t bring strap that he wears to assist right LE for walking. He reports his thinks his walking has improved since starting PT. LTG Duration 06/03/21 Two Impairment Tinetti gait and balance assessment score 9/28 indicating high fall risk Short Term Goal (STG) Improve Tinetti gait and balance assessment score to at least 14/28 as measure of improved gait and balance 06/05/21: Tinetti score improved to 11/28 STG Duration 06/25/21 Skilled Nursing Goal (LTG) Imprve Tinetti score to at least 19/28 LTG Duration 07/06/21 Assessment Summary Assessment Today's visit was postponed due to weather, patient unable to make it to PT. Improved distance with 2 min walk test from 88 to 109 ft today. Floor transfer remains difficult and patient fatigues quickly, but added functional strengthening, exercise leaning onto right UE with push back to sit. At this time patient plans to continue working 2-3x/wk with Letty Batista, functional canine service instructor trainer on his HEP and may return to PT in approx 6 months for further PT, assess progress, and continue to problem solve functional difficulties. Physical Therapy Plan Frequency and Duration Frequency of Treatment one visit Plan of Care Start Date 07/19/21 Plan of Care End Date 07/19/21 Therapeutic Interventions Therapeutic Interventions Balance Training,Gait Training ,Home Exercise Program,Manual Therapy,Neuromuscular Re- education,Patient/Caregiver Education Next Visit Focus/Plan Next Visit Plan discharge after today's PT visit. Plan of Care Dates Plan of Care Start Date 07/19/21 Plan of Care End Date 07/19/21 Electronically Signed by: Judy Blanca, PT 07/19/21 0982 Please Sign and Return: I have reviewed this Plan of Care and certify that the skilled therapy services above are required to meet the patient?s needs. Physician Signature Date Printed Name and Credentials Clinical Instructor Signature Printed Name and Credentials
--- NOTE | 2021-07-18 16:00 | PT.OTN ---
Current Diagnoses Multiple sclerosis (07/18/21) Cramp and spasm (07/18/21) Physical Therapy Treatment Note PT-OP-A Visit Information Start: 04/03/21 14:28 Freq: Status: Active Protocol: Document 07/18/21 16:00 [facility] (Rec: 07/19/21 09:41 [facility] [id number]) Out-Patient Physical Therapy Visit Information Visit Information Visit Type Treatment Note Evaluation Information Evaluation Date 04/03/21 Precautions Precautions HTN spasticity fall risk PT-OP-B Current Condition Start: 04/03/21 14:28 Freq: Status: Active Protocol: Document 04/19/21 09:58 [facility] (Rec: 04/19/21 11:56 [facility] [id number]) Current Condition History of Current Condition Onset Date 2018 Current Complaints weakness, decreased flexibility, decreased ability to walk History of Current Condition Diagnosed with relapsing remitting MS in 1997. Most recently in 2019 calcium levels through the roof, hospitalized 4-5 days, 2 weeks in rehab due to weakened state. Improved but not back to PLF including being able to walk fairly long distances with walker. Then another episode of exacerbation with loss of strength especially in lower legs. Has been able to regain some strength with motomed and other exercises. With Covid not as active. Needs help with ROM and strength; wants to be able to lift LE 15 onto running board of vehicle, improve transfer into bed, transfer from shower seat to w/c seat, and be able to get off floor; has had to recently call 911 when has fallen a couple times recently. Has lost more strength in left vs right, uses device to help with toe lift on right. Wants help stretching his hamstrings and other leg muscles. No caregivers, has but doesn 't want to burden her with another thing to do. To PT today with scooter, has power w/c for use in home. Has rollater tries to use 3-4x/day max 120 steps. Used to be able to use forearm crutch using on left. Prior Treatments and Tests Seen for his MS at [facility] [place] Treatment Goals Patient/Caregiver Goals update HEP Improve flexibility and strength Be able to walk longer distances in and out of the home increased ease of bed transfers PT-OP-C Subjective Start: 04/03/21 14:28 Freq: Status: Active Protocol: Document 07/18/21 16:00 [facility] (Rec: 07/19/21 09:41 [facility] [id number]) OP-PT Subjective Patient Comments Patient Comments Patient would like PT to assess his gait and look at floor transfer training ideas today. PT-OP-D Balance Start: 04/03/21 14:28 Freq: Status: Active Protocol: Document 04/03/21 14:29 [facility] (Rec: 04/03/21 15:50 [facility] [id number]) OP-PT Balance Assessment Sitting Balance Static Sitting Balance Ability Good Dynamic Sitting Balance Ability Fair Standing Balance Static Standing Balance Ability Fair Dynamic Standing Balance Ability Poor Device Used 4WW Tinetti Balance Assessment Sitting Balance Sitting Balance Steady, safe Arising from Chair Ability to Arise Able, uses arms to help Standing Balance Immediate Standing Balance Steady with support Standing Balance Steady, wide stance Nudged Response Begins to fall Standing with Eyes Closed Unsteady Turning Step Pattern Turning 360 Degrees Discontinuous steps Stability Turning 360 Degrees Unsteady, grabs/staggers Sitting Down Sitting Down Uses arms or unsteady Gait and Step Initiation of Gait No hesitancy Right Foot Step Length Does not pass stance ft. Right Foot Step Height Does not clear floor Left Foot Step Length Does not pass stance foot Left Foot Step Height Does not clear floor Step Description Step Symmetry Step length not equal Step Continuity Steps appear continuous Gait Description Path Description Straight Trunk Description Marked sway or uses aide Walking Stance Heels apart Scoring and Interpretation Tinetti Composite Score (points) 9 Interpretation of Scores High risk for falls(< 19) Hagen Fall Scale Copyright Permission PT-OP-E Functional Tests Start: 04/03/21 14:28 Freq: Status: Active Protocol: Document 04/03/21 14:29 [facility] (Rec: 04/03/21 16:52 [facility] [id number]) Functional Tests 2 Minute Walk Test Distance 93 ft Device Used 4WW Five Times Sit to Stand Test Comments not done due to time constraints PT-OP-G Mobility & Gait Start: 04/03/21 14:28 Freq: Status: Active Protocol: Document 04/03/21 14:29 [facility] (Rec: 04/03/21 16:52 [facility] [id number]) OP Mobility Evaluation Bed Mobility Rolling indep with use of hands Supine to and from Sit indep with use of UE's Transfers Sit to Stand use of UE's, indep Bed to Chair Transfers use of UE's, indep Wheelchair Management Type of Wheelchair Has power w/c, scooter Assessment Details independent with management OP Gait Assessment Gait Gait Assistance Required: Independent Distance (Feet) 93 Assistive Devices Assistive Device Gait Belt,4 Wheeled Walker Orthotic/Prosthetic Devices or Brace: Yes Gait Deviations General Gait Pattern Decreased Stride Length, Decreased Feet Clearance, Flexed Trunk,Lateral Trunk Lean,Wide Based Gait Factors Limiting Gait Function Factors Limiting Gait Function Decreased Strength,Limited Range of Motion Comments Gait Comments 2 min walk 93 ft Stair Climbing Evaluation Comments Stair Climbing Comments unable, has elevator in the home PT-OP-H Neuro Start: 04/03/21 14:28 Freq: Status: Active Protocol: Document 04/03/21 14:29 [facility] (Rec: 04/03/21 16:52 [facility] [id number]) Sensation Evaluation Gross Sensation Gross Sensation Right UE Impaired,Left LE Impaired,Right LE Impaired Sensation Description Paresthesia,Numbness,Tingling PT-OP-J Posture/Palpation/Skin Start: 04/03/21 14:28 Freq: Status: Active Protocol: Document 04/03/21 14:29 [facility] (Rec: 04/03/21 16:52 [facility] [id number]) Posture Evaluation Position Standing Head/C-Spine Posture Forward Head T-Spine Posture Increased Kyphosis L-Spine Posture Decreased Lordosis Scapula Posture (L) Protracted,(R) Protracted Arm Posture (L) Internally Rotated,(R) Internally Rotated Hip Posture (L) Flexed,(R) Flexed Knee Posture (L) Excess Flexion,(R) Excess Flexion Sitting Head/C-Spine Posture Forward Head T-Spine Posture Increased Kyphosis L-Spine Posture Decreased Lordosis Shoulder Posture (L) Rounded,(R) Rounded Scapula Posture (L) Protracted,(R) Protracted Arm Posture (L) Internally Rotated,(R) Internally Rotated Pelvis Posture Posterior Tilted Weight Distribution Weight Shifted Left PT-OP-K Range of Motion Start: 04/03/21 14:28 Freq: Status: Active Protocol: Document 04/03/21 14:29 [facility] (Rec: 04/03/21 16:52 [facility] [id number]) Cervical Spine Range of Motion Cervical Spine Active Comments WFL Lumbar Spine Range of Motion Lumbar Spine Active Comments WFL Shoulder Goniometric Range of Motion Shoulder Right Shoulder ROM WFL No Testing Position Supine Flexion 135 Left Shoulder ROM WFL Yes Shoulder ROM Limitations Shoulder ROM Limitations Soft Tissue Tightness,Muscle Weakness Elbow/Forearm Range of Motion Elbow/Forearm andrew Elbow/Forearm ROM WFL Yes Wrist Goniometric Range of Motion Wrist andrew Wrist ROM WFL Yes ROM Limitations Wrist Limitations of Range of Motion Soft Tissue Tightness Hip Goniometric Range of Motion Hip Right Passive Hip ROM WFL No Testing Position Supine Flexion w/Knee Flexed 95 Straight Leg Raise 45 Abduction 20 Internal Rotation 20 External Rotation 45 Left Hip ROM WFL No Testing Position Supine Flexion w/Knee Flexed 90 Straight Leg Raise 50 Abduction 25 Internal Rotation 20 External Rotation 50 Hip ROM Limitations Hip ROM Limitations Soft Tissue Tightness,Muscle Weakness,Muscle Tone Knee Goniometric Range of Motion Knee andrew Knee ROM WFL Yes Ankle and Foot Goniometric Range of Motion Ankle and Foot Right Passive Dorsiflexion with Knee Flexed 3 Dorsiflexion with Knee Extended 0 Plantarflexion 35 Left Active Dorsiflexion with Knee Flexed 5 Dorsiflexion with Knee Extended 0 Plantarflexion 40 Ankle and Foot ROM Limitations ROM Limitations Soft Tissue Tightness, Contracture,Muscle Weakness, Muscle Tone PT-OP-M Strength Start: 04/03/21 14:28 Freq: Status: Active Protocol: Document 04/03/21 14:29 [facility] (Rec: 04/03/21 16:52 [facility] [id number]) Trunk Strength Trunk Manual Muscle Testing Comments functionally appears fair Shoulder Strength Shoulder Manual Muscle Testing Left Flexion 5 Normal Extension 5 Normal Abduction (C5) 5 Normal Adduction 5 Normal External Rotation 5 Normal Internal Rotation 5 Normal Horizontal Abduction 5 Normal Horizontal Adduction 5 Normal Right Flexion 3- Fair- Extension 3- Fair- Abduction (C5) 3- Fair- Adduction 3- Fair- External Rotation 3- Fair- Internal Rotation 3- Fair- Horizontal Abduction 3- Fair- Horizontal Adduction 3- Fair- Elbow/Forearm Strength Elbow and Forearm Manual Muscle Testing Right Flexion (C6) 3+ Fair+ Extension (C7) 3+ Fair+ Left Flexion (C6) 5 Normal Extension (C7) 5 Normal Wrist Strength Wrist Manual Muscle Testing Right Flexion (C7) 3+ Fair+ Extension (C6) 3+ Fair+ Left Flexion (C7) 5 Normal Extension (C6) 5 Normal Hip Strength Hip Manual Muscle Testing Right Flexion (L2) 0 Zero Extension (S1) 0 Zero Abduction 3- Fair- Adduction 2+ Poor+ External Rotation 2+ Poor+ Internal Rotation 2+ Poor+ Left Flexion (L2) 4+ Good+ Extension (S1) 3+ Fair+ Abduction 3+ Fair+ Adduction 4- Good- External Rotation 3+ Fair+ Internal Rotation 4- Good- Knee Strength Knee Manual Muscle Testing Right Flexion (S2) 3- Fair- Extension (L3) 3- Fair- Left Flexion (S2) 4+ Good+ Extension (L3) 4+ Good+ Ankle/Foot Strength Ankle and Foot Manual Muscle Testing Right Dorsiflexion (L4) 1 Trace Plantarflexion (S1) 2- Poor- Left Dorsiflexion (L4) 4 Good Plantarflexion (S1) 4 Good PT-OP-Q Treatments Start: 04/03/21 14:28 Freq: Status: Active Protocol: Document 07/18/21 16:00 [facility] (Rec: 07/19/21 09:41 [facility] [id number]) Therapeutic Exercises Supine Exercises HS stretch Supine Exercise Name with HC stretch Reps/Minutes 2x60 Comments contract/relax technique, passive adductor stretch Reps/Minutes 2x30 Comments passive, LE's extended SKTC Reps/Minutes 2x 30 L, 3x30 R Comments passive Therapeutic Activity Therapeutic Activity floor transfer Comments from w/c to floor with CGA assist for safety, brought left LE partially forward to be able to push from leg , needed mod assist through gait belt for lifting up into w/c due to fatigue after multiple attempts and need to adjust w/ co back to be stable. floor transfer prep Name seated to leaning on elbow > push up to sit Reps/Minutes 6x Comments for strengthening right LE Gait Training Gait Activity 1 Description forward Device Used 4WW, strap right LE Level of Assistance SBA Surface tile Distance/Duration 2 min Comments 2 min walk test 109 ft ft Neuro Re-Education Treatment Balance Activities seated balance Details EO Equipment blue dynadisc Reps/Duration 5' Comments balloon vb SB to CGA for safety PT-OP-T Assessment and Plan Start: 04/03/21 14:28 Freq: Status: Active Protocol: Document 07/18/21 16:00 [facility] (Rec: 07/19/21 09:41 [facility] [id number]) Physical Therapy Assessment Goals Five Impairment difficulty with floor transfer Impairment requires max assist Mcc Goal (LTG) patient able to do floor transfer with min assist 06/05/26: mod assist for floor transfer today raised up on 2 stacked 4 mats LTG Duration 07/06/21 Four Impairment impaired functional mobility Impairment patient no longer able to lift his right LE 15 onto running board of vehicle for purposes of safe transfers into vehicle Mcc Goal (LTG) patient will be able to lift his right LE at least 15 to allow him to safely transfer into current vehicle 06/05/21: goal progress: able to lift up onto 6 box LTG Duration 07/06/21 Three Impairment decline in strength and ROM Short Term Goal (STG) establish updated HEP and problem-solve ways for patient to perform independently as much as possible. STG Duration goal met Sewing Pattern Layout Technician Goal (LTG) Patient to be indepenent and safe with the aspects of his HEP is able to do on his own and identify sharepoint trainer to assist him in the home after PT completed. 06/05/21: Continue to modify and advance patient HEP. He has hired a sharepoint trainer ( Letty Barrera, we have done training and this seems to be working out well). LTG Duration 07/06/21 One Impairment impaired gait Impairment 2 min walk test 93 ft 06/07/21: 83 ft but today had obstacles, had to turn. Also stated walker was a little high. Walked total of 112 ft . Fatigued after gait. Mcc Goal (LTG) Improve 2 min walk test to 140 ft as measure of improved functional gait 06/05/21: patient too fatigued after floor transfer and didn' t bring strap that he wears to assist right LE for walking. He reports his thinks his walking has improved since starting PT. LTG Duration 06/03/21 Two Impairment Tinetti gait and balance assessment score 9/28 indicating high fall risk Short Term Goal (STG) Improve Tinetti gait and balance assessment score to at least 14/28 as measure of improved gait and balance 06/05/21: Tinetti score improved to 11/28 STG Duration 06/25/21 Mcc Goal (LTG) Imprve Tinetti score to at least 19/28 LTG Duration 07/06/21 Assessment Summary Assessment Today's visit was postponed due to weather, patient unable to make it to PT. Improved distance with 2 min walk test from 88 to 109 ft today. Floor transfer remains difficult and patient fatigues quickly, but added functional strengthening, exercise leaning onto right UE with push back to sit. At this time patient plans to continue working 2-3x/wk with Letty Batista functional resident athletic trainer on his HEP and may return to PT in approx 6 months for further PT, assess progress, and continue to problem solve functional difficulties. Physical Therapy Plan Frequency and Duration Frequency of Treatment one visit Plan of Care Start Date 07/19/21 Plan of Care End Date 07/19/21 Therapeutic Interventions Therapeutic Interventions Balance Training,Gait Training ,Home Exercise Program,Manual Therapy,Neuromuscular Re- education,Patient/Caregiver Education Next Visit Focus/Plan Next Visit Plan discharge after today's PT visit.
== END 2022-03-26 10:23 | disposition home or self-care (01) ==
LOC: PHYS 15:15
PROVIDERS: Family Provider Internal Medicine; PCP Internal Medicine; Referring Provider Physical Medicine & Rehabilitation; Visit Provider Physical Medicine & Rehabilitation
DX: R25.2 Cramp and spasm (principal); G35 Multiple sclerosis
CPT/HCPCS: 97110; 97112; 97116; 97140; 97162; 97530; 97535

== ENCOUNTER → 2021-12-28 10:00 | Outpatient (CLI) | payer OTHER, SELFPAY ==
[2019-03-06 14:57] VITALS: BMI 24.7
[2021-12-28 10:52] LABS: COVID19 -Nasal RAPID Negative (Negative)
== END ==
PROVIDERS: Family Provider Internal Medicine; PCP Internal Medicine; Visit Provider Surgery
DX: Z20.822 Contact with and (suspected) exposure to COVID-19 (principal); Z01.812 Encounter for preprocedural laboratory examination
CPT/HCPCS: 87635; C9803

== ENCOUNTER 2021-12-31 08:48 | Day surgery (SDC) | payer OTHER, SELFPAY ==
[2019-03-06 14:57] VITALS: BMI 24.7
[2021-12-31] MEDS: FLEETS ENEMA 1 EACH PR ×2 (09:30→09:45)
--- NOTE | 2021-12-31 09:57 | PM.HP.1 ---
History of Present Illness History of Present Illness Date Patient Seen: 12/31/21 Time Patient Seen: 09:57 Chief complaint: Colonoscopy Narrative: Personal history of colon polyps. The 1st was noted at age 47. He had a follow-up colonoscopy at age 52. He thought he had another 1 about 5 years later but was then put on a 10 year pass. He believes he is 11 years out from his last colonoscopy. He struggles with constipation as a result of the mass. Patient History Medical History Anxiety and depression Multiple sclerosis Neurogenic bladder Surgical History S/P tonsillectomy and adenoidectomy Family & Social History Family History Mother Obesity Hypertension Brother Renal cancer Social History: household members spouse Tobacco & Substance use: Smoking Status Former smoker alcohol intake never alcohol intake frequency 0-2 drinks per day Substance Use Type does not use Meds Home Medications and Allergies Home Medications Medication Instructions Recorded Confirmed Type baclofen 10 mg tablet 20 mg PO Q6HR 03/06/19 03/06/19 History citalopram 40 mg tablet 40 mg PO DAILY 03/06/19 03/06/19 History docusate sodium 250 mg capsule 250 mg PO BEDTIME 03/06/19 03/06/19 History interferon beta-1a (albumin) 44 44 mcg SUBCUT 3XW 03/06/19 03/06/19 History mcg/0.5 mL subcutaneous pen injector (Rebif Rebidose) cephalexin 500 mg capsule 500 mg PO BID #14 caps 05/03/21 Rx Allergies Allergy/AdvReac Type Severity Reaction Status Date / Time No Known Drug Allergies Allergy Verified 03/06/19 09:40 Review of Systems Review of Systems ROS: Yes All systems reviewed with the patient and are negative except as otherwise documented Exam Const General: cooperative HENMT Head: normal to inspection Eyes General: appearance normal, both eyes and all related structures Neck Neck: normal visual inspection Chest Chest: normal inspection of the chest Resp Effort & Inspection: normal respiratory effort Cardio Rate: regular rate GI Inspection: normal to inspection Other: Atwood catheter Skin General: no rashes or lesions noted Neuro General: patient alert and patient awake Extrem General: normal to inspection and edema Psych Appearance: grossly normal Assessment & Plan Assessment & Plan narrative: 66-year-old male with a personal history of colon polyps. Surveillance colonoscopy is pursued today. Time Spent With Patient Critical Care time: I spent a total of [] minutes of critical care time on this patient's care today; this time is exclusive of procedural time.
--- NOTE | 2021-12-31 10:00 | PM.PREOP ---
Pre-operative Note COVID-19 COVID-19 status: Negative Result date/Date tested (Pos, Neg/Pending): 12/28/21 Criteria for continued procedure: Possibility delay results in more complex future surgery or treatment Interval Note History & Physical reviewed/Exam performed by Physician: Yes Changes to H&P: No ASA Class (for procedural sedation): III
--- NOTE | 2021-12-31 15:09 | SUR.PREOP ---
0915 Patient reported completing his prep but that his stool was not clear. Dr. Fernandez notified. Fleets enema ordered and given. Patient assisted to the commode and he passed brown liquid stool. Dr. Fernandez was updated and another fleets enema was ordered and given. He was again assisted to the commode and he passed brown, liquid stool. Dr. Fernandez notified. spoke to patient and the procedure was cancelled.
--- NOTE | 2021-12-31 15:12 | SUR.PREOP ---
Patient was assisted to dress and was taken out to his vehicle and spouse by wheelchair.
== END 2021-12-31 08:50 | disposition home or self-care (01) ==
PROVIDERS: Family Provider Internal Medicine; PCP Internal Medicine; Referring Provider Internal Medicine Gastroenterology; Visit Provider Internal Medicine Gastroenterology
DX: Z12.11 Encounter for screening for malignant neoplasm of colon (principal); Z53.09 Procedure and treatment not carried out because of other contraindication
CPT/HCPCS: 45378

== ENCOUNTER → 2022-02-22 10:59 | Outpatient (CLI) | payer OTHER, SELFPAY ==
[2019-03-06 14:57] VITALS: BMI 24.7
[2022-02-22 13:31] LABS: COVID19 -Nasal RAPID Negative (Negative)
== END ==
PROVIDERS: Family Provider Internal Medicine; PCP Internal Medicine; Visit Provider Surgery
DX: Z20.822 Contact with and (suspected) exposure to COVID-19 (principal); Z01.812 Encounter for preprocedural laboratory examination
CPT/HCPCS: 87635; C9803

== ENCOUNTER 2022-02-25 11:53 | Day surgery (SDC) | payer OTHER, SELFPAY ==
[2019-03-06 14:57] VITALS: BMI 24.7
--- NOTE | 2022-02-25 12:13 | SUR.PREOP ---
Pt arrived, prep was not successful and procedure was cancelled. Pt was called and pt was sent home with instructions to follow up with an office visit.
== END 2022-02-25 11:55 | disposition home or self-care (01) ==
LOC: ENDO 11:54
PROVIDERS: Family Provider Internal Medicine; PCP Internal Medicine; Referring Provider Internal Medicine; Visit Provider Internal Medicine

== ENCOUNTER 2022-08-12 11:28 | Day surgery (SDC) | payer OTHER, SELFPAY ==
[2019-03-06 14:57] VITALS: BMI 24.7
--- NOTE | 2022-08-12 | PATH_ITS ---
[facility] Accession Number: [id number] No. of containers..01 Tissue . 01 Material submitted: . colon - TRANSVERSE COLON POLYP . 01 Diagnosis: Transverse Colon Polyp: Inflammatory polyp. MRV 08/15/2022 1406 Local . 01 Electronically signed: . Saman Thomas MD, PhD, Pathologist NPI- [id number] . 01 Gross description: . TRANSVERSE COLON POLYP : Received in formalin is 1 fragment(s) of wilks, soft tissue measuring 0.2 x 0.2 x 0.2 cm submitted entirely in 1 cassette(s) /CPE 08/14/2022 0901 Local . 01 Pathologist provided ICD-10: K51.40 . 01 CPT . 489132 Specimen Comment: A courtesy copy of this report has been sent to [phone] Performed at: 01 [facility] [address] [place] [address], [place], [place] [id number] MD Elijah Hernandez MD Phone: [phone]
[2022-08-12 12:00] VITALS: BMI 26.8
--- NOTE | 2022-08-12 12:01 | P.HP_ITS ---
History of Present Illness History of Present Illness Date Patient Seen: 08/12/22 Time Patient Seen: 12:01 Chief complaint: Colonoscopy Narrative: Positive Cologuard. Did better with a bowel prep this time. [facility] Medical History Anxiety and depression Indwelling Atwood catheter present Multiple sclerosis Neurogenic bladder Surgical History S/P tonsillectomy and adenoidectomy Family History Mother Obesity Hypertension Brother Renal cancer Social History household members: spouse Smoking Status: Former smoker alcohol intake: never Meds Home Medications and Allergies Home Medications Medication Instructions Recorded Confirmed Type baclofen 10 mg tablet 20 mg PO Q6H 03/06/19 08/12/22 History citalopram 40 mg tablet 40 mg PO DAILY 03/06/19 08/12/22 History docusate sodium 250 mg capsule 250 mg PO BEDTIME 03/06/19 08/12/22 History interferon beta-1a (albumin) 44 44 mcg SUBCUT 3XW 03/06/19 08/12/22 History mcg/0.5 mL subcutaneous pen injector (Rebif Rebidose) diazepam 5 mg tablet 5 mg PO BEDTIME 08/12/22 08/12/22 History magnesium hydroxide 800 mg/5 mL 800 mg PO Q3D PRN Constipation 08/12/22 08/12/22 History oral suspension polyethylene glycol 3350 17 gram 17 g PO 3XW PRN Constipation 08/12/22 08/12/22 History oral powder packet (Miralax) terazosin 1 mg tablet 3 mg PO BEDTIME 08/12/22 08/12/22 History Allergies Allergy/AdvReac Type Severity Reaction Status Date / Time No Known Drug Allergies Allergy Verified 08/12/22 11:54 Review of Systems Review of Systems ROS: Yes All systems reviewed with the patient and are negative except as otherwise documented Exam Const General: cooperative HENMT Head: normal to inspection Eyes General: appearance normal, both eyes and all related structures Neck Neck: normal visual inspection Chest Chest: normal inspection of the chest Resp Effort & Inspection: normal respiratory effort Cardio Rate: regular rate GI Inspection: normal to inspection Skin General: no rashes or lesions noted Neuro General: patient alert and patient awake Extrem General: normal to inspection and no pedal edema Psych Appearance: grossly normal Assessment & Plan Assessment & Plan narrative: 66-year-old with a positive Cologuard. Colonoscopy is pursued today.
--- NOTE | 2022-08-12 12:03 | PM.PREOP ---
Pre-operative Note Interval Note History & Physical reviewed/Exam performed by Physician: Yes Changes to H&P: No ASA Class (for procedural sedation): III
[2022-08-12 12:05] VITALS: BP 118/55; PULSE 85; RESP 16; TEMP 36.5; O2SAT 99
[2022-08-12] MEDS: LACTATED RINGERS 1,000 ML 120 ML IV (12:08)
--- NOTE | 2022-08-12 13:47 | PM.OP.COLON ---
Operative Date/Time/Diagnoses Date of procedure: 08/12/22 Time of procedure: 13:47 Pre-op diagnosis: Positive Cologuard Post-op diagnosis: same Procedure & Clinicians Study performed: Colonoscopy with hot snare polypectomy Same procedure as scheduled: Yes Indications: Positive Cologuard Surgeon: Paulino Fernandez Procedure Notes SCOAP/Timeout: Done Procedure in detail: After the risks and benefits were explained, written and verbal informed consent was obtained. The patient was brought into the procedure room and placed into the left lateral decubitus position. Please see anesthesia notes for sedation details. Digital rectal examination was accomplished. The scope was introduced into the patient and advanced under direct visualization to the cecum as identified by the appendiceal orifice and ileocecal valve. The scope was slowly withdrawn to carefully examine the mucosa for any defects or lesions. Comprehensive imaging was accomplished throughout the rectum including the dentate line. The colon was decompressed, the scope was then removed from the patient who tolerated the procedure well. Bowel prep fair; with copious irrigation and suction this was rendered adequate Adult colonoscope Complications: none Impression: The patient had a very redundant colon. Internal hemorrhoids with hypertrophied anal papillae were noted. In the transverse colon there was a 6-7 mm polyp removed with hot snare polypectomy. No additional pathology was appreciated throughout. There was a moderate amount of liquid stool debris requiring copious amounts of irrigation and suction to render the mucosal exam adequate. Mild melanosis coli was noted throughout. Endoscopic diagnosis 1. Internal Hemorrhoids with hypertrophied anal papillae 2. Colon polyp 3. Redundant lengthy colon 4. Mild melanosis coli. Post-procedure Plan for aftercare: 1. Await histopathology. 2. Consider repeat colonoscopy in 3 years' time with double bowel prep considering the polyp and prep conditions today. Disposition: PACU
[2022-08-12 13:50] VITALS: BP 91/55; PULSE 57; RESP 16; TEMP 36.2; O2SAT 98
[2022-08-12 13:54] VITALS: BP 91/55; PULSE 61; RESP 16; O2SAT 98
[2022-08-12 14:00] VITALS: BP 104/60; BP 110/60; PULSE 61; PULSE 62; RESP 13; RESP 17; TEMP 36.5; O2SAT 98
--- NOTE | 2022-08-12 14:24 | SUR.PHASEII ---
DC home with all belongings. taken via WC to .
== END 2022-08-12 14:25 | disposition home or self-care (01) ==
PROVIDERS: Family Provider Internal Medicine; PCP Internal Medicine; Referring Provider Internal Medicine Gastroenterology; Visit Provider Internal Medicine Gastroenterology
PROC: 0DJD8ZZ Inspection of Lower Intestinal Tract, Via Natural or Artificial Opening Endoscopic (ICD-10-PCS; CPT 45378; principal; 2022-08-12 12:30)
DX: R19.5 Other fecal abnormalities (principal); Z12.11 Encounter for screening for malignant neoplasm of colon; Z86.010 Personal history of colon polyps; K64.8 Other hemorrhoids; K64.4 Residual hemorrhoidal skin tags; K63.89 Other specified diseases of intestine; K51.40 Inflammatory polyps of colon without complications
CPT/HCPCS: 45385; J2704

== ENCOUNTER 2022-09-05 14:30 | Outpatient (RCR) | payer OTHER, SELFPAY ==
[2019-03-06 14:57] VITALS: BMI 24.7
--- NOTE | 2022-07-01 17:07 | PT.OIE ---
Current Diagnoses Multiple sclerosis (07/01/22) Cramp and spasm (07/01/22) Past Medical History (Last Reviewed 12/31/21 @ 09:58 by Paulino Fernandez MD) Anxiety and depression Multiple sclerosis Neurogenic bladder Past Surgical History (Last Reviewed 12/31/21 @ 09:58 by Paulino Fernandez MD) S/P tonsillectomy and adenoidectomy Visit Care Team Role Provider Type Mario Manzano MD Family Provider Physician Primary Care Provider Specialty: Internal Medicine Address: [address] [place] [address], [id number] Email: Terrie Muñoz MD Attending Provider Non-Staff Referring Provider Specialty: Medical Address: [address] [place] [address], [id number] Email: Physical Therapy Initial Evaluation PT-OP-A Visit Information Start: 06/30/22 08:12 Freq: Status: Active Protocol: Document 07/01/22 15:18 SAK (Rec: 07/01/22 17:06 [facility] [id number]) Out-Patient Physical Therapy Visit Information Visit Information Visit Type Initial Evaluation Visit Start Time 15:18 Visit Stop Time 16:05 Total Visit Minutes 45 Visit Number 1 Evaluation Information Evaluation Date 07/01/22 Precautions Precautions MS; don't ovefatigue. PT-OP-B Current Condition Start: 06/30/22 08:12 Freq: Status: Active Protocol: Document 07/01/22 15:18 SAK (Rec: 07/01/22 17:06 [facility] [id number]) Current Condition History of Current Condition Onset Date 30 years Current Complaints weakness, gait dysfunction, muscle tightness due to MS History of Current Condition 30 history of MS, saw pt 1 year ago. Has been having functional color strainer help him with HEP 2x/wk. States he feels his core strength has improved, and overall stamina and strength has improved, stretching is helping. Hasn't been able to do a floor transfer. Wanting reassessment to see how he is doing and progress with ther ex for strengthening and ROM, work on gait and floor transfers. Asks if e-stim may be helpful. machine. Has AFO on right LE, dragging of right foot limits his walking. Treatment Goals Patient/Caregiver Goals Floor transfer walking Work on floor transfer Improve strength, ROM, gait Prior Functional Status Baseline Function- ADL's Independent Baseline Function- Mobility Independent Baseline Function- Gait 4WW, right LE strap, SBA Baseline Function- Work/School retired Current Functional Impairments (Reported) Functional Limitations- ADL's needs assistance Functional Limitations- Mobility/Gait CGA, 4WW x 90 ft today floor transfer with mod assist today w/c to bed, toilet independent Functional Limitations- Work/School retired PT-OP-D Balance Start: 06/30/22 08:12 Freq: Status: Active Protocol: Document 07/01/22 15:18 SAK (Rec: 07/01/22 17:06 [facility] [id number]) OP-PT Balance Assessment Sitting Balance Static Sitting Balance Ability Good Dynamic Sitting Balance Ability Fair Standing Balance Static Standing Balance Ability Fair Dynamic Standing Balance Ability Poor Tinetti Balance Assessment Sitting Balance Sitting Balance Steady, safe Arising from Chair Attempts to Arise Arises on 1st attempt Standing Balance Immediate Standing Balance Steady with support Standing Balance Steady, wide stance Nudged Response Begins to fall Standing with Eyes Closed Unsteady Turning Step Pattern Turning 360 Degrees Discontinuous steps Stability Turning 360 Degrees Unsteady, grabs/staggers Sitting Down Sitting Down Uses arms or unsteady Gait and Step Initiation of Gait Hesitancy, mult. attempts Right Foot Step Length Does not pass stance ft. Right Foot Step Height Does not clear floor Left Foot Step Length Does not pass stance foot Left Foot Step Height Does not clear floor Step Description Step Symmetry Step length not equal Step Continuity Steps appear continuous Gait Description Path Description Marked deviation Trunk Description Marked sway or uses aide Walking Stance Heels together Scoring and Interpretation Tinetti Composite Score (points) 8 Hagen Fall Scale Copyright Permission PT-OP-E Functional Tests Start: 06/30/22 08:12 Freq: Status: Active Protocol: Document 07/01/22 15:18 SAK (Rec: 07/01/22 17:06 [facility] [id number]) Functional Tests 2 Minute Walk Test Distance 90 Device Used 4WW PT-OP-G Mobility & Gait Start: 06/30/22 08:12 Freq: Status: Active Protocol: Document 07/01/22 15:18 SAK (Rec: 07/01/22 17:06 [facility] [id number]) OP Mobility Evaluation Bed Mobility Rolling needs railing Supine to and from Sit SBA Transfers Sit to Stand SBA with set-up Bed to Chair Transfers SBA Floor Transfers mod assist, cues for pushing onto both feet Wheelchair Management Type of Wheelchair power OP Gait Assessment Gait Gait Assistance Required: Contact Guard Assist Distance (Feet) 90 Assistive Devices Assistive Device 4 Wheeled Walker Gait Deviations General Gait Pattern Decreased Stride Length, Decreased Feet Clearance, Flexed Trunk,Narrow Based Gait Factors Limiting Gait Function Factors Limiting Gait Function Abnormal Tonal Influences, Decreased Activity Tolerance, Decreased Strength,Limited Range of Motion PT-OP-H Neuro Start: 06/30/22 08:12 Freq: Status: Active Protocol: Document 07/01/22 15:18 SAK (Rec: 07/01/22 17:06 [facility] [id number]) Sensation Evaluation Gross Sensation Gross Sensation Left LE Impaired,Right LE Impaired PT-OP-K Range of Motion Start: 06/30/22 08:12 Freq: Status: Active Protocol: Document 07/01/22 15:18 SAK (Rec: 07/01/22 17:06 [facility] [id number]) Shoulder Goniometric Range of Motion Shoulder Right Shoulder ROM WFL No Flexion 150 Extension 10 Abduction 70 External Rotation at 90 degrees 45 Abduction Internal Rotation Behind Back (text) lateral hip Left Shoulder ROM WFL Yes Shoulder ROM Limitations Shoulder ROM Limitations Muscle Weakness Elbow/Forearm Range of Motion Elbow/Forearm Right Elbow/Forearm ROM WFL Yes Left Elbow/Forearm ROM WFL Yes Wrist Goniometric Range of Motion Wrist Right Wrist ROM WFL No Left Wrist ROM WFL Yes ROM Limitations Wrist Limitations of Range of Motion Muscle Weakness Comments lacking active wrist extension Hip Goniometric Range of Motion Hip Right Flexion w/Knee Flexed 95 Straight Leg Raise 60 Extension 0 Abduction 20 Internal Rotation 20 External Rotation 65 Left Flexion w/Knee Flexed 95 Straight Leg Raise 55 Extension 0 Abduction 20 Internal Rotation 20 External Rotation 65 Hip ROM Limitations Hip ROM Limitations Soft Tissue Tightness,Muscle Tone Knee Goniometric Range of Motion Knee andrew Knee ROM WFL Yes Ankle and Foot Goniometric Range of Motion Ankle and Foot Right Dorsiflexion with Knee Flexed 0 Dorsiflexion with Knee Extended 0 Plantarflexion 40 Left Dorsiflexion with Knee Flexed 5 Dorsiflexion with Knee Extended 0 Plantarflexion 50 PT-OP-M Strength Start: 06/30/22 08:12 Freq: Status: Active Protocol: Document 07/01/22 15:18 [facility] (Rec: 07/01/22 17:06 [facility] [id number]) Trunk Strength Trunk Manual Muscle Testing Flexion 3+ Fair+ Extension 3+ Fair+ Shoulder Strength Shoulder Manual Muscle Testing Right Flexion 2+ Poor+ Extension 2+ Poor+ Abduction (C5) 2+ Poor+ Adduction 2+ Poor+ External Rotation 2+ Poor+ Internal Rotation 2+ Poor+ Left Flexion 5 Normal Extension 5 Normal Abduction (C5) 5 Normal Adduction 5 Normal External Rotation 5 Normal Internal Rotation 5 Normal Elbow/Forearm Strength Elbow and Forearm Manual Muscle Testing Right Flexion (C6) 3+ Fair+ Extension (C7) 4- Good- Left Flexion (C6) 5 Normal Extension (C7) 5 Normal Wrist Strength Wrist Manual Muscle Testing Right Flexion (C7) 3+ Fair+ Extension (C6) 1 Trace Left Flexion (C7) 5 Normal Extension (C6) 5 Normal Hip Strength Hip Manual Muscle Testing Right Flexion (L2) 1 Trace Extension (S1) 1 Trace Abduction 1 Trace Adduction 2- Poor- External Rotation 2- Poor- Internal Rotation 1 Trace Left Flexion (L2) 4- Good- Extension (S1) 3- Fair- Abduction 3+ Fair+ Adduction 4- Good- External Rotation 4- Good- Internal Rotation 4- Good- Knee Strength Knee Manual Muscle Testing Right Flexion (S2) 3- Fair- Extension (L3) 3 Fair Left Flexion (S2) 4+ Good+ Extension (L3) 4+ Good+ Ankle/Foot Strength Ankle and Foot Manual Muscle Testing Right Dorsiflexion (L4) 0 Zero Plantarflexion (S1) 2- Poor- Left Dorsiflexion (L4) 4+ Good+ Plantarflexion (S1) 4+ Good+ PT-OP-Q Treatments Start: 06/30/22 08:12 Freq: Status: Active Protocol: Document 07/01/22 15:18 [facility] (Rec: 07/01/22 17:06 [facility] [id number]) Therapeutic Activity Therapeutic Activity floor transfer Comments standing facing w/c to floor on knees, initially attempted to bring left LE forward for transfer, having difficulty so recommended try push up onto bilateral LE's and then turn body once partially on chair; required mod assist. Discussed transfer next session from laying down on floor all the way into chair Gait Training Gait Activity 2 min walk test Device Used 4WW, right AFO and strap Level of Assistance CGA Treatment Focus functional gait speed Self-Care/Home Management Treatment Education Patient Education Home Exercise Program Other Education Will need further training of functional color strainer Letty for improved effectiveness of HC stretch, SKTC, and HS stretch. Bring IFES next session. PT-OP-T Assessment and Plan Start: 06/30/22 08:12 Freq: Status: Active Protocol: Document 07/01/22 15:18 [facility] (Rec: 07/01/22 17:06 [facility] [id number]) Physical Therapy Assessment Rehab Potential Rehabilitation Potential Fair Evaluation Complexity Number of Personal Factors/Comorbidities 3 or More Number of Body Systems Impaired 4 or More Clinical Presentation at Evaluation Evolving Impairments Impairments Activity Tolerance,Balance, Gait,ROM,Soft Tissue Mobility, Strength Goals Three Impairment strength and ROM impairment Impairment UE, LE, and trunk weakness with need for further training of patient and bilingual trainer for more effective ex Short Term Goal (STG) review and update patient HEP to address weakness and ROM deficits STG Duration 08/10/22 Community Health Consultant Goal (LTG) Patient to be independent and safe with all aspects of his HEP with the assistance of functional color strainer Letty . LTG Duration 09/28/22 Two Impairment Tinetti gait and balance assessment score 8/28 Impairment high fall risk category Short Term Goal (STG) Improve Tinetti score to at least 11/29 as measure of improved safety with mobility STG Duration 08/10/22 Community Health Consultant Goal (LTG) Improve Tinetti score to at least 15/28 as measure of improved safety with mobility and decreased fall risk. LTG Duration 09/28/22 Five Impairment impaired functional mobility Impairment Patient requires moderate assistance for floor transfer Short Term Goal (STG) Problem solve best method for floor tranfer for ease and safety STG Duration 08/10/22 Community Health Consultant Goal (LTG) Patient able to perform floor transfer with no greater than min assist LTG Duration 09/28/22 Four Impairment Impaired functional mobility Impairment patient no longer able to lift his right LE 15 onto running board of vehicle for purposes of safe transfers into vehicle; can lift 6 inches Short Term Goal (STG) Patient will be able to lift his right LE at least 10 Care Home Goal (LTG) Patient will be able to lift his right LE 15 onto running board of vehicle for purposes of safe transfers into vehicle LTG Duration 09/28/22 One Impairment Gait dysfunction Impairment 2 min walk test 90 ft Short Term Goal (STG) Improve 2 min walk test to at least 125 ft as measure of improved functional gait for home mobility Community Health Consultant Goal (LTG) Improve 2 min walk test to 140 ft as measure of improved functional gait for home mobility LTG Duration 09/28/22 Assessment Summary Assessment Patient presents to PT c/o function limited due diagnosis of MS. He last saw this PT 1 year ago. Patient impairments include strength, ROM, transfers, balance, gait, and functional mobility. Feel he would benefit from PT for evaluating and progressing his HEP which he performs 2 days per week with the assistance of a functional color strainer in his home, working on floor transfer and gait, and consider trying e- stim especially for ankle dorsiflexion and wrist extension. Wm works hard to be as independent as he can given his MS diagnosis and PT will focus on helping him continue to do this and improve as able. PT recommends he see OT due to limited right hand function for ADL's. He required moderate assistance to perform a floor transfer today and would like to decrease the assistance needed so if he were to fall his can assist. Would be beneficial to do further training with functional color strainer to assure most effective techniques for stretching as well as strengthening. Patient is highly motivated and compliant with current HEP . We discussed POC and he is in agreement. Physical Therapy Plan Frequency and Duration Frequency of Treatment 1x/Week Duration of treatment (weeks) 12 Plan of Care Start Date 07/01/22 Plan of Care End Date 09/28/22 Therapeutic Interventions Therapeutic Interventions Balance Training,Gait Training ,Home Exercise Program,Manual Therapy,Neuromuscular Re- education,Patient/Caregiver Education,Self-Care/Home Management,Therapeutic Activities,Therapeutic Exercises Modalities Electric Stimulation Next Visit Focus/Plan Next Note Type Treatment Note Next Visit Plan Trial e-stim to ankle df, wrist ext. Floor transfers.
--- NOTE | 2022-07-01 17:07 | PT.OPPOC ---
Physical, Occupational & Speech Therapy At [facility] Current Diagnoses Multiple sclerosis (07/01/22) Cramp and spasm (07/01/22) Visit Care Team Role Provider Type Mario Manzano MD Family Provider Physician Primary Care Provider Specialty: Internal Medicine Address: [address] [place] [address], [phone] Email: Terrie Muñoz MD Attending Provider Non-Staff Referring Provider Specialty: Medical Address: [address] [place] [address], [phone] Email: Plan Of Care PT-OP-T Assessment and Plan Start: 06/30/22 08:12 Freq: Status: Active Protocol: Document 07/01/22 15:18 SAK (Rec: 07/01/22 17:06 [facility] [id number]) Physical Therapy Assessment Rehab Potential Rehabilitation Potential Fair Evaluation Complexity Number of Personal Factors/Comorbidities 3 or More Number of Body Systems Impaired 4 or More Clinical Presentation at Evaluation Evolving Impairments Impairments Activity Tolerance,Balance, Gait,ROM,Soft Tissue Mobility, Strength Goals Three Impairment strength and ROM impairment Impairment UE, LE, and trunk weakness with need for further training of patient and certified personal trainer for more effective ex Short Term Goal (STG) review and update patient HEP to address weakness and ROM deficits STG Duration 08/10/22 Group Home Goal (LTG) Patient to be independent and safe with all aspects of his HEP with the assistance of functional care trainer Letty . LTG Duration 09/28/22 Two Impairment Tinetti gait and balance assessment score 8/28 Impairment high fall risk category Short Term Goal (STG) Improve Tinetti score to at least 11/29 as measure of improved safety with mobility STG Duration 08/10/22 Group Home Goal (LTG) Improve Tinetti score to at least 15/28 as measure of improved safety with mobility and decreased fall risk. LTG Duration 09/28/22 Five Impairment impaired functional mobility Impairment Patient requires moderate assistance for floor transfer Short Term Goal (STG) Problem solve best method for floor tranfer for ease and safety STG Duration 08/10/22 Surveyor Geodetic Goal (LTG) Patient able to perform floor transfer with no greater than min assist LTG Duration 09/28/22 Four Impairment Impaired functional mobility Impairment patient no longer able to lift his right LE 15 onto running board of vehicle for purposes of safe transfers into vehicle; can lift 6 inches Short Term Goal (STG) Patient will be able to lift his right LE at least 10 Group Home Goal (LTG) Patient will be able to lift his right LE 15 onto running board of vehicle for purposes of safe transfers into vehicle LTG Duration 09/28/22 One Impairment Gait dysfunction Impairment 2 min walk test 90 ft Short Term Goal (STG) Improve 2 min walk test to at least 125 ft as measure of improved functional gait for home mobility Group Home Goal (LTG) Improve 2 min walk test to 140 ft as measure of improved functional gait for home mobility LTG Duration 09/28/22 Assessment Summary Assessment Patient presents to PT c/o function limited due diagnosis of MS. He last saw this PT 1 year ago. Patient impairments include strength, ROM, transfers, balance, gait, and functional mobility. Feel he would benefit from PT for evaluating and progressing his HEP which he performs 2 days per week with the assistance of a functional care trainer in his home, working on floor transfer and gait, and consider trying e- stim especially for ankle dorsiflexion and wrist extension. Wm works hard to be as independent as he can given his MS diagnosis and PT will focus on helping him continue to do this and improve as able. PT recommends he see OT due to limited right hand function for ADL's. He required moderate assistance to perform a floor transfer today and would like to decrease the assistance needed so if he were to fall his can assist. Would be beneficial to do further training with functional care trainer to assure most effective techniques for stretching as well as strengthening. Patient is highly motivated and compliant with current HEP . We discussed POC and he is in agreement. Physical Therapy Plan Frequency and Duration Frequency of Treatment 1x/Week Duration of treatment (weeks) 12 Plan of Care Start Date 07/01/22 Plan of Care End Date 09/28/22 Therapeutic Interventions Therapeutic Interventions Balance Training,Gait Training ,Home Exercise Program,Manual Therapy,Neuromuscular Re- education,Patient/Caregiver Education,Self-Care/Home Management,Therapeutic Activities,Therapeutic Exercises Modalities Electric Stimulation Next Visit Focus/Plan Next Note Type Treatment Note Next Visit Plan Trial e-stim to ankle df, wrist ext. Floor transfers. Plan of Care Dates Plan of Care Start Date 07/01/22 Plan of Care End Date 09/28/22 Electronically Signed by: Judy Blanca, PT 07/01/22 0240 If you are in agreement with this Plan of Care, please return a signed and dated copy. I have reviewed this Plan of Care and certify that the skilled therapy services above are required to meet the patient?s needs. Physician Signature Date Printed Name and Credentials Clinical Instructor Signature Printed Name and Credentials
--- NOTE | 2022-07-08 16:24 | PT.OTN ---
Current Diagnoses Multiple sclerosis (07/08/22) Cramp and spasm (07/08/22) Physical Therapy Treatment Note PT-OP-A Visit Information Start: 06/30/22 08:12 Freq: Status: Active Protocol: Document 07/08/22 15:17 SAK (Rec: 07/08/22 16:24 [facility] [id number]) Out-Patient Physical Therapy Visit Information Visit Information Visit Type Treatment Note Visit Start Time 15:17 Visit Number 2 Evaluation Information Evaluation Date 07/01/22 Precautions Precautions MS; don't ovefatigue. PT-OP-B Current Condition Start: 06/30/22 08:12 Freq: Status: Active Protocol: Document 07/08/22 15:17 SAK (Rec: 07/08/22 16:24 [facility] [id number]) Current Condition History of Current Condition Onset Date 30 years Current Complaints weakness, gait dysfunction, muscle tightness due to MS History of Current Condition 30 history of MS, saw pt 1 year ago. Has been having functional fitness sales associate help him with HEP 2x/wk. States he feels his core strength has improved, and overall stamina and strength has improved, stretching is helping. Hasn't been able to do a floor transfer. Wanting reassessment to see how he is doing and progress with ther ex for strengthening and ROM, work on gait and floor transfers. Asks if e-stim may be helpful. machine. Has AFO on right LE, dragging of right foot limits his walking. PT-OP-D Balance Start: 06/30/22 08:12 Freq: Status: Active Protocol: Document 07/01/22 15:18 SAK (Rec: 07/01/22 17:06 [facility] [id number]) OP-PT Balance Assessment Sitting Balance Static Sitting Balance Ability Good Dynamic Sitting Balance Ability Fair Standing Balance Static Standing Balance Ability Fair Dynamic Standing Balance Ability Poor Tinetti Balance Assessment Sitting Balance Sitting Balance Steady, safe Arising from Chair Attempts to Arise Arises on 1st attempt Standing Balance Immediate Standing Balance Steady with support Standing Balance Steady, wide stance Nudged Response Begins to fall Standing with Eyes Closed Unsteady Turning Step Pattern Turning 360 Degrees Discontinuous steps Stability Turning 360 Degrees Unsteady, grabs/staggers Sitting Down Sitting Down Uses arms or unsteady Gait and Step Initiation of Gait Hesitancy, mult. attempts Right Foot Step Length Does not pass stance ft. Right Foot Step Height Does not clear floor Left Foot Step Length Does not pass stance foot Left Foot Step Height Does not clear floor Step Description Step Symmetry Step length not equal Step Continuity Steps appear continuous Gait Description Path Description Marked deviation Trunk Description Marked sway or uses aide Walking Stance Heels together Scoring and Interpretation Tinetti Composite Score (points) 8 Hagen Fall Scale Copyright Permission PT-OP-E Functional Tests Start: 06/30/22 08:12 Freq: Status: Active Protocol: Document 07/01/22 15:18 SAK (Rec: 07/01/22 17:06 [facility] [id number]) Functional Tests 2 Minute Walk Test Distance 90 Device Used 4WW PT-OP-G Mobility & Gait Start: 06/30/22 08:12 Freq: Status: Active Protocol: Document 07/01/22 15:18 SAK (Rec: 07/01/22 17:06 [facility] [id number]) OP Mobility Evaluation Bed Mobility Rolling needs railing Supine to and from Sit SBA Transfers Sit to Stand SBA with set-up Bed to Chair Transfers SBA Floor Transfers mod assist, cues for pushing onto both feet Wheelchair Management Type of Wheelchair power OP Gait Assessment Gait Gait Assistance Required: Contact Guard Assist Distance (Feet) 90 Assistive Devices Assistive Device 4 Wheeled Walker Gait Deviations General Gait Pattern Decreased Stride Length, Decreased Feet Clearance, Flexed Trunk,Narrow Based Gait Factors Limiting Gait Function Factors Limiting Gait Function Abnormal Tonal Influences, Decreased Activity Tolerance, Decreased Strength,Limited Range of Motion PT-OP-H Neuro Start: 06/30/22 08:12 Freq: Status: Active Protocol: Document 07/01/22 15:18 SAK (Rec: 07/01/22 17:06 [facility] [id number]) Sensation Evaluation Gross Sensation Gross Sensation Left LE Impaired,Right LE Impaired PT-OP-K Range of Motion Start: 06/30/22 08:12 Freq: Status: Active Protocol: Document 07/01/22 15:18 SAK (Rec: 07/01/22 17:06 [facility] [id number]) Shoulder Goniometric Range of Motion Shoulder Right Shoulder ROM WFL No Flexion 150 Extension 10 Abduction 70 External Rotation at 90 degrees 45 Abduction Internal Rotation Behind Back (text) lateral hip Left Shoulder ROM WFL Yes Shoulder ROM Limitations Shoulder ROM Limitations Muscle Weakness Elbow/Forearm Range of Motion Elbow/Forearm Right Elbow/Forearm ROM WFL Yes Left Elbow/Forearm ROM WFL Yes Wrist Goniometric Range of Motion Wrist Right Wrist ROM WFL No Left Wrist ROM WFL Yes ROM Limitations Wrist Limitations of Range of Motion Muscle Weakness Comments lacking active wrist extension Hip Goniometric Range of Motion Hip Right Flexion w/Knee Flexed 95 Straight Leg Raise 60 Extension 0 Abduction 20 Internal Rotation 20 External Rotation 65 Left Flexion w/Knee Flexed 95 Straight Leg Raise 55 Extension 0 Abduction 20 Internal Rotation 20 External Rotation 65 Hip ROM Limitations Hip ROM Limitations Soft Tissue Tightness,Muscle Tone Knee Goniometric Range of Motion Knee andrew Knee ROM WFL Yes Ankle and Foot Goniometric Range of Motion Ankle and Foot Right Dorsiflexion with Knee Flexed 0 Dorsiflexion with Knee Extended 0 Plantarflexion 40 Left Dorsiflexion with Knee Flexed 5 Dorsiflexion with Knee Extended 0 Plantarflexion 50 PT-OP-M Strength Start: 06/30/22 08:12 Freq: Status: Active Protocol: Document 07/01/22 15:18 [facility] (Rec: 07/01/22 17:06 [facility] [id number]) Trunk Strength Trunk Manual Muscle Testing Flexion 3+ Fair+ Extension 3+ Fair+ Shoulder Strength Shoulder Manual Muscle Testing Right Flexion 2+ Poor+ Extension 2+ Poor+ Abduction (C5) 2+ Poor+ Adduction 2+ Poor+ External Rotation 2+ Poor+ Internal Rotation 2+ Poor+ Left Flexion 5 Normal Extension 5 Normal Abduction (C5) 5 Normal Adduction 5 Normal External Rotation 5 Normal Internal Rotation 5 Normal Elbow/Forearm Strength Elbow and Forearm Manual Muscle Testing Right Flexion (C6) 3+ Fair+ Extension (C7) 4- Good- Left Flexion (C6) 5 Normal Extension (C7) 5 Normal Wrist Strength Wrist Manual Muscle Testing Right Flexion (C7) 3+ Fair+ Extension (C6) 1 Trace Left Flexion (C7) 5 Normal Extension (C6) 5 Normal Hip Strength Hip Manual Muscle Testing Right Flexion (L2) 1 Trace Extension (S1) 1 Trace Abduction 1 Trace Adduction 2- Poor- External Rotation 2- Poor- Internal Rotation 1 Trace Left Flexion (L2) 4- Good- Extension (S1) 3- Fair- Abduction 3+ Fair+ Adduction 4- Good- External Rotation 4- Good- Internal Rotation 4- Good- Knee Strength Knee Manual Muscle Testing Right Flexion (S2) 3- Fair- Extension (L3) 3 Fair Left Flexion (S2) 4+ Good+ Extension (L3) 4+ Good+ Ankle/Foot Strength Ankle and Foot Manual Muscle Testing Right Dorsiflexion (L4) 0 Zero Plantarflexion (S1) 2- Poor- Left Dorsiflexion (L4) 4+ Good+ Plantarflexion (S1) 4+ Good+ PT-OP-Q Treatments Start: 06/30/22 08:12 Freq: Status: Active Protocol: Document 07/08/22 15:17 [facility] (Rec: 07/08/22 16:24 [facility] [id number]) Gym Equipment Shuttle Recovery HS stretch Details manual Reps/Time 1x30 andrew HC stretch Details right foot flat on platform Reps/Time 2x30 Unilateral Squats Details right, mod assist for right LE alignment Resistance 50 Shuttle Recovery Platform Stable Reps/Time 10x3 Therapeutic Exercises Supine Exercises LE stretches Supine Exercise Name HC, HS, SKTC, Adductors Reps/Minutes 2x30 ea Therapeutic Activity Therapeutic Activity floor transfer Reps/Minutes 1x Comments sitting in w/c to floor laying down with min assist for safety. Prone to kneeling in front of chair took much effort, time, and min assist. Push up from knees prone onto chair, pulling left knee under to help push and rotate himself all the way up into the w/c with min assist and cues. PT-OP-T Assessment and Plan Start: 06/30/22 08:12 Freq: Status: Active Protocol: Document 07/08/22 15:17 [facility] (Rec: 07/08/22 16:24 [facility] [id number]) Physical Therapy Assessment Goals Three Impairment strength and ROM impairment Impairment UE, LE, and trunk weakness with need for further training of patient and circus trainer for more effective ex Short Term Goal (STG) review and update patient HEP to address weakness and ROM deficits STG Duration 08/10/22 Fdc Goal (LTG) Patient to be independent and safe with all aspects of his HEP with the assistance of functional fitness sales associate Letty . LTG Duration 09/28/22 Two Impairment Tinetti gait and balance assessment score 8/28 Impairment high fall risk category Short Term Goal (STG) Improve Tinetti score to at least 11/29 as measure of improved safety with mobility STG Duration 08/10/22 Box Estimator Goal (LTG) Improve Tinetti score to at least 15/28 as measure of improved safety with mobility and decreased fall risk. LTG Duration 09/28/22 Five Impairment impaired functional mobility Impairment Patient requires moderate assistance for floor transfer Short Term Goal (STG) Problem solve best method for floor tranfer for ease and safety STG Duration 08/10/22 Fdc Goal (LTG) Patient able to perform floor transfer with no greater than min assist LTG Duration 09/28/22 Four Impairment Impaired functional mobility Impairment patient no longer able to lift his right LE 15 onto running board of vehicle for purposes of safe transfers into vehicle; can lift 6 inches Short Term Goal (STG) Patient will be able to lift his right LE at least 10 Fdc Goal (LTG) Patient will be able to lift his right LE 15 onto running board of vehicle for purposes of safe transfers into vehicle LTG Duration 09/28/22 One Impairment Gait dysfunction Impairment 2 min walk test 90 ft Short Term Goal (STG) Improve 2 min walk test to at least 125 ft as measure of improved functional gait for home mobility Fdc Goal (LTG) Improve 2 min walk test to 140 ft as measure of improved functional gait for home mobility LTG Duration 09/28/22 Assessment Summary Assessment trial leg press for unilateral on right required mod assist for right LE alignment but patient able to do 3 sets of 10 with 50#. didn't bring e- stim today; will bring next session. Physical Therapy Plan Frequency and Duration Frequency of Treatment 1x/Week Duration of treatment (weeks) 12 Plan of Care Start Date 07/01/22 Plan of Care End Date 09/28/22 Therapeutic Interventions Therapeutic Interventions Balance Training,Gait Training ,Home Exercise Program,Manual Therapy,Neuromuscular Re- education,Patient/Caregiver Education,Self-Care/Home Management,Therapeutic Activities,Therapeutic Exercises Modalities Electric Stimulation Next Visit Focus/Plan Next Note Type Treatment Note Next Visit Plan Trial e-stim ankle df, wrist ext. shuttle leg press. LE stretching and prone press up. Floor transfer if time allows
--- NOTE | 2022-07-11 16:40 | PT.OTN ---
Current Diagnoses Multiple sclerosis (07/11/22) Cramp and spasm (07/11/22) Physical Therapy Treatment Note PT-OP-A Visit Information Start: 06/30/22 08:12 Freq: Status: Active Protocol: Document 07/11/22 15:15 SAK (Rec: 07/11/22 16:40 [facility] [id number]) Out-Patient Physical Therapy Visit Information Visit Information Visit Type Treatment Note Visit Start Time 15:17 Total Visit Minutes 43 Visit Number 3 Evaluation Information Evaluation Date 07/01/22 Precautions Precautions MS; don't ovefatigue. PT-OP-B Current Condition Start: 06/30/22 08:12 Freq: Status: Active Protocol: Document 07/11/22 15:15 SAK (Rec: 07/11/22 16:40 [facility] [id number]) Current Condition History of Current Condition Onset Date 30 years Current Complaints weakness, gait dysfunction, muscle tightness due to MS History of Current Condition 30 history of MS, saw pt 1 year ago. Has been having functional it trainer help him with HEP 2x/wk. States he feels his core strength has improved, and overall stamina and strength has improved, stretching is helping. Hasn't been able to do a floor transfer. Wanting reassessment to see how he is doing and progress with ther ex for strengthening and ROM, work on gait and floor transfers. Asks if e-stim may be helpful. machine. Has AFO on right LE, dragging of right foot limits his walking. 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/School retired PT-OP-D Balance Start: 06/30/22 08:12 Freq: Status: Active Protocol: Document 07/01/22 15:18 SAK (Rec: 07/01/22 17:06 [facility]AK [id number]) OP-PT Balance Assessment Sitting Balance Static Sitting Balance Ability Good Dynamic Sitting Balance Ability Fair Standing Balance Static Standing Balance Ability Fair Dynamic Standing Balance Ability Poor Tinetti Balance Assessment Sitting Balance Sitting Balance Steady, safe Arising from Chair Attempts to Arise Arises on 1st attempt Standing Balance Immediate Standing Balance Steady with support Standing Balance Steady, wide stance Nudged Response Begins to fall Standing with Eyes Closed Unsteady Turning Step Pattern Turning 360 Degrees Discontinuous steps Stability Turning 360 Degrees Unsteady, grabs/staggers Sitting Down Sitting Down Uses arms or unsteady Gait and Step Initiation of Gait Hesitancy, mult. attempts Right Foot Step Length Does not pass stance ft. Right Foot Step Height Does not clear floor Left Foot Step Length Does not pass stance foot Left Foot Step Height Does not clear floor Step Description Step Symmetry Step length not equal Step Continuity Steps appear continuous Gait Description Path Description Marked deviation Trunk Description Marked sway or uses aide Walking Stance Heels together Scoring and Interpretation Tinetti Composite Score (points) 8 Hagen Fall Scale Copyright Permission PT-OP-E Functional Tests Start: 06/30/22 08:12 Freq: Status: Active Protocol: Document 07/01/22 15:18 [facility] (Rec: 07/01/22 17:06 [facility] [id number]) Functional Tests 2 Minute Walk Test Distance 90 Device Used 4WW PT-OP-G Mobility & Gait Start: 06/30/22 08:12 Freq: Status: Active Protocol: Document 07/01/22 15:18 [facility] (Rec: 07/01/22 17:06 [facility] [id number]) OP Mobility Evaluation Bed Mobility Rolling needs railing Supine to and from Sit SBA Transfers Sit to Stand SBA with set-up Bed to Chair Transfers SBA Floor Transfers mod assist, cues for pushing onto both feet Wheelchair Management Type of Wheelchair power OP Gait Assessment Gait Gait Assistance Required: Contact Guard Assist Distance (Feet) 90 Assistive Devices Assistive Device 4 Wheeled Walker Gait Deviations General Gait Pattern Decreased Stride Length, Decreased Feet Clearance, Flexed Trunk,Narrow Based Gait Factors Limiting Gait Function Factors Limiting Gait Function Abnormal Tonal Influences, Decreased Activity Tolerance, Decreased Strength,Limited Range of Motion PT-OP-H Neuro Start: 06/30/22 08:12 Freq: Status: Active Protocol: Document 07/01/22 15:18 SAK (Rec: 07/01/22 17:06 [facility] [id number]) Sensation Evaluation Gross Sensation Gross Sensation Left LE Impaired,Right LE Impaired PT-OP-K Range of Motion Start: 06/30/22 08:12 Freq: Status: Active Protocol: Document 07/01/22 15:18 SAK (Rec: 07/01/22 17:06 [facility] [id number]) Shoulder Goniometric Range of Motion Shoulder Right Shoulder ROM WFL No Flexion 150 Extension 10 Abduction 70 External Rotation at 90 degrees 45 Abduction Internal Rotation Behind Back (text) lateral hip Left Shoulder ROM WFL Yes Shoulder ROM Limitations Shoulder ROM Limitations Muscle Weakness Elbow/Forearm Range of Motion Elbow/Forearm Right Elbow/Forearm ROM WFL Yes Left Elbow/Forearm ROM WFL Yes Wrist Goniometric Range of Motion Wrist Right Wrist ROM WFL No Left Wrist ROM WFL Yes ROM Limitations Wrist Limitations of Range of Motion Muscle Weakness Comments lacking active wrist extension Hip Goniometric Range of Motion Hip Right Flexion w/Knee Flexed 95 Straight Leg Raise 60 Extension 0 Abduction 20 Internal Rotation 20 External Rotation 65 Left Flexion w/Knee Flexed 95 Straight Leg Raise 55 Extension 0 Abduction 20 Internal Rotation 20 External Rotation 65 Hip ROM Limitations Hip ROM Limitations Soft Tissue Tightness,Muscle Tone Knee Goniometric Range of Motion Knee andrew Knee ROM WFL Yes Ankle and Foot Goniometric Range of Motion Ankle and Foot Right Dorsiflexion with Knee Flexed 0 Dorsiflexion with Knee Extended 0 Plantarflexion 40 Left Dorsiflexion with Knee Flexed 5 Dorsiflexion with Knee Extended 0 Plantarflexion 50 PT-OP-M Strength Start: 06/30/22 08:12 Freq: Status: Active Protocol: Document 07/01/22 15:18 [facility] (Rec: 07/01/22 17:06 [facility] [id number]) Trunk Strength Trunk Manual Muscle Testing Flexion 3+ Fair+ Extension 3+ Fair+ Shoulder Strength Shoulder Manual Muscle Testing Right Flexion 2+ Poor+ Extension 2+ Poor+ Abduction (C5) 2+ Poor+ Adduction 2+ Poor+ External Rotation 2+ Poor+ Internal Rotation 2+ Poor+ Left Flexion 5 Normal Extension 5 Normal Abduction (C5) 5 Normal Adduction 5 Normal External Rotation 5 Normal Internal Rotation 5 Normal Elbow/Forearm Strength Elbow and Forearm Manual Muscle Testing Right Flexion (C6) 3+ Fair+ Extension (C7) 4- Good- Left Flexion (C6) 5 Normal Extension (C7) 5 Normal Wrist Strength Wrist Manual Muscle Testing Right Flexion (C7) 3+ Fair+ Extension (C6) 1 Trace Left Flexion (C7) 5 Normal Extension (C6) 5 Normal Hip Strength Hip Manual Muscle Testing Right Flexion (L2) 1 Trace Extension (S1) 1 Trace Abduction 1 Trace Adduction 2- Poor- External Rotation 2- Poor- Internal Rotation 1 Trace Left Flexion (L2) 4- Good- Extension (S1) 3- Fair- Abduction 3+ Fair+ Adduction 4- Good- External Rotation 4- Good- Internal Rotation 4- Good- Knee Strength Knee Manual Muscle Testing Right Flexion (S2) 3- Fair- Extension (L3) 3 Fair Left Flexion (S2) 4+ Good+ Extension (L3) 4+ Good+ Ankle/Foot Strength Ankle and Foot Manual Muscle Testing Right Dorsiflexion (L4) 0 Zero Plantarflexion (S1) 2- Poor- Left Dorsiflexion (L4) 4+ Good+ Plantarflexion (S1) 4+ Good+ PT-OP-Q Treatments Start: 06/30/22 08:12 Freq: Status: Active Protocol: Document 07/11/22 15:15 [facility] (Rec: 07/11/22 16:40 [facility] [id number]) Gym Equipment Shuttle Recovery Bilateral Squats Resistance 62 Shuttle Recovery Platform Stable Reps/Time 10x Unilateral Squats Details right, mod assist for right LE alignment Resistance 50 Shuttle Recovery Platform Stable Reps/Time 10x3 Therapeutic Exercises Supine Exercises LE stretches Supine Exercise Name HC, HS, SKTC, Adductors Reps/Minutes 2x30 ea Self-Care/Home Management Treatment Education Other Education E-stim use, recommended patient try different leads with electrodes to see if gets response in forearm or LE as no response with either with patient machine today. PT-OP-T Assessment and Plan Start: 06/30/22 08:12 Freq: Status: Active Protocol: Document 07/11/22 15:15 [facility] (Rec: 07/11/22 16:40 [facility] [id number]) Physical Therapy Assessment Impairments Impairments Activity Tolerance,Balance, Gait,ROM,Soft Tissue Mobility, Strength Goals Three Impairment strength and ROM impairment Impairment UE, LE, and trunk weakness with need for further training of patient and education trainer for more effective ex Short Term Goal (STG) review and update patient HEP to address weakness and ROM deficits STG Duration 08/10/22 Shelter Goal (LTG) Patient to be independent and safe with all aspects of his HEP with the assistance of functional it trainer Letty . LTG Duration 09/28/22 Two Impairment Tinetti gait and balance assessment score 8/28 Impairment high fall risk category Short Term Goal (STG) Improve Tinetti score to at least 11/29 as measure of improved safety with mobility STG Duration 08/10/22 Vision Rehabilitation Therapist Goal (LTG) Improve Tinetti score to at least 15/28 as measure of improved safety with mobility and decreased fall risk. LTG Duration 09/28/22 Five Impairment impaired functional mobility Impairment Patient requires moderate assistance for floor transfer Short Term Goal (STG) Problem solve best method for floor tranfer for ease and safety STG Duration 08/10/22 Vision Rehabilitation Therapist Goal (LTG) Patient able to perform floor transfer with no greater than min assist LTG Duration 09/28/22 Four Impairment Impaired functional mobility Impairment patient no longer able to lift his right LE 15 onto running board of vehicle for purposes of safe transfers into vehicle; can lift 6 inches Short Term Goal (STG) Patient will be able to lift his right LE at least 10 Shelter Goal (LTG) Patient will be able to lift his right LE 15 onto running board of vehicle for purposes of safe transfers into vehicle LTG Duration 09/28/22 One Impairment Gait dysfunction Impairment 2 min walk test 90 ft Short Term Goal (STG) Improve 2 min walk test to at least 125 ft as measure of improved functional gait for home mobility Shelter Goal (LTG) Improve 2 min walk test to 140 ft as measure of improved functional gait for home mobility LTG Duration 09/28/22 Assessment Summary Assessment Patient brought home e-stim unit for trial in clinic; hasn 't used for a long time and wondering if may be of benefit ; no muscle response using patient machine, but may be due to line or electrode malfunction. Was able to get ankle df response with [place] stim with clinic machine. 50 # on shuttle leg press right leg only, 62 with andrew. Will do caregiver training next session. Physical Therapy Plan Frequency and Duration Frequency of Treatment 1x/Week Duration of treatment (weeks) 12 Plan of Care Start Date 07/01/22 Plan of Care End Date 09/28/22 Therapeutic Interventions Therapeutic Interventions Balance Training,Gait Training ,Home Exercise Program,Manual Therapy,Neuromuscular Re- education,Patient/Caregiver Education,Self-Care/Home Management,Therapeutic Activities,Therapeutic Exercises Modalities Electric Stimulation Next Visit Focus/Plan Next Note Type Treatment Note Next Visit Plan Caregiver training for HEP. Possible floor transfer.
--- NOTE | 2022-07-15 18:15 | PT.OTN ---
Current Diagnoses Multiple sclerosis (07/15/22) Cramp and spasm (07/15/22) Physical Therapy Treatment Note PT-OP-A Visit Information Start: 06/30/22 08:12 Freq: Status: Active Protocol: Document 07/15/22 15:16 SAK (Rec: 07/15/22 16:06 [facility] [id number]) Out-Patient Physical Therapy Visit Information Visit Information Visit Type Treatment Note Visit Start Time 15:16 Visit Stop Time 16:00 Total Visit Minutes 44 Visit Number 4 Evaluation Information Evaluation Date 07/01/22 Precautions Precautions MS; don't ovefatigue. PT-OP-B Current Condition Start: 06/30/22 08:12 Freq: Status: Active Protocol: Document 07/15/22 15:16 SAK (Rec: 07/15/22 16:06 [facility] [id number]) Current Condition History of Current Condition Onset Date 30 years Current Complaints weakness, gait dysfunction, muscle tightness due to MS History of Current Condition 30 history of MS, saw pt 1 year ago. Has been having functional medical management trainer help him with HEP 2x/wk. States he feels his core strength has improved, and overall stamina and strength has improved, stretching is helping. Hasn't been able to do a floor transfer. Wanting reassessment to see how he is doing and progress with ther ex for strengthening and ROM, work on gait and floor transfers. Asks if e-stim may be helpful. machine. Has AFO on right LE, dragging of right foot limits his walking. PT-OP-C Subjective Start: 06/30/22 08:12 Freq: Status: Active Protocol: Document 07/15/22 15:16 [facility] (Rec: 07/15/22 18:12 [facility] [id number]) OP-PT Subjective Patient Comments Patient Comments Got to use the floor transfer and it worked; was in bathroom was pulling up pants, went to sit down onto w/c one cheek on and one cheek off. Went down onto knees. Was able to get back back into w/c Patient Reported Progress Improving PT-OP-D Balance Start: 06/30/22 08:12 Freq: Status: Active Protocol: Document 07/01/22 15:18 SAK (Rec: 07/01/22 17:06 [facility] [id number]) OP-PT Balance Assessment Sitting Balance Static Sitting Balance Ability Good Dynamic Sitting Balance Ability Fair Standing Balance Static Standing Balance Ability Fair Dynamic Standing Balance Ability Poor Tinetti Balance Assessment Sitting Balance Sitting Balance Steady, safe Arising from Chair Attempts to Arise Arises on 1st attempt Standing Balance Immediate Standing Balance Steady with support Standing Balance Steady, wide stance Nudged Response Begins to fall Standing with Eyes Closed Unsteady Turning Step Pattern Turning 360 Degrees Discontinuous steps Stability Turning 360 Degrees Unsteady, grabs/staggers Sitting Down Sitting Down Uses arms or unsteady Gait and Step Initiation of Gait Hesitancy, mult. attempts Right Foot Step Length Does not pass stance ft. Right Foot Step Height Does not clear floor Left Foot Step Length Does not pass stance foot Left Foot Step Height Does not clear floor Step Description Step Symmetry Step length not equal Step Continuity Steps appear continuous Gait Description Path Description Marked deviation Trunk Description Marked sway or uses aide Walking Stance Heels together Scoring and Interpretation Tinetti Composite Score (points) 8 Hagen Fall Scale Copyright Permission PT-OP-E Functional Tests Start: 06/30/22 08:12 Freq: Status: Active Protocol: Document 07/01/22 15:18 SAK (Rec: 07/01/22 17:06 [facility] [id number]) Functional Tests 2 Minute Walk Test Distance 90 Device Used 4WW PT-OP-G Mobility & Gait Start: 06/30/22 08:12 Freq: Status: Active Protocol: Document 07/01/22 15:18 SAK (Rec: 07/01/22 17:06 [facility] [id number]) OP Mobility Evaluation Bed Mobility Rolling needs railing Supine to and from Sit SBA Transfers Sit to Stand SBA with set-up Bed to Chair Transfers SBA Floor Transfers mod assist, cues for pushing onto both feet Wheelchair Management Type of Wheelchair power OP Gait Assessment Gait Gait Assistance Required: Contact Guard Assist Distance (Feet) 90 Assistive Devices Assistive Device 4 Wheeled Walker Gait Deviations General Gait Pattern Decreased Stride Length, Decreased Feet Clearance, Flexed Trunk,Narrow Based Gait Factors Limiting Gait Function Factors Limiting Gait Function Abnormal Tonal Influences, Decreased Activity Tolerance, Decreased Strength,Limited Range of Motion PT-OP-H Neuro Start: 06/30/22 08:12 Freq: Status: Active Protocol: Document 07/01/22 15:18 SAK (Rec: 07/01/22 17:06 [facility] [id number]) Sensation Evaluation Gross Sensation Gross Sensation Left LE Impaired,Right LE Impaired PT-OP-K Range of Motion Start: 06/30/22 08:12 Freq: Status: Active Protocol: Document 07/01/22 15:18 [facility] (Rec: 07/01/22 17:06 [facility] [id number]) Shoulder Goniometric Range of Motion Shoulder Right Shoulder ROM WFL No Flexion 150 Extension 10 Abduction 70 External Rotation at 90 degrees 45 Abduction Internal Rotation Behind Back (text) lateral hip Left Shoulder ROM WFL Yes Shoulder ROM Limitations Shoulder ROM Limitations Muscle Weakness Elbow/Forearm Range of Motion Elbow/Forearm Right Elbow/Forearm ROM WFL Yes Left Elbow/Forearm ROM WFL Yes Wrist Goniometric Range of Motion Wrist Right Wrist ROM WFL No Left Wrist ROM WFL Yes ROM Limitations Wrist Limitations of Range of Motion Muscle Weakness Comments lacking active wrist extension Hip Goniometric Range of Motion Hip Right Flexion w/Knee Flexed 95 Straight Leg Raise 60 Extension 0 Abduction 20 Internal Rotation 20 External Rotation 65 Left Flexion w/Knee Flexed 95 Straight Leg Raise 55 Extension 0 Abduction 20 Internal Rotation 20 External Rotation 65 Hip ROM Limitations Hip ROM Limitations Soft Tissue Tightness,Muscle Tone Knee Goniometric Range of Motion Knee andrew Knee ROM WFL Yes Ankle and Foot Goniometric Range of Motion Ankle and Foot Right Dorsiflexion with Knee Flexed 0 Dorsiflexion with Knee Extended 0 Plantarflexion 40 Left Dorsiflexion with Knee Flexed 5 Dorsiflexion with Knee Extended 0 Plantarflexion 50 PT-OP-M Strength Start: 06/30/22 08:12 Freq: Status: Active Protocol: Document 07/01/22 15:18 [facility] (Rec: 07/01/22 17:06 [facility] [id number]) Trunk Strength Trunk Manual Muscle Testing Flexion 3+ Fair+ Extension 3+ Fair+ Shoulder Strength Shoulder Manual Muscle Testing Right Flexion 2+ Poor+ Extension 2+ Poor+ Abduction (C5) 2+ Poor+ Adduction 2+ Poor+ External Rotation 2+ Poor+ Internal Rotation 2+ Poor+ Left Flexion 5 Normal Extension 5 Normal Abduction (C5) 5 Normal Adduction 5 Normal External Rotation 5 Normal Internal Rotation 5 Normal Elbow/Forearm Strength Elbow and Forearm Manual Muscle Testing Right Flexion (C6) 3+ Fair+ Extension (C7) 4- Good- Left Flexion (C6) 5 Normal Extension (C7) 5 Normal Wrist Strength Wrist Manual Muscle Testing Right Flexion (C7) 3+ Fair+ Extension (C6) 1 Trace Left Flexion (C7) 5 Normal Extension (C6) 5 Normal Hip Strength Hip Manual Muscle Testing Right Flexion (L2) 1 Trace Extension (S1) 1 Trace Abduction 1 Trace Adduction 2- Poor- External Rotation 2- Poor- Internal Rotation 1 Trace Left Flexion (L2) 4- Good- Extension (S1) 3- Fair- Abduction 3+ Fair+ Adduction 4- Good- External Rotation 4- Good- Internal Rotation 4- Good- Knee Strength Knee Manual Muscle Testing Right Flexion (S2) 3- Fair- Extension (L3) 3 Fair Left Flexion (S2) 4+ Good+ Extension (L3) 4+ Good+ Ankle/Foot Strength Ankle and Foot Manual Muscle Testing Right Dorsiflexion (L4) 0 Zero Plantarflexion (S1) 2- Poor- Left Dorsiflexion (L4) 4+ Good+ Plantarflexion (S1) 4+ Good+ PT-OP-Q Treatments Start: 06/30/22 08:12 Freq: Status: Active Protocol: Document 07/15/22 15:16 [facility] (Rec: 07/15/22 16:06 [facility] [id number]) Gym Equipment Shuttle Recovery HC stretch Reps/Time 2x30 Therapeutic Exercises Supine Exercises LE stretches Supine Exercise Name HC, HS, SKTC, Adductors, hip flex Reps/Minutes 2x30 ea Comments problem-solved technique with functional medical management trainer Letty Prone Exercises hip flex Reps/Minutes 2x30 Comments folded towel under distal thigh quad stretch Reps/Minutes 2x30 prone press up Reps/Minutes 2x10 trunk ext Reps/Minutes 8x5 Comments cues for min use of UE's Self-Care/Home Management Treatment Education Other Education REviewed HEP with patient functional medical management trainer Letty Batista, with modfication of some techniques of stretching for improved effectiveness. Added prone trunk ext to HEP. PT-OP-T Assessment and Plan Start: 06/30/22 08:12 Freq: Status: Active Protocol: Document 07/15/22 15:16 SAK (Rec: 07/15/22 18:15 [facility] [id number]) Physical Therapy Assessment Impairments Impairments Activity Tolerance,Balance, Gait,ROM,Soft Tissue Mobility, Strength Goals Three Impairment strength and ROM impairment Impairment UE, LE, and trunk weakness with need for further training of patient and software trainer for more effective ex Short Term Goal (STG) review and update patient HEP to address weakness and ROM deficits STG Duration 08/10/22 [employer] Goal (LTG) Patient to be independent and safe with all aspects of his HEP with the assistance of functional medical management trainer Joy . LTG Duration 09/28/22 Two Impairment Tinetti gait and balance assessment score 8/28 Impairment high fall risk category Short Term Goal (STG) Improve Tinetti score to at least 11/29 as measure of improved safety with mobility STG Duration 08/10/22 Senior Living Goal (LTG) Improve Tinetti score to at least 15/28 as measure of improved safety with mobility and decreased fall risk. LTG Duration 09/28/22 Five Impairment impaired functional mobility Impairment Patient requires moderate assistance for floor transfer Short Term Goal (STG) Problem solve best method for floor tranfer for ease and safety STG Duration 08/10/22 [employer] Goal (LTG) Patient able to perform floor transfer with no greater than min assist LTG Duration 09/28/22 Four Impairment Impaired functional mobility Impairment patient no longer able to lift his right LE 15 onto running board of vehicle for purposes of safe transfers into vehicle; can lift 6 inches Short Term Goal (STG) Patient will be able to lift his right LE at least 10 Senior Living Goal (LTG) Patient will be able to lift his right LE 15 onto running board of vehicle for purposes of safe transfers into vehicle LTG Duration 09/28/22 One Impairment Gait dysfunction Impairment 2 min walk test 90 ft Short Term Goal (STG) Improve 2 min walk test to at least 125 ft as measure of improved functional gait for home mobility General Warehouse Associate Goal (LTG) Improve 2 min walk test to 140 ft as measure of improved functional gait for home mobility LTG Duration 09/28/22 Assessment Summary Assessment Patient able to do floor transfer independently at home after practice and problem- solving in PT. Good session with functional medical management trainer Joy present at session today for problem solving more effective techniques for stretching, reviewed HEP, added Daniel stretch and prone trunk ext strengthening. Physical Therapy Plan Frequency and Duration Frequency of Treatment 1x/Week Duration of treatment (weeks) 12 Plan of Care Start Date 07/01/22 Plan of Care End Date 09/28/22 Therapeutic Interventions Therapeutic Interventions Balance Training,Gait Training ,Home Exercise Program,Manual Therapy,Neuromuscular Re- education,Patient/Caregiver Education,Self-Care/Home Management,Therapeutic Activities,Therapeutic Exercises Modalities Electric Stimulation Next Visit Focus/Plan Next Note Type Treatment Note Next Visit Plan Continue progression of strengthening, flexibility, floor transfer training as needed.
--- NOTE | 2022-08-13 13:43 | PT.OTN ---
Current Diagnoses Multiple sclerosis (08/13/22) Cramp and spasm (08/13/22) Physical Therapy Treatment Note PT-OP-A Visit Information Start: 06/30/22 08:12 Freq: Status: Active Protocol: Document 08/13/22 11:19 [facility] (Rec: 08/13/22 12:02 [facility] [id number]) Out-Patient Physical Therapy Visit Information Visit Information Visit Type Treatment Note Visit Start Time 11:19 Visit Stop Time 12:00 Total Visit Minutes 41 Visit Number 6 Evaluation Information Evaluation Date 07/01/22 Precautions Precautions MS; don't ovefatigue. PT-OP-B Current Condition Start: 06/30/22 08:12 Freq: Status: Active Protocol: Document 08/13/22 11:19 [facility] (Rec: 08/13/22 12:02 [facility] [id number]) Current Condition History of Current Condition Onset Date 30 years Current Complaints weakness, gait dysfunction, muscle tightness due to MS History of Current Condition 30 history of MS, saw pt 1 year ago. Has been having functional it trainer help him with HEP 2x/wk. States he feels his core strength has improved, and overall stamina and strength has improved, stretching is helping. Hasn't been able to do a floor transfer. Wanting reassessment to see how he is doing and progress with ther ex for strengthening and ROM, work on gait and floor transfers. Asks if e-stim may be helpful. machine. Has AFO on right LE, dragging of right foot limits his walking. PT-OP-C Subjective Start: 06/30/22 08:12 Freq: Status: Active Protocol: Document 08/13/22 11:19 [facility] (Rec: 08/13/22 12:02 [facility] [id number]) OP-PT Subjective Patient Comments Patient Comments c/o right ankle df weakness, overall feeling weak s/p colonoscopy yesterday, doesn't feel up to walking. PT-OP-D Balance Start: 06/30/22 08:12 Freq: Status: Active Protocol: Document 07/01/22 15:18 [facility] (Rec: 07/01/22 17:06 [facility] [id number]) OP-PT Balance Assessment Sitting Balance Static Sitting Balance Ability Good Dynamic Sitting Balance Ability Fair Standing Balance Static Standing Balance Ability Fair Dynamic Standing Balance Ability Poor Tinetti Balance Assessment Sitting Balance Sitting Balance Steady, safe Arising from Chair Attempts to Arise Arises on 1st attempt Standing Balance Immediate Standing Balance Steady with support Standing Balance Steady, wide stance Nudged Response Begins to fall Standing with Eyes Closed Unsteady Turning Step Pattern Turning 360 Degrees Discontinuous steps Stability Turning 360 Degrees Unsteady, grabs/staggers Sitting Down Sitting Down Uses arms or unsteady Gait and Step Initiation of Gait Hesitancy, mult. attempts Right Foot Step Length Does not pass stance ft. Right Foot Step Height Does not clear floor Left Foot Step Length Does not pass stance foot Left Foot Step Height Does not clear floor Step Description Step Symmetry Step length not equal Step Continuity Steps appear continuous Gait Description Path Description Marked deviation Trunk Description Marked sway or uses aide Walking Stance Heels together Scoring and Interpretation Tinetti Composite Score (points) 8 Hagen Fall Scale Copyright Permission PT-OP-E Functional Tests Start: 06/30/22 08:12 Freq: Status: Active Protocol: Document 07/01/22 15:18 [facility] (Rec: 07/01/22 17:06 [facility] [id number]) Functional Tests 2 Minute Walk Test Distance 90 Device Used 4WW PT-OP-G Mobility & Gait Start: 06/30/22 08:12 Freq: Status: Active Protocol: Document 07/01/22 15:18 [facility] (Rec: 07/01/22 17:06 [facility] [id number]) OP Mobility Evaluation Bed Mobility Rolling needs railing Supine to and from Sit SBA Transfers Sit to Stand SBA with set-up Bed to Chair Transfers SBA Floor Transfers mod assist, cues for pushing onto both feet Wheelchair Management Type of Wheelchair power OP Gait Assessment Gait Gait Assistance Required: Contact Guard Assist Distance (Feet) 90 Assistive Devices Assistive Device 4 Wheeled Walker Gait Deviations General Gait Pattern Decreased Stride Length, Decreased Feet Clearance, Flexed Trunk,Narrow Based Gait Factors Limiting Gait Function Factors Limiting Gait Function Abnormal Tonal Influences, Decreased Activity Tolerance, Decreased Strength,Limited Range of Motion PT-OP-H Neuro Start: 06/30/22 08:12 Freq: Status: Active Protocol: Document 07/01/22 15:18 [facility] (Rec: 07/01/22 17:06 [facility] [id number]) Sensation Evaluation Gross Sensation Gross Sensation Left LE Impaired,Right LE Impaired PT-OP-K Range of Motion Start: 06/30/22 08:12 Freq: Status: Active Protocol: Document 07/01/22 15:18 [facility] (Rec: 02/20/23 17:06 [facility] [id number]) Shoulder Goniometric Range of Motion Shoulder Right Shoulder ROM WFL No Flexion 150 Extension 10 Abduction 70 External Rotation at 90 degrees 45 Abduction Internal Rotation Behind Back (text) lateral hip Left Shoulder ROM WFL Yes Shoulder ROM Limitations Shoulder ROM Limitations Muscle Weakness Elbow/Forearm Range of Motion Elbow/Forearm Right Elbow/Forearm ROM WFL Yes Left Elbow/Forearm ROM WFL Yes Wrist Goniometric Range of Motion Wrist Right Wrist ROM WFL No Left Wrist ROM WFL Yes ROM Limitations Wrist Limitations of Range of Motion Muscle Weakness Comments lacking active wrist extension Hip Goniometric Range of Motion Hip Right Flexion w/Knee Flexed 95 Straight Leg Raise 60 Extension 0 Abduction 20 Internal Rotation 20 External Rotation 65 Left Flexion w/Knee Flexed 95 Straight Leg Raise 55 Extension 0 Abduction 20 Internal Rotation 20 External Rotation 65 Hip ROM Limitations Hip ROM Limitations Soft Tissue Tightness,Muscle Tone Knee Goniometric Range of Motion Knee andrew Knee ROM WFL Yes Ankle and Foot Goniometric Range of Motion Ankle and Foot Right Dorsiflexion with Knee Flexed 0 Dorsiflexion with Knee Extended 0 Plantarflexion 40 Left Dorsiflexion with Knee Flexed 5 Dorsiflexion with Knee Extended 0 Plantarflexion 50 PT-OP-M Strength Start: 06/30/22 08:12 Freq: Status: Active Protocol: Document 07/01/22 15:18 [facility] (Rec: 07/01/22 17:06 [facility] [id number]) Trunk Strength Trunk Manual Muscle Testing Flexion 3+ Fair+ Extension 3+ Fair+ Shoulder Strength Shoulder Manual Muscle Testing Right Flexion 2+ Poor+ Extension 2+ Poor+ Abduction (C5) 2+ Poor+ Adduction 2+ Poor+ External Rotation 2+ Poor+ Internal Rotation 2+ Poor+ Left Flexion 5 Normal Extension 5 Normal Abduction (C5) 5 Normal Adduction 5 Normal External Rotation 5 Normal Internal Rotation 5 Normal Elbow/Forearm Strength Elbow and Forearm Manual Muscle Testing Right Flexion (C6) 3+ Fair+ Extension (C7) 4- Good- Left Flexion (C6) 5 Normal Extension (C7) 5 Normal Wrist Strength Wrist Manual Muscle Testing Right Flexion (C7) 3+ Fair+ Extension (C6) 1 Trace Left Flexion (C7) 5 Normal Extension (C6) 5 Normal Hip Strength Hip Manual Muscle Testing Right Flexion (L2) 1 Trace Extension (S1) 1 Trace Abduction 1 Trace Adduction 2- Poor- External Rotation 2- Poor- Internal Rotation 1 Trace Left Flexion (L2) 4- Good- Extension (S1) 3- Fair- Abduction 3+ Fair+ Adduction 4- Good- External Rotation 4- Good- Internal Rotation 4- Good- Knee Strength Knee Manual Muscle Testing Right Flexion (S2) 3- Fair- Extension (L3) 3 Fair Left Flexion (S2) 4+ Good+ Extension (L3) 4+ Good+ Ankle/Foot Strength Ankle and Foot Manual Muscle Testing Right Dorsiflexion (L4) 0 Zero Plantarflexion (S1) 2- Poor- Left Dorsiflexion (L4) 4+ Good+ Plantarflexion (S1) 4+ Good+ PT-OP-Q Treatments Start: 06/30/22 08:12 Freq: Status: Active Protocol: Document 08/13/22 11:19 [facility] (Rec: 08/13/22 12:02 [facility] [id number]) Gym Equipment Shuttle Recovery Bilateral Squats Details dycem on platform under feet, cues for pushing through heels Resistance 62-87 Shuttle Recovery Platform Stable Reps/Time 10x Unilateral Squats Details andrew mod assist for right LE alignment, dycem under foot Resistance 37 Shuttle Recovery Platform Stable Reps/Time 10x2 Therapeutic Exercises Supine Exercises LE stretches Supine Exercise Name HC, HS, SKTC, Adductors, IT band, ER, hip flex Reps/Minutes 2x30 ea Therapeutic Activity Therapeutic Activity transfers Comments scooter to shuttle leg press and back, scooter to mat and back: CGA for both due to inc weakness noted today Gait Training Gait Activity 2 min walk test Comments not up to gait today PT-OP-T Assessment and Plan Start: 06/30/22 08:12 Freq: Status: Active Protocol: Document 08/13/22 11:19 [facility] (Rec: 08/13/22 12:02 [facility] [id number]) Physical Therapy Assessment Goals Three Impairment strength and ROM impairment Impairment UE, LE, and trunk weakness with need for further training of patient and first aid trainer for more effective ex Short Term Goal (STG) review and update patient HEP to address weakness and ROM deficits 07/18/22: goal mlet STG Duration goal met Mcc Goal (LTG) Patient to be independent and safe with all aspects of his HEP with the assistance of functional it trainer Letty . LTG Duration 09/28/22 Two Impairment Tinetti gait and balance assessment score 8/28 Impairment high fall risk category Short Term Goal (STG) Improve Tinetti score to at least 11/29 as measure of improved safety with mobility STG Duration 08/10/22 Mcc Goal (LTG) Improve Tinetti score to at least 15/28 as measure of improved safety with mobility and decreased fall risk. LTG Duration 09/28/22 Four Impairment Impaired functional mobility Impairment patient no longer able to lift his right LE 15 onto running board of vehicle for purposes of safe transfers into vehicle; can lift 6 inches Short Term Goal (STG) Patient will be able to lift his right LE at least 10 STG Duration 08/10/22 Mcc Goal (LTG) Patient will be able to lift his right LE 15 onto running board of vehicle for purposes of safe transfers into vehicle LTG Duration 09/28/22 One Impairment Gait dysfunction Impairment 2 min walk test 90 ft Short Term Goal (STG) Improve 2 min walk test to at least 125 ft as measure of improved functional gait for home mobility STG Duration 08/10/22 Professional Development Director Goal (LTG) Improve 2 min walk test to 140 ft as measure of improved functional gait for home mobility LTG Duration 09/28/22 Assessment Summary Assessment Needed to decrease resistance for shuttle leg press, feeling weak today due to colonoscopy yesterday after 2 days of prep. Inc time spent on stretching today. Would benefit from further PT to address above goals. Physical Therapy Plan Frequency and Duration Frequency of Treatment 1x/Week Duration of treatment (weeks) 12 Plan of Care Start Date 07/01/22 Plan of Care End Date 09/28/22 Therapeutic Interventions Therapeutic Interventions Balance Training,Gait Training ,Home Exercise Program,Manual Therapy,Neuromuscular Re- education,Patient/Caregiver Education,Self-Care/Home Management,Therapeutic Activities,Therapeutic Exercises Modalities Electric Stimulation Next Visit Focus/Plan Next Note Type Treatment Note Next Visit Plan Continue to progress with gait , balance, flexibility, and strengthening. Update HEP as indicated
--- NOTE | 2022-08-29 17:23 | PT.OTN ---
Current Diagnoses Multiple sclerosis (08/29/22) Cramp and spasm (08/29/22) Physical Therapy Treatment Note PT-OP-A Visit Information Start: 06/30/22 08:12 Freq: Status: Active Protocol: Document 08/29/22 13:03 [facility] (Rec: 08/29/22 13:49 [facility] [id number]) Out-Patient Physical Therapy Visit Information Visit Information Visit Type Treatment Note Visit Start Time 13:05 Visit Stop Time 12:00 Total Visit Minutes 40 Visit Number 7 Evaluation Information Evaluation Date 07/01/22 Precautions Precautions MS; don't ovefatigue. PT-OP-B Current Condition Start: 06/30/22 08:12 Freq: Status: Active Protocol: Document 08/29/22 13:03 [facility] (Rec: 08/29/22 13:49 [facility] [id number]) Current Condition History of Current Condition Onset Date 30 years Current Complaints weakness, gait dysfunction, muscle tightness due to MS History of Current Condition 30 history of MS, saw pt 1 year ago. Has been having functional graduate assistant athletic trainer help him with HEP 2x/wk. States he feels his core strength has improved, and overall stamina and strength has improved, stretching is helping. Hasn't been able to do a floor transfer. Wanting reassessment to see how he is doing and progress with ther ex for strengthening and ROM, work on gait and floor transfers. Asks if e-stim may be helpful. machine. Has AFO on right LE, dragging of right foot limits his walking. PT-OP-C Subjective Start: 06/30/22 08:12 Freq: Status: Active Protocol: Document 08/29/22 13:03 [facility] (Rec: 08/29/22 13:49 [facility] [id number]) OP-PT Subjective Patient Comments Patient Comments Exercises going well roly personal financial planner Letty, has benefited from PT education for inc depth of stretch. Doesn't feel up to doing gait today, would like to focus on exercises on the mat. Denies recent falls. PT-OP-D Balance Start: 06/30/22 08:12 Freq: Status: Active Protocol: Document 07/01/22 15:18 [facility] (Rec: 07/01/22 17:06 [facility] [id number]) OP-PT Balance Assessment Sitting Balance Static Sitting Balance Ability Good Dynamic Sitting Balance Ability Fair Standing Balance Static Standing Balance Ability Fair Dynamic Standing Balance Ability Poor Tinetti Balance Assessment Sitting Balance Sitting Balance Steady, safe Arising from Chair Attempts to Arise Arises on 1st attempt Standing Balance Immediate Standing Balance Steady with support Standing Balance Steady, wide stance Nudged Response Begins to fall Standing with Eyes Closed Unsteady Turning Step Pattern Turning 360 Degrees Discontinuous steps Stability Turning 360 Degrees Unsteady, grabs/staggers Sitting Down Sitting Down Uses arms or unsteady Gait and Step Initiation of Gait Hesitancy, mult. attempts Right Foot Step Length Does not pass stance ft. Right Foot Step Height Does not clear floor Left Foot Step Length Does not pass stance foot Left Foot Step Height Does not clear floor Step Description Step Symmetry Step length not equal Step Continuity Steps appear continuous Gait Description Path Description Marked deviation Trunk Description Marked sway or uses aide Walking Stance Heels together Scoring and Interpretation Tinetti Composite Score (points) 8 Hagen Fall Scale Copyright Permission PT-OP-E Functional Tests Start: 06/30/22 08:12 Freq: Status: Active Protocol: Document 07/01/22 15:18 [facility] (Rec: 07/01/22 17:06 [facility] [id number]) Functional Tests 2 Minute Walk Test Distance 90 Device Used 4WW PT-OP-G Mobility & Gait Start: 06/30/22 08:12 Freq: Status: Active Protocol: Document 07/01/22 15:18 [facility] (Rec: 07/01/22 17:06 [facility] [id number]) OP Mobility Evaluation Bed Mobility Rolling needs railing Supine to and from Sit SBA Transfers Sit to Stand SBA with set-up Bed to Chair Transfers SBA Floor Transfers mod assist, cues for pushing onto both feet Wheelchair Management Type of Wheelchair power OP Gait Assessment Gait Gait Assistance Required: Contact Guard Assist Distance (Feet) 90 Assistive Devices Assistive Device 4 Wheeled Walker Gait Deviations General Gait Pattern Decreased Stride Length, Decreased Feet Clearance, Flexed Trunk,Narrow Based Gait Factors Limiting Gait Function Factors Limiting Gait Function Abnormal Tonal Influences, Decreased Activity Tolerance, Decreased Strength,Limited Range of Motion PT-OP-H Neuro Start: 06/30/22 08:12 Freq: Status: Active Protocol: Document 07/01/22 15:18 [facility] (Rec: 07/01/22 17:06 [facility] [id number]) Sensation Evaluation Gross Sensation Gross Sensation Left LE Impaired,Right LE Impaired PT-OP-K Range of Motion Start: 06/30/22 08:12 Freq: Status: Active Protocol: Document 07/01/22 15:18 [facility] (Rec: 07/01/22 17:06 [facility] [id number]) Shoulder Goniometric Range of Motion Shoulder Right Shoulder ROM WFL No Flexion 150 Extension 10 Abduction 70 External Rotation at 90 degrees 45 Abduction Internal Rotation Behind Back (text) lateral hip Left Shoulder ROM WFL Yes Shoulder ROM Limitations Shoulder ROM Limitations Muscle Weakness Elbow/Forearm Range of Motion Elbow/Forearm Right Elbow/Forearm ROM WFL Yes Left Elbow/Forearm ROM WFL Yes Wrist Goniometric Range of Motion Wrist Right Wrist ROM WFL No Left Wrist ROM WFL Yes ROM Limitations Wrist Limitations of Range of Motion Muscle Weakness Comments lacking active wrist extension Hip Goniometric Range of Motion Hip Right Flexion w/Knee Flexed 95 Straight Leg Raise 60 Extension 0 Abduction 20 Internal Rotation 20 External Rotation 65 Left Flexion w/Knee Flexed 95 Straight Leg Raise 55 Extension 0 Abduction 20 Internal Rotation 20 External Rotation 65 Hip ROM Limitations Hip ROM Limitations Soft Tissue Tightness,Muscle Tone Knee Goniometric Range of Motion Knee andrew Knee ROM WFL Yes Ankle and Foot Goniometric Range of Motion Ankle and Foot Right Dorsiflexion with Knee Flexed 0 Dorsiflexion with Knee Extended 0 Plantarflexion 40 Left Dorsiflexion with Knee Flexed 5 Dorsiflexion with Knee Extended 0 Plantarflexion 50 PT-OP-M Strength Start: 06/30/22 08:12 Freq: Status: Active Protocol: Document 07/01/22 15:18 [facility] (Rec: 07/01/22 17:06 [facility] [id number]) Trunk Strength Trunk Manual Muscle Testing Flexion 3+ Fair+ Extension 3+ Fair+ Shoulder Strength Shoulder Manual Muscle Testing Right Flexion 2+ Poor+ Extension 2+ Poor+ Abduction (C5) 2+ Poor+ Adduction 2+ Poor+ External Rotation 2+ Poor+ Internal Rotation 2+ Poor+ Left Flexion 5 Normal Extension 5 Normal Abduction (C5) 5 Normal Adduction 5 Normal External Rotation 5 Normal Internal Rotation 5 Normal Elbow/Forearm Strength Elbow and Forearm Manual Muscle Testing Right Flexion (C6) 3+ Fair+ Extension (C7) 4- Good- Left Flexion (C6) 5 Normal Extension (C7) 5 Normal Wrist Strength Wrist Manual Muscle Testing Right Flexion (C7) 3+ Fair+ Extension (C6) 1 Trace Left Flexion (C7) 5 Normal Extension (C6) 5 Normal Hip Strength Hip Manual Muscle Testing Right Flexion (L2) 1 Trace Extension (S1) 1 Trace Abduction 1 Trace Adduction 2- Poor- External Rotation 2- Poor- Internal Rotation 1 Trace Left Flexion (L2) 4- Good- Extension (S1) 3- Fair- Abduction 3+ Fair+ Adduction 4- Good- External Rotation 4- Good- Internal Rotation 4- Good- Knee Strength Knee Manual Muscle Testing Right Flexion (S2) 3- Fair- Extension (L3) 3 Fair Left Flexion (S2) 4+ Good+ Extension (L3) 4+ Good+ Ankle/Foot Strength Ankle and Foot Manual Muscle Testing Right Dorsiflexion (L4) 0 Zero Plantarflexion (S1) 2- Poor- Left Dorsiflexion (L4) 4+ Good+ Plantarflexion (S1) 4+ Good+ PT-OP-Q Treatments Start: 06/30/22 08:12 Freq: Status: Active Protocol: Document 08/29/22 13:03 [facility] (Rec: 08/29/22 13:49 [facility] [id number]) Therapeutic Exercises Supine Exercises heel dig Reps/Minutes 10x unil bridge Supine Exercise Name gracie Reps/Minutes 10x5 hip IR/ER Supine Exercise Name unilateral Reps/Minutes 10x glut sets Reps/Minutes 10x5 LE stretches Supine Exercise Name HC, HS, SKTC, Adductors, IT band, ER, hip flex ([place]ur[place] stretch) Reps/Minutes 2x30 ea Prone Exercises hip ext gracie Reps/Minutes 10x5 prone press up Reps/Minutes 10x5 trunk ext Reps/Minutes 10x5 Comments cues for min use of UE's, feel paraspinals Self-Care/Home Management Treatment Education Other Education modification of exercises for further depth of stretches. Added supine hip IR/ER in hooklying, unil bridge gracie, heel slide gracie PT-OP-T Assessment and Plan Start: 06/30/22 08:12 Freq: Status: Active Protocol: Document 08/29/22 13:03 [facility] (Rec: 08/29/22 13:49 [facility] [id number]) Physical Therapy Assessment Goals Three Impairment strength and ROM impairment Impairment UE, LE, and trunk weakness with need for further training of patient and call center trainer for more effective ex Short Term Goal (STG) review and update patient HEP to address weakness and ROM deficits 07/18/22: goal mlet STG Duration goal met Gasoline Engine Inspector Goal (LTG) Patient to be independent and safe with all aspects of his HEP with the assistance of functional graduate assistant athletic trainer Letty . LTG Duration 09/28/22 Two Impairment Tinetti gait and balance assessment score 8/28 Impairment high fall risk category Short Term Goal (STG) Improve Tinetti score to at least 11/29 as measure of improved safety with mobility STG Duration 08/10/22 Mcc Goal (LTG) Improve Tinetti score to at least 15/28 as measure of improved safety with mobility and decreased fall risk. LTG Duration 09/28/22 Four Impairment Impaired functional mobility Impairment patient no longer able to lift his right LE 15 onto running board of vehicle for purposes of safe transfers into vehicle; can lift 6 inches Short Term Goal (STG) Patient will be able to lift his right LE at least 10 STG Duration 08/10/22 Gasoline Engine Inspector Goal (LTG) Patient will be able to lift his right LE 15 onto running board of vehicle for purposes of safe transfers into vehicle LTG Duration 09/28/22 One Impairment Gait dysfunction Impairment 2 min walk test 90 ft Short Term Goal (STG) Improve 2 min walk test to at least 125 ft as measure of improved functional gait for home mobility STG Duration 08/10/22 Mcc Goal (LTG) Improve 2 min walk test to 140 ft as measure of improved functional gait for home mobility LTG Duration 09/28/22 Physical Therapy Plan Frequency and Duration Frequency of Treatment 1x/Week Duration of treatment (weeks) 12 Plan of Care Start Date 07/01/22 Plan of Care End Date 09/28/22 Therapeutic Interventions Therapeutic Interventions Balance Training,Gait Training ,Home Exercise Program,Manual Therapy,Neuromuscular Re- education,Patient/Caregiver Education,Self-Care/Home Management,Therapeutic Activities,Therapeutic Exercises Modalities Electric Stimulation Next Visit Focus/Plan Next Note Type Treatment Note Next Visit Plan Start with gait training with 4WW. Continue strenthening, flexibility, transfers, patient ed. Issue updated written HEP.
--- NOTE | 2022-09-03 16:26 | PT.OTN ---
Current Diagnoses Multiple sclerosis (09/03/22) Cramp and spasm (09/03/22) Physical Therapy Treatment Note PT-OP-A Visit Information Start: 06/30/22 08:12 Freq: Status: Active Protocol: Document 09/03/22 13:49 [facility]AK (Rec: 09/03/22 14:32 [facility] [id number]) Out-Patient Physical Therapy Visit Information Visit Information Visit Type Treatment Note Visit Start Time 13:49 Visit Stop Time 14:30 Total Visit Minutes 41 Visit Number 8 Evaluation Information Evaluation Date 07/01/22 Precautions Precautions MS; don't ovefatigue. PT-OP-B Current Condition Start: 06/30/22 08:12 Freq: Status: Active Protocol: Document 09/03/22 13:49 SAK (Rec: 09/03/22 14:32 [facility] [id number]) Current Condition History of Current Condition Onset Date 30 years Current Complaints weakness, gait dysfunction, muscle tightness due to MS History of Current Condition 30 history of MS, saw pt 1 year ago. Has been having functional strainer mill operator help him with HEP 2x/wk. States he feels his core strength has improved, and overall stamina and strength has improved, stretching is helping. Hasn't been able to do a floor transfer. Wanting reassessment to see how he is doing and progress with ther ex for strengthening and ROM, work on gait and floor transfers. Asks if e-stim may be helpful. machine. Has AFO on right LE, dragging of right foot limits his walking. PT-OP-C Subjective Start: 06/30/22 08:12 Freq: Status: Active Protocol: Document 09/03/22 13:49 [facility] (Rec: 09/03/22 14:32 [facility] [id number]) OP-PT Subjective Patient Comments Patient Comments FEeling tight, personal caregiver had in family so has missed 2 sessions. Willing to walk today, would like to try before and after manual stretching by PT. PT-OP-D Balance Start: 06/30/22 08:12 Freq: Status: Active Protocol: Document 07/01/22 15:18 SAK (Rec: 07/01/22 17:06 [facility] [id number]) OP-PT Balance Assessment Sitting Balance Static Sitting Balance Ability Good Dynamic Sitting Balance Ability Fair Standing Balance Static Standing Balance Ability Fair Dynamic Standing Balance Ability Poor Tinetti Balance Assessment Sitting Balance Sitting Balance Steady, safe Arising from Chair Attempts to Arise Arises on 1st attempt Standing Balance Immediate Standing Balance Steady with support Standing Balance Steady, wide stance Nudged Response Begins to fall Standing with Eyes Closed Unsteady Turning Step Pattern Turning 360 Degrees Discontinuous steps Stability Turning 360 Degrees Unsteady, grabs/staggers Sitting Down Sitting Down Uses arms or unsteady Gait and Step Initiation of Gait Hesitancy, mult. attempts Right Foot Step Length Does not pass stance ft. Right Foot Step Height Does not clear floor Left Foot Step Length Does not pass stance foot Left Foot Step Height Does not clear floor Step Description Step Symmetry Step length not equal Step Continuity Steps appear continuous Gait Description Path Description Marked deviation Trunk Description Marked sway or uses aide Walking Stance Heels together Scoring and Interpretation Tinetti Composite Score (points) 8 Hagen Fall Scale Copyright Permission PT-OP-E Functional Tests Start: 06/30/22 08:12 Freq: Status: Active Protocol: Document 07/01/22 15:18 SAK (Rec: 07/01/22 17:06 [facility] [id number]) Functional Tests 2 Minute Walk Test Distance 90 Device Used 4WW PT-OP-G Mobility & Gait Start: 06/30/22 08:12 Freq: Status: Active Protocol: Document 07/01/22 15:18 SAK (Rec: 07/01/22 17:06 [facility] [id number]) OP Mobility Evaluation Bed Mobility Rolling needs railing Supine to and from Sit SBA Transfers Sit to Stand SBA with set-up Bed to Chair Transfers SBA Floor Transfers mod assist, cues for pushing onto both feet Wheelchair Management Type of Wheelchair power OP Gait Assessment Gait Gait Assistance Required: Contact Guard Assist Distance (Feet) 90 Assistive Devices Assistive Device 4 Wheeled Walker Gait Deviations General Gait Pattern Decreased Stride Length, Decreased Feet Clearance, Flexed Trunk,Narrow Based Gait Factors Limiting Gait Function Factors Limiting Gait Function Abnormal Tonal Influences, Decreased Activity Tolerance, Decreased Strength,Limited Range of Motion PT-OP-H Neuro Start: 06/30/22 08:12 Freq: Status: Active Protocol: Document 07/01/22 15:18 [facility]AK (Rec: 07/01/22 17:06 [facility] [id number]) Sensation Evaluation Gross Sensation Gross Sensation Left LE Impaired,Right LE Impaired PT-OP-K Range of Motion Start: 06/30/22 08:12 Freq: Status: Active Protocol: Document 07/01/22 15:18 [facility] (Rec: 07/01/22 17:06 [facility] [id number]) Shoulder Goniometric Range of Motion Shoulder Right Shoulder ROM WFL No Flexion 150 Extension 10 Abduction 70 External Rotation at 90 degrees 45 Abduction Internal Rotation Behind Back (text) lateral hip Left Shoulder ROM WFL Yes Shoulder ROM Limitations Shoulder ROM Limitations Muscle Weakness Elbow/Forearm Range of Motion Elbow/Forearm Right Elbow/Forearm ROM WFL Yes Left Elbow/Forearm ROM WFL Yes Wrist Goniometric Range of Motion Wrist Right Wrist ROM WFL No Left Wrist ROM WFL Yes ROM Limitations Wrist Limitations of Range of Motion Muscle Weakness Comments lacking active wrist extension Hip Goniometric Range of Motion Hip Right Flexion w/Knee Flexed 95 Straight Leg Raise 60 Extension 0 Abduction 20 Internal Rotation 20 External Rotation 65 Left Flexion w/Knee Flexed 95 Straight Leg Raise 55 Extension 0 Abduction 20 Internal Rotation 20 External Rotation 65 Hip ROM Limitations Hip ROM Limitations Soft Tissue Tightness,Muscle Tone Knee Goniometric Range of Motion Knee andrew Knee ROM WFL Yes Ankle and Foot Goniometric Range of Motion Ankle and Foot Right Dorsiflexion with Knee Flexed 0 Dorsiflexion with Knee Extended 0 Plantarflexion 40 Left Dorsiflexion with Knee Flexed 5 Dorsiflexion with Knee Extended 0 Plantarflexion 50 PT-OP-M Strength Start: 06/30/22 08:12 Freq: Status: Active Protocol: Document 07/01/22 15:18 [facility] (Rec: 07/01/22 17:06 [facility] [id number]) Trunk Strength Trunk Manual Muscle Testing Flexion 3+ Fair+ Extension 3+ Fair+ Shoulder Strength Shoulder Manual Muscle Testing Right Flexion 2+ Poor+ Extension 2+ Poor+ Abduction (C5) 2+ Poor+ Adduction 2+ Poor+ External Rotation 2+ Poor+ Internal Rotation 2+ Poor+ Left Flexion 5 Normal Extension 5 Normal Abduction (C5) 5 Normal Adduction 5 Normal External Rotation 5 Normal Internal Rotation 5 Normal Elbow/Forearm Strength Elbow and Forearm Manual Muscle Testing Right Flexion (C6) 3+ Fair+ Extension (C7) 4- Good- Left Flexion (C6) 5 Normal Extension (C7) 5 Normal Wrist Strength Wrist Manual Muscle Testing Right Flexion (C7) 3+ Fair+ Extension (C6) 1 Trace Left Flexion (C7) 5 Normal Extension (C6) 5 Normal Hip Strength Hip Manual Muscle Testing Right Flexion (L2) 1 Trace Extension (S1) 1 Trace Abduction 1 Trace Adduction 2- Poor- External Rotation 2- Poor- Internal Rotation 1 Trace Left Flexion (L2) 4- Good- Extension (S1) 3- Fair- Abduction 3+ Fair+ Adduction 4- Good- External Rotation 4- Good- Internal Rotation 4- Good- Knee Strength Knee Manual Muscle Testing Right Flexion (S2) 3- Fair- Extension (L3) 3 Fair Left Flexion (S2) 4+ Good+ Extension (L3) 4+ Good+ Ankle/Foot Strength Ankle and Foot Manual Muscle Testing Right Dorsiflexion (L4) 0 Zero Plantarflexion (S1) 2- Poor- Left Dorsiflexion (L4) 4+ Good+ Plantarflexion (S1) 4+ Good+ PT-OP-Q Treatments Start: 06/30/22 08:12 Freq: Status: Active Protocol: Document 09/03/22 13:49 [facility] (Rec: 09/03/22 14:32 [facility] [id number]) Therapeutic Exercises Supine Exercises heel dig Reps/Minutes 10x unil bridge Supine Exercise Name gracie Reps/Minutes 10x5 hip IR/ER Supine Exercise Name unilateral Reps/Minutes 10x glut sets Reps/Minutes 10x5 LE stretches Supine Exercise Name HC, HS, SKTC, Adductors, IT band, ER, hip flex (Gurmeet stretch) Reps/Minutes 2x30 ea Prone Exercises hip ext gracie Reps/Minutes 10x5 hip flex Prone Exercise Name stretch Reps/Minutes 2x30 Comments folded towel under distal thigh quad stretch Reps/Minutes 2x30 Comments folded towel under distal thigh prone press up Reps/Minutes 10x5 trunk ext Reps/Minutes 10x5 Comments cues for min use of UE's, feel paraspinals Gait Training Gait Activity level Device Used 4WW Level of Assistance CGA-min assist Surface tile, carpet Distance/Duration 70,72ft Treatment Focus safety, inc distance as regla PT-OP-T Assessment and Plan Start: 06/30/22 08:12 Freq: Status: Active Protocol: Document 09/03/22 13:49 [facility] (Rec: 09/03/22 14:32 [facility] [id number]) Physical Therapy Assessment Goals Three Impairment strength and ROM impairment Impairment UE, LE, and trunk weakness with need for further training of patient and computer technology trainer for more effective ex Short Term Goal (STG) review and update patient HEP to address weakness and ROM deficits 07/18/22: goal met STG Duration goal met Half-Way Goal (LTG) Patient to be independent and safe with all aspects of his HEP with the assistance of functional strainer mill operator Letty . LTG Duration 09/28/22 Two Impairment Tinetti gait and balance assessment score 8/28 Impairment high fall risk category Short Term Goal (STG) Improve Tinetti score to at least 11/29 as measure of improved safety with mobility 09/03/22: goal met STG Duration goal met Resort Host Goal (LTG) Improve Tinetti score to at least 15/28 as measure of improved safety with mobility and decreased fall risk. LTG Duration 09/28/22 Four Impairment Impaired functional mobility Impairment patient no longer able to lift his right LE 15 onto running board of vehicle for purposes of safe transfers into vehicle; can lift 6 inches Short Term Goal (STG) Patient will be able to lift his right LE at least 10 09/03/22: no progress STG Duration 08/10/22 Half-Way Goal (LTG) Patient will be able to lift his right LE 15 onto running board of vehicle for purposes of safe transfers into vehicle LTG Duration 09/28/22 One Impairment Gait dysfunction Impairment 2 min walk test 90 ft Short Term Goal (STG) Improve 2 min walk test to at least 125 ft as measure of improved functional gait for home mobility 09/03/22: 72 ft max today after stretching and mat ex when fatigued, too tight prior to stretching STG Duration 08/10/22 Half-Way Goal (LTG) Improve 2 min walk test to 140 ft as measure of improved functional gait for home mobility LTG Duration 09/28/22 Progress Towards Goals Progress Towards Goals Slow Progress due to Medical Issues Assessment Summary Assessment Patient with significantly inc muscle tightness and more difficulty walking s/p 2 missed appointments with personal caregiver. Patient reporting PT able to get deeper stretch with many ex, will continue to encourage personal caregiver to inc depth; PT to duscuss with her. Physical Therapy Plan Frequency and Duration Frequency of Treatment 1x/Week Duration of treatment (weeks) 12 Plan of Care Start Date 07/01/22 Plan of Care End Date 09/28/22 Therapeutic Interventions Therapeutic Interventions Balance Training,Gait Training ,Home Exercise Program,Manual Therapy,Neuromuscular Re- education,Patient/Caregiver Education,Self-Care/Home Management,Therapeutic Activities,Therapeutic Exercises Modalities Electric Stimulation Next Visit Focus/Plan Next Note Type Treatment Note Next Visit Plan Start with gait training with 4WW. Continue strenthening, flexibility, transfers, patient ed. Issue updated written HEP. Anticipate discharge from PT after next session.
--- NOTE | 2022-09-05 16:25 | PT.OTN ---
Current Diagnoses Multiple sclerosis (09/05/22) Cramp and spasm (09/05/22) Physical Therapy Treatment Note PT-OP-A Visit Information Start: 06/30/22 08:12 Freq: Status: Active Protocol: Document 09/05/22 14:32 [facility] (Rec: 09/05/22 15:18 [facility] [id number]) Out-Patient Physical Therapy Visit Information Visit Information Visit Type Treatment Note Visit Start Time 14:32 Visit Stop Time 14:30 Total Visit Minutes 41 Visit Number 8 Precautions Precautions MS; don't ovefatigue. PT-OP-B Current Condition Start: 06/30/22 08:12 Freq: Status: Active Protocol: Document 09/03/22 13:49 [facility]AK (Rec: 09/03/22 14:32 [facility] [id number]) Current Condition History of Current Condition Onset Date 30 years Current Complaints weakness, gait dysfunction, muscle tightness due to MS History of Current Condition 30 history of MS, saw pt 1 year ago. Has been having functional fitness plan coordinator help him with HEP 2x/wk. States he feels his core strength has improved, and overall stamina and strength has improved, stretching is helping. Hasn't been able to do a floor transfer. Wanting reassessment to see how he is doing and progress with ther ex for strengthening and ROM, work on gait and floor transfers. Asks if e-stim may be helpful. machine. Has AFO on right LE, dragging of right foot limits his walking. 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 Willing to walk today, would like to try before and after manual stretching by PT. PT-OP-D Balance Start: 06/30/22 08:12 Freq: Status: Active Protocol: Document 07/01/22 15:18 [facility] (Rec: 07/01/22 17:06 [facility] [id number]) OP-PT Balance Assessment Sitting Balance Static Sitting Balance Ability Good Dynamic Sitting Balance Ability Fair Standing Balance Static Standing Balance Ability Fair Dynamic Standing Balance Ability Poor Tinetti Balance Assessment Sitting Balance Sitting Balance Steady, safe Arising from Chair Attempts to Arise Arises on 1st attempt Standing Balance Immediate Standing Balance Steady with support Standing Balance Steady, wide stance Nudged Response Begins to fall Standing with Eyes Closed Unsteady Turning Step Pattern Turning 360 Degrees Discontinuous steps Stability Turning 360 Degrees Unsteady, grabs/staggers Sitting Down Sitting Down Uses arms or unsteady Gait and Step Initiation of Gait Hesitancy, mult. attempts Right Foot Step Length Does not pass stance ft. Right Foot Step Height Does not clear floor Left Foot Step Length Does not pass stance foot Left Foot Step Height Does not clear floor Step Description Step Symmetry Step length not equal Step Continuity Steps appear continuous Gait Description Path Description Marked deviation Trunk Description Marked sway or uses aide Walking Stance Heels together Scoring and Interpretation Tinetti Composite Score (points) 8 Hagen Fall Scale Copyright Permission PT-OP-E Functional Tests Start: 06/30/22 08:12 Freq: Status: Active Protocol: Document 07/01/22 15:18 [facility] (Rec: 07/01/22 17:06 [facility] [id number]) Functional Tests 2 Minute Walk Test Distance 90 Device Used 4WW PT-OP-G Mobility & Gait Start: 06/30/22 08:12 Freq: Status: Active Protocol: Document 07/01/22 15:18 [facility] (Rec: 07/01/22 17:06 [facility] [id number]) OP Mobility Evaluation Bed Mobility Rolling needs railing Supine to and from Sit SBA Transfers Sit to Stand SBA with set-up Bed to Chair Transfers SBA Floor Transfers mod assist, cues for pushing onto both feet Wheelchair Management Type of Wheelchair power OP Gait Assessment Gait Gait Assistance Required: Contact Guard Assist Distance (Feet) 90 Assistive Devices Assistive Device 4 Wheeled Walker Gait Deviations General Gait Pattern Decreased Stride Length, Decreased Feet Clearance, Flexed Trunk,Narrow Based Gait Factors Limiting Gait Function Factors Limiting Gait Function Abnormal Tonal Influences, Decreased Activity Tolerance, Decreased Strength,Limited Range of Motion PT-OP-H Neuro Start: 06/30/22 08:12 Freq: Status: Active Protocol: Document 07/01/22 15:18 [facility] (Rec: 07/01/22 17:06 [facility] [id number]) Sensation Evaluation Gross Sensation Gross Sensation Left LE Impaired,Right LE Impaired PT-OP-K Range of Motion Start: 06/30/22 08:12 Freq: Status: Active Protocol: Document 07/01/22 15:18 [facility] (Rec: 07/01/22 17:06 [facility] [id number]) Shoulder Goniometric Range of Motion Shoulder Right Shoulder ROM WFL No Flexion 150 Extension 10 Abduction 70 External Rotation at 90 degrees 45 Abduction Internal Rotation Behind Back (text) lateral hip Left Shoulder ROM WFL Yes Shoulder ROM Limitations Shoulder ROM Limitations Muscle Weakness Elbow/Forearm Range of Motion Elbow/Forearm Right Elbow/Forearm ROM WFL Yes Left Elbow/Forearm ROM WFL Yes Wrist Goniometric Range of Motion Wrist Right Wrist ROM WFL No Left Wrist ROM WFL Yes ROM Limitations Wrist Limitations of Range of Motion Muscle Weakness Comments lacking active wrist extension Hip Goniometric Range of Motion Hip Right Flexion w/Knee Flexed 95 Straight Leg Raise 60 Extension 0 Abduction 20 Internal Rotation 20 External Rotation 65 Left Flexion w/Knee Flexed 95 Straight Leg Raise 55 Extension 0 Abduction 20 Internal Rotation 20 External Rotation 65 Hip ROM Limitations Hip ROM Limitations Soft Tissue Tightness,Muscle Tone Knee Goniometric Range of Motion Knee andrew Knee ROM WFL Yes Ankle and Foot Goniometric Range of Motion Ankle and Foot Right Dorsiflexion with Knee Flexed 0 Dorsiflexion with Knee Extended 0 Plantarflexion 40 Left Dorsiflexion with Knee Flexed 5 Dorsiflexion with Knee Extended 0 Plantarflexion 50 PT-OP-M Strength Start: 06/30/22 08:12 Freq: Status: Active Protocol: Document 07/01/22 15:18 [facility] (Rec: 07/01/22 17:06 [facility] [id number]) Trunk Strength Trunk Manual Muscle Testing Flexion 3+ Fair+ Extension 3+ Fair+ Shoulder Strength Shoulder Manual Muscle Testing Right Flexion 2+ Poor+ Extension 2+ Poor+ Abduction (C5) 2+ Poor+ Adduction 2+ Poor+ External Rotation 2+ Poor+ Internal Rotation 2+ Poor+ Left Flexion 5 Normal Extension 5 Normal Abduction (C5) 5 Normal Adduction 5 Normal External Rotation 5 Normal Internal Rotation 5 Normal Elbow/Forearm Strength Elbow and Forearm Manual Muscle Testing Right Flexion (C6) 3+ Fair+ Extension (C7) 4- Good- Left Flexion (C6) 5 Normal Extension (C7) 5 Normal Wrist Strength Wrist Manual Muscle Testing Right Flexion (C7) 3+ Fair+ Extension (C6) 1 Trace Left Flexion (C7) 5 Normal Extension (C6) 5 Normal Hip Strength Hip Manual Muscle Testing Right Flexion (L2) 1 Trace Extension (S1) 1 Trace Abduction 1 Trace Adduction 2- Poor- External Rotation 2- Poor- Internal Rotation 1 Trace Left Flexion (L2) 4- Good- Extension (S1) 3- Fair- Abduction 3+ Fair+ Adduction 4- Good- External Rotation 4- Good- Internal Rotation 4- Good- Knee Strength Knee Manual Muscle Testing Right Flexion (S2) 3- Fair- Extension (L3) 3 Fair Left Flexion (S2) 4+ Good+ Extension (L3) 4+ Good+ Ankle/Foot Strength Ankle and Foot Manual Muscle Testing Right Dorsiflexion (L4) 0 Zero Plantarflexion (S1) 2- Poor- Left Dorsiflexion (L4) 4+ Good+ Plantarflexion (S1) 4+ Good+ PT-OP-Q Treatments Start: 06/30/22 08:12 Freq: Status: Active Protocol: Document 09/05/22 14:32 [facility] (Rec: 09/05/22 15:18 [facility] [id number]) Gym Equipment Shuttle Recovery Bilateral Squats Details dycem on platform under feet, cues for pushing through heels Resistance 62-87 Shuttle Recovery Platform Stable Reps/Time 10x Unilateral Squats Details andrew mod assist for right LE alignment, dycem under foot Resistance 37 Shuttle Recovery Platform Stable Reps/Time 10x2 Therapeutic Exercises Supine Exercises LE stretches Supine Exercise Name HC, HS, SKTC, Adductors, IT band, ER, hip flex (Gurmeet stretch) Reps/Minutes 2x30 ea PT-OP-T Assessment and Plan Start: 06/30/22 08:12 Freq: Status: Active Protocol: Document 09/05/22 14:32 [facility] (Rec: 09/05/22 15:18 [facility] [id number]) Physical Therapy Assessment Goals Three Impairment strength and ROM impairment Impairment UE, LE, and trunk weakness with need for further training of patient and health and safety trainer for more effective ex Short Term Goal (STG) review and update patient HEP to address weakness and ROM deficits 07/18/22: goal met STG Duration goal met Russian Language Instructor Goal (LTG) Patient to be independent and safe with all aspects of his HEP with the assistance of functional fitness plan coordinator Letty . 08/26/22: goal met LTG Duration goal met Two Impairment Tinetti gait and balance assessment score 8/28 Impairment high fall risk category Short Term Goal (STG) Improve Tinetti score to at least 11/29 as measure of improved safety with mobility 09/03/22: goal met STG Duration goal met Detention Goal (LTG) Improve Tinetti score to at least 15/28 as measure of improved safety with mobility and decreased fall risk. 09/05/22: goal met LTG Duration 09/28/22 Four Impairment Impaired functional mobility Impairment patient no longer able to lift his right LE 15 onto running board of vehicle for purposes of safe transfers into vehicle; can lift 6 inches Short Term Goal (STG) Patient will be able to lift his right LE at least 10 09/03/22: no progress STG Duration 08/10/22 Detention Goal (LTG) Patient will be able to lift his right LE 15 onto running board of vehicle for purposes of safe transfers into vehicle 09/05/22: no goal progress. LTG Duration 09/28/22 One Impairment Gait dysfunction Impairment 2 min walk test 90 ft Short Term Goal (STG) Improve 2 min walk test to at least 125 ft as measure of improved functional gait for home mobility 09/03/22: 72 ft max today after stretching and mat ex when fatigued, too tight prior to stretching STG Duration 08/10/22 Detention Goal (LTG) Improve 2 min walk test to 140 ft as measure of improved functional gait for home mobility LTG Duration 09/28/22 Assessment Summary Assessment Patient has made good progress or met most goals (see above) . Ready for discharge to independent HEP with assist of radio personality. Physical Therapy Plan Discharge Physical Therapy Discharge Reasons [place] in Progress Discharge Comments independent with HEP with assistance of radio personality .
== END 2022-09-06 11:43 | disposition home or self-care (01) ==
LOC: PHYS 14:30
PROVIDERS: Family Provider Internal Medicine; PCP Internal Medicine; Referring Provider Physical Medicine & Rehabilitation; Visit Provider Physical Medicine & Rehabilitation
DX: G35 Multiple sclerosis (principal); R25.2 Cramp and spasm
CPT/HCPCS: 97032; 97110; 97116; 97162; 97530; 97535

== ENCOUNTER 2022-10-30 13:15 | Outpatient (RCR) | payer MEDICARE, OTHER, SELFPAY ==
[2019-03-06 14:57] VITALS: BMI 24.7
--- NOTE | 2022-10-18 16:00 | OT.OP.EVAL ---
Visit Care Team Role Provider Type Mario Manzano MD Family Provider Physician Specialty: Internal Medicine Address: [address] [place] [address], [place], [address] Email: Terrie Muñoz MD Attending Provider Non-Staff Primary Care Provider Referring Provider Specialty: Medical Address: [address] [place] [address], [place], [address] Email: Occupational Therapy Initial Evaluation OT Outpatient Adult Evaluation Start: 10/21/22 13:04 Freq: Status: Active Protocol: Document 10/18/22 16:00 AMS (Rec: 10/21/22 13:38 AMS [id number]) General Information - Adult Visit Number 05/21; 05/30 visits --> KX visit Insurance Information Medicare Goals Treatment Initiated HEP. Heat Treater Helper Goals 1. Wm will be modified independent with execution of home exercise program utilizing provided written and visual instructions from therapist. 2. Wm will be able to identify 2 to 3 different additional strategies to support active incorporation of the R UE in day-to-day life (e.g., positioning of R UE, AE, modifications, compensatory strategies). 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 Patient reportedly was diagnosed with MS in 1997 and retired in 2003 d/t disability . 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 He has an adjustable bed and is able to manage his meds on his own. He has 2 distal UE splints and wears one of them at night ; he has a R AFO (that remains in his shoe). He has a personal e-stim machine that he currently is not using. He utilizes an electric w/c primarily with mobility within the home and within the community and is independent with self transfers; he reports ambulating 300 feet w/ FWW in the home daily. He utilizes a Roho cushion and has set alarm(s) on his personal apple watch for ' standing' reminders for pressure relief. He actively works w/ Letty 2 x a week for support w/ completion of exercises w/ use of personal universal gym (chest press, lat pulldown, sh elbow ext w/ lat pulldown, butterfly machine IR w/ 30 sec stretch into ER, and R UE forearm weight bearing). He also has putty and various other hand/ finger strengthening equipment available. He is reliant on the L UE for all UE tasks; he denies any UE pain, although, does have R UE numbness ( present for approx 20 years). Frequent positioning of the R UE on lap. QuickDASH UE Outcome Measure Score = 65.91. He does spend considerable time on his personal computer which has been modified; desk is built-up which permits his w/c to slide under and set-up is equipped w/ tray pull-out for keyboard use. Full AROM of L UE. 0-37 degrees active R sh flex; 0-50 degrees active R sh abd; 0-25 degrees active R sh ext; full active R IR; no active R ER; -10 degrees R elbow extension; 120 degrees active R elbow flexion; 45 degrees active R forearm supination; full active R forearm pronation; 0-50 degrees active R wrist ext w/ fingers flexed; no active R wrist flexion; 10 degrees active R wrist RD; 20 degrees active R wrist UD. Varying amts of active digit extension noted; able to form full R fist. Use of R 5th digit w/ completion of functional tasks (e.g., doffing pullover jacket). (+) trace R funeral sales manager strength. Patient Goals: Improve function of the R arm. Wm would likely benefit from outpatient OT to address function of the R UE, R UE weakness, R UE ROM, environmental/compensatory strategies/AE, bimanual coordination, and to expand upon current HEP to support success with Wm's active incorporation of the R UE w/ completion of meaningful activities in a variety of environments. Recommend obtaining R funeral sales manager strength measure at time of next treatment session. Home Exercise Program 10/21/22 = Discussed sleeping postures w/ adjustable bed. Chair dips w/ use of electric w/c or chair w/ bilateral arm rests. Length of treatment (weeks) 12 Plan of Care Start Date 10/18/22 Plan of Care End Date 01/10/23 Comment 1 - 2 times per week Therapeutic Contents Active Range of Motion, Adaptive Equipment Education, Client Education,Functional Activities,Home Exercise Program,Joint Protection, Manual Therapy,Education, Neurodevelopment Treatment, Neuromuscular Re-Education, Self-Care,Stretching/ Flexibility Activities, Therapeutic Activities, Therapeutic Exercises, Modalities,Sensory Re- education Additional Types of Modalities Heat/Ice/E-stim/Ultrasound
--- NOTE | 2022-10-22 15:02 | OT.OP.TRT ---
Visit Care Team Role Provider Type Mario Manzano MD Family Provider Physician Specialty: Internal Medicine Address: [address] [place] [address], [place], [address] Email: Terrie Muñoz MD Attending Provider Non-Staff Primary Care Provider Referring Provider Specialty: Medical Address: [address] [place] [address], [place], [address] Email: Occupational Therapy Treatment Note OT Outpatient Treatment Note - Adult Start: 10/21/22 13:04 Freq: Status: Active Protocol: Document 10/22/22 14:46 AMS (Rec: 10/22/22 15:02 AMS [id number]) OT Outpatient Adult Treatment Note Session Time Visit Start Time 08:30 Visit Stop Time 09:20 Total Visit Minutes 50 Visit Information Visit Number 06/21; 06/30 visits --> KX 20th visit Plan of Care Dates 10/18/22 - 01/10/23 Insurance Information Medicare Setting Treatment Setting Outpatient Care Visit Type Note Type Treatment Note General Information General Information Patient is a 67 year-old referred to outpatient OT d/t 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 Patient reportedly was diagnosed with MS in 1997 and retired in 2003 d/t disability . 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 He has an adjustable bed and is able to manage his meds on his own. He has 2 distal UE splints and wears one of them at night ; he has a R AFO (that remains in his shoe). He has a personal e-stim machine that he currently is not using. He utilizes an electric w/c primarily with mobility within the home and within the community and is independent with self transfers; he reports ambulating 300 feet w/ FWW in the home daily. He utilizes a Roho cushion and has set alarm(s) on his personal apple watch for ' standing' reminders for pressure relief. He actively works w/ Letty 2 x a week for support w/ completion of exercises w/ use of personal universal gym (chest press, lat pulldown, sh elbow ext w/ lat pulldown, butterfly machine IR w/ 30 sec stretch into ER, and R UE forearm weight bearing). He also has putty and various other hand/ finger strengthening equipment available. He is reliant on the L UE for all UE tasks; he denies any UE pain, although, does have R UE numbness ( present for approx 20 years). - Subjective Identification Type Name Identification Reconciled With Medical Record Observations Patient brought in personal distal UE orthotic(s) (R king splint, R pillow splint, R resting night splint); currently, utilizing the R night resting splint. Images of orthotics were taken and will be scanned into [employer] once medical front desk coordinator able to do so. Patient also brought in personal e-stim machine that he is currently not using ( mode = synchronus, 20 sec on, 10 sec off, 4.5/5 intensity, x 10 minutes); (-) active digit /wrist ext noted. Patient Expectation/Goals Improve function of the R arm. - Objective Objective Measurements Please refer to below for progress towards meeting established OT goals: 10/22/22 = has R king splint, R pillow splint, R resting night splint; currently, utilizing the R night resting splint. Patient also brought in personal e-stim machine that he is currently not using ( mode = synchronus, 20 sec on, 10 sec off, 4.5/5 intensity, x 10 minutes); (-) active digit /wrist ext noted. 25.0# of force R pattern stamper dynamometer II strength (> 2 SD compared to same-aged male peers; 103.0# of force L pattern stamper dynamometer II strength (within 1 SD above the mean compared to same-aged male peers); 7.0# of force R lateral lerma pinch (> 4 SD below the mean compared to same-aged 65 - 69 y.o. males); 19.0# of force L lateral lerma pinch (within 1 SD below the mean compared to same-aged male peers). Process Pumper Goals 1. Wm will be modified independent with execution of home exercise program utilizing provided written and visual instructions from therapist. 2. Wm will be able to identify 2 to 3 different additional strategies to support active incorporation of the R UE in day-to-day life (e.g., positioning of R UE, AE, modifications, compensatory strategies). - - Assessment Assessment of Improvement 3 available R distal UE splints available; currently utilizing R resting night splint. (-) response noted w/ current e-stim unit to facilitate wrist/digit extension; x 8 min 44 intensity decreased to 30 intensity w/ facilitation of wrist/digit flexors, nicaraguan e -stim, 10/10 cycle; some discomfort reported/as well as nonverbal signs of pain/ discomfort (via grimacing). Thus, reduction of intensity of program. Able to also facilitate wrist/digit ext x 7 minutes, Haitian e-stim, 10/ 10 cycle, 43 intensity. Some redness noted post- removal of location of e-stim pads. Dynamometer II and lateral pinch strength testing indicated decreased R lateral lerma pinch strength and R pattern stamper strength. Wm would likely benefit from outpatient OT to address function of the R UE, R UE weakness, R UE ROM, environmental/compensatory strategies/AE, bimanual coordination, and to expand upon current HEP to support success with Wm's active incorporation of the R UE w/ completion of meaningful activities in a variety of environments. Recommend obtaining R pattern stamper strength measure at time of next treatment session. Home Exercise Program 10/22/22 = discussed use of digi flex for lateral lerma pinch strengthening. rec looking at [employer] website for alt e-stim machine. - Plan Therapy Recommendations Continue with Current Program, Advance per Rehabilitation Protocol
--- NOTE | 2022-10-30 14:59 | OT.OP.TRT ---
Visit Care Team Role Provider Type Mario Manzano MD Family Provider Physician Specialty: Internal Medicine Address: [address] [place] [address], [place], [address] Email: Terrie Muñoz MD Attending Provider Non-Staff Primary Care Provider Referring Provider Specialty: Medical Address: [address] [place] [address], [place], [address] Email: Occupational Therapy Treatment Note OT Outpatient Treatment Note - Adult Start: 10/21/22 13:04 Freq: Status: Active Protocol: Document 10/30/22 14:36 AMS (Rec: 10/30/22 14:59 AMS [id number]) OT Outpatient Adult Treatment Note Session Time Visit Start Time 13:15 Visit Stop Time 14:00 Total Visit Minutes 45 Visit Information Visit Number 07/19; 07/28 visits --> KX 20th visit Plan of Care Dates 10/18/22 - 01/10/23 Insurance Information Medicare Setting Treatment Setting Outpatient Care Visit Type Note Type Treatment Note General Information General Information Patient is a 67 year-old referred to outpatient OT d/t 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 Patient reportedly was diagnosed with MS in 1997 and retired in 2003 d/t disability . 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 He has an adjustable bed and is able to manage his meds on his own. He has 2 distal UE splints and wears one of them at night ; he has a R AFO (that remains in his shoe). He has a personal e-stim machine that he currently is not using. He utilizes an electric w/c primarily with mobility within the home and within the community and is independent with self transfers; he reports ambulating 300 feet w/ FWW in the home daily. He utilizes a Roho cushion and has set alarm(s) on his personal apple watch for ' standing' reminders for pressure relief. He actively works w/ Letty 2 x a week for support w/ completion of exercises w/ use of personal universal gym (chest press, lat pulldown, sh elbow ext w/ lat pulldown, butterfly machine IR w/ 30 sec stretch into ER, and R UE forearm weight bearing). He also has putty and various other hand/ finger strengthening equipment available. He is reliant on the L UE for all UE tasks; he denies any UE pain, although, does have R UE numbness ( present for approx 20 years). - Subjective Identification Type Name Identification Reconciled With Medical Record Observations Patient inquired about recommended UE exercises. Patient Expectation/Goals Improve function of the R arm. - Objective Objective Measurements Please refer to below for progress towards meeting established OT goals: 10/22/22 = has R king splint, R pillow splint, R resting night splint; currently, utilizing the R night resting splint. Patient also brought in personal e-stim machine that he is currently not using ( mode = synchronus, 20 sec on, 10 sec off, 4.5/5 intensity, x 10 minutes); (-) active digit /wrist ext noted. 25.0# of force R certified technician specialist dynamometer II strength (> 2 SD compared to same-aged male peers; 103.0# of force L certified technician specialist dynamometer II strength (within 1 SD above the mean compared to same-aged male peers); 7.0# of force R lateral lerma pinch (> 4 SD below the mean compared to same-aged 65 - 69 y.o. males); 19.0# of force L lateral lerma pinch (within 1 SD below the mean compared to same-aged male peers). Residential Goals 1. Wm will be modified independent with execution of home exercise program utilizing provided written and visual instructions from therapist. 2. Wm will be able to identify 2 to 3 different additional strategies to support active incorporation of the R UE in day-to-day life (e.g., positioning of R UE, AE, modifications, compensatory strategies). - Exercises 2 Descriptor R UE ROM. Posture. Backwards sh shrugs. 1 x 5. Bilateral sh extension w/ pinching scapular retraction. 1 x 10. 1 Descriptor R UE ROM. Supine. Bilateral chest press. Cane. 1 x 10. Bilateral shoulder flexion. Cane. 1 x 10 . Supine. Hor abd stretch. x 2. 30 sec hold. PNF diagonal stretch. x 2. 30 sec hold. Supine. Therapist assist. ER hands positioned behind head. x 2. 30 sec hold. Supine. Therapist assist. Hor abd & ER. x 2. 30 sec hold. - Assessment Assessment of Improvement Discussed range of motion exercises of the R UE given spasticity/decreased mobility in order to lengthen muscles, improve joint mobility, support posture and maintain available ROM to support completion of functional daily tasks, including UB dressing. Discussed length of hold (w/ pt identified 30 seconds) and moving to the point of ' feeling' the stretch. Completed most of the stretches in supine to decrease proximal trunk compensatory strategies and need to maintain upright good posture in sitting while doing the stretches. Focused primarily on cane exercises and exercises that can be completed on own without another person's support (ER w / hands behind head requested support, as well as w/ hor sh abd and ER). Patient observed to use watch for alarms for standing (pressure relief)/ posture/flexibility and meditation. Would likely benefit from coordination of breath w/ stretching. Wm would likely benefit from outpatient OT to address function of the R UE, R UE weakness, R UE ROM, environmental/compensatory strategies/AE, bimanual coordination, and to expand upon current HEP to support success with Wm's active incorporation of the R UE w/ completion of meaningful activities in a variety of environments. Recommend obtaining R certified technician specialist strength measure at time of next treatment session. Home Exercise Program 10/30/22 = B sh flex cane; B sh hor abd cane; PNF diagonal cane; B ER stretch hands clasped behind head supine; hor abd & ER combo; posture - backwards sh shrugs w/ scapular retraction. 10/22/22 = discussed use of digi flex for lateral lerma pinch strengthening. rec looking at [employer] website for alt e-stim machine. - Plan Therapy Recommendations Continue with Current Program, Advance per Rehabilitation Protocol
--- NOTE | 2022-11-27 07:28 | OT.OP.TRT ---
Visit Care Team Role Provider Type Mario Manzano MD Family Provider Physician Specialty: Internal Medicine Address: [address] [place] [address], [address] Email: Terrie Muñoz MD Attending Provider Non-Staff Primary Care Provider Referring Provider Specialty: Medical Address: [address] [place] [address], [address] Email: Occupational Therapy Treatment Note OT Outpatient Treatment Note - Adult Start: 10/21/22 13:04 Freq: Status: Active Protocol: Document 11/27/22 07:28 [facility] (Rec: 11/27/22 07:28 [facility] [id number]) OT Outpatient Adult Treatment Note Setting Treatment Setting Outpatient Care Visit Type Note Type Administrative Note - Subjective Observations Re-faxed initial eval to PCP; 2nd attempt. - - - -
--- NOTE | 2023-01-16 08:39 | OT.OP.DC ---
Visit Care Team Role Provider Type Mario Manzano MD Family Provider Physician Address: [address] [place] [address], [place], [address] Email: Terrie Muñoz MD Attending Provider Non-Staff Primary Care Provider Referring Provider Address: [address] [place] [address], [address], [address] Email: OT Outpatient OT Outpatient Adult Evaluation Start: 10/21/22 13:04 Freq: Status: Active Protocol: Document 10/18/22 16:00 AMS (Rec: 10/21/22 13:38 AMS [id number]) General Information - Adult Visit Information Visit Number 05/21; 05/30 visits --> KX visit Insurance Information Medicare Goals Treatment Treatment Initiated HEP. Information Security Analyst Goals [facility] Goals 1. Wm will be modified independent with execution of home exercise program utilizing provided written and visual instructions from therapist. 2. Wm will be able to identify 2 to 3 different additional strategies to support active incorporation of the R UE in day-to-day life (e.g., positioning of R UE, AE, modifications, compensatory strategies). 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 Patient reportedly was diagnosed with MS in 1997 and retired in 2003 d/t disability . 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 He has an adjustable bed and is able to manage his meds on his own. He has 2 distal UE splints and wears one of them at night ; he has a R AFO (that remains in his shoe). He has a personal e-stim machine that he currently is not using. He utilizes an electric w/c primarily with mobility within the home and within the community and is independent with self transfers; he reports ambulating 300 feet w/ FWW in the home daily. He utilizes a Roho cushion and has set alarm(s) on his personal apple watch for ' standing' reminders for pressure relief. He actively works w/ [employer] 2 x a week for support w/ completion of exercises w/ use of personal universal gym (chest press, lat pulldown, sh elbow ext w/ lat pulldown, butterfly machine IR w/ 30 sec stretch into ER, and R UE forearm weight bearing). He also has putty and various other hand/ finger strengthening equipment available. He is reliant on the L UE for all UE tasks; he denies any UE pain, although, does have R UE numbness ( present for approx 20 years). Frequent positioning of the R UE on lap. QuickDASH UE Outcome Measure Score = 65.91. He does spend considerable time on his personal computer which has been modified; desk is built-up which permits his w/c to slide under and set-up is equipped w/ tray pull-out for keyboard use. Full AROM of L UE. 0-37 degrees active R sh flex; 0-50 degrees active R sh abd; 0-25 degrees active R sh ext; full active R IR; no active R ER; -10 degrees R elbow extension; 120 degrees active R elbow flexion; 45 degrees active R forearm supination; full active R forearm pronation; 0-50 degrees active R wrist ext w/ fingers flexed; no active R wrist flexion; 10 degrees active R wrist RD; 20 degrees active R wrist UD. Varying amts of active digit extension noted; able to form full R fist. Use of R 5th digit w/ completion of functional tasks (e.g., doffing pullover jacket). (+) trace R criminal intelligence analyst strength. Patient Goals: Improve function of the R arm. Wm would likely benefit from outpatient OT to address function of the R UE, R UE weakness, R UE ROM, environmental/compensatory strategies/AE, bimanual coordination, and to expand upon current HEP to support success with mW's active incorporation of the R UE w/ completion of meaningful activities in a variety of environments. Recommend obtaining R criminal intelligence analyst strength measure at time of next treatment session. Home Exercise Program 10/21/22 = Discussed sleeping postures w/ adjustable bed. Chair dips w/ use of electric w/c or chair w/ bilateral arm rests. Plan Length of treatment (weeks) 12 Plan of Care Start Date 10/18/22 Plan of Care End Date 01/10/23 Comment 1 - 2 times per week Therapeutic Contents Active Range of Motion, Adaptive Equipment Education, Client Education,Functional Activities,Home Exercise Program,Joint Protection, Manual Therapy,Education, Neurodevelopment Treatment, Neuromuscular Re-Education, Self-Care,Stretching/ Flexibility Activities, Therapeutic Activities, Therapeutic Exercises, Modalities,Sensory Re- education Additional Types of Modalities Heat/Ice/E-stim/Ultrasound Functional Wrist/Hand Scan Hand Side Sensory Assessment Sensory Profile2 OT Outpatient Treatment Note - Adult Start: 10/21/22 13:04 Freq: Status: Active Protocol: Document 01/16/23 08:37 AMS (Rec: 01/16/23 08:39 AMS [id number]) OT Outpatient Adult Treatment Note Visit Information Visit Number 07/19; 07/28 visits --> KX visit Plan of Care Dates 10/18/22 - 01/10/23 Insurance Information Medicare Setting Treatment Setting Outpatient Care Visit Type Note Type Discharge Summary - Subjective Observations Patient has not been seen in the outpatient setting by OT since 10/30/22 and POC 01/10/23; thus, recommend d/c from outpatient OT at this time. Will re-evaluate as deemed appropriate by PCP. - Objective Objective Measurements Please refer to below for progress towards meeting established OT goals: 10/22/22 = has R king splint, R pillow splint, R resting night splint; currently, utilizing the R night resting splint. Patient also brought in personal e-stim machine that he is currently not using ( mode = synchronus, 20 sec on, 10 sec off, 4.5/5 intensity, x 10 minutes); (-) active digit /wrist ext noted. 25.0# of force R criminal intelligence analyst dynamometer II strength (> 2 SD compared to same-aged male peers; 103.0# of force L criminal intelligence analyst dynamometer II strength (within 1 SD above the mean compared to same-aged male peers); 7.0# of force R lateral lerma pinch (> 4 SD below the mean compared to same-aged 65 - 69 y.o. males); 19.0# of force L lateral lerma pinch (within 1 SD below the mean compared to same-aged male peers). Information Security Analyst Goals ALL GOALS D/C 01/16/23 1. Wm will be modified independent with execution of home exercise program utilizing provided written and visual instructions from therapist. 2. Wm will be able to identify 2 to 3 different additional strategies to support active incorporation of the R UE in day-to-day life (e.g., positioning of R UE, AE, modifications, compensatory strategies). - - Assessment Assessment of Improvement Patient has not been seen in the outpatient setting by OT since 10/30/22 and POC 01/10/23; thus, recommend d/c from outpatient OT at this time. Will re-evaluate as deemed appropriate by PCP. - Plan Therapy Recommendations Discharge from Occupational Therapy
== END 2023-01-16 14:56 | disposition home or self-care (01) ==
LOC: OT 13:15
PROVIDERS: Family Provider Internal Medicine; PCP Physical Medicine & Rehabilitation; Referring Provider Physical Medicine & Rehabilitation; Visit Provider Physical Medicine & Rehabilitation
DX: G35 Multiple sclerosis (principal); R25.2 Cramp and spasm; R53.1 Weakness; R27.8 Other lack of coordination
CPT/HCPCS: 97032; 97110; 97166; 97530

== ENCOUNTER 2023-01-27 08:50 | Emergency (ER) | payer MEDICARE, OTHER, SELFPAY ==
[2019-03-06 14:57] VITALS: BMI 24.7
[2023-01-27 08:54] VITALS: BP 162/77; PULSE 59; RESP 18; TEMP 36.3; O2SAT 100; BMI 27.9
--- NOTE | 2023-01-27 09:11 | ED_ITS ---
HPI - Fall General Chief Complaint: Fall Stated Complaint: fell out of wheelchair, head injury Time Seen by Provider: 01/27/23 09:10 Source: patient Mode of arrival: Family Vehicle History of Present Illness HPI Narrative: Patient is a 67-year-old male. Does have history of MS. Does have mobility issues. He states this morning he was bent over emptying his Atwood catheter when he fell out of his wheelchair. He did hit his head on the toilet. No loss of consciousness. He is not on blood thinners. He did not hurt any of his extremities. He also feels like that he potentially has a urinary tract infection. Related Data Home Medications Medication Instructions Recorded Confirmed baclofen 10 mg tablet 20 mg PO Q6H 03/06/19 08/12/22 citalopram 40 mg tablet 40 mg PO DAILY 03/06/19 08/12/22 docusate sodium 250 mg capsule 250 mg PO BEDTIME 03/06/19 08/12/22 interferon beta-1a (albumin) 44 44 mcg SUBCUT 3XW 03/06/19 08/12/22 mcg/0.5 mL subcutaneous pen injector (Rebif Rebidose) diazepam 5 mg tablet 5 mg PO BEDTIME 08/12/22 08/12/22 magnesium hydroxide 800 mg/5 mL 800 mg PO Q3D PRN Constipation 08/12/22 08/12/22 oral suspension polyethylene glycol 3350 17 gram 17 g PO 3XW PRN Constipation 08/12/22 08/12/22 oral powder packet (Miralax) terazosin 1 mg tablet 3 mg PO BEDTIME 08/12/22 08/12/22 Previous Rx's Medication Instructions Recorded levofloxacin 750 mg tablet 750 mg PO DAILY 5 days #5 tabs 01/27/23 Allergies Allergy/AdvReac Type Severity Reaction Status Date / Time No Known Drug Allergies Allergy Verified 08/12/22 11:54 Review of Systems Constitutional Constitutional: Reports system reviewed and no additional complaints, except as documented Genitourinary Genitourinary: Reports system reviewed and no additional complaints, except as documented Musculoskeletal Musculoskeletal: Reports system reviewed and no additional complaints, except as documented Integumentary/Breasts Skin/Breast: Reports system reviewed and no additional complaints, except as documented Neurologic Neurologic: Reports system reviewed and no additional complaints, except as documented Hematologic/Lymphatic On Anticoagulants: No Patient History Medical History Anxiety and depression Indwelling Atwood catheter present Multiple sclerosis Neurogenic bladder Surgical History S/P tonsillectomy and adenoidectomy Family History Mother Obesity Hypertension Brother Renal cancer Social History household members: spouse Smoking Status: Former smoker alcohol intake: never Smoking Status: Former smoker alcohol intake frequency: 0-2 drinks per day Substance Use Type: does not use Exam Initial Vital Signs Initial Vital Signs: Vital Signs Temperature 97.3 F L 01/27/23 08:54 Pulse Rate 59 L 01/27/23 08:54 Respiratory Rate 18 01/27/23 08:54 Blood Pressure 162/77 H 01/27/23 08:54 Pulse Oximetry 100 01/27/23 08:54 Oxygen Delivery Method Room Air 01/27/23 08:54 HENMT Head: contusion (Right temporal region) Resp Effort & Inspection: normal respiratory effort Cardio Rate: regular rate Skin Other: Contusion right temporal region Neuro General: patient alert, patient awake and moves all extremities Extrem Other: Brace on right lower extremity. No gross deformities. Course Orders Ordered: ED Orders 01/27/23 09:12 CT head/brain wo con Stat 01/27/23 09:58 Urinalysis and Microscopic Stat Urine Culture Stat Vital Signs Vital signs: Vital Signs - 8 hr 01/27/23 08:54 Temperature 97.3 F L Pulse Rate 59 L Respiratory Rate 18 Blood Pressure 162/77 H Pulse Oximetry 100 Oxygen Delivery Method Room Air - Fall Lab Data Labs: Lab Results 01/27/23 Range/Units 09:58 Urine Color Yellow Urine Appearance Clear Urine pH 5.0 (4.5-8.0) Ur Specific [place] <=1.005 (1.000-1.035) Urine Protein Negative (Negative) Urine Glucose (UA) Negative (Negative) g/dL Urine Ketones Negative (NEGATIVE) Urine Occult Blood Negative (Negative) Urine Nitrate Positive H (Negative) Urine Bilirubin Negative (NEGATIVE) Urine Urobilinogen 0.2 (0.2) E.U./dL Ur Leukocyte Esterase 1+ H (NEGATIVE) Urine RBC None seen (0-5/HPF) Urine WBC 1-5/hpf (0-5/HPF) Ur Squamous Epith Cells None seen (0-5/HPF) Urine Bacteria Many (>30) H (None) Imaging Data CT scan - head: Radiologist's Impression: PROCEDURE:? CT HEAD/BRAIN WO CON ? INDICATIONS:? fall with head injury ? TECHNIQUE:? Noncontrast 4.5 mm thick angled axial sections acquired from the foramen magnum to the vertex, with coronal and sagittal reformats.? For radiation dose reduction, the following was used:? automated exposure control, adjustment of mA and/or kV according to patient size.? ? COMPARISON:? None. ? FINDINGS:? Image quality:? Excellent.? ? CSF spaces:? Basal cisterns are patent.? No extra-axial fluid collections.? Ventricles are normal in size and shape.? ? Brain:? No midline shift.? No intracranial masses or hemorrhage.? Hall-white matter interface is normal.? ? Skull and face:? Calvarium and visualized facial bones are intact, without suspicious lesions.? ? Sinuses:? Visualized sinuses and mastoids are clear.? ? IMPRESSION:? No acute intracranial abnormality. MDM Narrative Medical decision making narrative: Head CT shows no acute pathology. This was a mechanical fall. He is not on anticoagulation. Patient does not have indication of a concussion. His urinalysis is nitrite positive. He thinks he has been on Levaquin in the past. He is a follow-up with Urology next week. A urine culture was pending at the time of discharge. We will discharge patient home with return precautions. Discharge Plan Departure Patient Disposition: Home Clinical Impression: Closed head injury, Urinary tract infection Instructions: DI for Urinary Tract Infection (UTI) Activity Restrictions/Additional Instructions: I do recommend that you take the antibiotics as directed. Keep your appointment that you have scheduled next week with Urology. There was a urine culture pending at the time of your discharge and we will contact you if we need to change any antibiotics based on this. Return to the emergency department for new or worsening symptoms. Prescriptions: New levofloxacin 750 mg tablet 750 mg PO DAILY 5 Days Qty: 5 0RF No Action baclofen 10 mg Tablet 20 mg PO Q6H Rx Instructions: Has been taking it q4 hours instead of q6 hours Rebif Rebidose 44 mcg/0.5 mL Pen Injector 44 mcg SUBCUT 3XW Rx Instructions: Normally takes it on Friday, Friday, and nights citalopram 40 mg Tablet 40 mg PO DAILY docusate sodium 250 mg Capsule 250 mg PO BEDTIME polyethylene glycol 3350 [Miralax] 17 gram Powder In Packet 17 g PO 3XW PRN (Reason: Constipation) magnesium hydroxide 800 mg/5 mL Suspension 800 mg PO Q3D PRN (Reason: Constipation) terazosin 1 mg Tablet 3 mg PO BEDTIME diazepam 5 mg tablet 5 mg PO BEDTIME Referrals: Terrie Muñoz MD [Primary Care Provider] - Stand Alone Forms: Patient Portal/API
--- NOTE | 2023-01-27 09:12 | DI.CT.S_ITS ---
PROCEDURE: CT HEAD/BRAIN WO CON INDICATIONS: fall with head injury TECHNIQUE: Noncontrast 4.5 mm thick angled axial sections acquired from the foramen magnum to the vertex, with coronal and sagittal reformats. For radiation dose reduction, the following was used: automated exposure control, adjustment of mA and/or kV according to patient size. COMPARISON: None. FINDINGS: Image quality: Excellent. CSF spaces: Basal cisterns are patent. No extra-axial fluid collections. Ventricles are normal in size and shape. Brain: No midline shift. No intracranial masses or hemorrhage. Hall-white matter interface is normal. Skull and face: Calvarium and visualized facial bones are intact, without suspicious lesions. Sinuses: Visualized sinuses and mastoids are clear. IMPRESSION: No acute intracranial abnormality. Dictated by: Steve Raygoza M.D. on 01/27/2023 at 9:54 Approved by: Steve Raygoza M.D. on 01/27/2023 at 9:54
[2023-01-27 10:20] LABS: Appearance Urine UA CLEAR; Bilirubin Urine UA NEGATIVE (NEGATIVE); Color Urine UA YELLOW; Glucose Urine UA NEGATIVE (Negative); Ketones Urine UA NEGATIVE (NEGATIVE); Leukocyte Esterase Urine UA 1+ (NEGATIVE); Nitrite Urine UA POSITIVE (Negative); Occult Blood Urine UA NEGATIVE (Negative); Protein Urine UA NEGATIVE (Negative); Specific Gravity Urine UA <=1.005 (1.000-1.035); Urobilinogen Urine UA 0.2 E.U./dL (0.2)
[2023-01-27 10:26] LABS: Bacteria Urine Many (>30); RBC Urine None Seen (0-5/HPF); Squamous Epithelial Cell Urine None Seen (0-5/HPF); WBC Urine 1-5/HPF (0-5/HPF)
== END 2023-01-27 11:02 | disposition home or self-care (01) ==
PROVIDERS: Emergency Provider Emergency Medicine; Family Provider Internal Medicine; PCP Physical Medicine & Rehabilitation
DX: S09.90XA Unspecified injury of head, initial encounter (principal); N39.0 Urinary tract infection, site not specified; W19.XXXA Unspecified fall, initial encounter
CPT/HCPCS: 70450; 81001; 87077; 87086; 87186; 99283; 99284

== ENCOUNTER → 2023-04-17 14:10 | Outpatient (CLI) | payer MEDICARE, OTHER, SELFPAY ==
[2019-03-06 14:57] VITALS: BMI 24.7
--- NOTE | 2023-04-17 | DI.US.S_ITS ---
PROCEDURE: US RENAL COMPLETE INDICATIONS: MULTIPLE SCLEROSIS TECHNIQUE: Real-time scanning was performed of the kidneys and bladder, with image documentation. COMPARISON: [facility], , US RENAL COMPLETE, 03/21/2020, 11:26. FINDINGS: Kidneys: Kidneys are normal in size. Right kidney measures 10.8 cm long; left kidney measures 11.8 cm long. Right renal cortical thickness is 2.1 cm; left renal cortical thickness is 2.0 cm. Renal cortical echotexture is normal. No hydronephrosis. There is a nonobstructing 5 mm right renal calculus. There is a 1.3 cm right renal cyst. Bladder: A Atwood catheter is present within the bladder. The ureteral jets are not visualized. The prevoid bladder volume is 279.2 cc. Miscellaneous: No free pelvic fluid. IMPRESSION: 1. No hydronephrosis. 2. Nonobstructive right nephrolithiasis. Dictated by: Sharlene Nelson M.D. on 04/17/2023 at 17:36 Approved by: Sharlene Nelson M.D. on 04/17/2023 at 17:38
== END ==
PROVIDERS: Family Provider Internal Medicine; PCP Physical Medicine & Rehabilitation; Referring Provider Urology; Visit Provider Urology
DX: G35 Multiple sclerosis (principal); N20.0 Calculus of kidney
CPT/HCPCS: 76770